=== PATIENT | female | born 1980 | race Caucasian/White ===

== ENCOUNTER → 2018-05-09 | Outpatient (CLI) | payer OTHER ==
--- NOTE | 2018-05-09 12:12 | XR ---
Lumbar spine HISTORY: Back pain, pain in right hip 3 views of the lumbar spine No comparisons There is loss of disc height greatest at L4-5 with associated vacuum phenomenon, spondylosis. Lumbar vertebral bodies show preserved height and alignment, bone mineralization. IMPRESSION: Degenerative disc disease, lumbar MRI may be of benefit.
--- NOTE | 2018-05-09 12:24 | XR ---
Right hip HISTORY: Right hip pain, lifting injury 2 views of the right hip Bone mineralization, joint spaces and alignment are maintained IMPRESSION: No fracture or dislocation.
== END | disposition home or self-care (01) ==
LOC: RADXRMAIN 10:40
PROVIDERS: ATTEND Physician Assistant
DX: M51.36 Other intervertebral disc degeneration, lumbar region (principal); M25.551 Pain in right hip
CPT/HCPCS: 72100; 73502

== ENCOUNTER → 2018-05-24 | Outpatient (CLI) | payer OTHER ==
--- NOTE | 2018-05-24 22:40 | MR ---
EXAMINATION TYPE: MR lumbar spine wo con DATE OF EXAM: 05/24/2018 COMPARISON: Lumbar spine x-ray May 09, 2018. HISTORY: Lumbar disc degeneration per order. Chronic low back pain going into bilateral buttocks and right thigh and calf for 5 years per patient. TECHNIQUE: Multiplanar, multisequence imaging of the lumbar spine is performed without IV contrast. FINDINGS: Sagittal images of the lumbar spine show vertebral body heights and alignment to appear sat isfactory. There is disc desiccation with mild disc space narrowing and posterior disc herniation L4- L5 level seen on sagittal images otherwise the intervertebral discs demonstrate normal heights and hy dration. The conus medullaris is normal in position and signal ending at T12-L1 disc space level. Sm all hemangiomas noted at T12 vertebra on sagittal image 6. No significant spurring is seen. Axial images show T12-L1, L1-L2, L2-L3, and L3-L4 levels all to appear within normal limits. Axial images at the L4-L5 level show mild broad disc bulge mildly effacing the anterior thecal sac an d causing mild bilateral inferior neural foraminal narrowing. Axial images at the L5-S1 level shows tiny central disc protrusion. Spinal canal is preserved the krys ateral neural foramina are patent. There is a round 1.0 cm low T1 and T2 hyperintense lesion right kidney could reflect simple cyst axia l image 25. IMPRESSION: Degenerative change L4-L5 level as detailed above. No significant herniation is seen to a ccount for radiculopathy type symptoms however.
== END | disposition home or self-care (01) ==
LOC: RADMRIMAIN 18:36
PROVIDERS: ATTEND Physician Assistant
DX: M47.816 Spondylosis without myelopathy or radiculopathy, lumbar region (principal)
CPT/HCPCS: 72148

== ENCOUNTER 2020-06-02 10:13 | Inpatient (IN) | payer OTHER ==
[2020-06-02] MEDS ORDERED: HYDROmorphone 0.5 MG/0.5 ML SYRINGE IVP STA (10:26)
[2020-06-02] MEDS ORDERED: SODIUM CHLORIDE 0.9% 1,000 ML IV ONE (10:26)
[2020-06-02] MEDS ORDERED: SODIUM CHLORIDE 0.9% 500 ML 500 ML IV ONE (10:26)
[2020-06-02] MEDS: SODIUM CHLORIDE 0.9% 1,000 ML IV SCH ×2 (10:30→18:46)
--- NOTE | 2020-06-02 10:33 | ED ---
Abdominal Pain HPI - General Source: patient Mode of arrival: EMS Limitations: no limitations <Allie Mead - Last Filed: 06/02/20 13:16> <Rafa Ford - Last Filed: 06/02/20 13:27> - General Chief Complaint: Abdominal Pain Stated Complaint: Abd Pain Time Seen by Provider: 06/02/20 10:17 - History of Present Illness Initial Comments: 39-year-old female presenting today for chief complaint diffuse abdominal pain. Patient states she has mostly upper however today more diffuse abdominal pain for the past 24 hours. Patient states that increases morning she endorses nausea denies vomiting states she has on-and-off loose stools denies constipation. Patient states she started her period this morning. Denies any lower pelvic pain. Patient denies she states she had a tubal ligation. Denies fevers. Patient states she has had an episode like this in the past but no in quite some time. Patient states she could no tolerate the pain thus calling EMS to transport her into the ER. Upon arrival patient did appear uncomfortable. (Allie Mead) - Related Data Home Medications Medication Instructions Recorded Confirmed Dextroamphetamine/Amphetamine 30 mg PO QAM 09/03/16 09/03/16 [Adderall] Ibuprofen [Motrin] 200 - 400 mg PO Q4-6H PRN 09/03/16 09/03/16 Omeprazole 40 mg PO QAM 09/03/16 09/03/16 traMADol HCL [Ultram] 50 mg PO TID PRN 09/03/16 09/03/16 Allergies Allergy/AdvReac Type Severity Reaction Status Date / Time No Known Allergies Allergy Verified 06/02/20 10:17 Review of Systems ROS Other: All systems not noted in ROS Statement are negative. <Allie Mead - Last Filed: 06/02/20 13:16> ROS Other: All systems not noted in ROS Statement are negative. <Rafa Ford - Last Filed: 06/02/20 13:27> ROS Statement: Those systems with pertinent positive or pertinent negative responses have been documented in the HPI. Past Medical History Past Medical History: GERD/Reflux Additional Past Medical History / Comment(s): CURRENT: PAIN IN LEFT UPPER QUANDRANT. KIDNEY STONES. CARPAL. hiatal hernia History of Any Multi-Drug Resistant Organisms: None Reported Past Surgical History: Tubal Ligation Past Anesthesia/Blood Transfusion Reactions: No Reported Reaction Past Psychological History: ADD/ADHD, Bipolar Smoking Status: Current every day smoker Past Alcohol Use History: Occasional Past Drug Use History: Marijuana <AlyceAllie - Last Filed: 06/02/20 13:16> General Exam Limitations: no limitations <Maira Meadnoemi Cotton - Last Filed: 06/02/20 13:16> - General Exam Comments Initial Comments: General: The patient is awake and alert, appear uncomfortable. Eye: +3 mm pupils are equal, round and reactive to light, extra-ocular movements are intact. No nystagmus. There is normal conjunctiva bilaterally. No signs of icterus. Ears, nose, mouth and throat: There are moist mucous membranes and no oral lesions. Neck: The neck is supple, there is no tenderness or JVD. Cardiovascular: There is a regular rate and rhythm. No murmur, rub or gallop is appreciated. Respiratory: Lungs are clear to auscultation, respirations are non-labored, breath sounds are equal. No wheezes, stridor, rales, or rhonchi. Gastrointestinal: Soft, non-distended, diffuse poorly localized abdominal pain to palpation on physical examination appears more severe in the upper quadrants more minimal in the lower quadrants does not appear to be in the lower pelvic region or suprapubic region of the abdomen, abdomen without masses or organomeg marla noted. There is no rebound or guarding present. No CVA tenderness. Musculoskeletal: Normal ROM, no tenderness. Strength 5/5. Sensation intact. Pulses equal bilaterally 2+. Neurological: A&O x 3. CN II-XII intact rgossly, There are no obvious motor or sensory deficits. Coordination appears grossly intact. Speech is normal. Skin: Skin is warm and dry and no rashes or lesions are noted. Psychiatric: Cooperative, appropriate mood & affect, normal judgment. (Allie Mead) Course <Rafa Ford - Last Filed: 06/02/20 13:27> Vital Signs 06/02/20 06/02/20 06/02/20 10:14 12:03 13:22 Temperature 98.4 F 97.9 F 98.2 F Pulse Rate 89 101 H 102 H Respiratory 16 16 17 Rate Blood Pressure 113/85 106/65 109/67 O2 Sat by Pulse 99 99 98 Oximetry - Reevaluation(s) Reevaluation #1: 06/02/20 13:26 PA supervision: I personally evaluate this case patient does have abdominal pain and evidence of possible Crohn's disease and CAT scan. Patient will be admitted case was discussed with Dr. Null who did come to see the patient in the emergency department (Rafa Ford) Medical Decision Making - Lab Data Result diagrams: 06/02/20 10:22 06/02/20 10:22 <Allie Mead - Last Filed: 06/02/20 13:16> - Lab Data Result diagrams: 06/02/20 10:22 06/02/20 10:22 <Rafa Ford - Last Filed: 06/02/20 13:27> - Medical Decision Making Leukocytosis on labs. Patient pain improved on reevaluation after dilaudid IVP> Patient CT revealed ileitis, some free fluid in pelvis no pelvic pain no adnexal changes. Menstruation started today. Pt lips very dry on arrival. Urine specific gravity high. Patient hydrated. Patient pain persists she will be admitted for GI consult on IV steroids with concern for possible crohns disease. Patient prefers and is agreeable to admission (Allie Mead) - Lab Data Lab Results 06/02/20 06/02/20 06/02/20 Range/Units 10:22 10:22 12:00 WBC 18.3 H (3.8-10.6) k/uL RBC 4.77 (3.80-5.40) m/uL Hgb 15.9 (11.4-16.0) gm/dL Hct 47.1 H (34.0-46.0) % MCV 98.7 (80.0-100.0) fL MCH 33.3 (25.0-35.0) pg MCHC 33.7 (31.0-37.0) g/dL RDW 12.8 (11.5-15.5) % Plt Count 263 (150-450) k/uL Neutrophils % 90 % Lymphocytes % 6 % Monocytes % 2 % Eosinophils % 1 % Basophils % 0 % Neutrophils # 16.6 H (1.3-7.7) k/uL Lymphocytes # 1.1 (1.0-4.8) k/uL Monocytes # 0.4 (0-1.0) k/uL Eosinophils # 0.2 (0-0.7) k/uL Basophils # 0.0 (0-0.2) k/uL Sodium 131 L (137-145) mmol/L Potassium 4.3 (3.5-5.1) mmol/L Chloride 97 L (98-107) mmol/L Carbon Dioxide 23 (22-30) mmol/L Anion Gap 11 mmol/L BUN 16 (7-17) mg/dL Creatinine 0.68 (0.52-1.04) mg/dL Est GFR (CKD-EPI)AfAm >90 (>60 ml/min/1.73 sqM) Est GFR (CKD-EPI)NonAf >90 (>60 ml/min/1.73 sqM) Glucose 128 H (74-99) mg/dL Calcium 9.3 (8.4-10.2) mg/dL Total Bilirubin 1.6 H (0.2-1.3) mg/dL AST 18 (14-36) U/L ALT 12 (4-34) U/L Alkaline Phosphatase 75 (38-126) U/L Total Protein 6.7 (6.3-8.2) g/dL Albumin 3.9 (3.5-5.0) g/dL Amylase <30 L (30-110) U/L Lipase 23 (23-300) U/L Urine Color Yellow Urine Appearance Clear (Clear) Urine pH 6.0 (5.0-8.0) Ur Specific [place] >1.050 H (1.001-1.035) Urine Protein 1+ H (Negative) Urine Glucose (UA) Negative (Negative) Urine Ketones 1+ H (Negative) Urine Blood Large H (Negative) Urine Nitrite Negative (Negative) Urine Bilirubin Negative (Negative) Urine Urobilinogen <2.0 (<2.0) mg/dL Ur Leukocyte Esterase Negative (Negative) Urine RBC 12 H (0-5) /hpf Urine WBC 2 (0-5) /hpf Ur Squamous Epith Cells 6 H (0-4) /hpf Urine Bacteria Rare H (None) /hpf Urine Mucus Rare H (None) /hpf Urine HCG, Qual (Not Detectd) 06/02/20 Range/Units 12:00 WBC (3.8-10.6) k/uL RBC (3.80-5.40) m/uL Hgb (11.4-16.0) gm/dL Hct (34.0-46.0) % MCV (80.0-100.0) fL MCH (25.0-35.0) pg MCHC (31.0-37.0) g/dL RDW (11.5-15.5) % Plt Count (150-450) k/uL Neutrophils % % Lymphocytes % % Monocytes % % Eosinophils % % Basophils % % Neutrophils # (1.3-7.7) k/uL Lymphocytes # (1.0-4.8) k/uL Monocytes # (0-1.0) k/uL Eosinophils # (0-0.7) k/uL Basophils # (0-0.2) k/uL Sodium (137-145) mmol/L Potassium (3.5-5.1) mmol/L Chloride (98-107) mmol/L Carbon Dioxide (22-30) mmol/L Anion Gap mmol/L BUN (7-17) mg/dL Creatinine (0.52-1.04) mg/dL Est GFR (CKD-EPI)AfAm (>60 ml/min/1.73 sqM) Est GFR (CKD-EPI)NonAf (>60 ml/min/1.73 sqM) Glucose (74-99) mg/dL Calcium (8.4-10.2) mg/dL Total Bilirubin (0.2-1.3) mg/dL AST (14-36) U/L ALT (4-34) U/L Alkaline Phosphatase (38-126) U/L Total Protein (6.3-8.2) g/dL Albumin (3.5-5.0) g/dL Amylase (30-110) U/L Lipase (23-300) U/L Urine Color Urine Appearance (Clear) Urine pH (5.0-8.0) Ur Specific [place]aban (1.001-1.035) Urine Protein (Negative) Urine Glucose (UA) (Negative) Urine Ketones (Negative) Urine Blood (Negative) Urine Nitrite (Negative) Urine Bilirubin (Negative) Urine Urobilinogen (<2.0) mg/dL Ur Leukocyte Esterase (Negative) Urine RBC (0-5) /hpf Urine WBC (0-5) /hpf Ur Squamous Epith Cells (0-4) /hpf Urine Bacteria (None) /hpf Urine Mucus (None) /hpf Urine HCG, Qual Not Detected (Not Detectd) Disposition Is patient prescribed a controlled substance at d/c from ED?: No Time of Disposition: 13:12 Decision to Admit Reason: Admit from EC Decision Date: 06/02/20 Decision Time: 13:12 <Allie Mead - Last Filed: 06/02/20 13:16> <Rafa Ford - Last Filed: 06/02/20 13:27> Clinical Impression: Ileitis, Abdominal pain, Dehydration Disposition: ADMITTED IP TO THIS HOSP Condition: Stable Referrals: Zeferino Coffey MD [Primary Care Provider] - 1-2 days
[2020-06-02 10:34] LABS: Basophils % (A) 0 %; Eosinophils # (A) 0.2 k/uL (0-0.7); Eosinophils % (A) 1 %; HCT 47.1 % (34.0-46.0); HGB 15.9 gm/dL (11.4-16.0); Lymphocytes # (A) 1.1 k/uL (1.0-4.8); Lymphocytes % (A) 6 %; MCH 33.3 pg (25.0-35.0); MCHC 33.7 g/dL (31.0-37.0); MCV 98.7 fL (80.0-100.0); Mean Platelet Volume 8.7; Monocytes # (A) 0.4 k/uL (0-1.0); Monocytes % (A) 2 %; Neutrophils # (A) 16.6 k/uL (1.3-7.7); Neutrophils % (A) 90 %; Platelet Count 263 k/uL (150-450); RBC 4.77 m/uL (3.80-5.40); RDW 12.8 % (11.5-15.5); WBC 18.3 k/uL (3.8-10.6)
[2020-06-02 10:42] LABS: ALT 12 U/L (4-34); AST 18 U/L (14-36); African American GFR (CKD) >90 (>60 ml/min/1.73 sqM); Albumin 3.9 g/dL (3.5-5.0); Alkaline Phosphatase 75 U/L (38-126); Amylase <30 U/L (30-110); Anion Gap 11 mmol/L; Blood Urea Nitrogen 16 mg/dL (7-17); Calcium 9.3 mg/dL (8.4-10.2); Carbon Dioxide 23 mmol/L (22-30); Chloride 97 mmol/L (98-107); Glucose 128 mg/dL (74-99); Non-African American GFR(CKD) >90 (>60 ml/min/1.73 sqM); Potassium 4.3 mmol/L (3.5-5.1); Sodium 131 mmol/L (137-145); Total Bilirubin 1.6 mg/dL (0.2-1.3); Total Protein 6.7 g/dL (6.3-8.2)
--- NOTE | 2020-06-02 11:31 | CT ---
EXAMINATION TYPE: CT abdomen pelvis w con DATE OF EXAM: 06/02/2020 COMPARISON: 02/27/2009 INDICATION: Abdominal pain, acute, nonlocalized DLP: 476 mGycm, Automated exposure control for dose reduction was used. CONTRAST: 100 ml mL of Isovue 300. Study performed without Oral Contrast TECHNIQUE: Axial images were obtained from above the diaphragm to the pubic rami in the axial plane a t 5 mm thick sections. Reconstructed images are reviewed on the computer in the coronal plane. FINDINGS: Limited CT sections are obtained the lung bases. The lung bases are clear. CT ABDOMEN: Liver: Tiny hepatic cysts present Spleen: Normal Pancreas: Normal Adrenal glands: 1.2 cm hypodensity is within the superior left adrenal gland likely is an angiomyolip jonelle. Right adrenal gland is normal. Gallbladder: Normal Kidneys: No masses are evident. No hydronephrosis is present. Small cortical renal cysts within the right kidney. There may be a cortical renal cyst within the upper left kidney .Delayed images were o btained through the kidneys are demonstrating the right renal cortical cyst Aorta: Vascular calcification is within the aorta. Inferior vena cava: Normal. CT PELVIS: There are thickened loops of bowel within the lower pelvis. Correlate for ileitis. Crohn's disease co uld be considered. Studies without oral contrast limiting bowel evaluation. Appendix: Normal as visualized. Urinary bladder: Normal Genitourinary structures: Uterus is normal. Adnexal regions are clear. There is free fluid within the pelvis. Osseous structures: No suspicious lytic or sclerotic lesions. IMPRESSIONS: 1. Thickened ileal wall within the lower pelvis. Free fluid is within the pelvis. Correlate for ilei tis or Crohn's disease.
[2020-06-02] MEDS ORDERED: PIPERACILLIN-TAZOBACTAM 3.375 GM in SODIUM CHLORIDE 0.9% 100 ML IVPB STA (11:53)
[2020-06-02] MEDS ORDERED: methylPREDNISolone SOD SUCCI 125 MG/2 ML VIAL IV STA (11:54)
[2020-06-02 12:24] LABS: Appearance,Urine Clear (Clear); Bacteria,Urine Rare /hpf; Bilirubin,Urine Negative (Negative); Blood,Urine Large (Negative); Color,Urine Yellow; Glucose,Urine (UA) Negative (Negative); Ketones,Urine 1+ (Negative); Leukocyte Esterase,Urine Negative (Negative); Mucus,Urine Rare /hpf; Nitrite,Urine Negative (Negative); Protein,Urine 1+ (Negative); RBC,Urine 12 /hpf (0-5); Squamous Epithelial Cell,Urine 6 /hpf (0-4); Urobilinogen,Urine <2.0 mg/dL (<2.0); WBC,Urine 2 /hpf (0-5)
[2020-06-02 12:46] LABS: Specific Gravity,Urine >1.050 (1.001-1.035)
--- NOTE | 2020-06-02 13:01 | US ---
EXAMINATION TYPE: US abdomen limited DATE OF EXAM: 06/02/2020 COMPARISON: NONE CLINICAL HISTORY: RUQ. EXAM MEASUREMENTS: Liver Length: 18.1 cm Gallbladder Wall: 0.2 cm CBD: 0.2 cm Right Kidney: 11.2 x 4.2 x 6.1 cm Pancreas: partially obscured by bowel gas, portions visualized wnl Liver: Hepatomegaly. Hyperechoic oval structure anterior to portal vein measuring 0.8 x 0.9 x 0.7cm t his may be a small hemangioma. Gallbladder: wnl Evidence for sonographic Villalta's sign: no CBD: wnl Right Kidney: superior echogenic foci, probable stone measuring 0.6 x 0.3 x 0.5cm IMPRESSION: 1. Suspected small hemangioma within the liver. This could be evaluated with MRI or monitor for stabi lity with ultrasound. 2. Superior pole right renal stone without obstruction.
[2020-06-02] MEDS ORDERED: NALOXONE 0.4 MG/ML 1 ML VIAL IV PRN (13:12)
[2020-06-02] MEDS ORDERED: AZITHROMYCIN 500 MG TAB PO STA (13:13)
[2020-06-02] MEDS ORDERED: cefTRIAXone 250 MG VIAL IM STA (13:13)
[2020-06-02] MEDS ORDERED: MORPHINE SULFATE 2 MG/ML SYRINGE IVP STA (14:08)
[2020-06-02] MEDS ORDERED: ALPRAZolam 0.25 MG TAB PO PRN (14:13)
[2020-06-02] MEDS ORDERED: TEMAZEPAM 15 MG CAP PO PRN (14:13)
[2020-06-02] MEDS: HEPARIN SODIUM,PORCINE 5,000 UNIT/ML 1 ML VIAL SQ SCH ×2 (15:11→21:09)
[2020-06-02] MEDS: PANTOPRAZOLE 40 MG/10 ML VIAL IVP SCH (15:11)
[2020-06-02] MEDS: HYDROmorphone 0.5 MG/0.5 ML SYRINGE IVP PRN (15:12)
[2020-06-02] MEDS: LEVOFLOXACIN 500MG-D5W PMX 500 MG in DEXTROSE/WATER 1 100ML.BAG IVPB SCH (15:18)
--- NOTE | 2020-06-02 15:25 | HP ---
HISTORY AND PHYSICAL DATE OF SERVICE: 06/02/2020 CHIEF COMPLAINT: Abdominal pain. HISTORY OF PRESENT ILLNESS: This 39-year-old woman with a past history of nephrolithiasis, history of carpal tunnel syndrome, hiatal hernia, history of ADD, ADHD, history of bipolar, history of nicotine dependence, being followed by Dr. Zeferino Coffey in the outpatient setting, was complaining of severe abdominal for the last several days. The pain was situated from the epigastrium to umbilicus. Patient also has nausea. There is no diarrhea. Currently, the patient does have on and off loose stools and because of multiple symptomatology, patient came to [facility] for evaluation and treatment. The patient's mother had history of lupus and collagen vascular disorder disorders also. The CT scan of the abdomen and pelvis was done in the ER which showed thickened ileal wall within the lower pelvis suggestive of ileitis or Crohn disease. There is no history of fever, rigors. No headache, loss of consciousness, seizures. PAST MEDICAL HISTORY: History of GERD, history of ADD, ADHD, bipolar. MEDICATIONS: 1. Ultram 50 mg t.i.d. p.r.n. 2. Omeprazole 40 mg p.r.n. 3. Motrin q.6h p.r.n. 4. Adderall 30 mg q.a.m. ALLERGIES: None. FAMILY HISTORY: No history of heart disease or strokes in the family. SOCIAL HISTORY: Occasional alcohol intake, smoking. The patient took up smoking again for the last few weeks according to her. History of THC. REVIEW OF SYSTEMS: ENT: No diminished vision. No diminished hearing. CARDIOVASCULAR: No angina or palpitations. RESPIRATORY: No cough. No hemoptysis. GI: As mentioned earlier. no dysuria. NERVOUS SYSTEM: No numbness or weakness. ALLERGY/IMMUNOLOGY: No asthma or hayfever. MUSCULOSKELETAL as mentioned earlier. HEMATOLOGY/ONCOLOGY: No history of anemia. MUSCULOSKELETAL: As mentioned earlier. ENDOCRINE: No history of diabetes or hypothyroidism. CONSTITUTIONAL: As mentioned earlier. DERMATOLOGY Negative. RHEUMATOLOGY: Negative. PSYCHIATRIC: As mentioned earlier. PHYSICAL EXAMINATION: Alert and oriented times three. Pulse 102. Blood pressure 109/69, respirations 17, temperature 98.2, pulse ox 98% on room air. HEENT: Conjunctivae normal. Oral mucosa moist. NECK is no jugular venous distention. No carotid bruit. No lymph node enlargement. CARDIOVASCULAR: S1, S2 muffled. RESPIRATION: Breath sounds diminished in the bases. No rhonchi. No crackles. ABDOMEN: Soft. Mild diffuse tenderness present. No guarding. No rigidity. No mass palpable. LEGS no edema. No swelling. NERVOUS SYSTEM: Higher functions as mentioned earlier. Moves all four extremities. No focal motor or sensory deficits. LYMPHATICS: No lymph nodes palpable in the neck, axillae or groin. SKIN: No ulcer, rash, bleeding. JOINTS: No active deforming arthropathy. LABS: WBC 10.3, sodium 131, glucose 128, bilirubin is 1.6. UA shows 1+ ketones and mostly RBCs. ASSESSMENT: 1. Abdominal pain with possible terminal ileitis, rule out Crohn's disease or enteritis. 2. Hyponatremia. 3. Increased WBC. 4. Increased random blood sugar. 5. History of attention-deficit disorder/attention-deficit/hyperactivity disorder/bipolar. 6. History of nicotine dependence. 7. History of THC. 8. History of gastroesophageal reflux disease. RECOMMENDATIONS AND DISCUSSION: This 39-year-old woman who presented with multiple complex medical issues, we will monitor the patient closely. Continue the current medications, management and symptomatic treatment. Otherwise, at this time, I recommend empiric antibiotics and Gastroenterology consultation for possible endoscopies and biopsies. Covid-19 has been requested. Prognosis guarded because of multiple complex medical issues. Home medications were will be restarted once they are confirmed. Otherwise, we will follow the patient closely. A copy of this dictation being forwarded to Dr. Zeferino Coffey who is the primary care physician. MMODL / IJN: [id number] /
[2020-06-02] MEDS: metroNIDAZOLE-NS PMX 500 MG in SALINE 1 100ML.BAG IVPB SCH ×2 (17:15→23:04)
[2020-06-02] MEDS: ACETAMINOPHEN TAB 325 MG TAB PO PRN (21:09)
[2020-06-02] MEDS: HYDROcodone/APAP 5-325MG 1 EACH TAB PO PRN (21:42)
[2020-06-03] MEDS: SODIUM CHLORIDE 0.9% 1,000 ML IV SCH ×3 (01:50→14:16)
[2020-06-03] MEDS: HYDROmorphone 0.5 MG/0.5 ML SYRINGE IVP PRN ×3 (03:54→16:30)
[2020-06-03 06:43] LABS: Basophils % (A) 0 %; Eosinophils % (A) 0 %; HCT 37.5 % (34.0-46.0); Lymphocytes # (A) 0.4 k/uL (1.0-4.8); Lymphocytes % (A) 3 %; MCH 33.1 pg (25.0-35.0); MCHC 32.7 g/dL (31.0-37.0); MCV 101.3 fL (80.0-100.0); Mean Platelet Volume 8.9; Monocytes # (A) 0.3 k/uL (0-1.0); Monocytes % (A) 3 %; Neutrophils # (A) 10.2 k/uL (1.3-7.7); Neutrophils % (A) 93 %; Platelet Count 202 k/uL (150-450); RBC 3.71 m/uL (3.80-5.40)
[2020-06-03 06:52] LABS: African American GFR (CKD) >90 (>60 ml/min/1.73 sqM); Anion Gap 7 mmol/L; Blood Urea Nitrogen 12 mg/dL (7-17); Carbon Dioxide 22 mmol/L (22-30); Chloride 103 mmol/L (98-107); Glucose 144 mg/dL (74-99); Non-African American GFR(CKD) >90 (>60 ml/min/1.73 sqM); Potassium 3.8 mmol/L (3.5-5.1); Sodium 132 mmol/L (137-145)
[2020-06-03 06:55] LABS: HGB 12.3 gm/dL (11.4-16.0)
[2020-06-03] MEDS: PANTOPRAZOLE 40 MG/10 ML VIAL IVP SCH (07:43)
[2020-06-03] MEDS: HEPARIN SODIUM,PORCINE 5,000 UNIT/ML 1 ML VIAL SQ SCH ×2 (07:43→19:49)
[2020-06-03] MEDS: NICOTINE 14MG/24HR PATCH TRANSDERM SCH (07:44)
[2020-06-03] MEDS: metroNIDAZOLE-NS PMX 500 MG in SALINE 1 100ML.BAG IVPB SCH ×2 (07:44→15:23)
[2020-06-03] MEDS: HYDROcodone/APAP 5-325MG 1 EACH TAB PO PRN ×2 (07:46→19:47)
[2020-06-03 09:08] LABS: Erythrocyte Sedimentation Rate 25 mm/hr (0-20)
[2020-06-03] MEDS: LEVOFLOXACIN 500MG-D5W PMX 500 MG in DEXTROSE/WATER 1 100ML.BAG IVPB SCH (14:16)
--- NOTE | 2020-06-03 15:32 | PN ---
PROGRESS NOTE DATE OF SERVICE: 06/03/2020 This is a 39-year-old woman who was admitted with abdominal pain had possibly terminal ileitis and Crohn disease, GI evaluation and progress. No chest pain. No palpitations. Empiric antibiotics. The patient is still complaining of abdominal pain and distention. No fever no cough. PHYSICAL EXAMINATION: Alert and oriented x3. Pulse 76, blood pressure 96/60, respiration 14, temperature 98 degrees, pulse ox 100% on room. HEENT: Conjunctivae normal. NECK: No jugular venous distension. CARDIOVASCULAR SYSTEM: S1, S2, muffled. RESPIRATORY: Breath sounds diminished at the bases, no rhonchi, no crackles. ABDOMEN: Soft, mild diffuse distention. Mild diffuse tenderness present. No guarding. No rigidity. No mass palpable. EXTREMITIES: Legs are no edema. No swelling. LABS: WBC 11, hemoglobin 12.3, MCV 101. His sodium is 132. UA noted. ASSESSMENT: 1. Abdominal pain with possible terminal ileitis, rule out Crohn's disease, enteritis. 2. Hyponatremia. 3. Increased WBC. 4. Increased random blood sugar. 5. History of ADD, ADHD. 6. History of nicotine dependence. 7. History of THC. 8. History of gastroesophageal reflux disease. RECOMMENDATION: Recommend to continue current medications, current management and treatment. Otherwise, at this time, I would recommend empiric antibiotics. Closely follow with Gastroenterology, possible endoscopies and biopsies. Guarded prognosis. Further recommendation to follow. MMODL / IJN: [id number] /
[2020-06-03] MEDS: ACETAMINOPHEN TAB 325 MG TAB PO PRN (19:48)
--- NOTE | 2020-06-03 23:28 | CONS ---
CONSULTATION DATE OF DICTATION: June 03, 2020 REASON FOR CONSULTATION: Severe abdominal pain, nausea, vomiting. HISTORY OF PRESENT ILLNESS: The patient is a 39-year-old pleasant white female who came to the emergency room complaining of severe abdominal pain that started about 5 days ago. The pain is mostly in the epigastric area radiating to the lower abdominal area associated with several episodes of nausea and vomiting. She denies any diarrhea. In fact, she felt somewhat constipated. She came to the emergency room. Subsequently had a CT of the abdomen and pelvis done in the ER that showed thickening of the small bowel, especially in the ileum suggestive of ileitis. Patient presently started on broad-spectrum antibiotics for infectious etiology. She feels 50% better today. Abdominal pain is persistent. Nausea, vomiting has resolved. On a clear liquid diet, tolerating well. Had one soft bowel movement this morning. No rectal bleeding. She also states that she had low- grade fever at the time of admission to the hospital. She never had these symptoms in the past. No family history of inflammatory bowel disease. PAST MEDICAL HISTORY: Gastroesophageal reflux disease, attention deficit disorder, history of bipolar disorder, anxiety. MEDICATIONS: Medications at home include Adderall, Motrin, omeprazole, Ultram. SOCIAL HISTORY: Occasionally drinks alcohol. Smoking on and off. FAMILY HISTORY: Unremarkable. ALLERGIES: None. REVIEW OF SYSTEMS: CARDIOPULMONARY: She denies any chest pain. No shortness of breath. GENITOURINARY: No dysuria or hematuria. MUSCULOSKELETAL: Unremarkable. SKIN: Unremarkable. ENDOCRINE: Unremarkable. PSYCHIATRIC: Unremarkable except for severe anxiety as she is going through a divorce. NEUROLOGY: Unremarkable. ENT/VISION: Unremarkable. CONSTITUTIONAL: Weight loss of 12 pounds. No fever, chills, night sweats. PHYSICAL EXAMINATION: She appears comfortable. No apparent distress. VITAL SIGNS: Stable. Blood pressure is 93/54, pulse rate 79, temperature 98.6. HEENT EXAMINATION: Unremarkable. Conjunctivae pink. Sclerae anicteric. Oral cavity, no lesions. NECK: No JVD or lymph node enlargement. CHEST: Clear to auscultation. HEART: Regular rate and rhythm. ABDOMEN: Soft. It was nondistended, but there was diffuse tenderness throughout the abdomen, more in the epigastric and right upper quadrant area. Rest of the abdomen was also tender. No rebound or rigidity. Bowel sounds are positive. EXTREMITIES: No pedal edema. NEURO: She is alert and oriented x3. No focal deficits. LABS: WBC 18.3, hemoglobin 15, platelets normal. Basic metabolic panel showed a BUN and creatinine that are within normal limits. AST and ALT are normal. T-bilirubin 1.6. Alkaline phosphatase is normal. CRP is 299. Amylase and lipase are normal. Urinalysis showed large amount of blood. CT of the abdomen showed thickening of small bowel loops in the ileum suggestive of acute ileitis versus Crohn's disease. IMPRESSION: 1. This is a patient who presented to the hospital with acute onset of diffuse abdominal pain mostly in the epigastric area radiating to the lower abdominal area associated with nausea, vomiting and some altered bowel movements, mostly constipation for the last 5 days. CAT scan of the abdomen showed thickening of the distal ileal loops suspicious for ileitis. No family history of inflammatory bowel disease. The patient never had these symptoms in the past, likely dealing with infectious etiology at the present time, patient already started on broad-spectrum antibiotics and she is feeling 50% better. Cannot rule out inflammatory bowel disease. 2. Leukocytosis, resolving. 3. Elevated CRP. 4. History of anxiety and depression. RECOMMENDATION: 1. Continue with broad-spectrum antibiotics. 2. Start her on clear liquid diet and advance as tolerated. 3. If her symptoms continue to improve, we will continue with conservative approach. However, if she has persistent symptoms, will consider EGD and colonoscopy. The plan was discussed with the patient. She is agreeable to it. Thank you for this consultation. LIEN / EDENILSONN: [id number] /
[2020-06-04] MEDS: metroNIDAZOLE-NS PMX 500 MG in SALINE 1 100ML.BAG IVPB SCH ×3 (00:12→15:32)
[2020-06-04] MEDS: SODIUM CHLORIDE 0.9% 1,000 ML IV SCH ×3 (00:13→15:32)
[2020-06-04] MEDS: HYDROmorphone 0.5 MG/0.5 ML SYRINGE IVP PRN ×6 (00:28→23:59)
[2020-06-04 06:02] LABS: Basophils % (A) 0 %; Eosinophils % (A) 0 %; HCT 36.1 % (34.0-46.0); HGB 11.9 gm/dL (11.4-16.0); Lymphocytes # (A) 0.4 k/uL (1.0-4.8); Lymphocytes % (A) 4 %; MCH 33.4 pg (25.0-35.0); MCHC 33.1 g/dL (31.0-37.0); MCV 100.9 fL (80.0-100.0); Monocytes # (A) 0.3 k/uL (0-1.0); Monocytes % (A) 3 %; Neutrophils # (A) 10.6 k/uL (1.3-7.7); Neutrophils % (A) 92 %; Platelet Count 211 k/uL (150-450); RBC 3.58 m/uL (3.80-5.40); RDW 13.1 % (11.5-15.5); WBC 11.5 k/uL (3.8-10.6)
[2020-06-04 06:10] LABS: African American GFR (CKD) >90 (>60 ml/min/1.73 sqM); Anion Gap 4 mmol/L; Blood Urea Nitrogen 11 mg/dL (7-17); Calcium 7.5 mg/dL (8.4-10.2); Carbon Dioxide 26 mmol/L (22-30); Chloride 103 mmol/L (98-107); Glucose 98 mg/dL (74-99); Non-African American GFR(CKD) >90 (>60 ml/min/1.73 sqM); Potassium 3.9 mmol/L (3.5-5.1); Sodium 133 mmol/L (137-145)
[2020-06-04] MEDS: NICOTINE 14MG/24HR PATCH TRANSDERM SCH (07:32)
[2020-06-04] MEDS: HYDROcodone/APAP 5-325MG 1 EACH TAB PO PRN ×3 (07:36→19:53)
[2020-06-04] MEDS: HEPARIN SODIUM,PORCINE 5,000 UNIT/ML 1 ML VIAL SQ SCH ×2 (07:36→23:57)
[2020-06-04] MEDS: PANTOPRAZOLE 40 MG/10 ML VIAL IVP SCH (07:36)
--- NOTE | 2020-06-04 14:14 | PN ---
PROGRESS NOTE DATE OF SERVICE: 06/04/2020 This is a 39-year-old woman who was admitted with abdominal pain, had features of terminal ileum. Patient still has abdominal pain and distention. Gastroenterology has seen the patient, planning the scopes, endoscopy, EGD, colonoscopy and possibly a biopsy also. No chest pain. No palpitations. No fever. PHYSICAL EXAMINATION: Alert and oriented x3. Pulse 84, blood pressure 92/60, respiration 18, temperature 98.2, pulse ox 99% on room air. HEENT: Conjunctivae normal. NECK: No jugular venous distension. CARDIOVASCULAR SYSTEM: S1, S2, muffled. RESPIRATORY: Breath sounds diminished at the bases, no rhonchi. ABDOMEN: Soft. Mild diffuse distention. No mass palpable. LEGS: No edema. No swelling. NERVOUS SYSTEM: No focal deficits. LABS: WBC is 7.2, hemoglobin 10.9, sodium 133 and C-reactive protein is 245. ASSESSMENT: 1. Abdominal pain with possible terminal ileitis, rule out Crohn's disease, enteritis. 2. Hyponatremia. 3. Increased WBC. 4. Increased random blood sugar. 5. History of attention deficit disorder, attention deficit hyperactivity disorder. 6. History of nicotine dependence. 7. History of THC. 8. History of GERD. RECOMMENDATION: Recommend to continue current medications, continue management and symptomatic treatment. Otherwise, at this time I recommend endoscopes. Empiric antibiotics. Closely follow with Gastroenterology. Guarded prognosis. Further recommendations to follow. MMODL / IJN: [id number] /
[2020-06-04] MEDS: LEVOFLOXACIN 500MG-D5W PMX 500 MG in DEXTROSE/WATER 1 100ML.BAG IVPB SCH (14:17)
[2020-06-04] MEDS ORDERED: PEG 3350-NA SULF,BICARB,CL/KCL 4,000 ML BOTTLE PO ONE (17:00)
[2020-06-04] MEDS: ONDANSETRON 4 MG/2 ML VIAL IVP PRN (19:52)
[2020-06-05] MEDS: metroNIDAZOLE-NS PMX 500 MG in SALINE 1 100ML.BAG IVPB SCH ×3 (00:20→14:10)
[2020-06-05] MEDS: SODIUM CHLORIDE 0.9% 1,000 ML IV SCH ×3 (02:59→14:14)
[2020-06-05] MEDS: HYDROmorphone 0.5 MG/0.5 ML SYRINGE IVP PRN ×2 (05:41→09:35)
[2020-06-05 06:10] LABS: Basophils % (A) 0 %; Eosinophils # (A) 0.1 k/uL (0-0.7); Eosinophils % (A) 1 %; HCT 38.3 % (34.0-46.0); HGB 12.5 gm/dL (11.4-16.0); Lymphocytes # (A) 0.6 k/uL (1.0-4.8); Lymphocytes % (A) 4 %; MCH 32.8 pg (25.0-35.0); MCHC 32.6 g/dL (31.0-37.0); MCV 100.5 fL (80.0-100.0); Monocytes # (A) 0.7 k/uL (0-1.0); Monocytes % (A) 4 %; Neutrophils # (A) 14.4 k/uL (1.3-7.7); Neutrophils % (A) 91 %; Platelet Count 276 k/uL (150-450); RBC 3.81 m/uL (3.80-5.40); RDW 13.1 % (11.5-15.5); WBC 15.9 k/uL (3.8-10.6)
[2020-06-05 06:20] LABS: African American GFR (CKD) >90 (>60 ml/min/1.73 sqM); Anion Gap 4 mmol/L; Blood Urea Nitrogen 7 mg/dL (7-17); Calcium 7.6 mg/dL (8.4-10.2); Carbon Dioxide 26 mmol/L (22-30); Chloride 101 mmol/L (98-107); Glucose 86 mg/dL (74-99); Non-African American GFR(CKD) >90 (>60 ml/min/1.73 sqM); Potassium 3.3 mmol/L (3.5-5.1); Sodium 131 mmol/L (137-145)
[2020-06-05 06:32] LABS: C Reactive Protein 269.5 mg/L (<10.0)
[2020-06-05] MEDS: NICOTINE 14MG/24HR PATCH TRANSDERM SCH (07:07)
[2020-06-05] MEDS: HEPARIN SODIUM,PORCINE 5,000 UNIT/ML 1 ML VIAL SQ SCH ×2 (07:07→21:56)
[2020-06-05] MEDS: PANTOPRAZOLE 40 MG/10 ML VIAL IVP SCH (07:17)
[2020-06-05 09:19] LABS: Erythrocyte Sedimentation Rate 48 mm/hr (0-20)
--- NOTE | 2020-06-05 10:26 | P.CONS ---
History of Present Illness - Reason for Consult Consult date: 06/04/20 Ileitis Requesting physician: Deandra Null - Chief Complaint vomiting x few days - History of Present Illness Patient is a 39-year-old female presented to [facility] on 06/02/2020 for evaluation of diffuse abdominal pain and vomiting patient says has been vomiting multiple times and able to keep anything down the patient denied any significant abdominal pain to me though she did complain it to the ER physician on arrival and denies any diarrhea the patient said he did not have any bowel movement since she has been admitted to hospital on arrival to the hospital patient was afebrile, the patient did have white count of 18.3 there is down to 11.5 as of this morning, patient did not have any cultures done patient did have a CT of abdominal pelvis which did shows thickened ileal wall within the lower pelvis free fluid is within the pelvis correlate for ileitis or Crohn's disease patient has been treated with Levaquin and Flagyl infectious was consulted for further management of antibiotic therapy patient has been evaluated by GI services and they are planning for possible colonoscopy tomorrow. Review of Systems Positive point has been mentioned HPI rest of the systems negative Past Medical History Past Medical History: GERD/Reflux Additional Past Medical History / Comment(s): CURRENT: PAIN IN LEFT UPPER QUANDRANT. KIDNEY STONES. CARPAL. hiatal hernia History of Any Multi-Drug Resistant Organisms: None Reported Past Surgical History: Tubal Ligation Past Anesthesia/Blood Transfusion Reactions: No Reported Reaction Past Psychological History: ADD/ADHD, Bipolar Smoking Status: Current every day smoker Past Alcohol Use History: Occasional Past Drug Use History: Marijuana - Past Family History Mother Family Medical History: Renal Disease Additional Family Medical History / Comment(s): lupas ra Father Family Medical History: No Reported History Medications and Allergies Home Medications Medication Instructions Recorded Confirmed Type Bismuth Subsalicylate 524 mg PO Q3H PRN 06/02/20 06/02/20 History [Pepto-Bismol] Calcium Carbonate [Tums] 500 mg PO TID PRN 06/02/20 06/02/20 History Ibuprofen [Motrin Ib] 200 mg PO Q8H PRN 06/02/20 06/02/20 History Simethicone [Gas-X] 62.5 mg PO QID PRN 06/02/20 06/02/20 History Allergies Allergy/AdvReac Type Severity Reaction Status Date / Time No Known Allergies Allergy Verified 06/02/20 14:28 Physical Exam Vitals: Vital Signs Temp Pulse Resp BP Pulse Ox 06/04/20 14:20 98.6 F 93 16 101/67 100 06/04/20 07:40 99 F 86 14 98/63 98 06/04/20 03:00 98.9 F 84 18 92/65 99 06/03/20 21:00 99.4 F 91 16 105/67 94 L Intake and Output 06/03/20 06/04/20 06/04/20 22:59 06:59 14:59 Intake Total 1360 1290 Balance 1360 1290 Intake: Intake, IV Titration 1040 1040 Amount Sodium Chloride 0.9% 1, 1040 1040 000 ml @ 130 mls/hr IV . Q7H42M [facility] Rx#:[id number] Oral 320 250 Other: Voiding Method Toilet Toilet Toilet # Voids 2 1 1 GENERAL DESCRIPTION: Middle-aged female lying in bed, no distress. No tachypnea or accessory muscle of respiration use. HEENT: Shows Pallor , no scleral icterus. Oral mucous membrane is dry. No pharyngeal erythema or thrush NECK: Trachea central, no thyromegaly. LUNGS: Unlabored breathing. Clear to auscultation anteriorly. No wheeze or crackle. HEART: S1, S2, regular rate and rhythm. No loud murmur ABDOMEN: Soft, tenderness , patient refused abdominal exam eXTREMITIES: No edema of feet. SKIN: No rash, no masses palpable. NEUROLOGICAL: The patient is awake, alert, oriented x3, mood and affect normal Results CBC & Chem 7: 06/05/20 05:37 06/05/20 05:37 Labs: Abnormal Lab Results - Last 24 Hours (Table) 06/04/20 06/04/20 06/04/20 Range/Units 05:42 05:42 05:42 WBC 11.5 H (3.8-10.6) k/uL RBC 3.58 L (3.80-5.40) m/uL MCV 100.9 H (80.0-100.0) fL Neutrophils # 10.6 H (1.3-7.7) k/uL Lymphocytes # 0.4 L (1.0-4.8) k/uL Sodium 133 L (137-145) mmol/L Calcium 7.5 L (8.4-10.2) mg/dL C-Reactive Protein 245.4 H (<10.0) mg/L Assessment and Plan Assessment: patient presented to hospital with intractable vomiting and abdominal pain in this patient who did have abnormal CT abdominal pelvis with evidence of ileitis with a question of infectious versus noninfectious etiology in view of the acute onset and no family history of inflammatory bowel disease could be dealing with enteric gram-negative pathogen however inflammatory bowel disease not entirely excluded (1) Ileitis Current Visit: Yes Status: Acute Code(s): K52.9 - NONINFECTIVE GASTRO ENTERITIS AND COLITIS, UNSPECIFIED SNOMED Code(s): 05434918 Plan: 1-we will obtain stool cultures 2-await colonoscopy and biopsies 3-patient to continue with Levaquin and Flagyl 4-IV fluids We will follow on clinical condition and cultures to further adjust medication if needed Thank you for this consultation will follow this patient along with you Time with Patient: Greater than 30
[2020-06-05] MEDS ORDERED: Potassium Replacement Protocol 1 EACH MISC MISCELLANE PRN (11:52)
--- NOTE | 2020-06-05 12:38 | PN ---
PROGRESS NOTE DATE OF SERVICE: 06/05/2020 REASON FOR FOLLOWUP: Ileitis. INTERVAL HISTORY: The patient is currently afebrile. She is complaining of feeling nauseated, but not throwing up though, did have some abdominal pain, more on the right side. No chest pain, shortness of breath or cough and did not have any bowel movement. PHYSICAL EXAMINATION: Blood pressure 101/63 with a pulse of 81, temperature 98.5, she is 98% on room air. General description is a middle-aged female, lying in bed in no distress. RESPIRATORY SYSTEM: Unlabored breathing, clear to auscultation anteriorly, heart S1, S2. Regular rate and rhythm. ABDOMEN: Soft, mildly distended. No guarding. No rigidity. LABS: Hemoglobin is 12.5, white count 15.9. Stool culture not obtained. DIAGNOSTIC IMPRESSION AND PLAN: Patient admitted to the hospital with abdominal pain, vomiting; however, no diarrhea with abnormality seen on the ileum with concern for ileitis, possible infectious with noninfectious etiology. The patient is covered with Levaquin and Flagyl to continue. Waiting for the colonoscopy. Continue supportive care. MMODL / IJN: [id number] /
[2020-06-05] MEDS: HYDROcodone/APAP 5-325MG 1 EACH TAB PO PRN ×2 (14:13→21:54)
[2020-06-05] MEDS: LEVOFLOXACIN 500MG-D5W PMX 500 MG in DEXTROSE/WATER 1 100ML.BAG IVPB SCH (15:13)
--- NOTE | 2020-06-05 15:13 | P.PN ---
Subjective Progress Note Date: 06/04/20 Principal diagnosis: Abdominal pain, nausea, vomiting The patient was seen came back from the shower room. When she was in bed and examined the patient had complaints of severe abdominal pain, which she states worsened through the night. She reports the pain radiates from the epigastric region down to the lower abdomen, and now radiating to the right upper quadrant and around her back. She states she still has nausea, however no vomiting. She reports passing flatus, however no bowel movement. She had had a CT of the abdomen and pelvis done which showed thickening of the small bowel, especially in the ileum suggestive of ileitis. She remains on broad-spectrum antibiotics per infectious etiology. Objective - Vital Signs Vital signs: Vital Signs Temp 99 F 06/04/20 07:40 Pulse 86 06/04/20 07:40 Resp 14 06/04/20 07:40 BP 98/63 06/04/20 07:40 Pulse Ox 98 06/04/20 07:40 Intake & Output 06/03/20 06/04/20 06/04/20 18:59 06:59 18:59 Intake Total 2650 Balance 2650 Intake: Intake, IV Titration 2080 Amount Sodium Chloride 0.9% 1, 2080 000 ml @ 130 mls/hr IV . Q7H42M [facility] Rx#:[id number] Oral 570 Other: Voiding Method Toilet Toilet Toilet # Voids 2 1 1 - Exam General appearance: The patient is alert, oriented, in no acute distress. She appears uncomfortable. HET: Head is normocephalic and atraumatic. Conjunctiva pink. Sclera anicteric. Neck: Supple without lymphadenopathy. Trachea midline. Heart: S1 S2. Regular rate and rhythm. Lungs: No crackles or wheezes are heard. Abdomen: Soft, is tenderness throughout the abdomen with very mild palpation, greater in the epigastric and right upper quadrant region, nondistended with bowel sounds. NO rigidity, however did have guarding. Extremities: Normal skin color and turgor. No edema bilaterally Neurological: Is alert and oriented 3. No focal deficits. - Labs CBC & Chem 7: 06/04/20 05:42 06/04/20 05:42 Labs: Abnormal Lab Results - Last 24 Hours (Table) 09/01/20 09/01/20 09/01/20 Range/Units 05:42 05:42 05:42 WBC 11.5 H (3.8-10.6) k/uL RBC 3.58 L (3.80-5.40) m/uL MCV 100.9 H (80.0-100.0) fL Neutrophils # 10.6 H (1.3-7.7) k/uL Lymphocytes # 0.4 L (1.0-4.8) k/uL Sodium 133 L (137-145) mmol/L Calcium 7.5 L (8.4-10.2) mg/dL C-Reactive Protein 245.4 H (<10.0) mg/L Assessment and Plan Assessment: 1. This patient presented to the hospital with acute onset of diffuse abdominal pain mostly in the epigastric area radiating to the lower abdominal area associated with nausea, vomiting, and some altered bowel movements, mostly constipation for the past 5 days CAT scan of the abdomen showed thickening of the distal ileal loops suspicious for ileitis . There is no family history of inflammatory bowel disease. The patient never had these symptoms in the past, likely dealing with infectious etiology at the present time, patient already started on broad-spectrum antibiotics. He was initially feeling better, however through the night symptoms have worsened. Cannot Rule out inflammatory bowel disease. 2. Leukocytosis, resolving 3. Elevated CRP 4. History of anxiety and depression Plan: 1. Continue with broad-spectrum antibiotics 2. Continue with her liquid diet 3. With persistent and worsening symptoms would recommend EGD and colonoscopy. The plan has been discussed with the patient she is agreeable to it. 4. Bowel prep this evening, NPO after midnight. The impression and plan of care has been dictated as directed. Dr. Anny Cano I performed a history and examination of this patient, discussed the same with the dictator. I agree with the dictator's note ,documented as a scribe. Any additional findings or plans will be noted.
--- NOTE | 2020-06-05 15:21 | P.PN ---
Subjective Progress Note Date: 06/05/20 Principal diagnosis: Abdominal pain, nausea, vomiting Patient was seen and examined lying in bed sleeping. Patient was scheduled for an EGD and colonoscopy today, however reports that she had severe abdominal pain and was medicated which made her sleepy and unable to finish her prep. The patient states her pain has continuous, sharp, diffuse, however worse in the right upper quadrant radiating to her back. She denies any fever or chills. She denies any vomiting, states she does have some mild nausea. Denies any diarrhea, states her last bowel movement was the day of admission. Today's labs include WBC of 15.9, hemoglobin 12.5, hematocrit 38.5, sed rate 48, C-reactive protein to 269.5. Objective - Vital Signs Vital signs: Vital Signs Temp 98.7 F 06/05/20 14:16 Pulse 77 06/05/20 14:16 Resp 14 06/05/20 14:16 BP 111/72 06/05/20 14:16 Pulse Ox 97 06/05/20 14:16 Intake & Output 06/04/20 06/05/20 06/05/20 18:59 06:59 18:59 Intake Total 240 Balance 240 Intake: Oral 240 Other: Voiding Method Toilet Toilet Toilet # Voids 1 1 1 - Exam General appearance: The patient is alert, oriented, in no acute distress. She appears uncomfortable. HET: Head is normocephalic and atraumatic. Conjunctiva pink. Sclera anicteric. Neck: Supple without lymphadenopathy. Trachea midline. Heart: S1 S2. Regular rate and rhythm. Lungs: No crackles or wheezes are heard. Abdomen: Soft, is tenderness throughout the abdomen with very mild palpation, greater in the epigastric and right upper quadrant region, nondistended with bowel sounds. NO rigidity, however did have guarding. Extremities: Normal skin color and turgor. No edema bilaterally Neurological: Is alert and oriented 3. No focal deficits. - Labs CBC & Chem 7: 06/05/20 05:37 06/05/20 05:37 Labs: Abnormal Lab Results - Last 24 Hours (Table) 06/05/20 06/05/20 Range/Units 05:37 05:37 WBC 15.9 H (3.8-10.6) k/uL MCV 100.5 H (80.0-100.0) fL Neutrophils # 14.4 H (1.3-7.7) k/uL Lymphocytes # 0.6 L (1.0-4.8) k/uL ESR 48 H (0-20) mm/hr Sodium 131 L (137-145) mmol/L Potassium 3.3 L (3.5-5.1) mmol/L Creatinine 0.46 L (0.52-1.04) mg/dL Calcium 7.6 L (8.4-10.2) mg/dL C-Reactive Protein 269.5 H (<10.0) mg/L Assessment and Plan Assessment: 1. This patient presented to the hospital with acute onset of diffuse abdominal pain mostly in the epigastric area radiating to the lower abdominal area associated with nausea, vomiting, and some altered bowel movements, mostly c onstipation for the past 5 days CAT scan of the abdomen showed thickening of the distal ileal loops suspicious for ileitis . There is no family history of inflammatory bowel disease. The patient never had these symptoms in the past, likely dealing with infectious etiology at the present time, patient already started on broad-spectrum antibiotics. He was initially feeling better, however through the night symptoms have worsened. Cannot Rule out inflammatory bowel disease. 2. Leukocytosis, resolving 3. Elevated CRP 4. History of anxiety and depression Plan: 1. Continue with broad-spectrum antibiotics 2. Continue with her liquid diet 3. With persistent and worsening symptoms would recommend EGD and colonoscopy, however the patient was unable to complete her bowel prep. The patient is agreeable to do her bowel prepped breath today and is scheduled for an EGD and colonoscopy tomorrow. The plan has been discussed with the patient she is agreeable to it. 4. Bowel prep this evening, NPO after midnight. The impression and plan of care has been dictated as directed. Dr. Anny Cano I performed a history and examination of this patient, discussed the same with the dictator. I agree with the dictator's note ,documented as a scribe. Any additional findings or plans will be noted.
[2020-06-05] MEDS: ONDANSETRON 4 MG/2 ML VIAL IVP PRN (23:01)
[2020-06-06] MEDS: metroNIDAZOLE-NS PMX 500 MG in SALINE 1 100ML.BAG IVPB SCH ×3 (00:42→16:11)
[2020-06-06] MEDS: SODIUM CHLORIDE 0.9% 1,000 ML IV SCH ×5 (00:44→21:28)
[2020-06-06 08:00] LABS: African American GFR (CKD) >90 (>60 ml/min/1.73 sqM); Anion Gap 5 mmol/L; Blood Urea Nitrogen 4 mg/dL (7-17); Calcium 7.5 mg/dL (8.4-10.2); Carbon Dioxide 26 mmol/L (22-30); Chloride 103 mmol/L (98-107); Glucose 91 mg/dL (74-99); Non-African American GFR(CKD) >90 (>60 ml/min/1.73 sqM); Potassium 3.2 mmol/L (3.5-5.1); Sodium 134 mmol/L (137-145)
[2020-06-06] MEDS: HEPARIN SODIUM,PORCINE 5,000 UNIT/ML 1 ML VIAL SQ SCH ×2 (08:16→21:26)
[2020-06-06] MEDS: HYDROmorphone 0.5 MG/0.5 ML SYRINGE IVP PRN (08:16)
[2020-06-06] MEDS: PANTOPRAZOLE 40 MG/10 ML VIAL IVP SCH (08:17)
[2020-06-06] MEDS: NICOTINE 14MG/24HR PATCH TRANSDERM SCH ×2 (08:19→09:43)
[2020-06-06] MEDS ORDERED: PROPOFOL 10 MG/ML 20 ML VIAL IV ONE (10:13)
[2020-06-06] MEDS ORDERED: LIDOCAINE 1% INJ 10MG/ML (20 ML MDV) ONE (10:13)
[2020-06-06] MEDS ORDERED: IV FLUID CONTINUATION 1,000 ML IV ONE (10:18)
--- NOTE | 2020-06-06 10:35 | P.PCN ---
Date of Procedure: 06/06/20 Procedure(s) Performed: Brief history: Patient is a pleasant 39-year-old white female admitted hospital with acute abdominal pain associated with nausea vomiting and altered bowel movements for the last few days duration. CT of abdomen and pelvis showed thickening of the distal ileum. She was treated with antibiotics empirically with no help. Because of clinical suspicion for inflammatory bowel disease she is scheduled for a upper endoscopy as well as colonoscopy.f Procedure performed: Esophagogastroduodenoscopy with biopsy Attempted Colonoscopy Preoperative diagnosis: Abdominal pain/nausea vomiting Abnormal CAT scan showing thickening of bowel loops. Anesthesia: MAC Procedure: After informed consent was obtained from the patient was brought into the endoscopy unit and IV sedation was administered by anesthesia under continuous monitoring. Initially upper endoscopy was done. The Olympus GF 160 video endoscope was inserted inserted into the mouth and esophagus intubated without any difficulty and was gradually advanced into the stomach and duodenum and carefully examined. The bulb and second part of the duodenum appeared normal. The scope was then withdrawn into the stomach adequately insufflated with air and upon careful examination the antrum and body, cardia and fundus appeared normal. The scope was then withdrawn into the esophagus. The GE junction was located at 40 cm to the incisors. It appeared regular with no erythema erosions or ulcerations. Rest of the esophagus appeared normal. Patient tolerated the procedure well. At this time the patient continued to remain sedation. Initial digital rectal examination was normal. Olympus CF 160 video colonoscope was then inserted into the rectum and gradually advanced to the sigmoid colon there was solid stool noted throughout, hence procedure had to be terminated. Patient tolerated the procedure well. Impression: 1. Upper endoscopy revealed mild antral gastritis and small hiatal hernia 2. Colonoscopy aborted secondary to poor prep Recommendations: Findings of this examination were discussed with the patient. We'll start her on a regular diet. Continue antibiotics. Recommended an outpatient colonoscopy as she is unable to tolerate the prep this time.
[2020-06-06] MEDS ORDERED: POTASSIUM CHLORIDE 20 MEQ in WATER FOR INJECTION 1 100ML.BAG IVPB STA (10:36)
--- NOTE | 2020-06-06 10:39 | P.PN ---
Subjective Progress Note Date: 06/05/20 Principal diagnosis: ileitis Patient is a 39-year-old female was admitted to the hospital with abdominal pain and had features of retinal ileitis. 06/05/2020 Patient is still having abdominal pain and distention. Gastroenterology is planning for colonoscopy. Patient is being prepped for now with GoLYTELY. Extend no complaints of chest pain or shortness of breath. Patient has been afebrile. No fever no chills. No headache or dizziness or lightheadedness. Patient is able to pass flatness. Current medications reviewed. Objective - Vital Signs Vital signs: Vital Signs Temp 98.7 F 06/05/20 14:16 Pulse 77 06/05/20 14:16 Resp 14 06/05/20 14:16 BP 111/72 06/05/20 14:16 Pulse Ox 97 06/05/20 14:16 Intake & Output 06/05/20 06/05/20 06/06/20 06:59 18:59 06:59 Intake Total 240 Balance 240 Intake: Oral 240 Other: Voiding Method Toilet Toilet # Voids 1 1 - Exam PHYSICAL EXAMINATION: Patient is lying in the bed comfortably, no acute distress, awake alert and oriented.. HEENT: Normocephalic. Neck is supple. Pupils reactive. Nostrils clear. Oral cavity is moist. Ears reveal no drainage. Neck reveals no JVD, carotid bruits, or thyromegaly. CHEST EXAMINATION: Trachea is central. Symmetrical expansion. Lung singer clear to auscultation and percussion. CARDIAC: Normal S1, S2 with no gallops. No murmurs ABDOMEN: Soft. Distended and bowel movements are sluggish.. No organomegaly. No abdominal bruits. Extremities: reveal no edema. No clubbing or cyanosis Neurologically awake, alert, oriented x3 with well-coordinated movements. No focal deficits noted Skin: No rash or skin lesions. Psychiatric: Coperative. Nonsuicidal. Anxious. Musculoskeletal: No joint swelling or deformity. Normal range of motion. - Labs CBC & Chem 7: 06/05/20 05:37 06/06/20 07:26 Labs: Abnormal Lab Results - Last 24 Hours (Table) 06/05/20 06/05/20 Range/Units 05:37 05:37 WBC 15.9 H (3.8-10.6) k/uL MCV 100.5 H (80.0-100.0) fL Neutrophils # 14.4 H (1.3-7.7) k/uL Lymphocytes # 0.6 L (1.0-4.8) k/uL ESR 48 H (0-20) mm/hr Sodium 131 L (137-145) mmol/L Potassium 3.3 L (3.5-5.1) mmol/L Creatinine 0.46 L (0.52-1.04) mg/dL Calcium 7.6 L (8.4-10.2) mg/dL C-Reactive Protein 269.5 H (<10.0) mg/L Assessment and Plan Assessment: Abdominal pain with possible terminal ileitis rule out Crohn's disease Hyponatremia. Likely hypovolemic Hypokalemia Leukocytosis ADD/ADHD Ongoing nicotine addiction History of THC GERD DVT prophylaxis with heparin subcu Plan: patient be continued on IV hydration and nothing by mouth. Continue with antib iotics in the form ofLevaquin and Flagyl. Gastroenterology is planning for colonoscopy. Continue with GoLYTELY. Follow-up platelets and further recommendations based on clinical course. Continue the pain management. Time with Patient: Greater than 30
[2020-06-06] MEDS: HYDROcodone/APAP 5-325MG 1 EACH TAB PO PRN ×2 (12:49→21:26)
[2020-06-06] MEDS ORDERED: bisacodyL 10 MG SUPP RECTAL ONE (15:48)
[2020-06-06] MEDS: LACTATED RINGERS 1,000 ML IV SCH (15:59)
[2020-06-06] MEDS: LEVOFLOXACIN 500MG-D5W PMX 500 MG in DEXTROSE/WATER 1 100ML.BAG IVPB SCH (17:22)
--- NOTE | 2020-06-06 18:25 | PN ---
PROGRESS NOTE DATE OF SERVICE: 06/06/2020 REASON FOR FOLLOWUP: Ileitis. INTERVAL HISTORY: The patient is currently afebrile. The patient is status post endoscopy; however, colonoscopy had to be aborted because of poor prep. The patient denies having any chest pain or shortness of breath or cough. No further vomiting. Did not have any bowel movement. PHYSICAL EXAMINATION: Blood pressure 98/70 with a pulse of 85, temperature 97.7. She is 99% on room air. General description is a middle-aged female lying in bed in no distress. RESPIRATORY SYSTEM: Unlabored breathing. Clear to auscultation anteriorly. HEART: S1, S2. Regular rate and rhythm. ABDOMEN: Soft. Mildly tender. No guarding or rigidity. LABS: BUN of 4, creatinine 0.45. DIAGNOSTIC IMPRESSION AND PLAN: Patient presented to hospital with abdominal pain and vomiting with evidence of ileitis on the CT. Unfortunately, colonoscopy could not be completed because of poor prep. The patient is covered with Levaquin and Flagyl; to continue. Will monitor clinical course closely. MMODL / IJN: [id number] /
--- NOTE | 2020-06-06 23:44 | P.PN ---
Subjective Progress Note Date: 06/06/20 Principal diagnosis: ileitis Patient is a 39-year-old female was admitted to the hospital with abdominal pain and had features of retinal ileitis. 06/05/2020 Patient is still having abdominal pain and distention. Gastroenterology is planning for colonoscopy. Patient is being prepped for now with GoLYTELY. Extend no complaints of chest pain or shortness of breath. Patient has been afebrile. No fever no chills. No headache or dizziness or lightheadedness. Patient is able to pass flatness. 06/06/2020 Patient is still complaining of abdominal pain today. Improved compared to yesterday. Underwent EGD showed mild antral gastritis and small hiatal hernia. Colonoscopy was aborted due to poor prep. Outpatient colonoscopy was recommended by GI. Patient did not have any involvement last several days.. Dulcolax suppository was ordered. Potassium 3.2 and sodium 134 today. No complaints of chest pain or shortness of breath. No fever no chills. No cough or sputum production. Anticipate discharge in next 24 hours with more symptomatic improvement. Current medications reviewed. Current medications reviewed. Objective - Vital Signs Vital signs: Vital Signs Temp 97.7 F 06/06/20 15:00 Pulse 85 06/06/20 15:00 Resp 18 06/06/20 15:00 BP 98/70 06/06/20 15:00 Pulse Ox 99 06/06/20 15:00 Intake & Output 06/06/20 06/06/20 06/07/20 06:59 18:59 06:59 Intake Total 240 340 Balance 240 340 Intake: IV 100 Oral 240 240 Other: Voiding Method Toilet # Voids 1 - Exam PHYSICAL EXAMINATION: Patient is lying in the bed comfortably, no acute distress, awake alert and oriented.. HEENT: Normocephalic. Neck is supple. Pupils reactive. Nostrils clear. Oral cavity is moist. Ears reveal no drainage. Neck reveals no JVD, carotid bruits, or thyromegaly. CHEST EXAMINATION: Trachea is central. Symmetrical expansion. Lung singer clear to auscultation and percussion. CARDIAC: Normal S1, S2 with no gallops. No murmurs ABDOMEN: Soft. Mildly distressed with tenderness mainly left lower quadrant. Bowel sounds present. No guarding no rigidity. . No organomegaly. No abdominal bruits. Extremities: reveal no edema. No clubbing or cyanosis Neurologically awake, alert, oriented x3 with well-coordinated movements. No focal deficits noted Skin: No rash or skin lesions. Psychiatric: Coperative. Nonsuicidal. Anxious. Musculoskeletal: No joint swelling or deformity. Normal range of motion. - Labs CBC & Chem 7: 06/05/20 05:37 06/06/20 07:26 Labs: Abnormal Lab Results - Last 24 Hours (Table) 06/06/20 Range/Units 07:26 Sodium 134 L (137-145) mmol/L Potassium 3.2 L (3.5-5.1) mmol/L BUN 4 L (7-17) mg/dL Creatinine 0.45 L (0.52-1.04) mg/dL Calcium 7.5 L (8.4-10.2) mg/dL Assessment and Plan Assessment: Abdominal pain with possible terminal ileitis rule out Crohn's disease.Status post EGD showed mild gastritis. Colonoscopy could not be done due to poor preparation. Hyponatremia. Likely hypovolemic Hypokalemia Leukocytosis ADD/ADHD Ongoing nicotine addiction History of THC GERD DVT prophylaxis with heparin subcu Plan: patient be continued on IV hydration and nothing by mouth. Continue with antibiotics in the form ofLevaquin and Flagyl. Gastroenterology is Following. Follow-up platelets and further recommendations based on clinical course. Continue the pain management. Time with Patient: Greater than 30
[2020-06-07] MEDS: metroNIDAZOLE-NS PMX 500 MG in SALINE 1 100ML.BAG IVPB SCH ×3 (00:31→18:06)
[2020-06-07] MEDS: HYDROmorphone 0.5 MG/0.5 ML SYRINGE IVP PRN ×4 (03:19→18:02)
[2020-06-07] MEDS: SODIUM CHLORIDE 0.9% 1,000 ML IV SCH ×2 (06:13→23:32)
[2020-06-07 06:20] LABS: Basophils # (A) 0.1 k/uL (0-0.2); Basophils % (A) 0 %; Eosinophils # (A) 0.1 k/uL (0-0.7); Eosinophils % (A) 1 %; HCT 38.9 % (34.0-46.0); HGB 12.8 gm/dL (11.4-16.0); Lymphocytes # (A) 0.7 k/uL (1.0-4.8); Lymphocytes % (A) 7 %; MCH 32.8 pg (25.0-35.0); MCV 99.3 fL (80.0-100.0); Mean Platelet Volume 7.9; Monocytes # (A) 0.5 k/uL (0-1.0); Monocytes % (A) 5 %; Neutrophils # (A) 9.2 k/uL (1.3-7.7); Neutrophils % (A) 85 %; Platelet Count 313 k/uL (150-450); RBC 3.92 m/uL (3.80-5.40); RDW 13.2 % (11.5-15.5); WBC 10.8 k/uL (3.8-10.6)
[2020-06-07] MEDS: ONDANSETRON 4 MG/2 ML VIAL IVP PRN ×2 (06:20→13:34)
[2020-06-07 06:49] LABS: African American GFR (CKD) >90 (>60 ml/min/1.73 sqM); Anion Gap 6 mmol/L; Blood Urea Nitrogen 5 mg/dL (7-17); Calcium 7.6 mg/dL (8.4-10.2); Carbon Dioxide 25 mmol/L (22-30); Chloride 102 mmol/L (98-107); Glucose 106 mg/dL (74-99); Non-African American GFR(CKD) >90 (>60 ml/min/1.73 sqM); Potassium 3.2 mmol/L (3.5-5.1); Sodium 133 mmol/L (137-145)
[2020-06-07] MEDS: PANTOPRAZOLE 40 MG/10 ML VIAL IVP SCH (08:37)
[2020-06-07] MEDS: NICOTINE 14MG/24HR PATCH TRANSDERM SCH (08:37)
[2020-06-07] MEDS: HEPARIN SODIUM,PORCINE 5,000 UNIT/ML 1 ML VIAL SQ SCH ×2 (08:37→20:04)
[2020-06-07] MEDS: HYDROcodone/APAP 5-325MG 1 EACH TAB PO PRN ×2 (13:01→20:03)
[2020-06-07] MEDS: LACTATED RINGERS 1,000 ML IV SCH (15:16)
--- NOTE | 2020-06-07 15:31 | PN ---
PROGRESS NOTE DATE OF DICTATION: 06/07/2020 Patient is a 39-year-old white female admitted to the hospital with severe abdominal pain, nausea, vomiting and altered bowel movements. She had an upper endoscopy yesterday that showed some gastritis. However, colonoscopy could not be completed because of extremely poor prep. In the meantime she continues to remain on empiric antibiotics. She is quite sleepy. She denies any complaints. She continues to have abdominal pain. PHYSICAL EXAMINATION: Vital signs are stable. Blood pressure 99/68, pulse rate 74, temperature 98. HEENT examination unremarkable. Conjunctivae pink. Sclerae anicteric. Oral cavity no lesions. NECK: No JVD or lymph node enlargement. CHEST: Clear to auscultation. HEART: Regular rate and rhythm. ABDOMEN: Mild diffuse tenderness. No rebound or rigidity. EXTREMITIES: No pedal edema. SKIN: No rashes. NEUROLOGIC: Alert and oriented x3. No focal deficits. LABS: WBC 10.8, hemoglobin 12.8, platelets normal. Basic metabolic panel is within normal limits. IMPRESSION: Diffuse abdominal pain associated with nausea, vomiting and altered bowel movements. CT of the abdomen showed evidence of ileitis. She did have an upper endoscopy yesterday that showed mild gastritis, but a colonoscopy could not be completed because of extremely poor prep in the rectum and sigmoid colon. She is on empiric antibiotics. Her leukocytosis is gradually improving. Overall she looks better. She still continues to have abdominal pain. RECOMMENDATIONS: 1. Continue empiric antibiotics. 2. Advance diet as tolerated. 3. Pain medications as needed. 4. No plans for any repeat endoscopic intervention at the present time. 5. She was advised to follow up in the office following discharge from the hospital and will consider an outpatient colonoscopy. Thank you for this consultation. MMODL / IJN: [id number] /
[2020-06-07] MEDS: LEVOFLOXACIN 500MG-D5W PMX 500 MG in DEXTROSE/WATER 1 100ML.BAG IVPB SCH (17:00)
--- NOTE | 2020-06-07 17:13 | PN ---
PROGRESS NOTE DATE OF SERVICE: 06/07/2020 REASON FOR FOLLOWUP: Ileitis and a question of infectious etiology. INTERVAL HISTORY: The patient is currently afebrile, patient is breathing comfortably. He did have 3 loose stools yesterday and today, no stool studies have been collected. Abdominal pain is currently controlled. No further nausea, no vomiting, has been tolerating clear liquid diet. PHYSICAL EXAMINATION: Blood pressure 105/68 with a pulse of 78, temperature 98.4, she is 99% on room air. General description is a middle-aged female, lying in bed in no distress. RESPIRATORY SYSTEM: Unlabored breathing, clear to auscultation anteriorly. HEART: S1, S2. Regular rate and rhythm. ABDOMEN: Soft, mildly tender, no guarding, no rigidity. LABS: Hemoglobin is 12.8, white count 10.8, BUN of 5, creatinine 0.40. DIAGNOSTIC IMPRESSION AND PLAN: Patient with ileitis with concern for possible infectious versus inflammatory bowel disease. Unfortunately, colonoscopy could not be done because of poor prep. The patient is currently on Levaquin and Flagyl to continue liquid stool studies once again. Continue supportive care. MMODL / IJN: [id number] /
[2020-06-08] MEDS: metroNIDAZOLE-NS PMX 500 MG in SALINE 1 100ML.BAG IVPB SCH ×3 (00:02→15:45)
[2020-06-08] MEDS: ONDANSETRON 4 MG/2 ML VIAL IVP PRN (06:18)
[2020-06-08] MEDS: NICOTINE 14MG/24HR PATCH TRANSDERM SCH (08:11)
[2020-06-08] MEDS: PANTOPRAZOLE 40 MG/10 ML VIAL IVP SCH (08:11)
[2020-06-08] MEDS: HEPARIN SODIUM,PORCINE 5,000 UNIT/ML 1 ML VIAL SQ SCH (08:12)
[2020-06-08] MEDS: HYDROmorphone 0.5 MG/0.5 ML SYRINGE IVP PRN ×4 (08:20→16:08)
[2020-06-08 08:23] VITALS: RESP 16; TEMP 98.1
--- NOTE | 2020-06-08 09:33 | P.PN ---
Subjective Progress Note Date: 06/07/20 Principal diagnosis: Ileitis; possibly infectious versus inflammatory bowel disease 39-year-old female patient admitted with abdominal pain and diagnosed with ileitis with concern for possible infectious versus inflammatory bowel disease; patient remains on IV antibiotics in form of Levaquin and Flagyl; patient had EGD done which revealed mild gastritis and hiatal hernia; colonoscopy could not be done because of poor prep; GI is on board and recommending colonoscopy as an outpatient 06/07/2020 Patient is seen and evaluated in room at bedside; reports persistent abdominal pain and liquid stools Vital signs remained stable with a temperature of 98.4, pulse 78 and blood pressure of 105/68; lab review shows a white blood count of 10.8 which has daija nded down from 15.9 yesterday; potassium of 3.2; B UN/creatinine remains stable Patient will be supplemented for low potassium per electrolyte replacement protocol; IDs following patient and recommending to continue with Levaquin and Flagyl with liquid stool studies; GI is recommending to advance diet advanced tolerated along with pain control; no plans for repeat endoscopic intervention as inpatient; patient will require colonoscopy as an outpatient Objective - Vital Signs Vital signs: Vital Signs Temp 98.1 F 06/07/20 03:00 Pulse 81 06/07/20 03:00 Resp 18 06/07/20 03:00 BP 105/70 06/07/20 03:00 Pulse Ox 99 06/07/20 03:00 Intake & Output 06/06/20 06/07/20 06/07/20 18:59 06:59 18:59 Intake Total 340 1600 Balance 340 1600 Intake: IV 100 Intake, IV Titration 600 Amount Potassium Chloride 20 meq 600 In Water For Injection 1 100ml.bag @ 50 mls/hr IVPB ONCE STA Rx#: [id number] Oral 240 1000 Other: Voiding Method Toilet # Voids 1 - Exam Patient is lying in the bed comfortably, no acute distress, awake alert and oriented.. HEENT: Normocephalic. Neck is supple. Pupils reactive. Nostrils clear. Oral cavity is moist. Ears reveal no drainage. Neck reveals no JVD, carotid bruits, or thyromegaly. CHEST EXAMINATION: Trachea is central. Symmetrical expansion. Lung singer clear to auscultation and percussion. CARDIAC: Normal S1, S2 with no gallops. No murmurs ABDOMEN: Soft. Mildly distressed with tenderness mainly left lower quadrant. Bowel sounds present. No guarding no rigidity. . No organomegaly. No abdominal bruits. Extremities: reveal no edema. No clubbing or cyanosis Neurologically awake, alert, oriented x3 with well-coordinated movements. No focal deficits noted Skin: No rash or skin lesions. Psychiatric: Coperative. Nonsuicidal. Anxious. Musculoskeletal: No joint swelling or deformity. Normal range of motion. - Labs CBC & Chem 7: 06/07/20 05:55 06/07/20 05:55 Labs: Abnormal Lab Results - Last 24 Hours (Table) 06/07/20 06/07/20 Range/Units 05:55 05:55 WBC 10.8 H (3.8-10.6) k/uL Neutrophils # 9.2 H (1.3-7.7) k/uL Lymphocytes # 0.7 L (1.0-4.8) k/uL Sodium 133 L (137-145) mmol/L Potassium 3.2 L (3.5-5.1) mmol/L BUN 5 L (7-17) mg/dL Creatinine 0.40 L (0.52-1.04) mg/dL Glucose 106 H (74-99) mg/dL Calcium 7.6 L (8.4-10.2) mg/dL Assessment and Plan Assessment: Abdominal pain with possible terminal ileitis rule out Crohn's disease.Status post EGD showed mild gastritis. Colonoscopy could not be done due to poor preparation. Hyponatremia. Likely hypovolemic Hypokalemia Leukocytosis ADD/ADHD Ongoing nicotine addiction History of THC GERD DVT prophylaxis with heparin subcu Plan: Patient will remain on IV antibiotics in form of Flagyl and Levaquin; stool s tudies to be repeated per ID recommendations; GI recommending to advance diet as tolerated and pain control; plan for repeat attempt at colonoscopy as an outpatient.
[2020-06-08] MEDS: SODIUM CHLORIDE 0.9% 1,000 ML IV SCH (10:04)
[2020-06-08 10:19] LABS: Basophils % (A) 0 %; Eosinophils # (A) 0.1 k/uL (0-0.7); Eosinophils % (A) 1 %; HCT 42.2 % (34.0-46.0); HGB 13.5 gm/dL (11.4-16.0); Lymphocytes # (A) 0.9 k/uL (1.0-4.8); Lymphocytes % (A) 8 %; MCH 32.2 pg (25.0-35.0); MCV 100.5 fL (80.0-100.0); Mean Platelet Volume 7.5; Monocytes # (A) 0.6 k/uL (0-1.0); Monocytes % (A) 5 %; Neutrophils # (A) 9.5 k/uL (1.3-7.7); Neutrophils % (A) 84 %; Platelet Count 376 k/uL (150-450); RDW 13.2 % (11.5-15.5); WBC 11.3 k/uL (3.8-10.6)
[2020-06-08] MEDS ORDERED: NA PHOS,M-B/NA PHOS,DI-BA 133 ML ENEMA RECTAL ONE (10:26)
[2020-06-08 10:31] LABS: African American GFR (CKD) >90 (>60 ml/min/1.73 sqM); Anion Gap 7 mmol/L; Blood Urea Nitrogen 5 mg/dL (7-17); Calcium 7.8 mg/dL (8.4-10.2); Carbon Dioxide 27 mmol/L (22-30); Chloride 99 mmol/L (98-107); Glucose 96 mg/dL (74-99); Non-African American GFR(CKD) >90 (>60 ml/min/1.73 sqM); Potassium 4.2 mmol/L (3.5-5.1); Sodium 133 mmol/L (137-145)
[2020-06-08] MEDS ORDERED: polyethylene glycoL 3350 17 GM POWD.PACK PO SCH (11:00)
--- NOTE | 2020-06-08 11:52 | PN ---
PROGRESS NOTE Patient is a 39-year-old white female admitted to THE hospital with abdominal pain and presently on antibiotics for possible infectious enteritis. She continues to complain of some abdominal pain but overall she is feeling better. She has no bowel movements for the last 3 days. Complains of abdominal bloating and distention. No nausea, no vomiting. Feeling better. PHYSICAL EXAMINATION: Appears comfortable. VITAL SIGNS: Stable. Blood pressure is 112/62, pulse 75, temperature 98.1. HEENT: Examination unremarkable. Conjunctivae are pink. Sclerae anicteric. Oral cavity no lesions. NECK: No JVD or lymph node enlargement. CHEST: Clear to auscultation. HEART: Regular rate and rhythm. ABDOMEN: Slightly distended. There was mild tenderness in the left lower quadrant area. Rest of the abdomen was benign. Bowel sounds are positive. No organomegaly. EXTREMITIES: No pedal edema. NEURO: She is alert and oriented x3. No focal deficits. LABS: WBC 11.3, hemoglobin 13.5, platelets normal. Basic metabolic panel is within normal limits. IMPRESSION: Diffuse abdominal pain with nausea, vomiting, diarrhea, probably related to infectious enteritis, on empiric antibiotics and her symptoms are gradually improving. EGD showed gastritis. Colonoscopy could not be completed because of extremely poor prep. In the meantime the patient is complaining of severe constipation. RECOMMENDATIONS: 1. Continue with antibiotics. 2. Advance diet as tolerated. 3. We will give her Fleet enema x1 and MiraLAX 1 scoop or 17 g daily. 4. Since her overall condition is improving, she can be discharged home today or tomorrow with outpatient followup. Based on her symptoms, if she continues to have persistent abdominal pain, we will consider an outpatient colonoscopy to evaluate further. Thank you for this consultation. MMODL / IJN: [id number] /
[2020-06-08] MEDS: LACTATED RINGERS 1,000 ML IV SCH (12:44)
[2020-06-08 14:45] VITALS: BP 108/74; PULSE 71
--- NOTE | 2020-06-08 15:40 | PN ---
PROGRESS NOTE DATE OF SERVICE: 06/08/2020 REASON FOR FOLLOW UP: Ileitis. INTERVAL HISTORY: Patient is currently afebrile. The patient is breathing comfortably. No further nausea. No vomiting. The patient's abdominal pain has decreased in intensity. Did have a bowel movement and is slowly forming up. No chest pain, no shortness of breath or cough. PHYSICAL EXAMINATION: Blood pressure 134/65 with a pulse of 75, temperature 98.1, she is 100% room air. General description is a middle-aged female lying in bed in no distress. Respiratory system: Unlabored breathing, clear to auscultation anteriorly. Heart S1, S2. Regular rate and rhythm. Abdomen is soft, no guarding no rigidity. LABS: Hemoglobin is 13.5, white count 11.2, BUN of 5 creatinine 0.51. DIAGNOSTIC IMPRESSION AND PLAN: Patient was admitted to the hospital with acute nausea, vomiting, abdominal pain with evidence of ileitis on the CT with a question of infectious or noninfectious etiology. Patient clinically responded to the Levaquin. Plan is to continue and transition to oral on discharge for about a week and an outpatient colonoscopy. MMODL / IJN: [id number] /
[2020-06-08] MEDS: LEVOFLOXACIN 500MG-D5W PMX 500 MG in DEXTROSE/WATER 1 100ML.BAG IVPB SCH (15:44)
--- NOTE | 2020-06-11 16:45 | CDI ---
Documentation Clarification Form Date: 06/11/20 From: Bettina Londono CCS Phone: If you have a question about this query, please contact Mariann Nowak, Customer Experience Leader at [phone] between 8am and 5pm. Admit Date: 06/04/20 Discharge Date:06/08/20 Patient Name: Norma Haskins Visit Number: [id number] ATTENTION: The Clinical Documentation Specialists (CDI) and [facility] Coding Staff appreciate your assistance in clarifying documentation. Please respond to the clarification below the line at the bottom and electronically sign. The CDI & [facility] Coding staff will review the response and follow-up if needed. Please note: Queries are made part of the Legal Health Record. If you have any questions, please contact the author of this message via ITS. Dear Dr. Manzano, Abdominal pain due to ileitis is documented in the ED, H&P, PNs, Consult. PNs document: Patient was admitted to the hospital with acute nausea, vomiting, abdominal pain with evidence of ileitis on the CT with a question of infectious or noninfectious etiology. PNB 06/08 documents: Diffuse abdominal pain with nausea, vomiting, diarrhea, probably related to infectious enteritis, on empiric antibiotics and her symptoms are gradually improving. Patient history/risk factors: GERD, Gastritis, Ileitis, Hiatal hernia Clinical Indicators: Leukocytosis, Abdominal pain CT: There are thickened loops of bowel within the lower pelvis.Correlate for ileitis.Crohn's disease could be considered.Studies without oral contrast limiting bowel evaluation EGD: .Upper endoscopy revealed mild antral gastritis and small hiatal hernia Labs: WBC 18.3, 11.0, 15.9 Treatment: Protonix 40 mg IV, Zosyn 3.375 gm IVPB, Flagyl 500 mg IVPB, Levaquin 500 mg IVPB In your professional opinion, can you please further clarify the cause of the ileitis, if known? Infectious Non-infectious Other, please specify Unable to determine Infectious MTDD
== END 2020-06-08 16:23 | disposition home or self-care (01) | DRG 392 ==
LOC: EC 10:13 → 1SOBS 13:22 → OBSVTOIN 06-04 08:30 → 1SOBS 06-05 22:23
PROVIDERS: ADMIT Internal Medicine; ATTEND Internal Medicine
PROC: 0DB58ZX Excision of Esophagus, Via Natural or Artificial Opening Endoscopic, Diagnostic (ICD-10-PCS; 2020-06-06)
PROC: 0DJD8ZZ Inspection of Lower Intestinal Tract, Via Natural or Artificial Opening Endoscopic (ICD-10-PCS; 2020-06-06)
PROC: 0DB98ZX Excision of Duodenum, Via Natural or Artificial Opening Endoscopic, Diagnostic (ICD-10-PCS; principal; 2020-06-06 11:20)
PROC: 0DB78ZX Excision of Stomach, Pylorus, Via Natural or Artificial Opening Endoscopic, Diagnostic (ICD-10-PCS; 2020-06-06 11:20)
DX: A09 Infectious gastroenteritis and colitis, unspecified (principal); E87.1 Hypo-osmolality and hyponatremia; Z20.828 Contact with and (suspected) exposure to other viral communicable diseases; F31.9 Bipolar disorder, unspecified; K21.9 Gastro-esophageal reflux disease without esophagitis; K44.9 Diaphragmatic hernia without obstruction or gangrene; G56.00 Carpal tunnel syndrome, unspecified upper limb; F90.9 Attention-deficit hyperactivity disorder, unspecified type; F17.210 Nicotine dependence, cigarettes, uncomplicated; E86.0 Dehydration; K59.00 Constipation, unspecified; R79.82 Elevated C-reactive protein (CRP); K29.70 Gastritis, unspecified, without bleeding; E87.6 Hypokalemia; E86.1 Hypovolemia; F41.9 Anxiety disorder, unspecified; Z87.442 Personal history of urinary calculi
CPT/HCPCS: 36415; 43239; 45378; 74177; 76705; 80048; 80053; 81001; 81025; 82150; 83690; 85025; 85652; 86140; 88305; 96361; 96365; 96375; 99285

== ENCOUNTER 2020-06-12 08:42 | Inpatient (IN) | payer OTHER ==
[2020-06-12] MEDS ORDERED: KETOROLAC 15 MG/ML 1 ML VIAL IVP STA (08:59)
[2020-06-12] MEDS ORDERED: SODIUM CHLORIDE 0.9% 2,000 ML IV STA (08:59)
[2020-06-12] MEDS ORDERED: diphenhydrAMINE 50 MG/ML 1 ML VIAL IVP STA (08:59)
[2020-06-12] MEDS ORDERED: METOCLOPRAMIDE 5 MG/ML 2 ML VIAL IVP STA (08:59)
--- NOTE | 2020-06-12 09:41 | ED ---
Abdominal Pain HPI - General Chief Complaint: Abdominal Pain Stated Complaint: abdominal mass/revisit Time Seen by Provider: 06/12/20 08:51 Source: patient, RN notes reviewed Mode of arrival: ambulatory Limitations: no limitations - History of Present Illness Initial Comments: This a 39-year-old female presents emergency Department chief complaint severe right lower quadrant abdominal pain. Patient had recent hospitalization for concerns of Crohn's, ileitis. Patient was admitted on IV antibiotics with improvement. Patient had an EGD without showing significant abnormality. Patient was unable to complete colostomy secondary to unable to evacuate. Patient continues to have constipation she has tried enemas, suppositories, oral laxatives with no relief. Patient states that pain is increasing she states that she also has lost about 8 pounds of weight. Patient was supposed to follow-up outpatient with Dr. Mitzy GOOD for colonoscopy. Patient did not follow- up. - Related Data Home Medications Medication Instructions Recorded Confirmed Bismuth Subsalicylate 524 mg PO Q3H PRN 06/02/20 06/02/20 [Pepto-Bismol] Calcium Carbonate [Tums] 500 mg PO TID PRN 06/02/20 06/02/20 Ibuprofen [Motrin Ib] 200 mg PO Q8H PRN 06/02/20 06/02/20 Simethicone [Gas-X] 62.5 mg PO QID PRN 06/02/20 06/02/20 Previous Rx's Medication Instructions Recorded Levofloxacin [Levaquin] 500 mg PO DAILY 7 Days #3 tab 06/08/20 metroNIDAZOLE [Flagyl] 500 mg PO TID #21 tab 06/08/20 Allergies Allergy/AdvReac Type Severity Reaction Status Date / Time No Known Allergies Allergy Verified 06/02/20 14:28 Review of Systems ROS Statement: Those systems with pertinent positive or pertinent negative responses have been documented in the HPI. ROS Other: All systems not noted in ROS Statement are negative. Past Medical History Past Medical History: GERD/Reflux Additional Past Medical History / Comment(s): CURRENT: PAIN IN LEFT UPPER QUANDRANT. KIDNEY STONES. CARPAL. hiatal hernia History of Any Multi-Drug Resistant Organisms: None Reported Past Surgical History: Tubal Ligation Past Anesthesia/Blood Transfusion Reactions: No Reported Reaction Past Psychological History: ADD/ADHD, Bipolar Smoking Status: Former smoker Past Alcohol Use History: None Reported Past Drug Use History: Marijuana - Past Family History Mother Family Medical History: Renal Disease Additional Family Medical History / Comment(s): lupas ra Father Family Medical History: No Reported History General Exam Limitations: no limitations General appearance: alert, in no apparent distress Head exam: Present: atraumatic, normocephalic, normal inspection Neck exam: Present: normal inspection. Absent: tenderness, meningismus, lymphadenopathy Respiratory exam: Present: normal lung sounds bilaterally. Absent: respiratory distress, wheezes, rales, rhonchi, stridor Cardiovascular Exam: Present: regular rate, normal rhythm, normal heart sounds. Absent: systolic murmur, diastolic murmur, rubs, gallop, clicks GI/Abdominal exam: Present: soft, tenderness (Moderate right lower quadrant), normal bowel sounds. Absent: distended, guarding, rebound, rigid Back exam: Absent: CVA tenderness (R), CVA tenderness (L) Neurological exam: Present: alert, oriented X3 Skin exam: Present: warm, dry, intact, normal color. Absent: rash Course Vital Signs 06/12/20 06/12/20 06/12/20 08:46 08:49 09:49 Temperature 98.3 F Pulse Rate 100 88 Respiratory 18 20 20 Rate Blood Pressure 96/63 98/64 O2 Sat by Pulse 100 99 Oximetry 06/12/20 06/12/20 10:00 11:10 Temperature Pulse Rate 88 99 Respiratory 20 16 Rate Blood Pressure 98/64 110/68 O2 Sat by Pulse 99 99 Oximetry Medical Decision Making - Medical Decision Making CT shows evidence of possible intra-abdominal abscesses, partial bowel obstruction, inflammatory changes noted. Patient was started on antibiotics, blood culture. Patient does have leukocytosis no LAD acidosis. Patient will be admitted for IV hydration, nothing by mouth, surgery and GI evaluation - Lab Data Result diagrams: 06/12/20 09:12 06/12/20 09:12 Lab Results 06/12/20 06/12/20 06/12/20 Range/Units 09:12 09:12 09:12 WBC 18.4 H (3.8-10.6) k/uL RBC 4.73 (3.80-5.40) m/uL Hgb 15.1 (11.4-16.0) gm/dL Hct 46.7 H (34.0-46.0) % MCV 98.8 (80.0-100.0) fL MCH 32.0 (25.0-35.0) pg MCHC 32.4 (31.0-37.0) g/dL RDW 13.3 (11.5-15.5) % Plt Count 697 H (150-450) k/uL Neutrophils % 90 % Lymphocytes % 5 % Monocytes % 4 % Eosinophils % 0 % Basophils % 0 % Neutrophils # 16.5 H (1.3-7.7) k/uL Lymphocytes # 0.9 L (1.0-4.8) k/uL Monocytes # 0.8 (0-1.0) k/uL Eosinophils # 0.0 (0-0.7) k/uL Basophils # 0.0 (0-0.2) k/uL Sodium 134 L (137-145) mmol/L Potassium 5.0 (3.5-5.1) mmol/L Chloride 92 L (98-107) mmol/L Carbon Dioxide 28 (22-30) mmol/L Anion Gap 14 mmol/L BUN 16 (7-17) mg/dL Creatinine 0.58 (0.52-1.04) mg/dL Est GFR (CKD-EPI)AfAm >90 (>60 ml/min/1.73 sqM) Est GFR (CKD-EPI)NonAf >90 (>60 ml/min/1.73 sqM) Glucose 113 H (74-99) mg/dL Plasma Lactic Acid Bradley (0.7-2.0) mmol/L Calcium 9.8 (8.4-10.2) mg/dL Total Bilirubin 1.4 H (0.2-1.3) mg/dL AST 37 H (14-36) U/L ALT 13 (4-34) U/L Alkaline Phosphatase 81 (38-126) U/L C-Reactive Protein (<10.0) mg/L Total Protein 7.7 (6.3-8.2) g/dL Albumin 4.1 (3.5-5.0) g/dL Amylase 70 (30-110) U/L Lipase 231 (23-300) U/L Urine Color Yellow Urine Appearance Cloudy H (Clear) Urine pH 7.0 (5.0-8.0) Ur Specific [place] 1.024 (1.001-1.035) Urine Protein 1+ H (Negative) Urine Glucose (UA) Negative (Negative) Urine Ketones Negative (Negative) Urine Blood Moderate H (Negative) Urine Nitrite Negative (Negative) Urine Bilirubin Negative (Negative) Urine Urobilinogen <2.0 (<2.0) mg/dL Ur Leukocyte Esterase Trace H (Negative) Urine RBC 14 H (0-5) /hpf Urine WBC 10 H (0-5) /hpf Ur Squamous Epith Cells 6 H (0-4) /hpf Urine Bacteria Rare H (None) /hpf Urine Mucus Moderate H (None) /hpf Urine HCG, Qual (Not Detectd) 06/12/20 06/12/20 06/12/20 Range/Units 09:12 09:12 10:07 WBC (3.8-10.6) k/uL RBC (3.80-5.40) m/uL Hgb (11.4-16.0) gm/dL Hct (34.0-46.0) % MCV (80.0-100.0) fL MCH (25.0-35.0) pg MCHC (31.0-37.0) g/dL RDW (11.5-15.5) % Plt Count (150-450) k/uL Neutrophils % % Lymphocytes % % Monocytes % % Eosinophils % % Basophils % % Neutrophils # (1.3-7.7) k/uL Lymphocytes # (1.0-4.8) k/uL Monocytes # (0-1.0) k/uL Eosinophils # (0-0.7) k/uL Basophils # (0-0.2) k/uL Sodium (137-145) mmol/L Potassium (3.5-5.1) mmol/L Chloride (98-107) mmol/L Carbon Dioxide (22-30) mmol/L Anion Gap mmol/L BUN (7-17) mg/dL Creatinine (0.52-1.04) mg/dL Est GFR (CKD-EPI)AfAm (>60 ml/min/1.73 sqM) Est GFR (CKD-EPI)NonAf (>60 ml/min/1.73 sqM) Glucose (74-99) mg/dL Plasma Lactic Acid Bradley 1.9 (0.7-2.0) mmol/L Calcium (8.4-10.2) mg/dL Total Bilirubin (0.2-1.3) mg/dL AST (14-36) U/L ALT (4-34) U/L Alkaline Phosphatase (38-126) U/L C-Reactive Protein 51.0 H (<10.0) mg/L Total Protein (6.3-8.2) g/dL Albumin (3.5-5.0) g/dL Amylase (30-110) U/L Lipase (23-300) U/L Urine Color Urine Appearance (Clear) Urine pH (5.0-8.0) Ur Specific [place] (1.001-1.035) Urine Protein (Negative) Urine Glucose (UA) (Negative) Urine Ketones (Negative) Urine Blood (Negative) Urine Nitrite (Negative) Urine Bilirubin (Negative) Urine Urobilinogen (<2.0) mg/dL Ur Leukocyte Esterase (Negative) Urine RBC (0-5) /hpf Urine WBC (0-5) /hpf Ur Squamous Epith Cells (0-4) /hpf Urine Bacteria (None) /hpf Urine Mucus (None) /hpf Urine HCG, Qual Not Detected (Not Detectd) Disposition Clinical Impression: Abdominal pain, Intra-abdominal abscess, Partial bowel obstruction Disposition: ADMITTED IP TO THIS [facility] Condition: Serious Referrals: Zeferino Coffey MD [Primary Care Provider] - 1-2 days
[2020-06-12 09:51] LABS: Basophils % (A) 0 %; Eosinophils % (A) 0 %; HCT 46.7 % (34.0-46.0); HGB 15.1 gm/dL (11.4-16.0); Lymphocytes # (A) 0.9 k/uL (1.0-4.8); Lymphocytes % (A) 5 %; MCHC 32.4 g/dL (31.0-37.0); MCV 98.8 fL (80.0-100.0); Mean Platelet Volume 7.3; Monocytes # (A) 0.8 k/uL (0-1.0); Monocytes % (A) 4 %; Neutrophils # (A) 16.5 k/uL (1.3-7.7); Neutrophils % (A) 90 %; Platelet Count 697 k/uL (150-450); RBC 4.73 m/uL (3.80-5.40); RDW 13.3 % (11.5-15.5); WBC 18.4 k/uL (3.8-10.6)
[2020-06-12 09:53] LABS: ALT 13 U/L (4-34); African American GFR (CKD) >90 (>60 ml/min/1.73 sqM); Albumin 4.1 g/dL (3.5-5.0); Amylase 70 U/L (30-110); Anion Gap 14 mmol/L; Blood Urea Nitrogen 16 mg/dL (7-17); Calcium 9.8 mg/dL (8.4-10.2); Carbon Dioxide 28 mmol/L (22-30); Chloride 92 mmol/L (98-107); Glucose 113 mg/dL (74-99); Non-African American GFR(CKD) >90 (>60 ml/min/1.73 sqM); Sodium 134 mmol/L (137-145); Total Bilirubin 1.4 mg/dL (0.2-1.3); Total Protein 7.7 g/dL (6.3-8.2)
[2020-06-12 09:56] LABS: AST 37 U/L (14-36); Alkaline Phosphatase 81 U/L (38-126)
[2020-06-12 10:01] LABS: Appearance,Urine Cloudy (Clear); Bacteria,Urine Rare /hpf; Bilirubin,Urine Negative (Negative); Blood,Urine Moderate (Negative); Color,Urine Yellow; Glucose,Urine (UA) Negative (Negative); Ketones,Urine Negative (Negative); Leukocyte Esterase,Urine Trace (Negative); Mucus,Urine Moderate /hpf; Nitrite,Urine Negative (Negative); Protein,Urine 1+ (Negative); RBC,Urine 14 /hpf (0-5); Specific Gravity,Urine 1.024 (1.001-1.035); Squamous Epithelial Cell,Urine 6 /hpf (0-4); Urobilinogen,Urine <2.0 mg/dL (<2.0); WBC,Urine 10 /hpf (0-5)
--- NOTE | 2020-06-12 10:22 | XR ---
EXAMINATION TYPE: XR KUB DATE OF EXAM: 06/12/2020 COMPARISON: NONE HISTORY: Pain TECHNIQUE: One view abdominal series FINDINGS: The osseous structures are intact. The bowel gas pattern is nonspecific. A prominent small bowel loo ps are seen with air-fluid levels. Hypertrophic and degenerative change of the lower lumbar spine. IMPRESSION: 1. Nonspecific abdomen. Correlate for ileus or enteritis partial obstruction not excluded.
--- NOTE | 2020-06-12 10:59 | CT ---
EXAMINATION TYPE: CT abdomen pelvis w con DATE OF EXAM: 06/12/2020 COMPARISON: 06/02/2020 HISTORY: increasing RLQ pain since prior exam CT DLP: 541.6 mGycm Automated exposure control for dose reduction was used. CONTRAST: CT scan of the abdomen pelvis is performed with IV Contrast, patient injected with 100 mL of Isovue 3 00. FINDINGS- LUNG BASES- No significant abnormality is appreciated. LIVER/GB-correlate for hepatomegaly. Liver measures 21 cm. No gallstones.. PANCREAS- No gross abnormality is seen. SPLEEN-spleen measures 13 cm at the upper limits of normal. ADRENALS-probable 1.2 cm left adrenal adenoma is stable. KIDNEYS/BLADDER-hypodensities within the kidneys are too small to characterize but likely related to cyst. No hydronephrosis. BOWEL-there is marked dilation of the small bowel with air-fluid levels and a fluid-filled bowel loop s. There is bowel wall thickening.. Appendix is not seen with certainty on today's exam and the exam is nondiagnostic for appendicitis. LYMPH NODES- No greater than 1cm abdominal or pelvic lymph nodes areappreciated. OSSEOUS STRUCTURES-degenerative disc disease L4-L5. OTHER- uterus appears be enlarged and heterogeneous. Findings are suspicious for an endometrial poly p and probable additional uterine fibroid. There is a 6.7 cm fluid-filled structure in the upper pelv is. Difficult to determine if this is a localized dilated bowel loop although an abscess is not exclu ded. Along the inferior margin of the liver there is a small fluid collection which could represent a small abscess measuring 1.2 x 1 cm. There also is a small low attenuation fluid collection anterior to the kidney measuring 1.2 cm on axial image 14 which could related be related to the adrenal gland and adrenal adenoma and is stable. IMPRESSION- 1. Thickened small bowel wall loops with marked distention. There is a caliber change within the lowe r pelvis. This could be in the basis of the ileus or enteritis including inflammatory bowel disease. A partial obstruction is in the differential diagnosis. Large 6.7 cm fluid collection within the ante rior pelvis. Abscesses in the differential diagnosis. 2. Additional subhepatic fluid collection is retrospectively stable from the prior exam measuring 1.2 x 1 cm could represent an additional small abscess cavity. 3. Heterogeneous uterus with distended endometrium suspected uterine fibroid measuring 1 cm. However, there is suspicion for an endometrial polyp or polypoid mass and pelvic ultrasound is recommended. 4. Nonvisualization of the appendix. Exam none diagnostic for appendicitis.
[2020-06-12] MEDS ORDERED: HYDROmorphone 0.5 MG/0.5 ML SYRINGE IVP STA (11:06)
[2020-06-12] MEDS ORDERED: PIPERACILLIN-TAZOBACTAM 3.375 GM in SODIUM CHLORIDE 0.9% 100 ML IVPB STA (11:06)
[2020-06-12] MEDS ORDERED: NALOXONE 0.4 MG/ML 1 ML VIAL IV PRN (11:27)
[2020-06-12] MEDS: ONDANSETRON 4 MG/2 ML VIAL IVP PRN ×2 (11:36→19:51)
--- NOTE | 2020-06-12 13:46 | P.GSCN ---
History of Present Illness Consult date: 06/12/20 History of present illness: CHIEF COMPLAINT: Right lower quadrant abdominal pain HISTORY OF PRESENT ILLNESS: This is a 39-year-old female with a known history of hiatal hernia, GERD, kidney stones, ADHD and bipolar. She presents to the emergency room with complaint of severe right lower quadrant abdominal pain. The pain was very sharp. She had some vomiting. She has not been having bowel movements. Her last colonoscopy was last week but was not completed fully due to poor prep. She is being evaluated for possible Crohn's. Patient had recent hospitalization of Crohn's and ileitis. Patient had EGD on 06/06/2020 which showed mild antral gastritis and small hiatal hernia with Dr. Cano. She's been doing with constipation with no improvement after enemas, suppositories or oral laxatives. Patient denies any fever, chills or sweats. We have been placed on consult for intra-abdominal abscess that was noted on CAT scan. PAST MEDICAL HISTORY: See list. PAST SURGICAL HISTORY: See list. MEDICATIONS: See list. ALLERGIES: See list. SOCIAL HISTORY: No illicit drug use. REVIEW OF SYSTEMS: CONSTITUTIONAL: Denies fever or chills. HEENT: Denies blurred vision, vision changes, or eye pain. Denies hemoptysis CARDIOVASCULAR: Denies chest pain or pressure. RESPIRATORY: No shortness of breath. GASTROINTESTINAL: See HPI for pertinent findings HEMATOLOGIC: Denies bleeding disorders. GENITOURINARY: Denies any blood in urine or increased urinary frequency. SKIN: Denies pruitis. Denies rash. PHYSICAL EXAM: VITAL SIGNS: Reviewed GENERAL: Well-developed in no acute distress. HEENT: No sclera icterus. Extraocular movements grossly intact. Moist buccal mucosa. Head is atraumatic, normocephalic. No nasal drainage. ABDOMEN: Soft. Nondistended tender with palpation NEUROLOGIC: Alert and oriented. Cranial nerves II through XII grossly intact. LABORATORY DATA: WBC 18.4 hemoglobin 15.1 platelets 697 sodium 134 total bili 1.4 AST 37 CRP 51 lipase 231 IMAGING: Computed tomography scan abdomen and pelvis shows thickened small bowel wall loops with marked distention. There is caliber change within the lower pelvis. This could be on the basis of ileus or enteritis including inflammatory bowel disease. It partial obstruction is in the differential diagnosis. Large 6.7 cm fluid collection within the anterior pelvis. Abscesses in the differential. Additional subhepatic fluid collection is retrospect was stable from prior exam measuring 1.2 x 1 cm could represent additional small abscess cavity. Heterogenous uterus with distended endometrium suspected uterine fibroid measuring 1 cm ASSESSMENT: 1. Intra-abdominal abscess 2. Ileus versus small bowel obstruction 3. Possible enteritis 4. Possible Crohn's history patient had unable to complete colonoscopy last week due to poor bowel prep PLAN: -Consult interventional radiology for possible drainage of abscess. We will send fluid for culture -Continue IV Zosyn -Continue IV fluids -Keep patient nothing by mouth -Okay for ice chips Thank you for this consultation. Physician Self Pay Collector note has been reviewed by physician. Signing provider agrees with the documented findings, assessment, and plan of care. Past Medical History Past Medical History: GERD/Reflux Additional Past Medical History / Comment(s): CURRENT: PAIN IN LEFT UPPER QUANDRANT. KIDNEY STONES. CARPAL. hiatal hernia History of Any Multi-Drug Resistant Organisms: None Reported Past Surgical History: Tubal Ligation Past Anesthesia/Blood Transfusion Reactions: No Reported Reaction Past Psychological History: ADD/ADHD, Bipolar Smoking Status: Former smoker Past Alcohol Use History: None Reported Additional Past Alcohol Use History / Comment(s): SMOKED FOR 20YRS, LESS THAN HALF PPD. Past Drug Use History: Marijuana - Past Family History Mother Family Medical History: Renal Disease Additional Family Medical History / Comment(s): kolbyas ra Father Family Medical History: No Reported History Medications and Allergies Home Medications Medication Instructions Recorded Confirmed Type Bismuth Subsalicylate 524 mg PO Q3H PRN 06/02/20 06/12/20 History [Pepto-Bismol] Calcium Carbonate [Tums] 500 mg PO TID PRN 06/02/20 06/12/20 History Ibuprofen [Motrin Ib] 200 mg PO Q8H PRN 06/02/20 06/12/20 History metroNIDAZOLE [Flagyl] 500 mg PO TID #21 tab 06/08/20 06/12/20 Rx Allergies Allergy/AdvReac Type Severity Reaction Status Date / Time No Known Allergies Allergy Verified 06/12/20 11:56 Surgical - Exam Vital Signs Temp Pulse Resp BP Pulse Ox 98.3 F 100 18 96/63 100 06/12/20 08:46 06/12/20 08:46 06/12/20 08:46 06/12/20 08:46 06/12/20 08:46 Results - Labs 06/12/20 09:12 06/12/20 09:12 Abnormal Lab Results - Last 24 Hours (Table) 06/12/20 06/12/20 06/12/20 Range/Units 09:12 09:12 09:12 WBC 18.4 H (3.8-10.6) k/uL Hct 46.7 H (34.0-46.0) % Plt Count 697 H (150-450) k/uL Neutrophils # 16.5 H (1.3-7.7) k/uL Lymphocytes # 0.9 L (1.0-4.8) k/uL Sodium 134 L (137-145) mmol/L Chloride 92 L (98-107) mmol/L Glucose 113 H (74-99) mg/dL Total Bilirubin 1.4 H (0.2-1.3) mg/dL AST 37 H (14-36) U/L C-Reactive Protein (<10.0) mg/L Urine Appearance Cloudy H (Clear) Urine Protein 1+ H (Negative) Urine Blood Moderate H (Negative) Ur Leukocyte Esterase Trace H (Negative) Urine RBC 14 H (0-5) /hpf Urine WBC 10 H (0-5) /hpf Ur Squamous Epith Cells 6 H (0-4) /hpf Urine Bacteria Rare H (None) /hpf Urine Mucus Moderate H (None) /hpf 06/12/20 Range/Units 10:07 WBC (3.8-10.6) k/uL Hct (34.0-46.0) % Plt Count (150-450) k/uL Neutrophils # (1.3-7.7) k/uL Lymphocytes # (1.0-4.8) k/uL Sodium (137-145) mmol/L Chloride (98-107) mmol/L Glucose (74-99) mg/dL Total Bilirubin (0.2-1.3) mg/dL AST (14-36) U/L C-Reactive Protein 51.0 H (<10.0) mg/L Urine Appearance (Clear) Urine Protein (Negative) Urine Blood (Negative) Ur Leukocyte Esterase (Negative) Urine RBC (0-5) /hpf Urine WBC (0-5) /hpf Ur Squamous Epith Cells (0-4) /hpf Urine Bacteria (None) /hpf Urine Mucus (None) /hpf Diabetes panel 06/12/20 Range/Units 09:12 Sodium 134 L (137-145) mmol/L Potassium 5.0 (3.5-5.1) mmol/L Chloride 92 L (98-107) mmol/L Carbon Dioxide 28 (22-30) mmol/L BUN 16 (7-17) mg/dL Creatinine 0.58 (0.52-1.04) mg/dL Glucose 113 H (74-99) mg/dL Calcium 9.8 (8.4-10.2) mg/dL AST 37 H (14-36) U/L ALT 13 (4-34) U/L Alkaline Phosphatase 81 (38-126) U/L Total Protein 7.7 (6.3-8.2) g/dL Albumin 4.1 (3.5-5.0) g/dL Calcium panel 06/12/20 Range/Units 09:12 Calcium 9.8 (8.4-10.2) mg/dL Albumin 4.1 (3.5-5.0) g/dL Pituitary panel 06/12/20 Range/Units 09:12 Sodium 134 L (137-145) mmol/L Potassium 5.0 (3.5-5.1) mmol/L Chloride 92 L (98-107) mmol/L Carbon Dioxide 28 (22-30) mmol/L BUN 16 (7-17) mg/dL Creatinine 0.58 (0.52-1.04) mg/dL Glucose 113 H (74-99) mg/dL Calcium 9.8 (8.4-10.2) mg/dL Adrenal panel 06/12/20 Range/Units 09:12 Sodium 134 L (137-145) mmol/L Potassium 5.0 (3.5-5.1) mmol/L Chloride 92 L (98-107) mmol/L Carbon Dioxide 28 (22-30) mmol/L BUN 16 (7-17) mg/dL Creatinine 0.58 (0.52-1.04) mg/dL Glucose 113 H (74-99) mg/dL Calcium 9.8 (8.4-10.2) mg/dL Total Bilirubin 1.4 H (0.2-1.3) mg/dL AST 37 H (14-36) U/L ALT 13 (4-34) U/L Alkaline Phosphatase 81 (38-126) U/L Total Protein 7.7 (6.3-8.2) g/dL Albumin 4.1 (3.5-5.0) g/dL
[2020-06-12 14:33] VITALS: BMI 18.7
[2020-06-12] MEDS: HYDROmorphone 0.5 MG/0.5 ML SYRINGE IVP PRN ×4 (15:06→22:07)
--- NOTE | 2020-06-12 15:33 | P.PN ---
Progress Note - Text Progress Note Date: 06/12/20 Patient's CAT scan was reviewed with the radiologist. The patient appears to have multiple loops of interloop fistula's creating abscess. There is also evidence of a small bowel obstruction. Patient will have a repeat CAT scan with oral contrast performed today.
[2020-06-12] MEDS: IOPAMIDOL CONTRAST (ORAL USE) VIAL PO PRN ×2 (15:59→17:30)
--- NOTE | 2020-06-12 16:56 | P.HPIM ---
History of Present Illness Patient is a 39-year-old female came in is as severe 10/stents sharp right lower quadrant abdominal pain. Patient had a computed tomography scan of the abdomen which do show a large abscess in that area along with possible fistulous interloop fistulous. General surgery was consulted Gen. surgery evaluated the patient they reviewed the computed tomography scan with radiology. Patient was recently hospitalized and at that time patient was believed to have Crohn's disease and was treated for Crohn's and had a colonoscopy with because of the poor prep biopsies were not obtained. Patient denied any fever chills does have low-grade fever here. Patient was started on Zosyn and interventional radiology was consulted by general surgery for drainage of the abscess. Patient will also undergo fistulogram. Gastric probably was consulted as well. Review of Systems REVIEW OF SYSTEMS: CONSTITUTIONAL: No fever, no malaise, no fatigue. HEENT: No recent visual problems or hearing problems. Denied any sore throat. CARDIOVASCULAR: No chest pain, orthopnea, PND, no palpitations, no syncope. PULMONARY: No shortness of breath, no cough, no hemoptysis. GASTROINTESTINAL: No diarrhea, no nausea, no vomiting, NEUROLOGICAL: No headaches, no weakness, no numbness. HEMATOLOGICAL: Denies any bleeding or petechiae. GENITOURINARY: Denies any burning micturition, frequency, or urgency. MUSCULOSKELETAL/RHEUMATOLOGICAL: Denies any joint pain, swelling, or any muscle pain. ENDOCRINE: Denies any polyuria or polydipsia. The rest of the 14-point review of systems is negative. Past Medical History Past Medical History: GERD/Reflux Additional Past Medical History / Comment(s): CURRENT: PAIN IN LEFT UPPER QUANDRANT. KIDNEY STONES. CARPAL. hiatal hernia History of Any Multi-Drug Resistant Organisms: None Reported Past Surgical History: Tubal Ligation Past Anesthesia/Blood Transfusion Reactions: No Reported Reaction Past Psychological History: ADD/ADHD, Bipolar Smoking Status: Former smoker Past Alcohol Use History: None Reported Additional Past Alcohol Use History / Comment(s): SMOKED FOR 20YRS, LESS THAN HALF PPD. Past Drug Use History: Marijuana - Past Family History Mother Family Medical History: Renal Disease Additional Family Medical History / Comment(s): lupas ra Father Family Medical History: No Reported History Medications and Allergies Home Medications Medication Instructions Recorded Confirmed Type Bismuth Subsalicylate 524 mg PO Q3H PRN 06/02/20 06/12/20 History [Pepto-Bismol] Calcium Carbonate [Tums] 500 mg PO TID PRN 06/02/20 06/12/20 History Ibuprofen [Motrin Ib] 200 mg PO Q8H PRN 06/02/20 06/12/20 History metroNIDAZOLE [Flagyl] 500 mg PO TID #21 tab 06/08/20 06/12/20 Rx Allergies Allergy/AdvReac Type Severity Reaction Status Date / Time No Known Allergies Allergy Verified 06/12/20 11:56 Physical Exam Vitals: Vital Signs Temp Pulse Pulse Resp BP BP Pulse Ox 06/12/20 13:32 99.2 F 81 17 101/66 99 06/12/20 11:10 99 16 110/68 99 06/12/20 10:00 88 20 98/64 99 06/12/20 09:49 88 20 98/64 99 06/12/20 08:49 20 06/12/20 08:46 98.3 F 100 18 96/63 100 Intake and Output 06/12/20 06/12/20 06/12/20 06:59 14:59 22:59 Intake Total 650 Balance 650 Intake: Intake, IV Titration 650 Amount Sodium Chloride 0.9% 1, 650 000 ml @ 130 mls/hr IV . Q7H42M [facility] Rx#:[id number] Other: # Voids 2 Weight 46.402 kg PHYSICAL EXAMINATION: GENERAL: The patient is alert and oriented x3, not in any acute distress. Well developed, well nourished. HEENT: Pupils are round and equally reacting to light. EOMI. No scleral icterus. No conjunctival pallor. Normocephalic, atraumatic. No pharyngeal erythema. No thyromegaly. CARDIOVASCULAR: S1 and S2 present. No murmurs, rubs, or gallops. PULMONARY: Chest is clear to auscultation, no wheezing or crackles. ABDOMEN: Soft, tender in the right lower quadrant severe tenderness no rebound or rigidity MUSCULOSKELETAL: No joint swelling or deformity. EXTREMITIES: No cyanosis, clubbing, or pedal edema. NEUROLOGICAL: Gross neurological examination did not reveal any focal deficits. SKIN: No rashes. Results CBC & Chem 7: 06/12/20 09:12 06/12/20 09:12 Labs: Abnormal Lab Results - Last 24 Hours (Table) 06/12/20 06/12/20 06/12/20 Range/Units 09:12 09:12 09:12 WBC 18.4 H (3.8-10.6) k/uL Hct 46.7 H (34.0-46.0) % Plt Count 697 H (150-450) k/uL Neutrophils # 16.5 H (1.3-7.7) k/uL Lymphocytes # 0.9 L (1.0-4.8) k/uL Sodium 134 L (137-145) mmol/L Chloride 92 L (98-107) mmol/L Glucose 113 H (74-99) mg/dL Total Bilirubin 1.4 H (0.2-1.3) mg/dL AST 37 H (14-36) U/L C-Reactive Protein (<10.0) mg/L Urine Appearance Cloudy H (Clear) Urine Protein 1+ H (Negative) Urine Blood Moderate H (Negative) Ur Leukocyte Esterase Trace H (Negative) Urine RBC 14 H (0-5) /hpf Urine WBC 10 H (0-5) /hpf Ur Squamous Epith Cells 6 H (0-4) /hpf Urine Bacteria Rare H (None) /hpf Urine Mucus Moderate H (None) /hpf 06/12/20 Range/Units 10:07 WBC (3.8-10.6) k/uL Hct (34.0-46.0) % Plt Count (150-450) k/uL Neutrophils # (1.3-7.7) k/uL Lymphocytes # (1.0-4.8) k/uL Sodium (137-145) mmol/L Chloride (98-107) mmol/L Glucose (74-99) mg/dL Total Bilirubin (0.2-1.3) mg/dL AST (14-36) U/L C-Reactive Protein 51.0 H (<10.0) mg/L Urine Appearance (Clear) Urine Protein (Negative) Urine Blood (Negative) Ur Leukocyte Esterase (Negative) Urine RBC (0-5) /hpf Urine WBC (0-5) /hpf Ur Squamous Epith Cells (0-4) /hpf Urine Bacteria (None) /hpf Urine Mucus (None) /hpf Thrombosis Risk Factor Assmnt - Choose All That Apply Any of the Below Risk Factors Present?: No Assessment and Plan Plan: -Intra-abdominal abscess in the right lower quadrant with possible fistulous from Crohn's disease: Patient will continued on Zosyn and await radiology was consulted for percutaneous drainage of abscess and dosages following the patient as well -Possible Crohn's enteritis: Gastroneurology was consulted. Patient was not diagnosed with biopsy because of her poor prep in the past -Sepsis secondary to excess for #1 -Gases visual reflux disease -Bipolar disorder
[2020-06-12] MEDS: SODIUM CHLORIDE 0.9% 1,000 ML IV SCH ×2 (20:01→23:56)
[2020-06-12] MEDS: PIPERACILLIN-TAZOBACTAM 3.375 GM in SODIUM CHLORIDE 0.9% 100 ML IVPB SCH (21:12)
--- NOTE | 2020-06-12 22:13 | CT ---
EXAMINATION TYPE: CT abdomen pelvis wo con DATE OF EXAM: 06/12/2020 COMPARISON: Today HISTORY: SBO CT DLP: 378.4 mGycm Automated exposure control for dose reduction was used. Images were obtained from the diaphragm to the floor the pelvis without IV contrast. There is oral co ntrast. Lung bases are clear. There is no pleural effusion. Heart size is normal. There is no pericardial eff usion. There is distended contrast filled stomach. There is multiple dilated small bowel loops in the mid abdomen. Small bowel measures up to 5.7 cm in diameter. Transition point is not identified. Oral contrast does not reach the proximal ileum. There is contrast in the urinary bladder from previous C T scan. There is no inguinal hernia. Uterus is anteverted. There is no free fluid in the pelvis. Ther e is small amount of fluid around the inferior right lobe of the liver and also probably in the left paracolic gutter. There is no sign of free air. I see no intramural air. There is a complex fluid col lection in the anterior upper pelvis with irregular thick wall that measures 6 x 4 cm. This could be an abscess and not changed compared to exam this morning. Lumbar vertebra have normal alignment. There is some narrowing of L4-5 disc space. There is no compre ssion fracture. Bony pelvis is intact. Hip joints are normal. There is some contrast in both kidneys from previous exam. There is no hydronephrosis. Ureters are not dilated. There is no retroperitoneal adenopathy. IMPRESSION: Markedly dilated mid and proximal small bowel consistent with high-grade mechanical small bowel obstr uction. Transition point not identified. Distal small bowel is not significantly dilated. Dilated sma ll bowel unchanged compared to exam this morning. Poorly marginated thick walled cystic fluid collect ion in the anterior upper pelvis could be abscess or markedly dilated loop of small bowel probably no t changed compared to exam this morning.
[2020-06-12] MEDS: FAMOTIDINE 20 MG TAB PO SCH (22:54)
[2020-06-13] MEDS: HYDROmorphone 0.5 MG/0.5 ML SYRINGE IVP PRN ×2 (00:27→10:21)
[2020-06-13] MEDS ORDERED: HYDROmorphone 0.5 MG/0.5 ML SYRINGE ONE (03:30)
[2020-06-13] MEDS: PIPERACILLIN-TAZOBACTAM 3.375 GM in SODIUM CHLORIDE 0.9% 100 ML IVPB SCH ×3 (05:51→20:15)
[2020-06-13] MEDS: FAMOTIDINE 20 MG TAB PO SCH ×2 (07:20→20:47)
[2020-06-13] MEDS: ENOXAPARIN 40 MG/0.4 ML SYRINGE SQ SCH (09:06)
[2020-06-13 09:38] LABS: African American GFR (CKD) >90 (>60 ml/min/1.73 sqM); Anion Gap 8 mmol/L; Blood Urea Nitrogen 13 mg/dL (7-17); Calcium 8.4 mg/dL (8.4-10.2); Carbon Dioxide 27 mmol/L (22-30); Chloride 100 mmol/L (98-107); Glucose 79 mg/dL (74-99); Non-African American GFR(CKD) >90 (>60 ml/min/1.73 sqM); Potassium 4.8 mmol/L (3.5-5.1); Sodium 135 mmol/L (137-145)
[2020-06-13 09:53] LABS: HCT 37.4 % (34.0-46.0); MCH 32.2 pg (25.0-35.0); MCHC 31.9 g/dL (31.0-37.0); MCV 100.8 fL (80.0-100.0); Mean Platelet Volume 7.5; Platelet Count 672 k/uL (150-450); RBC 3.71 m/uL (3.80-5.40); WBC 11.6 k/uL (3.8-10.6)
[2020-06-13] MEDS: ONDANSETRON 4 MG/2 ML VIAL IVP PRN (10:21)
[2020-06-13] MEDS ORDERED: SODIUM CHLORIDE 0.9% 1,000 ML IV ONE ×2 (12:19→12:20)
[2020-06-13] MEDS ORDERED: HEPARIN SODIUM,PORCINE 5,000 UNIT/ML 1 ML VIAL ONE (12:21)
[2020-06-13] MEDS ORDERED: HEPARIN SODIUM,PORCINE 5,000 UNIT/ML 1 ML VIAL SQ ONE (12:21)
--- NOTE | 2020-06-13 12:24 | P.PN ---
Progress Note - Text Progress Note Date: 06/13/20 Patient's CAT scan shows evidence of a small bowel obstruction due to complex small bowel abscess/fistula. Patient will undergo exploratory laparotomy with drainage of abscess and possible small bowel resection today
[2020-06-13] MEDS ORDERED: GLYCOPYRROLATE 0.2 MG/ML 2 ML VIAL ONE (13:05)
[2020-06-13] MEDS ORDERED: fentaNYL (PF) 50 MCG/ML 2 ML AMP ONE (13:05)
[2020-06-13] MEDS ORDERED: PROPOFOL 10 MG/ML 20 ML VIAL IV ONE (13:05)
[2020-06-13] MEDS ORDERED: ROCURONIUM BROMIDE 10 MG/ML 5 ML VIAL IV ONE (13:05)
[2020-06-13] MEDS ORDERED: LIDOCAINE 1% INJ 10MG/ML (20 ML MDV) ONE (13:05)
[2020-06-13] MEDS ORDERED: SUCCINYLCHOLINE CHLORIDE 100 MG/5 ML SYR IV ONE (13:05)
[2020-06-13] MEDS ORDERED: NEOSTIGMINE 1 MG/ML 10 ML VIAL ONE (13:05)
[2020-06-13] MEDS ORDERED: MIDAZOLAM 2 MG/2 ML VIAL ONE (13:05)
[2020-06-13] MEDS ORDERED: HYDROmorphone (PF) 1 MG/ML ONE (13:05)
[2020-06-13] MEDS ORDERED: LACTATED RINGERS 1,000 ML IV ONE (14:11)
[2020-06-13] MEDS ORDERED: HYDROmorphone 1 MG/ML 1 ML SYRINGE IVP ONE ×5 (15:09→15:37)
[2020-06-13] MEDS ORDERED: diphenhydrAMINE 50 MG/ML 1 ML VIAL IVP ONE (15:10)
--- NOTE | 2020-06-13 15:45 | P.PN ---
Subjective Progress Note Date: 06/13/20 Principal diagnosis: Patient is a 39-year-old female came in is as severe 10/10 sharp right lower quadrant abdominal pain. Patient had a computed tomography scan of the abdomen which do show a large abscess in that area along with possible fistulous interloop fistulous. General surgery was consulted Gen. surgery evaluated the patient they reviewed the computed tomography scan with radiology. Patient was recently hospitalized and at that time patient was believed to have Crohn's disease and was treated for Crohn's and had a colonoscopy with because of the poor prep biopsies were not obtained. Patient denied any fever chills does have low-grade fever here. Patient was started on Zosyn and interventional radiology was consulted by general surgery for drainage of the abscess. Patient will also undergo fistulogram. Gastric probably was consulted as well. 06/13/2020 Patient is seen and evaluated and follow-up and continues to have abdominal discomfort. Surgery is following and planning for exploratory laparotomy this afternoon as CT of the abdomen shows markedly dilated mid and proximal small bowel consistent with high-grade mechanical small bowel obstruction and a thick walled cystic fluid collection in the anterior upper pelvis but could be an abscess and given the extent patient may also undergo abscess drainage during exploratory laparotomy. Patient is maintained on IV antibiotics in the form of Zosyn and will continue at this time. Infectious disease is consulted. GI also following. White blood cell count trending down and is currently 11.6, hemoglobin is stable at 12.0 with no active bleeding noted. Sodium is 135 with a potassium of 4.8. Review of systems: Constitutional: No reports of fatigue, fever, or chills Cardiovascular: No reports of chest pain or palpitations Respiratory: No reports of shortness of breath or cough GI: Reports intermittent nausea, with no reports of vomiting, or diarrhea, reports abdominal discomfort generalized : No reports of dysuria or retention Neurovascular: No reports of weakness or numbness All medications have been reviewed Objective - Vital Signs Vital signs: Vital Signs Temp 98 F 06/13/20 12:10 Pulse 79 06/13/20 12:10 Resp 16 06/13/20 12:10 BP 115/63 06/13/20 12:10 Pulse Ox 99 06/13/20 12:10 Intake & Output 06/12/20 06/13/20 06/13/20 18:59 06:59 18:59 Intake Total 650 1100 Output Total 702 Balance 650 398 Weight 46.402 kg 46.4 kg Intake: Intake, IV Titration 650 1100 Amount Piperacillin-Tazobactam 3 100 .375 gm In Sodium Chloride 0.9% 100 ml @ 25 mls/hr IVPB Q8H [facility] Rx#: [id number] Sodium Chloride 0.9% 1, 650 1000 000 ml @ 130 mls/hr IV . Q7H42M [facility] Rx#:[id number] Output: Urine 2 Emesis 700 Other: Voiding Method Toilet Toilet Toilet # Voids 2 1 - Exam GENERAL: The patient is alert and oriented x3, not in any acute distress. Well developed, well nourished. HEENT: Pupils are round and equally reacting to light. EOMI. No scleral icterus. No conjunctival pallor. Normocephalic, atraumatic. No pharyngeal erythema. No thyromegaly. CARDIOVASCULAR: S1 and S2 present. No murmurs, rubs, or gallops. PULMONARY: Chest is clear to auscultation, no wheezing or crackles. ABDOMEN: Soft, tender in the right lower quadrant severe tenderness no rebound or rigidity MUSCULOSKELETAL: No joint swelling or deformity. EXTREMITIES: No cyanosis, clubbing, or pedal edema. NEUROLOGICAL: Gross neurological examination did not reveal any focal deficits. SKIN: No rashes. - Labs CBC & Chem 7: 06/13/20 08:32 06/13/20 08:32 Labs: Abnormal Lab Results - Last 24 Hours (Table) 06/13/20 06/13/20 Range/Units 08:32 08:32 WBC 11.6 H (3.8-10.6) k/uL RBC 3.71 L (3.80-5.40) m/uL MCV 100.8 H (80.0-100.0) fL Plt Count 672 H (150-450) k/uL Sodium 135 L (137-145) mmol/L Assessment and Plan Assessment: -Intra-abdominal abscess in the right lower quadrant with possible fistulous from Crohn's disease: Patient will continued on Zosyn and infectious disease is following. Patient will undergo exploratory laparotomy with possibility of abscess drainage with Dr. Liriaon this afternoon. -Possible Crohn's enteritis: GI consulted and pending. Patient was not diagnosed with biopsy because of her poor prep in the past -Sepsis secondary assessment #1 -Gastroesophageal reflux disease -Bipolar disorder -GI prophylaxis: Pepcid -DVT prophylaxis: Lovenox -Full code Plan: Continue current medications, management, and symptomatic treatment. Surgery following closely and planning for exploratory laparotomy with possible drainage of abscess of the abdomen today. Will await report. Will maintain on IV antibiotics and continue to monitor vital signs and labs closely. Further recommendations to follow.
[2020-06-13] MEDS: HYDROmorphone 1 MG/ML 1 ML SYRINGE IVP PRN ×2 (20:15→22:15)
[2020-06-13] MEDS: SODIUM CHLORIDE 0.9% 1,000 ML IV SCH ×2 (20:16→21:03)
--- NOTE | 2020-06-13 20:21 | P.PN ---
Subjective Progress Note Date: 06/13/20 Attempt to see the patient today, however she was undergoing exploratory laparotomy Will follow up tomorrow. Objective - Vital Signs Vital signs: Vital Signs Temp 97.4 F L 06/13/20 15:59 Pulse 85 06/13/20 15:59 Resp 14 06/13/20 15:59 BP 123/79 06/13/20 15:59 Pulse Ox 95 06/13/20 15:59 Intake & Output 06/13/20 06/13/20 06/14/20 06:59 18:59 06:59 Intake Total 1100 1100 Output Total 702 180 Balance 398 920 Weight 46.4 kg Intake: IV 1100 Intake, IV Titration 1100 Amount Piperacillin-Tazobactam 3 100 .375 gm In Sodium Chloride 0.9% 100 ml @ 25 mls/hr IVPB Q8H [facility] Rx#: [id number] Sodium Chloride 0.9% 1, 1000 000 ml @ 130 mls/hr IV . Q7H42M [facility] Rx#:[id number] Output: Urine 2 80 Emesis 700 Estimated Blood Loss 100 Other: Voiding Method Toilet Indwelling Catheter # Voids 1 - Labs CBC & Chem 7: 06/13/20 08:32 06/13/20 08:32 Labs: Abnormal Lab Results - Last 24 Hours (Table) 06/13/20 06/13/20 Range/Units 08:32 08:32 WBC 11.6 H (3.8-10.6) k/uL RBC 3.71 L (3.80-5.40) m/uL MCV 100.8 H (80.0-100.0) fL Plt Count 672 H (150-450) k/uL Sodium 135 L (137-145) mmol/L Microbiology - Last 24 Hours (Table) 06/13/20 13:00 Anaerobic Culture - Preliminary Abdominal Fluid 06/13/20 13:00 Wound Culture - Preliminary Abdomen 06/12/20 11:25 Blood Culture - Preliminary Blood No Growth after 24 hours
--- NOTE | 2020-06-13 23:32 | P.CONS ---
History of Present Illness - Reason for Consult Consult date: 06/13/20 Abdominal abscess Requesting physician: Cristhian Liriano - Chief Complaint Abdominal pain and worsening x 1 day - History of Present Illness Patient is a 39-year-old female who was recently admitted at this facility with abdominal pain and did have constipation along with vomiting CT was suggestive ileitis patient had did have an upper GI that was unremarkable co lonoscopy could not be completed as the patient didn't have any significant bowel movement and poor prep she is supposed to undergo colonoscopy in outpatient setting patient was apparently treated with Levaquin and Flagyl with overall improvement has improvement subsequent discharged home on oral Levaquin and Flagyl for another week, patient now presented back to the [facility] ER yesterday with a chief complaints of worsening lower abdominal pain the patient has been getting worse for daily for visit Hospital patient. Has been in the lower abdominal area describing to be show almost 10 out of 10 in severity with associated nausea and vomiting no diarrhea patient on presentation hospital, did have low-grade fever of 99.9 he did have white count of 18,[address] of abdominal pelvis CT shows large abscess in the pelvis with concern for multiple fistulous communication, patient was seen by surgery yesterday CT of abdominal pelvis was repeated + her condition was markedly dilated mid and proximal small bowel consistent with high-grade mechanical small bowel obstruction transition point is not identified patient has been taken to the OR this afternoon is status post laparotomy for mother all the patient she has been told that she did have multiple ischemic small wound that has to be resected and drainage of the abscess official operative report is currently pen ding she has been empirically treated with Zosyn infection he was consulted for further management of antibiotic therapy Review of Systems Positive point has been mentioned in the HPI rest of the systems are negative Past Medical History Past Medical History: GERD/Reflux Additional Past Medical History / Comment(s): CURRENT: PAIN IN LEFT UPPER QUANDRANT. KIDNEY STONES. CARPAL. hiatal hernia History of Any Multi-Drug Resistant Organisms: None Reported Past Surgical History: Tubal Ligation Past Anesthesia/Blood Transfusion Reactions: No Reported Reaction Past Psychological History: ADD/ADHD, Bipolar Smoking Status: Former smoker Past Alcohol Use History: None Reported Additional Past Alcohol Use History / Comment(s): SMOKED FOR 20YRS, LESS THAN HALF PPD. Past Drug Use History: Marijuana - Past Family History Mother Family Medical History: Renal Disease Additional Family Medical History / Comment(s): scooter ra Father Family Medical History: No Reported History Medications and Allergies Home Medications Medication Instructions Recorded Confirmed Type Bismuth Subsalicylate 524 mg PO Q3H PRN 06/02/20 06/12/20 History [Pepto-Bismol] Calcium Carbonate [Tums] 500 mg PO TID PRN 06/02/20 06/12/20 History Ibuprofen [Motrin Ib] 200 mg PO Q8H PRN 06/02/20 06/12/20 History metroNIDAZOLE [Flagyl] 500 mg PO TID #21 tab 06/08/20 06/12/20 Rx Allergies Allergy/AdvReac Type Severity Reaction Status Date / Time No Known Allergies Allergy Verified 06/12/20 11:56 Physical Exam Vitals: Vital Signs Temp Pulse Resp BP Pulse Ox 06/13/20 15:25 16 125/72 98 06/13/20 15:15 80 16 131/78 99 06/13/20 15:00 78 14 131/78 100 06/13/20 14:50 97.1 F L 81 16 110/68 100 06/13/20 12:10 98 F 79 16 115/63 99 06/13/20 07:33 16 06/13/20 07:05 97.8 F 78 16 89/55 97 06/13/20 01:02 98.5 F 77 16 108/65 96 06/13/20 00:00 17 06/12/20 19:14 17 06/12/20 19:02 99.9 F H 91 16 95/56 98 Intake and Output 06/13/20 06/13/20 06/13/20 06:59 14:59 22:59 Intake Total 1100 1100 Output Total 702 180 Balance 398 920 Intake: IV 1100 Intake, IV Titration 1100 Amount Piperacillin-Tazobactam 3 100 .375 gm In Sodium Chloride 0.9% 100 ml @ 25 mls/hr IVPB Q8H [facility] Rx#: [id number] Sodium Chloride 0.9% 1, 1000 000 ml @ 130 mls/hr IV . Q7H42M [facility] Rx#:[id number] Output: Urine 2 80 Emesis 700 Estimated Blood Loss 100 Other: Voiding Method Toilet Toilet # Voids 1 Weight 46.4 kg GENERAL DESCRIPTION: Middle-aged female lying in bed, no distress. No tachypnea or accessory muscle of respiration use. HEENT: Shows Pallor , no scleral icterus. Oral mucous membrane is dry. No pharyngeal erythema or thrush NECK: Trachea central, no thyromegaly. LUNGS: Unlabored breathing. Clear to auscultation anteriorly. No wheeze or crac kle. HEART: S1, S2, regular rate and rhythm. No loud murmur ABDOMEN: Soft, mild distention and tenderness along with guarding EXTREMITIES: No edema of feet. SKIN: No rash, no masses palpable. NEUROLOGICAL: The patient is awake, alert, oriented x3, mood and affect normal. Results CBC & Chem 7: 06/13/20 08:32 06/13/20 08:32 Labs: Abnormal Lab Results - Last 24 Hours (Table) 06/13/20 06/13/20 Range/Units 08:32 08:32 WBC 11.6 H (3.8-10.6) k/uL RBC 3.71 L (3.80-5.40) m/uL MCV 100.8 H (80.0-100.0) fL Plt Count 672 H (150-450) k/uL Sodium 135 L (137-145) mmol/L Microbiology - Last 24 Hours (Table) 06/12/20 11:25 Blood Culture - Preliminary Blood No Growth after 24 hours Assessment and Plan Assessment: 1- patient presented to hospital with sepsis in this patient did have a fever and elevated white count with significant abdominal pain and abnormal CT with concern for possible abdominal abscess and ischemic small bowel secondary to mechanical small bowel obstruction status post laparotomy, will need to cover for the enteric gram-negative pathogen to be the likely pathogen associated with her infection (1) Intra-abdominal abscess Current Visit: Yes Status: Acute Code(s): K65.1 - PERITONEAL ABSCESS SNOMED Code(s): 16539181 Plan: 1- Zosyn 3.375 g every 8 hours 2-IV fluids We will follow on clinical condition and cultures to further adjust medication if needed Thank you for this consultation will follow this patient with you Time with Patient: Greater than 30
[2020-06-14] MEDS: HYDROmorphone 1 MG/ML 1 ML SYRINGE IVP PRN ×8 (00:25→20:36)
[2020-06-14] MEDS: ONDANSETRON 4 MG/2 ML VIAL IVP PRN ×3 (00:28→17:11)
[2020-06-14] MEDS: PIPERACILLIN-TAZOBACTAM 3.375 GM in SODIUM CHLORIDE 0.9% 100 ML IVPB SCH ×3 (04:46→20:26)
[2020-06-14] MEDS: SODIUM CHLORIDE 0.9% 1,000 ML IV SCH ×4 (05:50→23:39)
[2020-06-14] MEDS: FAMOTIDINE 20 MG TAB PO SCH ×2 (07:29→23:41)
[2020-06-14] MEDS: ENOXAPARIN 40 MG/0.4 ML SYRINGE SQ SCH (07:29)
--- NOTE | 2020-06-14 09:35 | P.OP ---
Date of Procedure: 06/13/20 Preoperative Diagnosis: Intra-abdominal abscess with small bowel fistula and bowel obstruction Postoperative Diagnosis: Small obstruction Injured L abscess related to small bowel fistula tocolon Procedure(s) Performed: Exploratory laparotomy and small bowel resection Right colectomy Transverse colectomy Sigmoid colectomy Ileostomy Mucous fistula Anesthesia: CEE Surgeon: Cristhian Liriano Estimated Blood Loss (ml): 25 Pathology: other (Small bowel, right colon, transverse colon, sigmoid colon) Condition: stable Disposition: PACU Description of Procedure: The patient's placed on the operative table in the supine position. She received general anesthesia. Her abdomen was prepped and draped usual fashion. The abdomen was entered through a midline incision. The Bookwalter tract visualized. The patient obvious small bowel obstruction. The proximal bowel was quite dilated. In the mid lower abdomen appeared to be evidence of inflammatory mass which contained small bowel. Small bowel had penetrated the area of the cecum transverse colon and sigmoid colon the omentum was dissected off the area and then the inflammatory mass was visualized. The small bowel was transected proximally distally. The inflammatory mass appeared to be penetrating the area of the cecum transverse colon and sigmoid colon the terminal ileum was then transected with a GI stapler. And then the right colon was transected with a GI stapler. And using Enseal device the mesentery the bowel was divided and specimens of pathology. The transverse colon was transected proximally distally with a GI stapler and then using Enseal device the mesentery the bowel was divided. The specimens of pathology. And then the sigmoid colon was transected proximally distally with a GI stapler and then using Enseal device the specimen sent to pathology after the mesentery was divided. . And then the mesentery the bowel was divided with the Enseal device. The small bowel anastomosis then created. A [id number] functional end-to-end staple anastomosis was then created using the DEBRA and TA stapler. 3-0 GI silk suture was used as a crotch stitch. It was decided to bring out an ileostomy. This was performed in the right lower quadrant. The transverse colectomy site was then brought up as a mucous fistula both limbs the proximal and distal and brought through the same mucous fistula opening. The ileostomy was created in the right lower quadrant and a mucous position screen in the left upper quadrant. The fascia is closed loop #1 PDS suture. Skin was closed cecilia. The ileostomy and excisional matured with 3-0 Vicryl. Patient tolerated the procedure well and sent to recovery room in stable condition.
--- NOTE | 2020-06-14 11:33 | P.PN ---
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 She is postoperative day #1 status post exploratory laparotomy and small bowel resection, right colectomy, transverse colectomy, sigmoid colectomy, ileostomy and mucous fistula. Patient is reporting abdominal pain. She denies any nausea or vomiting. She is afebrile. Nothing by mouth. WBC is down from 18.4 to11.6 hemoglobin 12 patient evaluated by infectious disease. PHYSICAL EXAM: VITAL SIGNS: Reviewed. GENERAL: Well-developed in no acute distress. HEENT: No sclera icterus. Extraocular movements grossly intact. Moist buccal mucosa. Head is atraumatic, normocephalic. ABDOMEN: Soft. Nondistended. Right-sided ileostomy site clean dry and intact. upper abdomen mucous fistula site clean dry and intact NEUROLOGIC: Alert and oriented. Cranial nerves II through XII grossly intact. ASSESSMENT: 1. 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 Postop day #1 status post exploratory laparotomy and small bowel resection, right colectomy transverse colectomy sigmoid colectomy and ileostomy with mucous fistula 2. Possible Crohn's history PLAN: -Keep patient nothing by mouth except for ice chips and popsicles -Continue IV Zosyn. Antibiotics per ID -Continue IV fluids -Continue IV Dilaudid as needed for pain control -Continue DVT prophylaxis Lovenox Physician [employer] Installer note has been reviewed by physician. Signing provider agrees with the documented findings, assessment, and plan of care. Objective - Vital Signs Vital signs: Vital Signs Temp 97.6 F 06/14/20 07:00 Pulse 92 06/14/20 07:00 Resp 18 06/14/20 07:00 BP 116/75 06/14/20 07:00 Pulse Ox 97 06/14/20 07:00 Intake & Output 06/13/20 06/14/20 06/14/20 18:59 06:59 18:59 Intake Total 1100 1140 40 Output Total 180 875 Balance 920 265 40 Weight 46.4 kg Intake: IV 1100 Intake, IV Titration 1140 Amount Piperacillin-Tazobactam 3 100 .375 gm In Sodium Chloride 0.9% 100 ml @ 25 mls/hr IVPB Q8H [facility] Rx#: [id number] Sodium Chloride 0.9% 1, 1040 000 ml @ 130 mls/hr IV . Q7H42M [facility] Rx#:[id number] Oral 40 Output: Urine 80 875 Estimated Blood Loss 100 Other: Voiding Method Indwelling Catheter Indwelling Catheter Indwelling Catheter - Labs CBC & Chem 7: 06/13/20 08:32 06/13/20 08:32 Labs: Microbiology - Last 24 Hours (Table) 06/13/20 13:00 Gram Stain - Preliminary Abdomen Wound Culture - Preliminary Gram Neg Bacilli 06/13/20 13:00 Anaerobic Culture - Preliminary Abdominal Fluid 06/12/20 11:25 Blood Culture - Preliminary Blood No Growth after 24 hours
[2020-06-14 13:01] LABS: Basophils # (A) 0.1 k/uL (0-0.2); Basophils % (A) 0 %; Eosinophils % (A) 0 %; HCT 34.3 % (34.0-46.0); HGB 11.1 gm/dL (11.4-16.0); Lymphocytes # (A) 0.8 k/uL (1.0-4.8); Lymphocytes % (A) 7 %; MCH 32.2 pg (25.0-35.0); MCHC 32.3 g/dL (31.0-37.0); MCV 99.7 fL (80.0-100.0); Monocytes # (A) 0.8 k/uL (0-1.0); Monocytes % (A) 7 %; Neutrophils # (A) 10.7 k/uL (1.3-7.7); Neutrophils % (A) 85 %; Platelet Count 812 k/uL (150-450); RBC 3.44 m/uL (3.80-5.40); RDW 13.4 % (11.5-15.5); WBC 12.5 k/uL (3.8-10.6)
[2020-06-14 13:38] LABS: ALT 10 U/L (4-34); AST 33 U/L (14-36); African American GFR (CKD) >90 (>60 ml/min/1.73 sqM); Albumin 2.4 g/dL (3.5-5.0); Alkaline Phosphatase 45 U/L (38-126); Anion Gap 6 mmol/L; Blood Urea Nitrogen 9 mg/dL (7-17); Calcium 7.9 mg/dL (8.4-10.2); Carbon Dioxide 24 mmol/L (22-30); Chloride 101 mmol/L (98-107); Glucose 102 mg/dL (74-99); Non-African American GFR(CKD) >90 (>60 ml/min/1.73 sqM); Potassium 4.9 mmol/L (3.5-5.1); Sodium 131 mmol/L (137-145); Total Bilirubin 0.6 mg/dL (0.2-1.3)
[2020-06-14 13:58] LABS: C Reactive Protein 229.3 mg/L (<10.0)
[2020-06-14 15:58] LABS: Erythrocyte Sedimentation Rate 28 mm/hr (0-20)
[2020-06-14] MEDS: KETOROLAC 15 MG/ML 1 ML VIAL IVP PRN (16:00)
[2020-06-14] MEDS: SIMETHICONE 40 MG/0.6 ML DROPS 2,000 MG/30 ML BOTTLE PO SCH ×2 (16:00→20:34)
--- NOTE | 2020-06-14 16:21 | P.PN ---
Subjective Progress Note Date: 06/14/20 Principal diagnosis: Patient is a 39-year-old female came in is as severe 10/10 sharp right lower quadrant abdominal pain. Patient had a computed tomography scan of the abdomen which do show a large abscess in that area along with possible fistulous interloop fistulous. General surgery was consulted Gen. surgery evaluated the patient they reviewed the computed tomography scan with radiology. Patient was recently hospitalized and at that time patient was believed to have Crohn's disease and was treated for Crohn's and had a colonoscopy with because of the poor prep biopsies were not obtained. Patient denied any fever chills does have low-grade fever here. Patient was started on Zosyn and interventional radiology was consulted by general surgery for drainage of the abscess. Patient will also undergo fistulogram. Gastric probably was consulted as well. 06/13/2020 Patient is seen and evaluated and follow-up and continues to have abdominal discomfort. Surgery is following and planning for exploratory laparotomy this afternoon as CT of the abdomen shows markedly dilated mid and proximal small bowel consistent with high-grade mechanical small bowel obstruction and a thick walled cystic fluid collection in the anterior upper pelvis but could be an abscess and given the extent patient may also undergo abscess drainage during exploratory laparotomy. Patient is maintained on IV antibiotics in the form of Zosyn and will continue at this time. Infectious disease is consulted. GI also following. White blood cell count trending down and is currently 11.6, hemoglobin is stable at 12.0 with no active bleeding noted. Sodium is 135 with a potassium of 4.8. Review of systems: Constitutional: No reports of fatigue, fever, or chills Cardiovascular: No reports of chest pain or palpitations Respiratory: No reports of shortness of breath or cough GI: Reports intermittent nausea, with no reports of vomiting, or diarrhea, reports abdominal discomfort generalized : No reports of dysuria or retention Neurovascular: No reports of weakness or numbness All medications have been reviewed 06/14/2020 Patient is seen and evaluated and follow-up status post exploratory laparotomy and small bowel resection with a right colectomy of the transverse colectomy s igmoid colectomy and ileostomy with mucous fistula. Surgery following closely. Patient was started on clear liquids and tolerating thus far. Patient continues to request pain medication and has IV Dilaudid added and will add Toradol. Discussed with nursing staff about limiting IV narcotics. Patient instructed to increase activity as tolerated. Patient is maintained on IV antibiotics in the form of Zosyn and will continue at this time. Wound cultures preliminary showing gram-negative bacilli and will await finalization. Currently patient denies any chest pain, shortness of breath, or palpitations. Patient is afebrile. No reports of nausea or vomiting and patient tolerating ice chips and popsicles. White blood, is 12.5 with a hemoglobin of 11.1. Sodium is 131 with a potassium of 4.9 and current creatinine is 0.40. Objective - Vital Signs Vital signs: Vital Signs Temp 97.6 F 06/14/20 07:00 Pulse 92 06/14/20 07:00 Resp 18 06/14/20 07:00 BP 116/75 06/14/20 07:00 Pulse Ox 97 06/14/20 07:00 Intake & Output 06/13/20 06/14/20 06/14/20 18:59 06:59 18:59 Intake Total 1100 1140 40 Output Total 180 875 Balance 920 265 40 Weight 46.4 kg Intake: IV 1100 Intake, IV Titration 1140 Amount Piperacillin-Tazobactam 3 100 .375 gm In Sodium Chloride 0.9% 100 ml @ 25 mls/hr IVPB Q8H [facility] Rx#: [id number] Sodium Chloride 0.9% 1, 1040 000 ml @ 130 mls/hr IV . Q7H42M [facility] Rx#:[id number] Oral 40 Output: Urine 80 875 Estimated Blood Loss 100 Other: Voiding Method Indwelling Catheter Indwelling Catheter Indwelling Catheter - Exam GENERAL: The patient is alert and oriented x3, not in any acute distress. Well developed, well nourished. HEENT: Pupils are round and equally reacting to light. EOMI. No scleral icterus. No conjunctival pallor. Normocephalic, atraumatic. No pharyngeal erythema. No thyromegaly. CARDIOVASCULAR: S1 and S2 present. No murmurs, rubs, or gallops. PULMONARY: Chest is clear to auscultation, no wheezing or crackles. ABDOMEN: Soft, tenderness noted of the abdomen with surgical drain on the left and ileostomy noted on the right with no output noted at this time MUSCULOSKELETAL: No joint swelling or deformity. EXTREMITIES: No cyanosis, clubbing, or pedal edema. NEUROLOGICAL: Gross neurological examination did not reveal any focal deficits. SKIN: No rashes. - Labs CBC & Chem 7: 06/14/20 12:06 06/14/20 12:06 Labs: Abnormal Lab Results - Last 24 Hours (Table) 06/14/20 Range/Units 12:06 WBC 12.5 H (3.8-10.6) k/uL RBC 3.44 L (3.80-5.40) m/uL Hgb 11.1 L (11.4-16.0) gm/dL Plt Count 812 H (150-450) k/uL Neutrophils # 10.7 H (1.3-7.7) k/uL Lymphocytes # 0.8 L (1.0-4.8) k/uL Microbiology - Last 24 Hours (Table) 06/13/20 13:00 Gram Stain - Preliminary Abdomen Wound Culture - Preliminary Gram Neg Bacilli 06/13/20 13:00 Anaerobic Culture - Preliminary Abdominal Fluid 06/12/20 11:25 Blood Culture - Preliminary Blood No Growth after 24 hours Assessment and Plan Assessment: -Intra-abdominal abscess in the right lower quadrant with possible fistulous from Crohn's disease: Patient will continued on Zosyn and infectious disease is following. Patient underwent exploratory laparotomy with small bowel resection, right colectomy, transverse colectomy, sigmoid colectomy and ileostomy with Dr. Liriano yesterday. -Hyponatremia -Possible Crohn's enteritis: GI consulted and pending. Patient was not diagnosed with biopsy because of her poor prep in the past -Sepsis secondary assessment #1 -Gastroesophageal reflux disease -Bipolar disorder -GI prophylaxis: Pepcid -DVT prophylaxis: Lovenox -Full code Plan: Continue current medications, management, and symptomatic treatment. Surgery following closely postop day #1. Will maintain on IV antibiotics and continue to monitor vital signs and labs closely. Further recommendations to follow. Patient is maintained on ice chips and popsicles and tolerating well will advance diet slowly per surgical recommendations. Patient will need ostomy training and education. Instructed to increase activity as tolerated. Also discussed with nursing staff about limiting IV narcotic use and Toradol was added. Will repeat a.m. labs and monitor vital signs closely.
--- NOTE | 2020-06-14 19:32 | PN ---
PROGRESS NOTE DATE OF SERVICE: 06/14/2020 REASON FOR FOLLOWUP: Abdominal abscess. INTERVAL HISTORY: The patient is currently afebrile. The patient is breathing comfortably. The patient still complains of significant abdominal pain, some nausea but no vomiting. No chest pain, shortness of breath or cough. PHYSICAL EXAMINATION: Blood pressure 116/75 with a pulse of 92, temperature 97.6. She is 97% on room air. General description is a middle-aged female lying in bed in no distress. RESPIRATORY SYSTEM: Unlabored breathing. Clear to auscultation anteriorly. HEART: S1, S2. Regular rate and rhythm. ABDOMEN: Soft. Remains slightly tender to touch. LABS: Hemoglobin 11.1, white count 12.5, BUN of 9, creatinine 0.40. Abdominal culture with Gram-negative. Blood culture so far negative. DIAGNOSTIC IMPRESSION AND PLAN: Patient with abdominal abscess, status post extensive surgery and diverting colostomy. Abdominal culture with Gram-negative. Patient is covered with Zosyn; to continue while waiting for the culture to finalize. Continue with supportive care. MMODL / IJN: [id number] /
[2020-06-14] MEDS: FAMOTIDINE 20 MG/2 ML VIAL IV SCH (23:39)
[2020-06-15] MEDS: ONDANSETRON 4 MG/2 ML VIAL IVP PRN ×4 (00:46→22:58)
[2020-06-15] MEDS: HYDROmorphone 1 MG/ML 1 ML SYRINGE IVP PRN ×7 (00:46→20:52)
[2020-06-15] MEDS: PIPERACILLIN-TAZOBACTAM 3.375 GM in SODIUM CHLORIDE 0.9% 100 ML IVPB SCH ×3 (04:49→20:54)
[2020-06-15 07:25] LABS: Basophils % (A) 0 %; Eosinophils % (A) 0 %; HCT 31.5 % (34.0-46.0); Lymphocytes # (A) 0.9 k/uL (1.0-4.8); Lymphocytes % (A) 9 %; MCH 31.6 pg (25.0-35.0); MCHC 31.6 g/dL (31.0-37.0); MCV 100.1 fL (80.0-100.0); Mean Platelet Volume 7.4; Monocytes # (A) 0.7 k/uL (0-1.0); Monocytes % (A) 7 %; Neutrophils # (A) 8.4 k/uL (1.3-7.7); Neutrophils % (A) 82 %; Platelet Count 762 k/uL (150-450); RBC 3.15 m/uL (3.80-5.40); RDW 13.4 % (11.5-15.5); WBC 10.2 k/uL (3.8-10.6)
[2020-06-15 07:32] LABS: ALT 11 U/L (4-34); AST 28 U/L (14-36); African American GFR (CKD) >90 (>60 ml/min/1.73 sqM); Albumin 2.4 g/dL (3.5-5.0); Alkaline Phosphatase 51 U/L (38-126); Anion Gap 7 mmol/L; Blood Urea Nitrogen 12 mg/dL (7-17); Calcium 7.9 mg/dL (8.4-10.2); Carbon Dioxide 25 mmol/L (22-30); Chloride 102 mmol/L (98-107); Glucose 93 mg/dL (74-99); Non-African American GFR(CKD) >90 (>60 ml/min/1.73 sqM); Potassium 4.5 mmol/L (3.5-5.1); Sodium 134 mmol/L (137-145); Total Bilirubin 0.5 mg/dL (0.2-1.3)
[2020-06-15] MEDS: SIMETHICONE 40 MG/0.6 ML DROPS 2,000 MG/30 ML BOTTLE PO SCH ×3 (07:50→16:48)
[2020-06-15] MEDS: FAMOTIDINE 20 MG/2 ML VIAL IV SCH ×2 (07:50→20:54)
[2020-06-15] MEDS: FAMOTIDINE 20 MG TAB PO SCH (07:51)
[2020-06-15] MEDS: ENOXAPARIN 40 MG/0.4 ML SYRINGE SQ SCH (07:51)
--- NOTE | 2020-06-15 09:37 | P.CONS ---
History of Present Illness - Reason for Consult Consult date: 06/14/20 Abdominal pain Requesting physician: Deandra Null - Chief Complaint Abdominal pain - History of Present Illness 39-year-old female with a known history of nephrolithiasis, GERD, ADHD and bipolar disorder who was recently hospitalized for severe abdominal pain and presented back to the hospital for the same complaints. Pain described as both in the epigastric region and lower abdomen severe in nature with associated nausea and vomiting. Computed tomography scan performed on prior hospitalization has shown thickening of the small bowel consistent with ileitis. The patient was taken for endoscopic evaluation at that time with EGD that showed antral gastritis and a small hiatal hernia however the colonoscopy was unable to be performed secondary to poor prep as the patient reported she was unable to tolerate her bowel prep and the plan was for outpatient colonoscopy. The patient was discharged and came back to the hospital with severe abdominal pain which had been occurring for approximately 3 days. Computed tomography scan showed intra-abdominal abscess and the patient was taken for urgent surgical intervention. The patient underwent exploratory laparotomy with resection of the small bowel, right colon, transverse colon and sigmoid colon with end ileostomy formation. Currently the patient is seen lying in bed resting comfortably. Review of Systems REVIEW OF SYSTEMS: CONSTITUTIONAL: Denies any fevers, chills, weight change or fatigue. CARDIOVASCULAR: Denies any chest pain, palpitations high or low blood pressures RESPIRATORY: Denies any shortness of breath, hemoptysis or cough. GENITOURINARY: No dysuria or hematuria. MUSCULOSKELETAL: No weakness reported. SKIN: Denies any new rashes or lesions, jaundice or pallor. PSYCHIATRIC: Denies any depression or anxiety. NEUROLOGY: Denies headache, denies any new focal deficits. EARS/NOSE/THROAT: No recent hearing change, congestion, nasal discharge or sore throat. EYES: No pain in eyes, discharge or change in vision. GASTROINTESTINAL: As per HPI. Past Medical History Past Medical History: GERD/Reflux Additional Past Medical History / Comment(s): CURRENT: PAIN IN LEFT UPPER QUANDRANT. KIDNEY STONES. CARPAL. hiatal hernia History of Any Multi-Drug Resistant Organisms: None Reported Past Surgical History: Tubal Ligation Past Anesthesia/Blood Transfusion Reactions: No Reported Reaction Past Psychological History: ADD/ADHD, Bipolar Smoking Status: Former smoker Past Alcohol Use History: None Reported Additional Past Alcohol Use History / Comment(s): SMOKED FOR 20YRS, LESS THAN H JAIL PPD. Past Drug Use History: Marijuana - Past Family History Mother Family Medical History: Renal Disease Additional Family Medical History / Comment(s): lupas ra Father Family Medical History: No Reported History Medications and Allergies Home Medications Medication Instructions Recorded Confirmed Type Bismuth Subsalicylate 524 mg PO Q3H PRN 06/02/20 06/12/20 History [Pepto-Bismol] Calcium Carbonate [Tums] 500 mg PO TID PRN 06/02/20 06/12/20 History Ibuprofen [Motrin Ib] 200 mg PO Q8H PRN 06/02/20 06/12/20 History metroNIDAZOLE [Flagyl] 500 mg PO TID #21 tab 06/08/20 06/12/20 Rx Allergies Allergy/AdvReac Type Severity Reaction Status Date / Time No Known Allergies Allergy Verified 06/12/20 11:56 Physical Exam Vitals: Vital Signs Temp Pulse Resp BP Pulse Ox 06/14/20 15:00 98.7 F 91 18 117/71 98 06/14/20 07:00 97.6 F 92 18 116/75 97 06/14/20 00:05 99.3 F 104 H 16 110/71 98 06/14/20 00:00 16 Intake and Output 06/14/20 06/14/20 06/14/20 06:59 14:59 22:59 Intake Total 1140 40 Output Total 350 Balance 790 40 Intake: Intake, IV Titration 1140 Amount Piperacillin-Tazobactam 3 100 .375 gm In Sodium Chloride 0.9% 100 ml @ 25 mls/hr IVPB Q8H [facility] Rx#: [id number] Sodium Chloride 0.9% 1, 1040 000 ml @ 130 mls/hr IV . Q7H42M [facility] Rx#:[id number] Oral 40 Output: Urine 350 Other: Voiding Method Indwelling Catheter Indwelling Catheter Weight 46.4 kg On physical examination, patient appears comfortable in no apparent distress. HEAD: Normocephalic, atraumatic. EYES: No scleral icterus. No conjunctival injection. MOUTH: No lesions, tongue midline. NECK: Trachea midline, no gross abnormalities. CHEST: Clear to auscultation with no wheezing or rhonchi appreciated. HEART: Regular rate and rhythm. ABDOMEN: Soft, currently bandaged and appropriately tender status post surgery. Bowel sounds are positive. No organomegaly. No guarding or rigidity. EXTREMITIES: No pedal edema. SKIN: No rashes, no jaundice. NEUROLOGIC: Alert and oriented x3. No focal deficits. Results CBC & Chem 7: 06/15/20 07:01 06/15/20 07:01 Labs: Abnormal Lab Results - Last 24 Hours (Table) 06/14/20 06/14/20 Range/Units 12:06 12:06 WBC 12.5 H (3.8-10.6) k/uL RBC 3.44 L (3.80-5.40) m/uL Hgb 11.1 L (11.4-16.0) gm/dL Plt Count 812 H (150-450) k/uL Neutrophils # 10.7 H (1.3-7.7) k/uL Lymphocytes # 0.8 L (1.0-4.8) k/uL ESR 28 H (0-20) mm/hr Sodium 131 L (137-145) mmol/L Creatinine 0.40 L (0.52-1.04) mg/dL Glucose 102 H (74-99) mg/dL Calcium 7.9 L (8.4-10.2) mg/dL C-Reactive Protein 229.3 H (<10.0) mg/L Total Protein 5.0 L (6.3-8.2) g/dL Albumin 2.4 L (3.5-5.0) g/dL Microbiology - Last 24 Hours (Table) 06/12/20 11:25 Blood Culture - Preliminary Blood No Growth after 48 hours 06/13/20 13:00 Gram Stain - Preliminary Abdomen Wound Culture - Preliminary Gram Neg Bacilli 06/13/20 13:00 Anaerobic Culture - Preliminary Abdominal Fluid CT scan - abdomen: report reviewed Assessment and Plan (1) Intra-abdominal abscess Narrative/Plan: 3-year-old female who presented back to the hospital after recent admission with complaints of worsening abdominal pain. Found to have intra-abdominal abscess and taken for exploratory laparotomy with resection of the small bowel, right colon, transverse colon and sigmoid with end ileostomy formation. Suspicion is for Crohn's disease given findings of ileitis and fistula formation as well as presentation. Current Visit: Yes Status: Acute Code(s): K65.1 - PERITONEAL ABSCESS SNOMED Code(s): 08693496 (2) Abdominal pain Current Visit: Yes Status: Acute Code(s): R10.9 - UNSPECIFIED ABDOMINAL PAIN SNOMED Code(s): 21263611 (3) Partial bowel obstruction Current Visit: Yes Status: Acute Code(s): K56.600 - PARTIAL INTESTINAL OBSTRUCTION, UNSPECIFIED TO CAUSE SNOMED Code(s): 62404148784405154 (4) Ileitis Current Visit: No Status: Acute Code(s): K52.9 - NONINFECTIVE GASTROENTERITIS AND COLITIS, UNSPECIFIED SNOMED Code(s): 78406898 Plan: Supportive care Diaper surgical service Continue pain control Continue broad-spectrum antibiotic therapy Continue to monitor CBC, BMP, LFTs Patient will need close follow-up after discharge with GI service, given the complex nature of her disease she will likely need biologic therapy in the future Thank you for allowing us to participate in the care of the patient
--- NOTE | 2020-06-15 11:21 | P.PN ---
Progress Note - Text Progress Note Date: 06/15/20 The patient had some crampy pain. She also had some nausea this morning. And then the patient had output through her ileostomy appliance. And her pain and nausea resolved. On exam vital signs are stable. Abdomen soft. Incisions is clean dry tach. Status post excision of a small bowel fistula to cecum transverse colon and sigmoid colon with creation of ileostomy and mucous fistula. Patient will receive a ships sparingly. We will start her diet when she has significant bowel function returned.
--- NOTE | 2020-06-15 13:16 | P.PN ---
Subjective Patient is a 39-year-old female came in is as severe 10/10 sharp right lower quadrant abdominal pain. Patient had a computed tomography scan of the abdomen which do show a large abscess in that area along with possible fistulous interloop fistulous. General surgery was consulted Gen. surgery evaluated the patient they reviewed the computed tomography scan with radiology. Patient was recently hospitalized and at that time patient was believed to have Crohn's disease and was treated for Crohn's and had a colonoscopy with because of the poor prep biopsies were not obtained. Patient denied any fever chills does have low-grade fever here. Patient was started on Zosyn and interventional radiology was consulted by general surgery for drainage of the abscess. Patient will also undergo fistulogram. Gastric probably was consulted as well. 06/13/2020 Patient is seen and evaluated and follow-up and continues to have abdominal discomfort. Surgery is following and planning for exploratory laparotomy this afternoon as CT of the abdomen shows markedly dilated mid and proximal small bowel consistent with high-grade mechanical small bowel obstruction and a thick walled cystic fluid collection in the anterior upper pelvis but could be an abscess and given the extent patient may also undergo abscess drainage during exploratory laparotomy. Patient is maintained on IV antibiotics in the form of Zosyn and will continue at this time. Infectious disease is consulted. GI also following. White blood cell count trending down and is currently 11.6, hemoglobin is stable at 12.0 with no active bleeding noted. Sodium is 135 with a potassium of 4.8. 06/14/2020 Patient is seen and evaluated and follow-up status post exploratory laparotomy and small bowel resection with a right colectomy of the transverse colectomy sigmoid colectomy and ileostomy with mucous fistula. Surgery following closely. Patient was started on clear liquids and tolerating thus far. Patient continues to request pain medication and has IV Dilaudid added and will add Toradol. Discussed with nursing staff about limiting IV narcotics. Patient instructed to increase activity as tolerated. Patient is maintained on IV antibiotics in the form of Zosyn and will continue at this time. Wound cultures preliminary showing gram-negative bacilli and will await finalization. Currently patient denies any chest pain, shortness of breath, or palpitations. Patient is afebrile. No reports of nausea or vomiting and patient tolerating ice chips and popsicles. White blood, is 12.5 with a hemoglobin of 11.1. Sodium is 131 with a potassium of 4.9 and current creatinine is 0.40 06/15/2020 Patient pain is better patient did have a bowel movement into the colostomy bag. Patient also had nausea vomiting and epigastric burning sensation secondary to ketorolac patient is being switched from Pepcid to Protonix. Review of systems: Constitutional: No reports of fatigue, fever, or chills Cardiovascular: No reports of chest pain or palpitations Respiratory: No reports of shortness of breath or cough GI: Reports intermittent nausea, with no reports of vomiting, or diarrhea, reports abdominal discomfort generalized : No reports of dysuria or retention Neurovascular: No reports of weakness or numbness All medications have been reviewed Objective - Vital Signs Vital signs: Vital Signs Temp 98.1 F 06/15/20 07:00 Pulse 92 06/15/20 07:40 Resp 18 06/15/20 07:40 BP 103/69 06/15/20 07:00 Pulse Ox 98 06/15/20 07:00 Intake & Output 06/14/20 06/15/20 06/15/20 18:59 06:59 18:59 Intake Total 40 2040 Output Total 500 Balance 40 1540 Weight 46.4 kg Intake: Intake, IV Titration 2040 Amount Sodium Chloride 0.9% 1, 2040 000 ml @ 130 mls/hr IV . Q7H42M [facility] Rx#:[id number] Oral 40 0 Output: Urine 500 Other: Voiding Method Indwelling Catheter Indwelling Catheter Indwelling Catheter # Voids 1 - Exam GENERAL: The patient is alert and oriented x3, not in any acute distress. Well developed, well nourished. HEENT: Pupils are round and equally reacting to light. EOMI. No scleral icterus. No conjunctival pallor. Normocephalic, atraumatic. No pharyngeal erythema. No thyromegaly. CARDIOVASCULAR: S1 and S2 present. No murmurs, rubs, or gallops. PULMONARY: Chest is clear to auscultation, no wheezing or crackles. ABDOMEN: Soft, tenderness noted of the abdomen with surgical drain on the left and ileostomy noted on the right with no output noted at this time MUSCULOSKELETAL: No joint swelling or deformity. EXTREMITIES: No cyanosis, clubbing, or pedal edema. NEUROLOGICAL: Gross neurological examination did not reveal any focal deficits. SKIN: No rashes. - Labs CBC & Chem 7: 06/15/20 07:01 06/15/20 07:01 Labs: Abnormal Lab Results - Last 24 Hours (Table) 06/14/20 06/14/20 06/15/20 Range/Units 12:06 12:06 07:01 RBC 3.15 L (3.80-5.40) m/uL Hgb 10.0 L (11.4-16.0) gm/dL Hct 31.5 L (34.0-46.0) % MCV 100.1 H (80.0-100.0) fL Plt Count 762 H (150-450) k/uL Neutrophils # 8.4 H (1.3-7.7) k/uL Lymphocytes # 0.9 L (1.0-4.8) k/uL ESR 28 H (0-20) mm/hr Sodium 131 L (137-145) mmol/L Creatinine 0.40 L (0.52-1.04) mg/dL Glucose 102 H (74-99) mg/dL Calcium 7.9 L (8.4-10.2) mg/dL C-Reactive Protein 229.3 H (<10.0) mg/L Total Protein 5.0 L (6.3-8.2) g/dL Albumin 2.4 L (3.5-5.0) g/dL 06/15/20 Range/Units 07:01 RBC (3.80-5.40) m/uL Hgb (11.4-16.0) gm/dL Hct (34.0-46.0) % MCV (80.0-100.0) fL Plt Count (150-450) k/uL Neutrophils # (1.3-7.7) k/uL Lymphocytes # (1.0-4.8) k/uL ESR (0-20) mm/hr Sodium 134 L (137-145) mmol/L Creatinine 0.40 L (0.52-1.04) mg/dL Glucose (74-99) mg/dL Calcium 7.9 L (8.4-10.2) mg/dL C-Reactive Protein (<10.0) mg/L Total Protein 5.0 L (6.3-8.2) g/dL Albumin 2.4 L (3.5-5.0) g/dL Microbiology - Last 24 Hours (Table) 06/13/20 13:00 Gram Stain - Final Abdomen Wound Culture - Final Klebsiella pneumoniae 06/12/20 11:25 Blood Culture - Preliminary Blood No Growth after 48 hours Assessment and Plan Plan: -Intra-abdominal abscess in the right lower quadrant with possible fistulous from Crohn's disease: Patient will continued on Zosyn and infectious disease is following. Patient underwent exploratory laparotomy with small bowel resection, right colectomy, transverse colectomy, sigmoid colectomy and ileostomy with Dr. Liriano on 06/13/2020. Wound cultures are showing Klebsiella pneumonia -Hyponatremia: Hypervolemic continue with IV fluids -Possible Crohn's enteritis: GI consulted and pending. Patient was not diagnosed with biopsy because of her poor prep in the past -Sepsis secondary assessment #1 -Gastroesophageal reflux disease, active symptoms at this time changing to Protonix -Bipolar disorder -GI prophylaxis: Pepcid -DVT prophylaxis: Lovenox -Full code
[2020-06-15] MEDS: PANTOPRAZOLE 40 MG/10 ML VIAL IVP SCH (13:29)
[2020-06-15] MEDS: KETOROLAC 15 MG/ML 1 ML VIAL IVP PRN (15:33)
[2020-06-15] MEDS: SODIUM CHLORIDE 0.9% 1,000 ML IV SCH (20:52)
--- NOTE | 2020-06-15 21:04 | P.PN ---
Subjective Progress Note Date: 06/15/20 Principal diagnosis: intra-abdominal abscess, suspected Crohn's disease patient was seen in bed today reporting some reflux as well as some continued abdominal pain. No other acute complaints. Objective - Vital Signs Vital signs: Vital Signs Temp 98.1 F 06/15/20 07:00 Pulse 92 06/15/20 07:40 Resp 18 06/15/20 07:40 BP 103/69 06/15/20 07:00 Pulse Ox 98 06/15/20 07:00 Intake & Output 06/14/20 06/15/20 06/15/20 18:59 06:59 18:59 Intake Total 40 2040 Output Total 500 Balance 40 1540 Weight 46.4 kg Intake: Intake, IV Titration 2040 Amount Sodium Chloride 0.9% 1, 2040 000 ml @ 130 mls/hr IV . Q7H42M [facility] Rx#:[id number] Oral 40 0 Output: Urine 500 Other: Voiding Method Indwelling Catheter Indwelling Catheter Indwelling Catheter # Voids 1 - Exam On physical examination, patient appears comfortable in no apparent distress. HEAD: Normocephalic, atraumatic. EYES: No scleral icterus. No conjunctival injection. MOUTH: No lesions, tongue midline. NECK: Trachea midline, no gross abnormalities. ABDOMEN: Soft, appropriately tender to palpation after surgery with wounds currently dropped. Bowel sounds are positive. No organomegaly. No guarding or rigidity. EXTREMITIES: No pedal edema. SKIN: No rashes, no jaundice. NEUROLOGIC: Alert and oriented x3. No focal deficits. - Labs CBC & Chem 7: 06/15/20 07:01 06/15/20 07:01 Labs: Abnormal Lab Results - Last 24 Hours (Table) 06/14/20 06/14/20 06/15/20 Range/Units 12:06 12:06 07:01 WBC 12.5 H (3.8-10.6) k/uL RBC 3.44 L 3.15 L (3.80-5.40) m/uL Hgb 11.1 L 10.0 L (11.4-16.0) gm/dL Hct 31.5 L (34.0-46.0) % MCV 100.1 H (80.0-100.0) fL Plt Count 812 H 762 H (150-450) k/uL Neutrophils # 10.7 H 8.4 H (1.3-7.7) k/uL Lymphocytes # 0.8 L 0.9 L (1.0-4.8) k/uL ESR 28 H (0-20) mm/hr Sodium 131 L (137-145) mmol/L Creatinine 0.40 L (0.52-1.04) mg/dL Glucose 102 H (74-99) mg/dL Calcium 7.9 L (8.4-10.2) mg/dL C-Reactive Protein 229.3 H (<10.0) mg/L Total Protein 5.0 L (6.3-8.2) g/dL Albumin 2.4 L (3.5-5.0) g/dL 06/15/20 Range/Units 07:01 WBC (3.8-10.6) k/uL RBC (3.80-5.40) m/uL Hgb (11.4-16.0) gm/dL Hct (34.0-46.0) % MCV (80.0-100.0) fL Plt Count (150-450) k/uL Neutrophils # (1.3-7.7) k/uL Lymphocytes # (1.0-4.8) k/uL ESR (0-20) mm/hr Sodium 134 L (137-145) mmol/L Creatinine 0.40 L (0.52-1.04) mg/dL Glucose (74-99) mg/dL Calcium 7.9 L (8.4-10.2) mg/dL C-Reactive Protein (<10.0) mg/L Total Protein 5.0 L (6.3-8.2) g/dL Albumin 2.4 L (3.5-5.0) g/dL Microbiology - Last 24 Hours (Table) 06/12/20 11:25 Blood Culture - Preliminary Blood No Growth after 48 hours 06/13/20 13:00 Gram Stain - Preliminary Abdomen Wound Culture - Preliminary Gram Neg Bacilli Assessment and Plan (1) Intra-abdominal abscess Narrative/Plan: 39-year-old female who presented back to the hospital after recent admission with complaints of worsening abdominal pain. Found to have intra-abdominal abscess and taken for exploratory laparotomy with resection of the small bowel, right colon, transverse colon and sigmoid with end ileostomy formation. Suspicion is for Crohn's disease given findings of ileitis and fistula formation as well as presentation. Current Visit: Yes Status: Acute Code(s): K65.1 - PERITONEAL ABSCESS SNOMED Code(s): 85800419 (2) Abdominal pain Current Visit: Yes Status: Acute Code(s): R10.9 - UNSPECIFIED ABDOMINAL PAIN SNOMED Code(s): 83479032 (3) Partial bowel obstruction Current Visit: Yes Status: Acute Code(s): K56.600 - PARTIAL INTESTINAL OBSTRUCTION, UNSPECIFIED TO CAUSE SNOMED Code(s): 49207247453093502 (4) Ileitis Current Visit: No Status: Acute Code(s): K52.9 - NONINFECTIVE GASTROENTERITIS AND COLITIS, UNSPECIFIED SNOMED Code(s): 57333990 Plan: Supportive care appreciate recommendations from surgical service Continue pain control Continue broad-spectrum antibiotic therapy Continue to monitor CBC, BMP, LFTs Patient will need close follow-up after discharge with GI service, given the complex nature of her disease she will likely need biologic therapy in the future Thank you for allowing us to participate in the care of the patient
[2020-06-16] MEDS: HYDROmorphone 1 MG/ML 1 ML SYRINGE IVP PRN ×7 (01:22→20:21)
[2020-06-16] MEDS: SODIUM CHLORIDE 0.9% 1,000 ML IV SCH ×4 (01:27→23:19)
[2020-06-16] MEDS: PANTOPRAZOLE 40 MG/10 ML VIAL IVP SCH ×3 (01:28→23:11)
[2020-06-16] MEDS: SIMETHICONE 40 MG/0.6 ML DROPS 2,000 MG/30 ML BOTTLE PO SCH ×5 (03:32→20:49)
[2020-06-16] MEDS: PIPERACILLIN-TAZOBACTAM 3.375 GM in SODIUM CHLORIDE 0.9% 100 ML IVPB SCH ×3 (04:31→20:20)
[2020-06-16] MEDS: ONDANSETRON 4 MG/2 ML VIAL IVP PRN ×2 (07:17→17:02)
[2020-06-16] MEDS: FAMOTIDINE 20 MG/2 ML VIAL IV SCH (07:36)
[2020-06-16] MEDS: ENOXAPARIN 40 MG/0.4 ML SYRINGE SQ SCH (07:36)
--- NOTE | 2020-06-16 09:56 | P.PN ---
Progress Note - Text Progress Note Date: 06/16/20 The patient's postoperative day 3 from small bowel resection and partial colectomy for Crohn's fistula. Patient has significant output through her ileostomy. On exam vital signs are stable. Abdomen soft. Incision is clean and intact. Patient will have her nasogastric tube and Ruff catheter removed today. She'll remain on sips of clears.
--- NOTE | 2020-06-16 10:16 | P.PN ---
Subjective Patient is a 39-year-old female came in is as severe 10/10 sharp right lower quadrant abdominal pain. Patient had a computed tomography scan of the abdomen which do show a large abscess in that area along with possible fistulous interloop fistulous. General surgery was consulted Gen. surgery evaluated the patient they reviewed the computed tomography scan with radiology. Patient was recently hospitalized and at that time patient was believed to have Crohn's disease and was treated for Crohn's and had a colonoscopy with because of the poor prep biopsies were not obtained. Patient denied any fever chills does have low-grade fever here. Patient was started on Zosyn and interventional radiology was consulted by general surgery for drainage of the abscess. Patient will also undergo fistulogram. Gastric probably was consulted as well. 06/13/2020 Patient is seen and evaluated and follow-up and continues to have abdominal discomfort. Surgery is following and planning for exploratory laparotomy this afternoon as CT of the abdomen shows markedly dilated mid and proximal small bowel consistent with high-grade mechanical small bowel obstruction and a thick walled cystic fluid collection in the anterior upper pelvis but could be an abscess and given the extent patient may also undergo abscess drainage during exploratory laparotomy. Patient is maintained on IV antibiotics in the form of Zosyn and will continue at this time. Infectious disease is consulted. GI also following. White blood cell count trending down and is currently 11.6, hemoglobin is stable at 12.0 with no active bleeding noted. Sodium is 135 with a potassium of 4.8. 06/14/2020 Patient is seen and evaluated and follow-up status post exploratory laparotomy and small bowel resection with a right colectomy of the transverse colectomy sigmoid colectomy and ileostomy with mucous fistula. Surgery following closely. Patient was started on clear liquids and tolerating thus far. Patient continues to request pain medication and has IV Dilaudid added and will add Toradol. Discussed with nursing staff about limiting IV narcotics. Patient instructed to increase activity as tolerated. Patient is maintained on IV antibiotics in the form of Zosyn and will continue at this time. Wound cultures preliminary showing gram-negative bacilli and will await finalization. Currently patient denies any chest pain, shortness of breath, or palpitations. Patient is afebrile. No reports of nausea or vomiting and patient tolerating ice chips and popsicles. White blood, is 12.5 with a hemoglobin of 11.1. Sodium is 131 with a potassium of 4.9 and current creatinine is 0.40 06/15/2020 Patient pain is better patient did have a bowel movement into the colostomy bag. Patient also had nausea vomiting and epigastric burning sensation secondary to ketorolac patient is being switched from Pepcid to Protonix. 06/16/2020 Patient does have a output from the right lower quadrant colostomy bag and left and epigastric a colostomy bag doesn't have much of output patient although is feeling better patient's diet is being advanced patient can use to be on IV f luids serum sodium is improving Review of systems: Constitutional: No reports of fatigue, fever, or chills Cardiovascular: No reports of chest pain or palpitations Respiratory: No reports of shortness of breath or cough GI: Reports intermittent nausea, with no reports of vomiting, or diarrhea, rep orts abdominal discomfort generalized : No reports of dysuria or retention Neurovascular: No reports of weakness or numbness All medications have been reviewed Objective - Vital Signs Vital signs: Vital Signs Temp 97.6 F 06/16/20 07:00 Pulse 74 06/16/20 08:00 Resp 18 06/16/20 08:00 BP 110/76 06/16/20 07:00 Pulse Ox 100 06/16/20 07:00 Intake & Output 06/15/20 06/16/20 06/16/20 18:59 06:59 18:59 Intake Total 1130 500 Output Total 800 425 Balance 330 75 Intake: Intake, IV Titration 980 400 Amount Piperacillin-Tazobactam 3 100 .375 gm In Sodium Chloride 0.9% 100 ml @ 25 mls/hr IVPB Q8H [facility] Rx#: [id number] Sodium Chloride 0.9% 1, 880 400 000 ml @ 100 mls/hr IV . Q10H [facility] Rx#:[id number] Oral 150 100 Output: Urine 800 425 Other: Voiding Method Indwelling Catheter Indwelling Catheter # Voids 1 - Exam GENERAL: The patient is alert and oriented x3, not in any acute distress. Well developed, well nourished. HEENT: Pupils are round and equally reacting to light. EOMI. No scleral icterus. No conjunctival pallor. Normocephalic, atraumatic. No pharyngeal erythema. No thyromegaly. CARDIOVASCULAR: S1 and S2 present. No murmurs, rubs, or gallops. PULMONARY: Chest is clear to auscultation, no wheezing or crackles. ABDOMEN: Soft, tenderness noted of the abdomen with surgical drain on the left and ileostomy noted on the right with no output noted at this time MUSCULOSKELETAL: No joint swelling or deformity. EXTREMITIES: No cyanosis, clubbing, or pedal edema. NEUROLOGICAL: Gross neurological examination did not reveal any focal deficits. SKIN: No rashes. - Labs CBC & Chem 7: 06/15/20 07:01 06/15/20 07:01 Labs: Microbiology - Last 24 Hours (Table) 06/12/20 11:25 Blood Culture - Preliminary Blood No Growth after 72 hours 06/13/20 13:00 Anaerobic Culture - Preliminary Abdominal Fluid 06/13/20 13:00 Gram Stain - Final Abdomen Wound Culture - Final Klebsiella pneumoniae Assessment and Plan Plan: -Intra-abdominal abscess in the right lower quadrant with possible fistulous from Crohn's disease: Patient will continued on Zosyn and infectious disease is following. Patient underwent exploratory laparotomy with small bowel resection, right colectomy, transverse colectomy, sigmoid colectomy and ileostomy with Dr. Liriano on 06/13/2020. Wound cultures are showing Klebsiella pneumonia -Hyponatremia: Hypervolemic continue with IV fluids -Possible Crohn's enteritis: GI consulted and pending. Patient was not diagnosed with biopsy because of her poor prep in the past -Sepsis secondary assessment #1 -Gastroesophageal reflux disease, active symptoms at this time changing to Protonix -Bipolar disorder -GI prophylaxis: Pepcid -DVT prophylaxis: Lovenox -Full code
[2020-06-16] MEDS: KETOROLAC 15 MG/ML 1 ML VIAL IVP PRN (23:10)
[2020-06-17] MEDS: ONDANSETRON 4 MG/2 ML VIAL IVP PRN ×3 (01:32→19:48)
[2020-06-17] MEDS: HYDROmorphone 1 MG/ML 1 ML SYRINGE IVP PRN ×5 (01:33→20:33)
[2020-06-17] MEDS: PIPERACILLIN-TAZOBACTAM 3.375 GM in SODIUM CHLORIDE 0.9% 100 ML IVPB SCH ×3 (04:58→19:48)
[2020-06-17] MEDS: PANTOPRAZOLE 40 MG/10 ML VIAL IVP SCH (08:08)
[2020-06-17] MEDS: ENOXAPARIN 40 MG/0.4 ML SYRINGE SQ SCH (08:10)
[2020-06-17] MEDS: KETOROLAC 15 MG/ML 1 ML VIAL IVP PRN ×2 (08:10→14:50)
[2020-06-17] MEDS: SIMETHICONE 40 MG/0.6 ML DROPS 2,000 MG/30 ML BOTTLE PO SCH ×4 (08:10→21:44)
[2020-06-17] MEDS: SODIUM CHLORIDE 0.9% 1,000 ML IV SCH ×2 (08:11→19:48)
[2020-06-17 08:42] LABS: African American GFR (CKD) >90 (>60 ml/min/1.73 sqM); Anion Gap 9 mmol/L; Blood Urea Nitrogen 6 mg/dL (7-17); Calcium 8.3 mg/dL (8.4-10.2); Carbon Dioxide 23 mmol/L (22-30); Chloride 100 mmol/L (98-107); Glucose 75 mg/dL (74-99); Non-African American GFR(CKD) >90 (>60 ml/min/1.73 sqM); Potassium 4.3 mmol/L (3.5-5.1); Sodium 132 mmol/L (137-145)
[2020-06-17] MEDS: FAMOTIDINE 20 MG/2 ML VIAL IV SCH ×2 (10:32→21:44)
--- NOTE | 2020-06-17 11:56 | PN ---
PROGRESS NOTE DATE OF SERVICE: 06/16/2020 REASON FOR FOLLOWUP: Abdominal abscess. INTERVAL HISTORY: Patient is currently afebrile. Patient is feeling better. Breathing comfortably. The patient denies having any chest pain. No shortness of breath. Abdominal pain is currently covered. Has been started on clear liquids, has been tolerating. PHYSICAL EXAMINATION: Blood pressure 116/75 with a pulse of 84, temperature 98.7. She is 100% on room air. General description: The patient is a middle-aged female up in the bed in no distress. Respiratory system: Unlabored breathing, clear to auscultation anteriorly. Heart S1, S2. Regular rate and rhythm. ABDOMEN: Soft, no tenderness. LABS: Hemoglobin is 10.3, white count 10.2 with a BUN of 12, creatinine 0.40. Abdominal culture with Klebsiella. DIAGNOSTIC IMPRESSION AND PLAN: Patient with abdominal abscess in this patient who did have extensive surgery. The patient is currently covered with Zosyn. White count normalized. Continue to monitor clinical course closely. Continue supportive care. MMODL / IJN: [id number] /
--- NOTE | 2020-06-17 13:20 | P.PN ---
Subjective Patient is a 39-year-old female came in is as severe 10/10 sharp right lower quadrant abdominal pain. Patient had a computed tomography scan of the abdomen which do show a large abscess in that area along with possible fistulous interloop fistulous. General surgery was consulted Gen. surgery evaluated the patient they reviewed the computed tomography scan with radiology. Patient was recently hospitalized and at that time patient was believed to have Crohn's disease and was treated for Crohn's and had a colonoscopy with because of the poor prep biopsies were not obtained. Patient denied any fever chills does have low-grade fever here. Patient was started on Zosyn and interventional radiology was consulted by general surgery for drainage of the abscess. Patient will also undergo fistulogram. Gastric probably was consulted as well. 06/13/2020 Patient is seen and evaluated and follow-up and continues to have abdominal discomfort. Surgery is following and planning for exploratory laparotomy this afternoon as CT of the abdomen shows markedly dilated mid and proximal small bowel consistent with high-grade mechanical small bowel obstruction and a thick walled cystic fluid collection in the anterior upper pelvis but could be an abscess and given the extent patient may also undergo abscess drainage during exploratory laparotomy. Patient is maintained on IV antibiotics in the form of Zosyn and will continue at this time. Infectious disease is consulted. GI also following. White blood cell count trending down and is currently 11.6, hemoglobin is stable at 12.0 with no active bleeding noted. Sodium is 135 with a potassium of 4.8. 06/14/2020 Patient is seen and evaluated and follow-up status post exploratory laparotomy and small bowel resection with a right colectomy of the transverse colectomy sigmoid colectomy and ileostomy with mucous fistula. Surgery following closely. Patient was started on clear liquids and tolerating thus far. Patient continues to request pain medication and has IV Dilaudid added and will add Toradol. Discussed with nursing staff about limiting IV narcotics. Patient instructed to increase activity as tolerated. Patient is maintained on IV antibiotics in the form of Zosyn and will continue at this time. Wound cultures preliminary showing gram-negative bacilli and will await finalization. Currently patient denies any chest pain, shortness of breath, or palpitations. Patient is afebrile. No reports of nausea or vomiting and patient tolerating ice chips and popsicles. White blood, is 12.5 with a hemoglobin of 11.1. Sodium is 131 with a potassium of 4.9 and current creatinine is 0.40 06/15/2020 Patient pain is better patient did have a bowel movement into the colostomy bag. Patient also had nausea vomiting and epigastric burning sensation secondary to ketorolac patient is being switched from Pepcid to Protonix. 06/16/2020 Patient does have a output from the right lower quadrant colostomy bag and left and epigastric a colostomy bag doesn't have much of output patient although is feeling better patient's diet is being advanced patient can use to be on IV f luids serum sodium is improving 06/17/2020 Patient's serum sodium is still bit low but overall there is significant improvement possibly of discharge tomorrow patient has output from both colostomies. Review of systems: Constitutional: No reports of fatigue, fever, or chills Cardiovascular: No reports of chest pain or palpitations Respiratory: No reports of shortness of breath or cough GI: Reports intermittent nausea, with no reports of vomiting, or diarrhea, reports abdominal discomfort generalized : No reports of dysuria or retention Neurovascular: No reports of weakness or numbness All medications have been reviewed Objective - Vital Signs Vital signs: Vital Signs Temp 98.0 F 06/17/20 07:00 Pulse 83 06/17/20 07:00 Resp 17 06/17/20 07:00 BP 106/67 06/17/20 07:00 Pulse Ox 100 06/17/20 07:00 Intake & Output 06/16/20 06/17/20 06/17/20 18:59 06:59 18:59 Intake Total 1100 Output Total 1350 350 Balance -1350 750 Weight 46.4 kg Intake: Intake, IV Titration 800 Amount Sodium Chloride 0.9% 1, 800 000 ml @ 100 mls/hr IV . Q10H [facility] Rx#:[id number] Oral 300 Output: Urine 300 Stool 1050 350 Other: Voiding Method Indwelling Catheter # Voids 1 1 - Exam GENERAL: The patient is alert and oriented x3, not in any acute distress. Well developed, well nourished. HEENT: Pupils are round and equally reacting to light. EOMI. No scleral icterus. No conjunctival pallor. Normocephalic, atraumatic. No pharyngeal erythema. No thyromegaly. CARDIOVASCULAR: S1 and S2 present. No murmurs, rubs, or gallops. PULMONARY: Chest is clear to auscultation, no wheezing or crackles. ABDOMEN: Soft, tenderness noted of the abdomen with surgical drain on the left and ileostomy noted on the right with no output noted at this time MUSCULOSKELETAL: No joint swelling or deformity. EXTREMITIES: No cyanosis, clubbing, or pedal edema. NEUROLOGICAL: Gross neurological examination did not reveal any focal deficits. SKIN: No rashes. - Labs CBC & Chem 7: 06/15/20 07:01 06/17/20 07:44 Labs: Abnormal Lab Results - Last 24 Hours (Table) 06/17/20 Range/Units 07:44 Sodium 132 L (137-145) mmol/L BUN 6 L (7-17) mg/dL Creatinine 0.31 L (0.52-1.04) mg/dL Calcium 8.3 L (8.4-10.2) mg/dL Microbiology - Last 24 Hours (Table) 06/13/20 13:00 Anaerobic Culture - Final Abdominal Fluid 06/12/20 11:25 Blood Culture - Preliminary Blood No Growth after 96 hours Assessment and Plan Plan: -Intra-abdominal abscess in the right lower quadrant with possible fistulous from Crohn's disease: Patient will continued on Zosyn and infectious disease is following. Patient underwent exploratory laparotomy with small bowel resection, right colectomy, transverse colectomy, sigmoid colectomy and ileostomy with Dr. Liriano on 06/13/2020. Wound cultures are showing Klebsiella pneumonia. Patient probably will be discharged tomorrow -Hyponatremia: Hypervolemic continue with IV fluids -Possible Crohn's enteritis: GI consulted and pending. Patient was not diagnosed with biopsy because of her poor prep in the past -Sepsis secondary assessment #1 -Gastroesophageal reflux disease, active symptoms at this time changing to Protonix -Bipolar disorder -GI prophylaxis: Pepcid -DVT prophylaxis: Lovenox -Full code
--- NOTE | 2020-06-17 14:11 | P.PN ---
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 She is status post exploratory laparotomy and small bowel resection, right colectomy, transverse colectomy, sigmoid colectomy, ileostomy and mucous fistula. . But does report improvement in her pain since surgery. She denies any nausea or vomiting. She is on a clear liquid diet. She is having liquidy stool through her ileostomy. She is afebrile. PHYSICAL EXAM: VITAL SIGNS: Reviewed. GENERAL: Well-developed in no acute distress. HEENT: No sclera icterus. Extraocular movements grossly intact. Moist buccal mucosa. Head is atraumatic, normocephalic. ABDOMEN: Soft. Distended. Right-sided ileostomy site clean dry and intact. Liquidy brown stool present in ileostomy bag. upper abdomen mucous fistula site clean dry and intact NEUROLOGIC: Alert and oriented. Cranial nerves II through XII grossly intact. ASSESSMENT: 1. 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 Postop day #3 status post exploratory laparotomy and small bowel resection, right colectomy transverse colectomy sigmoid colectomy and ileostomy with mucous fistula 2. Possible Crohn's history PLAN: -Advance diet to full liquid -Follow up on path report -Continue IV Zosyn. Antibiotics per ID -Continue IV fluids -Continue IV Dilaudid as needed for pain control -Continue DVT prophylaxis Lovenox -Encourage patient to ambulate and use incentive spirometer Physician Zipper Setter note has been reviewed by physician. Signing provider agrees with the documented findings, assessment, and plan of care. Objective - Vital Signs Vital signs: Vital Signs Temp 98.0 F 06/17/20 07:00 Pulse 83 06/17/20 07:00 Resp 17 06/17/20 07:00 BP 106/67 06/17/20 07:00 Pulse Ox 100 06/17/20 07:00 Intake & Output 06/16/20 06/17/20 06/17/20 18:59 06:59 18:59 Intake Total 1100 Output Total 1350 350 Balance -1350 750 Weight 46.4 kg Intake: Intake, IV Titration 800 Amount Sodium Chloride 0.9% 1, 800 000 ml @ 100 mls/hr IV . Q10H [facility] Rx#:[id number] Oral 300 Output: Urine 300 Stool 1050 350 Other: Voiding Method Indwelling Catheter # Voids 1 1 - Labs CBC & Chem 7: 06/15/20 07:01 06/17/20 07:44 Labs: Abnormal Lab Results - Last 24 Hours (Table) 06/17/20 Range/Units 07:44 Sodium 132 L (137-145) mmol/L BUN 6 L (7-17) mg/dL Creatinine 0.31 L (0.52-1.04) mg/dL Calcium 8.3 L (8.4-10.2) mg/dL Microbiology - Last 24 Hours (Table) 06/13/20 13:00 Anaerobic Culture - Final Abdominal Fluid 06/12/20 11:25 Blood Culture - Preliminary Blood No Growth after 96 hours
--- NOTE | 2020-06-17 15:27 | P.PN ---
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 She is status post op day #3 for an exploratory laparotomy and small bowel resection, right colectomy, transverse colectomy, sigmoid colectomy, ileostomy and mucous fistula. She does report improvement in her pain since surgery. She denies any fever, chills, nausea or vomiting. She is on a clear liquid diet, which has been advanced to soft. She is having liquidy brown stool through her ileostomy. She is afebrile. Objective - Vital Signs Vital signs: Vital Signs Temp 98.2 F 06/17/20 14:36 Pulse 87 06/17/20 14:36 Resp 16 06/17/20 14:36 BP 103/67 06/17/20 14:36 Pulse Ox 100 06/17/20 14:36 Intake & Output 06/16/20 06/17/20 06/17/20 18:59 06:59 18:59 Intake Total 1100 Output Total 1350 350 150 Balance -1350 750 -150 Weight 46.4 kg Intake: Intake, IV Titration 800 Amount Sodium Chloride 0.9% 1, 800 000 ml @ 100 mls/hr IV . Q10H [facility] Rx#:[id number] Oral 300 Output: Urine 300 Stool 1050 350 150 Other: Voiding Method Indwelling Catheter # Voids 1 1 - Exam On physical examination, patient appears comfortable in no apparent distress. HEAD: Normocephalic, atraumatic. EYES: No scleral icterus. No conjunctival injection. MOUTH: No lesions, tongue midline. NECK: Trachea midline, no gross abnormalities. ABDOMEN: Soft, appropriately tender to palpation after surgery with wounds currently dropped. Bowel sounds are positive. No organomegaly. No guarding or rigidity. EXTREMITIES: No pedal edema. SKIN: No rashes, no jaundice. NEUROLOGIC: Alert and oriented x3. No focal deficits. - Labs CBC & Chem 7: 06/15/20 07:01 06/17/20 07:44 Labs: Abnormal Lab Results - Last 24 Hours (Table) 06/17/20 Range/Units 07:44 Sodium 132 L (137-145) mmol/L BUN 6 L (7-17) mg/dL Creatinine 0.31 L (0.52-1.04) mg/dL Calcium 8.3 L (8.4-10.2) mg/dL Microbiology - Last 24 Hours (Table) 06/12/20 11:25 Blood Culture - Preliminary Blood No Growth after 120 hours 06/13/20 13:00 Anaerobic Culture - Final Abdominal Fluid Assessment and Plan Assessment: (1) Intra-abdominal abscess Narrative/Plan: 39-year-old female who presented back to the hospital after recent admission with complaints of worsening abdominal pain. Found to have intra-abdominal a bscess and taken for exploratory laparotomy with resection of the small bowel, right colon, transverse colon and sigmoid with end ileostomy formation. Suspicion is for Crohn's disease given findings of ileitis and fistula formation as well as presentation. Current Visit: Yes Status: Acute Code(s): K65.1 - PERITONEAL ABSCESS SNOMED Code(s): 07895450 (2) Abdominal pain Current Visit: Yes Status: Acute Code(s): R10.9 - UNSPECIFIED ABDOMINAL PAIN SNOMED Code(s): 78383474 (3) Partial bowel obstruction Current Visit: Yes Status: Acute Code(s): K56.600 - PARTIAL INTESTINAL OBSTRUCTION, UNSPECIFIED TO CAUSE SNOMED Code(s): 26323345108528458 (4) Ileitis Current Visit: No Status: Acute Code(s): K52.9 - NONINFECTIVE GASTROENTERITIS AND COLITIS, UNSPECIFIED SNOMED Code(s): 32625310 Plan: Supportive care appreciate recommendations from surgical service Continue pain control Continue broad-spectrum antibiotic therapy Continue to monitor CBC, BMP, LFTs Patient will need close follow-up after discharge with GI service, given the complex nature of her disease she will likely need biologic therapy in the future Thank you for allowing us to participate in the care of the patient The impression and plan of care has been dictated as directed. I performed a history and examination of this patient, discussed the same with the dictator. I agree with the dictator's note ,documented as a scribe. Any additional findings or plans will be noted.
--- NOTE | 2020-06-17 18:14 | PN ---
PROGRESS NOTE DATE OF SERVICE: 06/17/2020 REASON FOR FOLLOWUP: Abdominal abscess. INTERVAL HISTORY: Patient is currently afebrile. The patient is breathing comfortably. The patient denies having any chest pain. No shortness of breath or cough. Abdominal pain is currently controlled. No nausea, no vomiting. PHYSICAL EXAMINATION: Blood pressure 103/67, pulse of 87, temperature 98.2. She is 100% on room air. General description is a middle-aged female lying in bed in no distress. Respiratory system: Unlabored breathing, clear to auscultation anteriorly. Heart S1, S2. Regular rate and rhythm. ABDOMEN: Soft. Mild tenderness. LABS: White count normal 10.2, creatinine 0.31. Culture positive for Klebsiella sensitive pathogen. DIAGNOSTIC IMPRESSION AND PLAN: Patient with abdominal abscess in this patient who did have extensive surgery and drainage of the abscess. Culture positive Klebsiella. Patient is covered with Zosyn that will continue. Hopefully to finish therapy with oral antibiotics once her oral intake has improved. Continue supportive care. MMODL / IJN: [id number] /
[2020-06-18] MEDS: HYDROmorphone 1 MG/ML 1 ML SYRINGE IVP PRN ×8 (00:56→23:20)
[2020-06-18] MEDS: SODIUM CHLORIDE 0.9% 1,000 ML IV SCH (03:36)
[2020-06-18] MEDS: PIPERACILLIN-TAZOBACTAM 3.375 GM in SODIUM CHLORIDE 0.9% 100 ML IVPB SCH ×3 (03:36→20:30)
[2020-06-18] MEDS: ONDANSETRON 4 MG/2 ML VIAL IVP PRN ×2 (03:36→11:59)
[2020-06-18] MEDS: ENOXAPARIN 40 MG/0.4 ML SYRINGE SQ SCH (07:14)
[2020-06-18] MEDS: SIMETHICONE 40 MG/0.6 ML DROPS 2,000 MG/30 ML BOTTLE PO SCH ×4 (07:15→21:09)
[2020-06-18] MEDS: FAMOTIDINE 20 MG/2 ML VIAL IV SCH ×2 (07:15→20:29)
[2020-06-18] MEDS: traMADol 50 MG TAB PO PRN ×2 (08:53→15:34)
--- NOTE | 2020-06-18 09:54 | P.PN ---
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 She is status post exploratory laparotomy and small bowel resection, right colectomy, transverse colectomy, sigmoid colectomy, ileostomy and mucous fistula. Patient denies any nausea or vomiting. She is tolerating full liquids. She is having stool through her ileostomy. Pathology report pending. She's asking for increase in her diet. She is afebrile. PHYSICAL EXAM: VITAL SIGNS: Reviewed. GENERAL: Well-developed in no acute distress. HEENT: No sclera icterus. Extraocular movements grossly intact. Moist buccal mucosa. Head is atraumatic, normocephalic. ABDOMEN: Soft. Distended. Right-sided ileostomy site clean dry and intact. Liquidy brown stool present in ileostomy bag. upper abdomen mucous fistula site clean dry and intact NEUROLOGIC: Alert and oriented. Cranial nerves II through XII grossly intact. ASSESSMENT: 1. 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 Postop day #4 status post exploratory laparotomy and small bowel resection, right colectomy transverse colectomy sigmoid colectomy and ileostomy with mucous fistula 2. Possible Crohn's history PLAN: -Continue full liquid diet -Follow up on path report -Continue IV Zosyn. Antibiotics per ID -Hep-Lock IV fluids -Add Ultram as needed for pain -Continue DVT prophylaxis Lovenox -Encourage patient to ambulate and use incentive spirometer -Possible discharge home tomorrow from surgical standpoint Physician Interface Engineer note has been reviewed by physician. Signing provider agrees with the documented findings, assessment, and plan of care. Objective - Vital Signs Vital signs: Vital Signs Temp 98.3 F 06/18/20 06:54 Pulse 69 06/18/20 08:00 Resp 16 06/18/20 08:00 BP 105/66 06/18/20 06:54 Pulse Ox 100 06/18/20 06:54 Intake & Output 06/17/20 06/18/20 06/18/20 18:59 06:59 18:59 Intake Total 300 Output Total 150 Balance -150 300 Intake: Intake, IV Titration 300 Amount Sodium Chloride 0.9% 1, 300 000 ml @ 100 mls/hr IV . Q10H [facility] Rx#:[id number] Output: Stool 150 Other: Voiding Method Toilet Toilet # Voids 1 # Bowel Movements 1 - Labs CBC & Chem 7: 06/15/20 07:01 06/17/20 07:44 Labs: Microbiology - Last 24 Hours (Table) 06/12/20 11:25 Blood Culture - Preliminary Blood No Growth after 120 hours 06/13/20 13:00 Anaerobic Culture - Final Abdominal Fluid
--- NOTE | 2020-06-18 13:23 | P.PN ---
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 She is status post op day #4 for an exploratory laparotomy and small bowel resection, right colectomy, transverse colectomy, sigmoid colectomy, ileostomy and mucous fistula. She does report improvement in her pain since surgery. She denies any fever, chills, nausea or vomiting. She is advanced to full liquid diet yesterday and states is tolerating well. She is having liquidy brown stool through her ileostomy. She is afebrile. He is up and ambulating without difficulty. Objective - Vital Signs Vital signs: Vital Signs Temp 98.3 F 06/18/20 06:54 Pulse 69 06/18/20 08:00 Resp 16 06/18/20 08:00 BP 105/66 06/18/20 06:54 Pulse Ox 100 06/18/20 06:54 Intake & Output 06/17/20 06/18/20 06/18/20 18:59 06:59 18:59 Intake Total 300 Output Total 150 Balance -150 300 Weight 46.4 kg Intake: Intake, IV Titration 300 Amount Sodium Chloride 0.9% 1, 300 000 ml @ 100 mls/hr IV . Q10H [facility] Rx#:[id number] Output: Stool 150 Other: Voiding Method Toilet Toilet # Voids 1 # Bowel Movements 1 - Exam On physical examination, patient appears comfortable in no apparent distress. HEAD: Normocephalic, atraumatic. EYES: No scleral icterus. No conjunctival injection. MOUTH: No lesions, tongue midline. NECK: Trachea midline, no gross abnormalities. ABDOMEN: Soft, appropriately tender to palpation after surgery with wounds currently dressed. Bowel sounds are positive. No organomegaly. No guarding or rigidity. EXTREMITIES: No pedal edema. SKIN: No rashes, no jaundice. NEUROLOGIC: Alert and oriented x3. No focal deficits. - Labs CBC & Chem 7: 06/15/20 07:01 06/17/20 07:44 Labs: Microbiology - Last 24 Hours (Table) 06/12/20 11:25 Blood Culture - Preliminary Blood No Growth after 120 hours 06/13/20 13:00 Anaerobic Culture - Final Abdominal Fluid Assessment and Plan Assessment: (1) Intra-abdominal abscess Narrative/Plan: 39-year-old female who presented back to the hospital after recent admission with complaints of worsening abdominal pain. Found to have intra-abdominal abscess and taken for exploratory laparotomy with resection of the small bowel, right colon, transverse colon and sigmoid with end ileostomy formation. Suspicion is for Crohn's disease given findings of ileitis and fistula formation as well as presentation. Current Visit: Yes Status: Acute Code(s): K65.1 - PERITONEAL ABSCESS SNOMED Code(s): 95534017 (2) Abdominal pain Current Visit: Yes Status: Acute Code(s): R10.9 - UNSPECIFIED ABDOMINAL PAIN SNOMED Code(s): 39839091 (3) Partial bowel obstruction Current Visit: Yes Status: Acute Code(s): K56.600 - PARTIAL INTESTINAL OBSTRUCTION, UNSPECIFIED TO CAUSE SNOMED Code(s): 67095752276765704 (4) Ileitis Current Visit: No Status: Acute Code(s): K52.9 - NONINFECTIVE GASTROENTERITIS AND COLITIS, UNSPECIFIED SNOMED Code(s): 32771978 Plan: Supportive care appreciate recommendations from surgical service Continue pain control Continue broad-spectrum antibiotic therapy Continue to monitor CBC, BMP, LFTs Patient will need close follow-up after discharge with GI service, given the complex nature of her disease she will likely need biologic therapy in the future Thank you for allowing us to participate in the care of the patient The impression and plan of care has been dictated as directed. Dr.K Cano I performed a history and examination of this patient, discussed the same with the dictator. I agree with the dictator's note ,documented as a scribe. Any additional findings or plans will be noted.
--- NOTE | 2020-06-18 14:14 | P.PN ---
Subjective Patient is a 39-year-old female came in is as severe 10/10 sharp right lower quadrant abdominal pain. Patient had a computed tomography scan of the abdomen which do show a large abscess in that area along with possible fistulous interloop fistulous. General surgery was consulted Gen. surgery evaluated the patient they reviewed the computed tomography scan with radiology. Patient was recently hospitalized and at that time patient was believed to have Crohn's disease and was treated for Crohn's and had a colonoscopy with because of the poor prep biopsies were not obtained. Patient denied any fever chills does have low-grade fever here. Patient was started on Zosyn and interventional radiology was consulted by general surgery for drainage of the abscess. Patient will also undergo fistulogram. Gastric probably was consulted as well. 06/13/2020 Patient is seen and evaluated and follow-up and continues to have abdominal discomfort. Surgery is following and planning for exploratory laparotomy this afternoon as CT of the abdomen shows markedly dilated mid and proximal small bowel consistent with high-grade mechanical small bowel obstruction and a thick walled cystic fluid collection in the anterior upper pelvis but could be an abscess and given the extent patient may also undergo abscess drainage during exploratory laparotomy. Patient is maintained on IV antibiotics in the form of Zosyn and will continue at this time. Infectious disease is consulted. GI also following. White blood cell count trending down and is currently 11.6, hemoglobin is stable at 12.0 with no active bleeding noted. Sodium is 135 with a potassium of 4.8. 06/14/2020 Patient is seen and evaluated and follow-up status post exploratory laparotomy and small bowel resection with a right colectomy of the transverse colectomy sigmoid colectomy and ileostomy with mucous fistula. Surgery following closely. Patient was started on clear liquids and tolerating thus far. Patient continues to request pain medication and has IV Dilaudid added and will add Toradol. Discussed with nursing staff about limiting IV narcotics. Patient instructed to increase activity as tolerated. Patient is maintained on IV antibiotics in the form of Zosyn and will continue at this time. Wound cultures preliminary showing gram-negative bacilli and will await finalization. Currently patient denies any chest pain, shortness of breath, or palpitations. Patient is afebrile. No reports of nausea or vomiting and patient tolerating ice chips and popsicles. White blood, is 12.5 with a hemoglobin of 11.1. Sodium is 131 with a potassium of 4.9 and current creatinine is 0.40 06/15/2020 Patient pain is better patient did have a bowel movement into the colostomy bag. Patient also had nausea vomiting and epigastric burning sensation secondary to ketorolac patient is being switched from Pepcid to Protonix. 06/16/2020 Patient does have a output from the right lower quadrant colostomy bag and left and epigastric a colostomy bag doesn't have much of output patient although is feeling better patient's diet is being advanced patient can use to be on IV f luids serum sodium is improving 06/17/2020 Patient's serum sodium is still bit low but overall there is significant improvement possibly of discharge tomorrow patient has output from both colostomies. 06/18/2020 There is some semisolid output from colostomy ileostomy has still liquid output. Patient is otherwise clinically doing well. Patient is on full liquid diet which will be advanced Review of systems: Constitutional: No reports of fatigue, fever, or chills Cardiovascular: No reports of chest pain or palpitations Respiratory: No reports of shortness of breath or cough GI: Reports intermittent nausea, with no reports of vomiting, or diarrhea, reports abdominal discomfort generalized : No reports of dysuria or retention Neurovascular: No reports of weakness or numbness All medications have been reviewed Objective - Vital Signs Vital signs: Vital Signs Temp 98.3 F 06/18/20 06:54 Pulse 69 06/18/20 08:00 Resp 16 06/18/20 08:00 BP 105/66 06/18/20 06:54 Pulse Ox 100 06/18/20 06:54 Intake & Output 06/17/20 06/18/20 06/18/20 18:59 06:59 18:59 Intake Total 300 Output Total 150 Balance -150 300 Weight 46.4 kg Intake: Intake, IV Titration 300 Amount Sodium Chloride 0.9% 1, 300 000 ml @ 100 mls/hr IV . Q10H [facility] Rx#:[id number] Output: Stool 150 Other: Voiding Method Toilet Toilet # Voids 1 # Bowel Movements 1 - Exam GENERAL: The patient is alert and oriented x3, not in any acute distress. Well developed, well nourished. HEENT: Pupils are round and equally reacting to light. EOMI. No scleral icterus. No conjunctival pallor. Normocephalic, atraumatic. No pharyngeal erythema. No thyromegaly. CARDIOVASCULAR: S1 and S2 present. No murmurs, rubs, or gallops. PULMONARY: Chest is clear to auscultation, no wheezing or crackles. ABDOMEN: Soft, tenderness noted of the abdomen with surgical drain on the left and ileostomy noted on the right with no output noted at this time MUSCULOSKELETAL: No joint swelling or deformity. EXTREMITIES: No cyanosis, clubbing, or pedal edema. NEUROLOGICAL: Gross neurological examination did not reveal any focal deficits. SKIN: No rashes. - Labs CBC & Chem 7: 06/15/20 07:01 06/17/20 07:44 Labs: Microbiology - Last 24 Hours (Table) 06/12/20 11:25 Blood Culture - Preliminary Blood No Growth after 120 hours Assessment and Plan Plan: -Intra-abdominal abscess in the right lower quadrant with possible fistulous from Crohn's disease: Patient will continued on Zosyn and infectious disease is following. Patient underwent exploratory laparotomy with small bowel resection, right colectomy, transverse colectomy, sigmoid colectomy and ileostomy with Dr. Liriano on 06/13/2020. Wound cultures are showing Klebsiella pneumonia. Patient probably will be discharged tomorrow -Hyponatremia: Hypovolemic hyponatremia continue with IV fluids -Possible Crohn's enteritis: GI consulted and pending. Patient was not diagnosed with biopsy because of her poor prep in the past -Sepsis secondary assessment #1, improved now -Gastroesophageal reflux disease, active symptoms at this time changing to Gomez nix -Bipolar disorder -GI prophylaxis: Pepcid -DVT prophylaxis: Lovenox -Full code
--- NOTE | 2020-06-18 15:14 | CDI ---
Documentation Clarification Form Date: 06/18/2020 CDS: Elvia Jarrett RN, CCDS Admit Date: 06/12/2020 Patient Name: Norma Haskins ATTENTION: The Clinical Documentation Specialists (CDI) and [facility] Coding Staff appreciate your assistance in clarifying documentation. Please respond to the clarification below the line at the bottom and electronically sign. The CDI & [facility] Coding staff will review the response and follow-up if needed. Please note: Queries are made part of the Legal Health Record. If you have any questions, please contact the author of this message via ITS. Dr. Abril Brunson MD The patient has a BMI of 18.7kg History/Risk Factors: 39-year-old female presents to the ED with sharp right lower quadrant abdominal pain. Medical History: Crohns disease, Admitted with Sepsis, Intra-abdominal abscess with fistulas. Clinical Indicators: Labs: Wbc 18.4; Na 134; Current BMI: 18.7kg The following is taken from the Nutritional Assessment from the Dietitian 06/12/2020 Patient reports weight loss over the last three months. Inadequate oral intake, [place] body weight 50kg. Estimated Nutritional Needs 25-30 Kcals/Kg Energy Needs 5720-1322 (kcal); Estimated protein Needs 50-60 grams/day. The patient is described as underweight. Treatment: Regular diet Dietary Consult: See above Supplements: Ensure TID with meals In your professional opinion, can you please clarify if these findings signify one of the following conditions? Mild Protein-Calorie Malnutrition Moderate Protein-Calorie Malnutrition Severe Protein-Calorie Malnutrition Other condition, please specify Unable to determine (Last Revision: April 2019) Not malnourished MTDD
--- NOTE | 2020-06-18 15:46 | PN ---
PROGRESS NOTE DATE OF SERVICE: 06/18/2020 REASON FOR FOLLOWUP: Abdominal abscess. INTERVAL HISTORY: The patient is currently afebrile. The patient is feeling better. Breathing comfortably. Abdominal pain is currently controlled. No nausea, no vomiting. She has been tolerating her diet and did have in her colostomy bag. PHYSICAL EXAMINATION: Blood pressure 135/66, pulse of 69, temperature 98.3, she is 100% on room air. General description is a middle-aged female lying in bed in no distress. RESPIRATORY SYSTEM: Unlabored breathing, clear to auscultation anteriorly. HEART: S1, S2. Regular rate and rhythm. ABDOMEN: Soft, nontender. LABS: BUN of 6, creatinine 0.7, white count 10.2. DIAGNOSTIC IMPRESSION AND PLAN: Patient with abdominal abscess, status post extensive surgery. Culture positive for Klebsiella pneumonia. Patient is covered with Zosyn. Finish therapy with oral Cipro and Flagyl on discharge. Continue supportive care. MMODL / IJN: [id number] /
[2020-06-19] MEDS: PIPERACILLIN-TAZOBACTAM 3.375 GM in SODIUM CHLORIDE 0.9% 100 ML IVPB SCH ×3 (03:30→20:02)
[2020-06-19] MEDS: HYDROmorphone 1 MG/ML 1 ML SYRINGE IVP PRN ×4 (03:31→20:02)
[2020-06-19] MEDS: ONDANSETRON 4 MG/2 ML VIAL IVP PRN (03:37)
[2020-06-19 05:53] LABS: Basophils # (A) 0.1 k/uL (0-0.2); Basophils % (A) 1 %; Eosinophils # (A) 0.2 k/uL (0-0.7); Eosinophils % (A) 2 %; HGB 10.8 gm/dL (11.4-16.0); Lymphocytes # (A) 1.3 k/uL (1.0-4.8); Lymphocytes % (A) 14 %; MCH 32.8 pg (25.0-35.0); MCHC 33.9 g/dL (31.0-37.0); MCV 96.7 fL (80.0-100.0); Mean Platelet Volume 6.8; Monocytes # (A) 0.5 k/uL (0-1.0); Monocytes % (A) 6 %; Neutrophils # (A) 7.1 k/uL (1.3-7.7); Neutrophils % (A) 76 %; Platelet Count 773 k/uL (150-450); RBC 3.31 m/uL (3.80-5.40); RDW 13.4 % (11.5-15.5); WBC 9.4 k/uL (3.8-10.6)
[2020-06-19] MEDS: traMADol 50 MG TAB PO PRN ×3 (07:16→18:17)
[2020-06-19] MEDS: ENOXAPARIN 40 MG/0.4 ML SYRINGE SQ SCH (08:40)
[2020-06-19] MEDS: FAMOTIDINE 20 MG/2 ML VIAL IV SCH ×2 (08:40→20:02)
[2020-06-19] MEDS: SIMETHICONE 40 MG/0.6 ML DROPS 2,000 MG/30 ML BOTTLE PO SCH ×4 (08:40→21:41)
--- NOTE | 2020-06-19 10:03 | P.PN ---
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 She is status post exploratory laparotomy and small bowel resection, right colectomy, transverse colectomy, sigmoid colectomy, ileostomy and mucous fistula. Patient has increase in her abdominal pain today. She feels that she may have overdone it yesterday. She did a lot of walking in the halls. Patient denies any nausea or vomiting. She is having stool through her ileostomy. Path report reviewed. No evidence of Crohn's. She is afebrile. WBC 9.4. Patient did report some minimal bleeding at incision site PHYSICAL EXAM: VITAL SIGNS: Reviewed. GENERAL: Well-developed in no acute distress. HEENT: No sclera icterus. Extraocular movements grossly intact. Moist buccal mucosa. Head is atraumatic, normocephalic. ABDOMEN: Soft. Distended. Right-sided ileostomy site clean dry and intact. Liquidy brown stool present in ileostomy bag. upper abdomen mucous fistula site clean dry and intact. Incision site clean dry and intact. NEUROLOGIC: Alert and oriented. Cranial nerves II through XII grossly intact. ASSESSMENT: 1. 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 Postop day #5 status post exploratory laparotomy and small bowel resection, right colectomy transverse colectomy sigmoid colectomy and ileostomy with mucous fistula PLAN: -Advance diet to soft -Continue IV Zosyn. Antibiotics per ID -Continue Ultram as needed for pain -Continue DVT prophylaxis Lovenox -Encourage patient to ambulate and use incentive spirometer -Patient not ready for discharge today. Physician [employer] note has been reviewed by physician. Signing provider agrees with the documented findings, assessment, and plan of care. Objective - Vital Signs Vital signs: Vital Signs Temp 98.1 F 06/19/20 07:00 Pulse 77 06/19/20 07:00 Resp 06/19/20 07:00 BP 128/84 06/19/20 07:00 Pulse Ox 100 06/19/20 07:00 Intake & Output 06/18/20 06/19/20 06/19/20 18:59 06:59 18:59 Intake Total 480 1100 Output Total 300 Balance 480 1100 -300 Weight 46.4 kg Intake: Intake, IV Titration 1100 Amount Sodium Chloride 0.9% 1, 1100 000 ml @ 100 mls/hr IV . Q10H [facility] Rx#:[id number] Oral 480 Output: Stool 300 Other: Voiding Method Toilet Toilet # Voids 2 - Labs CBC & Chem 7: 06/19/20 05:28 06/17/20 07:44 Labs: Abnormal Lab Results - Last 24 Hours (Table) 06/19/20 Range/Units 05:28 RBC 3.31 L (3.80-5.40) m/uL Hgb 10.8 L (11.4-16.0) gm/dL Hct 32.0 L (34.0-46.0) % Plt Count 773 H (150-450) k/uL Microbiology - Last 24 Hours (Table) 06/12/20 11:25 Blood Culture - Final Blood No Growth after 144 hours
[2020-06-19 10:13] LABS: Blood Urea Nitrogen <5.0 mg/dL (9.0-27.0); C Reactive Protein 6.7 mg/dL (0.0-0.8); Calcium 8.6 mg/dL (8.7-10.3); Carbon Dioxide 33.3 mmol/L (21.6-31.8); Chloride 99 mmol/L (96-109); Glucose 99 mg/dL (70-110); Non-African American GFR(CKD) 130.3 (60.0-200.0); Potassium 3.5 mmol/L (3.5-5.5); Sodium 137 mmol/L (135-145)
--- NOTE | 2020-06-19 11:51 | P.PN ---
Subjective Patient is a 39-year-old female came in is as severe 10/10 sharp right lower quadrant abdominal pain. Patient had a computed tomography scan of the abdomen which do show a large abscess in that area along with possible fistulous interloop fistulous. General surgery was consulted Gen. surgery evaluated the patient they reviewed the computed tomography scan with radiology. Patient was recently hospitalized and at that time patient was believed to have Crohn's disease and was treated for Crohn's and had a colonoscopy with because of the poor prep biopsies were not obtained. Patient denied any fever chills does have low-grade fever here. Patient was started on Zosyn and interventional radiology was consulted by general surgery for drainage of the abscess. Patient will also undergo fistulogram. Gastric probably was consulted as well. 06/13/2020 Patient is seen and evaluated and follow-up and continues to have abdominal discomfort. Surgery is following and planning for exploratory laparotomy this afternoon as CT of the abdomen shows markedly dilated mid and proximal small bowel consistent with high-grade mechanical small bowel obstruction and a thick walled cystic fluid collection in the anterior upper pelvis but could be an abscess and given the extent patient may also undergo abscess drainage during exploratory laparotomy. Patient is maintained on IV antibiotics in the form of Zosyn and will continue at this time. Infectious disease is consulted. GI also following. White blood cell count trending down and is currently 11.6, hemoglobin is stable at 12.0 with no active bleeding noted. Sodium is 135 with a potassium of 4.8. 06/14/2020 Patient is seen and evaluated and follow-up status post exploratory laparotomy and small bowel resection with a right colectomy of the transverse colectomy sigmoid colectomy and ileostomy with mucous fistula. Surgery following closely. Patient was started on clear liquids and tolerating thus far. Patient continues to request pain medication and has IV Dilaudid added and will add Toradol. Discussed with nursing staff about limiting IV narcotics. Patient instructed to increase activity as tolerated. Patient is maintained on IV antibiotics in the form of Zosyn and will continue at this time. Wound cultures preliminary showing gram-negative bacilli and will await finalization. Currently patient denies any chest pain, shortness of breath, or palpitations. Patient is afebrile. No reports of nausea or vomiting and patient tolerating ice chips and popsicles. White blood, is 12.5 with a hemoglobin of 11.1. Sodium is 131 with a potassium of 4.9 and current creatinine is 0.40 06/15/2020 Patient pain is better patient did have a bowel movement into the colostomy bag. Patient also had nausea vomiting and epigastric burning sensation secondary to ketorolac patient is being switched from Pepcid to Protonix. 06/16/2020 Patient does have a output from the right lower quadrant colostomy bag and left and epigastric a colostomy bag doesn't have much of output patient although is feeling better patient's diet is being advanced patient can use to be on IV f luids serum sodium is improving 06/17/2020 Patient's serum sodium is still bit low but overall there is significant improvement possibly of discharge tomorrow patient has output from both colostomies. 06/18/2020 There is some semisolid output from colostomy ileostomy has still liquid output. Patient is otherwise clinically doing well. Patient is on full liquid diet which will be advanced 06/19/2020 Patient is still complaining of her significant abdominal pain because of which the general surgery did not clear the patient to be discharged patient will be continued on present medications will evaluate for discharge tomorrow Review of systems: Constitutional: No reports of fatigue, fever, or chills Cardiovascular: No reports of chest pain or palpitations Respiratory: No reports of shortness of breath or cough GI: Reports intermittent nausea, with no reports of vomiting, or diarrhea, reports abdominal discomfort generalized : No reports of dysuria or retention Neurovascular: No reports of weakness or numbness All medications have been reviewed Objective - Vital Signs Vital signs: Vital Signs Temp 98.1 F 06/19/20 07:00 Pulse 77 06/19/20 07:00 Resp 16 06/19/20 07:00 BP 128/84 06/19/20 07:00 Pulse Ox 100 06/19/20 07:00 Intake & Output 06/18/20 06/19/20 06/19/20 18:59 06:59 18:59 Intake Total 480 1100 Output Total 300 Balance 480 1100 -300 Weight 46.4 kg Intake: Intake, IV Titration 1100 Amount Sodium Chloride 0.9% 1, 1100 000 ml @ 100 mls/hr IV . Q10H [facility] Rx#:[id number] Oral 480 Output: Stool 300 Other: Voiding Method Toilet Toilet # Voids 2 - Exam GENERAL: The patient is alert and oriented x3, not in any acute distress. Well developed, well nourished. HEENT: Pupils are round and equally reacting to light. EOMI. No scleral icterus. No conjunctival pallor. Normocephalic, atraumatic. No pharyngeal erythema. No thyromegaly. CARDIOVASCULAR: S1 and S2 present. No murmurs, rubs, or gallops. PULMONARY: Chest is clear to auscultation, no wheezing or crackles. ABDOMEN: Soft, tenderness noted of the abdomen with surgical drain on the left and ileostomy noted on the right with no output noted at this time MUSCULOSKELETAL: No joint swelling or deformity. EXTREMITIES: No cyanosis, clubbing, or pedal edema. NEUROLOGICAL: Gross neurological examination did not reveal any focal deficits. SKIN: No rashes. - Labs CBC & Chem 7: 06/19/20 05:28 06/19/20 05:28 Labs: Abnormal Lab Results - Last 24 Hours (Table) 06/19/20 06/19/20 Range/Units 05:28 05:28 RBC 3.31 L (3.80-5.40) m/uL Hgb 10.8 L (11.4-16.0) gm/dL Hct 32.0 L (34.0-46.0) % Plt Count 773 H (150-450) k/uL Carbon Dioxide 33.3 H (21.6-31.8) mmol/L BUN <5.0 L (9.0-27.0) mg/dL Creatinine 0.4 L (0.6-1.5) mg/dL Calcium 8.6 L (8.7-10.3) mg/dL C-Reactive Protein 6.7 H (0.0-0.8) mg/dL Microbiology - Last 24 Hours (Table) 06/12/20 11:25 Blood Culture - Final Blood No Growth after 144 hours Assessment and Plan Plan: -Intra-abdominal abscess in the right lower quadrant with possible fistulous from Crohn's disease: Patient will continued on Zosyn and infectious disease is following. Patient underwent exploratory laparotomy with small bowel resection, right colectomy, transverse colectomy, sigmoid colectomy and ileostomy with Dr. Liriano on 06/13/2020. Wound cultures are showing Klebsiella pneumonia. Patient probably will be discharged tomorrow -Hyponatremia: Hypovolemic hyponatremia continue with IV fluids -Possible Crohn's enteritis: GI consulted and pending. Patient was not diagnosed with biopsy because of her poor prep in the past -Sepsis secondary assessment #1, improved now -Gastroesophageal reflux disease, active symptoms at this time changing to Protonix -Bipolar disorder -GI prophylaxis: Pepcid -DVT prophylaxis: Lovenox -Full code
[2020-06-19] MEDS: ACETAMINOPHEN TAB 325 MG TAB PO PRN (12:23)
--- NOTE | 2020-06-19 13:11 | P.PN ---
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 She is status post op day #5 for an exploratory laparotomy and small bowel resection, right colectomy, transverse colectomy, sigmoid colectomy, ileostomy and mucous fistula. She states today she is doing more pain and feels like she overdid it yesterday. She denies any fever, chills, nausea or vomiting. She is advanced to full liquid diet yesterday and states is tolerating well. She is having liquidy brown stool through her ileostomy. She is afebrile. She is up and ambulating without difficulty. Objective - Vital Signs Vital signs: Vital Signs Temp 98.1 F 06/19/20 07:00 Pulse 77 06/19/20 07:00 Resp 16 06/19/20 07:00 BP 128/84 06/19/20 07:00 Pulse Ox 100 06/19/20 07:00 Intake & Output 06/18/20 06/19/20 06/19/20 18:59 06:59 18:59 Intake Total 480 1100 Output Total 300 Balance 480 1100 -300 Weight 46.4 kg Intake: Intake, IV Titration 1100 Amount Sodium Chloride 0.9% 1, 1100 000 ml @ 100 mls/hr IV . Q10H [facility] Rx#:[id number] Oral 480 Output: Stool 300 Other: Voiding Method Toilet Toilet # Voids 2 - Exam On physical examination, patient appears comfortable in no apparent distress. HEAD: Normocephalic, atraumatic. EYES: No scleral icterus. No conjunctival injection. MOUTH: No lesions, tongue midline. NECK: Trachea midline, no gross abnormalities. ABDOMEN: Soft, appropriately tender to palpation after surgery with wounds currently dressed. Bowel sounds are positive. No organomegaly. No guarding or rigidity. EXTREMITIES: No pedal edema. SKIN: No rashes, no jaundice. NEUROLOGIC: Alert and oriented x3. No focal deficits. - Labs CBC & Chem 7: 06/19/20 05:28 06/19/20 05:28 Labs: Abnormal Lab Results - Last 24 Hours (Table) 06/19/20 06/19/20 Range/Units 05:28 05:28 RBC 3.31 L (3.80-5.40) m/uL Hgb 10.8 L (11.4-16.0) gm/dL Hct 32.0 L (34.0-46.0) % Plt Count 773 H (150-450) k/uL Carbon Dioxide 33.3 H (21.6-31.8) mmol/L BUN <5.0 L (9.0-27.0) mg/dL Creatinine 0.4 L (0.6-1.5) mg/dL Calcium 8.6 L (8.7-10.3) mg/dL C-Reactive Protein 6.7 H (0.0-0.8) mg/dL Microbiology - Last 24 Hours (Table) 06/12/20 11:25 Blood Culture - Final Blood No Growth after 144 hours Assessment and Plan Assessment: (1) Intra-abdominal abscess Narrative/Plan: 39-year-old female who presented back to the hospital after recent admission with complaints of worsening abdominal pain. Found to have intra-abdominal abscess and taken for exploratory laparotomy with resection of the small bowel, right colon, transverse colon and sigmoid with end ileostomy formation. Suspicion is for Crohn's disease given findings of ileitis and fistula formation as well as presentation. Current Visit: Yes Status: Acute Code(s): K65.1 - PERITONEAL ABSCESS SNOMED Code(s): 81326915 (2) Abdominal pain Current Visit: Yes Status: Acute Code(s): R10.9 - UNSPECIFIED ABDOMINAL PAIN SNOMED Code(s): 92204737 (3) Partial bowel obstruction Current Visit: Yes Status: Acute Code(s): K56.600 - PARTIAL INTESTINAL OBSTRUCTION, UNSPECIFIED TO CAUSE SNOMED Code(s): 04159385772718783 (4) Ileitis Current Visit: No Status: Acute Code(s): K52.9 - NONINFECTIVE GASTROENTERITIS AND COLITIS, UNSPECIFIED SNOMED Code(s): 00299112 Plan: Supportive care appreciate recommendations from surgical service Continue pain control Diet per surgical services recommendations Continue broad-spectrum antibiotic therapy Continue to monitor CBC, BMP, LFTs Patient will need close follow-up after discharge with GI service, given the complex nature of her disease she will likely need biologic therapy in the future Outpatient colonoscopy will be recommended in 2 months for further evaluation. Thank you for allowing us to participate in the care of the patient The impression and plan of care has been dictated as directed. Dr.K Cano I performed a history and examination of this patient, discussed the same with the dictator. I agree with the dictator's note ,documented as a scribe. Any additional findings or plans will be noted.
[2020-06-19 14:01] LABS: Erythrocyte Sedimentation Rate 32 mm/Hr (0-20)
--- NOTE | 2020-06-19 17:47 | PN ---
PROGRESS NOTE DATE OF SERVICE: 06/19/2020 REASON FOR FOLLOWUP: Abdominal abscess. INTERVAL HISTORY: The patient is currently afebrile. She did have increasing abdominal pain today. The patient denies having any nausea. No vomiting. Did have some loose stool in the ostomy. Did mention she did have removal of some of the stitches and some drainage of the fluid. PHYSICAL EXAMINATION: Her blood pressure is 123/84 with a pulse of 77, temperature 98.1. She is 100% on room air. General description is a middle-aged female up in the bed in no distress. RESPIRATORY SYSTEM: Unlabored breathing with decreased breath sounds at the base. No wheeze. HEART: S1, S2. Regular rate and rhythm. ABDOMEN: Soft. No tenderness. LABS: Hemoglobin 10.3, white count 9.4, BUN of 5, creatinine 0.40. DIAGNOSTIC IMPRESSION AND PLAN: Patient with abdominal abscess, status post extensive surgery, ileostomy. Cultures with Klebsiella. Patient is covered with Zosyn; to continue while waiting for her condition to stabilize before transitioning to oral antibiotics. Continue with supportive care. MMODL / IJN: [id number] /
[2020-06-20] MEDS: ACETAMINOPHEN TAB 325 MG TAB PO PRN (00:01)
[2020-06-20] MEDS: traMADol 50 MG TAB PO PRN ×2 (03:16→16:59)
[2020-06-20] MEDS: ONDANSETRON 4 MG/2 ML VIAL IVP PRN ×2 (06:27→21:58)
[2020-06-20] MEDS: HYDROmorphone 1 MG/ML 1 ML SYRINGE IVP PRN ×5 (06:32→21:36)
[2020-06-20] MEDS: ENOXAPARIN 40 MG/0.4 ML SYRINGE SQ SCH (08:14)
[2020-06-20] MEDS: FAMOTIDINE 20 MG/2 ML VIAL IV SCH ×2 (08:14→21:36)
[2020-06-20] MEDS: SIMETHICONE 40 MG/0.6 ML DROPS 2,000 MG/30 ML BOTTLE PO SCH ×4 (08:15→21:37)
--- NOTE | 2020-06-20 11:15 | P.PN ---
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 She is status post exploratory laparotomy and small bowel resection, right colectomy, transverse colectomy, sigmoid colectomy, ileostomy and mucous fistula. Patient reporting some drainage at the bottom of her incision. Patient did have some nausea this morning. Patient denies any vomiting. She is having stool through her ileostomy. Path report reviewed. No evidence of Crohn's. She is afebrile. WBC 9.4. Tolerating soft chopped diet. PHYSICAL EXAM: VITAL SIGNS: Reviewed. GENERAL: Well-developed in no acute distress. HEENT: No sclera icterus. Extraocular movements grossly intact. Moist buccal mucosa. Head is atraumatic, normocephalic. ABDOMEN: Soft. Mildly Distended. Right-sided ileostomy site clean dry and i ntact. brown stool present in ileostomy bag. upper abdomen mucous fistula site clean dry and intact. Yellowish drainage at distal aspect of incision site with mild erythema around the second to last stable NEUROLOGIC: Alert and oriented. Cranial nerves II through XII grossly intact. ASSESSMENT: 1. 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 Postop day #6 status post exploratory laparotomy and small bowel resection, right colectomy transverse colectomy sigmoid colectomy and ileostomy with mucous fistula 2. Drainage at distal aspect of incision site. Removed one staple at incision site and cultured drainage PLAN: -Continue soft diet -Continue IV Zosyn. Antibiotics per ID -Continue Ultram and Tylenol as needed for pain -Continue DVT prophylaxis Lovenox -Encourage patient to ambulate and use incentive spirometer -Patient not ready for discharge today. Physician Layout Inspector note has been reviewed by physician. Signing provider agrees with the documented findings, assessment, and plan of care. Objective - Vital Signs Vital signs: Vital Signs Temp 97.0 F L 06/20/20 07:00 Pulse 76 06/20/20 08:00 Resp 18 06/20/20 08:00 BP 98/62 06/20/20 07:00 Pulse Ox 98 06/20/20 07:00 Intake & Output 06/19/20 06/20/20 06/20/20 18:59 06:59 18:59 Intake Total 100 Output Total 300 Balance -300 100 Intake: Intake, IV Titration 100 Amount Piperacillin-Tazobactam 3 100 .375 gm In Sodium Chloride 0.9% 100 ml @ 25 mls/hr IVPB Q8H [facility] Rx#: [id number] Output: Stool 300 Other: Voiding Method Toilet Toilet # Voids 2 1 - Labs CBC & Chem 7: 06/19/20 05:28 06/19/20 05:28 Labs: Abnormal Lab Results - Last 24 Hours (Table) 06/19/20 Range/Units 05:28 ESR 32 H (0-20) mm/Hr
--- NOTE | 2020-06-20 13:28 | P.PN ---
Subjective Patient is a 39-year-old female came in is as severe 10/10 sharp right lower quadrant abdominal pain. Patient had a computed tomography scan of the abdomen which do show a large abscess in that area along with possible fistulous interloop fistulous. General surgery was consulted Gen. surgery evaluated the patient they reviewed the computed tomography scan with radiology. Patient was recently hospitalized and at that time patient was believed to have Crohn's disease and was treated for Crohn's and had a colonoscopy with because of the poor prep biopsies were not obtained. Patient denied any fever chills does have low-grade fever here. Patient was started on Zosyn and interventional radiology was consulted by general surgery for drainage of the abscess. Patient will also undergo fistulogram. Gastric probably was consulted as well. 06/13/2020 Patient is seen and evaluated and follow-up and continues to have abdominal discomfort. Surgery is following and planning for exploratory laparotomy this afternoon as CT of the abdomen shows markedly dilated mid and proximal small bowel consistent with high-grade mechanical small bowel obstruction and a thick walled cystic fluid collection in the anterior upper pelvis but could be an abscess and given the extent patient may also undergo abscess drainage during exploratory laparotomy. Patient is maintained on IV antibiotics in the form of Zosyn and will continue at this time. Infectious disease is consulted. GI also following. White blood cell count trending down and is currently 11.6, hemoglobin is stable at 12.0 with no active bleeding noted. Sodium is 135 with a potassium of 4.8. 06/14/2020 Patient is seen and evaluated and follow-up status post exploratory laparotomy and small bowel resection with a right colectomy of the transverse colectomy sigmoid colectomy and ileostomy with mucous fistula. Surgery following closely. Patient was started on clear liquids and tolerating thus far. Patient continues to request pain medication and has IV Dilaudid added and will add Toradol. Discussed with nursing staff about limiting IV narcotics. Patient instructed to increase activity as tolerated. Patient is maintained on IV antibiotics in the form of Zosyn and will continue at this time. Wound cultures preliminary showing gram-negative bacilli and will await finalization. Currently patient denies any chest pain, shortness of breath, or palpitations. Patient is afebrile. No reports of nausea or vomiting and patient tolerating ice chips and popsicles. White blood, is 12.5 with a hemoglobin of 11.1. Sodium is 131 with a potassium of 4.9 and current creatinine is 0.40 06/15/2020 Patient pain is better patient did have a bowel movement into the colostomy bag. Patient also had nausea vomiting and epigastric burning sensation secondary to ketorolac patient is being switched from Pepcid to Protonix. 06/16/2020 Patient does have a output from the right lower quadrant colostomy bag and left and epigastric a colostomy bag doesn't have much of output patient although is feeling better patient's diet is being advanced patient can use to be on IV f luids serum sodium is improving 06/17/2020 Patient's serum sodium is still bit low but overall there is significant improvement possibly of discharge tomorrow patient has output from both colostomies. 06/18/2020 There is some semisolid output from colostomy ileostomy has still liquid output. Patient is otherwise clinically doing well. Patient is on full liquid diet which will be advanced 06/19/2020 Patient is still complaining of her significant abdominal pain because of which the general surgery did not clear the patient to be discharged patient will be continued on present medications will evaluate for discharge tomorrow 06/20/2020 1 of the cecilia in the surgical site area was removed because of concern for infection and that area was cultured by general surgery. As per neurosurgery patient is not yet ready be discharged Review of systems: Constitutional: No reports of fatigue, fever, or chills Cardiovascular: No reports of chest pain or palpitations Respiratory: No reports of shortness of breath or cough GI: Reports intermittent nausea, with no reports of vomiting, or diarrhea, reports abdominal discomfort generalized : No reports of dysuria or retention Neurovascular: No reports of weakness or numbness All medications have been reviewed Objective - Vital Signs Vital signs: Vital Signs Temp 97.0 F L 06/20/20 07:00 Pulse 76 06/20/20 08:00 Resp 18 06/20/20 08:00 BP 98/62 06/20/20 07:00 Pulse Ox 98 06/20/20 07:00 Intake & Output 06/19/20 06/20/20 06/20/20 18:59 06:59 18:59 Intake Total 100 Output Total 300 Balance -300 100 Intake: Intake, IV Titration 100 Amount Piperacillin-Tazobactam 3 100 .375 gm In Sodium Chloride 0.9% 100 ml @ 25 mls/hr IVPB Q8H [facility] Rx#: [id number] Output: Stool 300 Other: Voiding Method Toilet Toilet # Voids 2 1 - Exam GENERAL: The patient is alert and oriented x3, not in any acute distress. Well developed, well nourished. HEENT: Pupils are round and equally reacting to light. EOMI. No scleral icterus. No conjunctival pallor. Normocephalic, atraumatic. No pharyngeal erythema. No thyromegaly. CARDIOVASCULAR: S1 and S2 present. No murmurs, rubs, or gallops. PULMONARY: Chest is clear to auscultation, no wheezing or crackles. ABDOMEN: Soft, tenderness noted of the abdomen with surgical drain on the left and ileostomy noted on the right surgical site areas examined as well a small area of redness. It can be postoperative change MUSCULOSKELETAL: No joint swelling or deformity. EXTREMITIES: No cyanosis, clubbing, or pedal edema. NEUROLOGICAL: Gross neurological examination did not reveal any focal deficits. SKIN: No rashes. - Labs CBC & Chem 7: 06/19/20 05:28 06/19/20 05:28 Labs: Abnormal Lab Results - Last 24 Hours (Table) 06/19/20 Range/Units 05:28 ESR 32 H (0-20) mm/Hr Assessment and Plan Plan: -Intra-abdominal abscess in the right lower quadrant with possible fistulous from Crohn's disease: Patient will continued on Zosyn and infectious disease is following. Patient underwent exploratory laparotomy with small bowel resection, right colectomy, transverse colectomy, sigmoid colectomy and ileostomy with Dr. Liriano on 06/13/2020. Wound cultures are showing Klebsiella pneumonia. Patient is presently on Zosyn -Hyponatremia: Hypovolemic hyponatremia improved with IV fluids -Possible Crohn's enteritis: GI consulted and pending. Patient was not diagnosed with biopsy because of her poor prep in the past -Sepsis secondary assessment #1, improved now -Gastroesophageal reflux disease. -Bipolar disorder -GI prophylaxis: Pepcid -DVT prophylaxis: Lovenox -Full code
--- NOTE | 2020-06-20 15:19 | P.PN ---
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 She is status post op day #6 for an exploratory laparotomy and small bowel resection, right colectomy, transverse colectomy, sigmoid colectomy, ileostomy and mucous fistula. She states today she is doing better, and her pain is better controlled. She denies any fever, chills, nausea or vomiting. She is advanced to full liquid diet yesterday and states is tolerating well. She is having liquidy brown stool through her ileostomy. She is afebrile. She is up and ambulating without difficulty. Objective - Vital Signs Vital signs: Vital Signs Temp 97.0 F L 06/20/20 07:00 Pulse 76 06/20/20 08:00 Resp 18 06/20/20 08:00 BP 98/62 06/20/20 07:00 Pulse Ox 98 06/20/20 07:00 Intake & Output 06/19/20 06/20/20 06/20/20 18:59 06:59 18:59 Intake Total 100 Output Total 300 Balance -300 100 Intake: Intake, IV Titration 100 Amount Piperacillin-Tazobactam 3 100 .375 gm In Sodium Chloride 0.9% 100 ml @ 25 mls/hr IVPB Q8H [facility] Rx#: [id number] Output: Stool 300 Other: Voiding Method Toilet Toilet # Voids 2 1 - Exam On physical examination, patient appears comfortable in no apparent distress. HEAD: Normocephalic, atraumatic. EYES: No scleral icterus. No conjunctival injection. MOUTH: No lesions, tongue midline. NECK: Trachea midline, no gross abnormalities. ABDOMEN: Soft, appropriately tender to palpation after surgery with wounds currently dressed. Bowel sounds are positive. No organomegaly. No guarding or rigidity. EXTREMITIES: No pedal edema. SKIN: No rashes, no jaundice. NEUROLOGIC: Alert and oriented x3. No focal deficits. - Labs CBC & Chem 7: 06/19/20 05:28 06/19/20 05:28 Assessment and Plan Assessment: (1) Intra-abdominal abscess Narrative/Plan: 39-year-old female who presented back to the hospital after recent admission with complaints of worsening abdominal pain. Found to have intra-abdominal abscess and taken for exploratory laparotomy with resection of the small bowel, right colon, transverse colon and sigmoid with end ileostomy formation. Suspicion is for Crohn's disease given findings of ileitis and fistula formation as well as presentation. Current Visit: Yes Status: Acute Code(s): K65.1 - PERITONEAL ABSCESS SNOMED Code(s): 00610125 (2) Abdominal pain Current Visit: Yes Status: Acute Code(s): R10.9 - UNSPECIFIED ABDOMINAL PAIN SNOMED Code(s): 55152831 (3) Partial bowel obstruction Current Visit: Yes Status: Acute Code(s): K56.600 - PARTIAL INTESTINAL OBSTRUCTION, UNSPECIFIED TO CAUSE SNOMED Code(s): 03668816890974626 (4) Ileitis Current Visit: No Status: Acute Code(s): K52.9 - NONINFECTIVE GASTROENTERITIS AND COLITIS, UNSPECIFIED SNOMED Code(s): 42829793 Plan: Supportive care appreciate recommendations from surgical service Continue pain control Diet per surgical services recommendations Continue broad-spectrum antibiotic therapy Continue to monitor CBC, BMP, LFTs Patient will need close follow-up after discharge with GI service, given the complex nature of her disease she will likely need biologic therapy in the future Outpatient colonoscopy will be recommended in 2 months for further evaluation. Thank you for allowing us to participate in the care of the patient The impression and plan of care has been dictated as directed. Dr.K Cano I performed a history and examination of this patient, discussed the same with the dictator. I agree with the dictator's note ,documented as a scribe. Any additional findings or plans will be noted.
[2020-06-20] MEDS: PIPERACILLIN-TAZOBACTAM 3.375 GM in SODIUM CHLORIDE 0.9% 100 ML IVPB SCH (16:56)
--- NOTE | 2020-06-20 23:24 | PN ---
PROGRESS NOTE DATE OF SERVICE: 06/20/2020 REASON FOR FOLLOWUP: Abdominal abscess. INTERVAL HISTORY: The patient is currently afebrile. She is breathing comfortably. The patient denies having any chest pain or shortness of breath or cough. Still some abdominal discomfort and mild drainage from the lower part of the incision. Some was removed. PHYSICAL EXAMINATION: Blood pressure 97/61 with pulse of 77, temperature 98. She is 99% on room air. General description is a middle-aged female lying in bed in no distress. RESPIRATORY SYSTEM: Unlabored breathing. Clear to auscultation anteriorly. HEART: S1, S2. Regular rate and rhythm. ABDOMEN: Soft. Mildly distended. No guarding or rigidity. LABS: White count normal. Abdominal wound cultures currently pending. DIAGNOSTIC IMPRESSION AND PLAN: Patient with abdominal abscess in this patient who did have extensive abdominal surgery. Initial culture positive for Klebsiella and has been covered with Zosyn. Subsequently did have some drainage from the lower end of the incision; this has been cultured. Those cultures are currently pending. We will keep the patient on Zosyn while waiting for the recent culture to finalize and continue with supportive care. MMODL / IJN: [id number] /
[2020-06-21] MEDS: traMADol 50 MG TAB PO PRN ×2 (01:44→11:49)
[2020-06-21] MEDS: HYDROmorphone 1 MG/ML 1 ML SYRINGE IVP PRN ×5 (03:12→21:44)
[2020-06-21 07:05] LABS: Basophils # (A) 0.1 k/uL (0-0.2); Basophils % (A) 1 %; Eosinophils # (A) 0.3 k/uL (0-0.7); Eosinophils % (A) 3 %; HGB 11.9 gm/dL (11.4-16.0); Lymphocytes # (A) 1.6 k/uL (1.0-4.8); Lymphocytes % (A) 13 %; MCH 31.1 pg (25.0-35.0); MCHC 31.3 g/dL (31.0-37.0); MCV 99.2 fL (80.0-100.0); Mean Platelet Volume 6.9; Monocytes # (A) 0.6 k/uL (0-1.0); Monocytes % (A) 5 %; Neutrophils # (A) 9.3 k/uL (1.3-7.7); Neutrophils % (A) 78 %; Platelet Count 701 k/uL (150-450); RBC 3.83 m/uL (3.80-5.40); RDW 13.7 % (11.5-15.5); WBC 11.9 k/uL (3.8-10.6)
[2020-06-21] MEDS: FAMOTIDINE 20 MG/2 ML VIAL IV SCH ×3 (08:02→21:45)
[2020-06-21] MEDS: SIMETHICONE 40 MG/0.6 ML DROPS 2,000 MG/30 ML BOTTLE PO SCH ×4 (08:03→21:43)
[2020-06-21] MEDS: PIPERACILLIN-TAZOBACTAM 3.375 GM in SODIUM CHLORIDE 0.9% 100 ML IVPB SCH ×4 (08:03→16:38)
[2020-06-21] MEDS: ENOXAPARIN 40 MG/0.4 ML SYRINGE SQ SCH (08:03)
[2020-06-21 10:40] LABS: African American GFR (CKD) 140.3 (60.0-200.0); Blood Urea Nitrogen <5.0 mg/dL (9.0-27.0); C Reactive Protein 4.5 mg/dL (0.0-0.8); Calcium 8.8 mg/dL (8.7-10.3); Carbon Dioxide 33.2 mmol/L (21.6-31.8); Chloride 100 mmol/L (96-109); Glucose 85 mg/dL (70-110); Non-African American GFR(CKD) 121.1 (60.0-200.0); Potassium 4.1 mmol/L (3.5-5.5); Sodium 140 mmol/L (135-145)
--- NOTE | 2020-06-21 13:00 | P.PN ---
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 She is status post exploratory laparotomy and small bowel resection, right colectomy, transverse colectomy, sigmoid colectomy, ileostomy and mucous fistula. Patient reporting new drainage at the incision site just below the umbilicus. Patient denies any nausea or vomiting. She is having stool through her ileostomy. Path report reviewed. No evidence of Crohn's. She is afebrile. WBC is up to 11.9. Incision drainage culture growing gram-negative bacilli. Tolerating soft chopped diet. PHYSICAL EXAM: VITAL SIGNS: Reviewed. GENERAL: Well-developed in no acute distress. HEENT: No sclera icterus. Extraocular movements grossly intact. Moist buccal mucosa. Head is atraumatic, normocephalic. ABDOMEN: Soft. Mildly Distended. Right-sided ileostomy site clean dry and intact. brown stool present in ileostomy bag. upper abdomen mucous fistula site clean dry and intact. Yellowish drainage at distal aspect of incision site with mild erythema around the second to last staple. Now new drainage at incision site below the umbilicus. Drainage is serosanguineous with pus present. Tenderness with palpation along the incision NEUROLOGIC: Alert and oriented. Cranial nerves II through XII grossly intact. ASSESSMENT: 1. 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 Postop day #6 status post exploratory laparotomy and small bowel resection, right colectomy transverse colectomy sigmoid colectomy and ileostomy with mucous fistula 2. Drainage at incision site. Removed staple. Culture growing gram-negative bacilli PLAN: -Continue soft diet -Continue IV Zosyn. Antibiotics per ID -Continue Ultram,Tylenol and Dilaudid as needed for pain -Continue DVT prophylaxis Lovenox -Encourage patient to ambulate and use incentive spirometer -Patient not ready for discharge today. Physician Load Blocker note has been reviewed by physician. Signing provider agrees with the documented findings, assessment, and plan of care. Objective - Vital Signs Vital signs: Vital Signs Temp 98.1 F 06/21/20 07:00 Pulse 70 06/21/20 08:00 Resp 16 06/21/20 08:00 BP 105/70 06/21/20 07:00 Pulse Ox 97 06/21/20 07:00 Intake & Output 06/20/20 06/21/20 06/21/20 18:59 06:59 18:59 Intake Total 200 Balance 200 Intake: Intake, IV Titration 200 Amount Piperacillin-Tazobactam 3 200 .375 gm In Sodium Chloride 0.9% 100 ml @ 25 mls/hr IVPB Q8HR [facility] Rx# :[id number] Other: Voiding Method Toilet Toilet Toilet # Voids 2 2 - Labs CBC & Chem 7: 06/21/20 06:53 06/21/20 06:49 Labs: Abnormal Lab Results - Last 24 Hours (Table) 06/21/20 06/21/20 Range/Units 06:49 06:53 WBC 11.9 H (3.8-10.6) k/uL Plt Count 701 H (150-450) k/uL Neutrophils # 9.3 H (1.3-7.7) k/uL Carbon Dioxide 33.2 H (21.6-31.8) mmol/L BUN <5.0 L (9.0-27.0) mg/dL Creatinine 0.5 L (0.6-1.5) mg/dL C-Reactive Protein 4.5 H (0.0-0.8) mg/dL Microbiology - Last 24 Hours (Table) 06/20/20 09:39 Gram Stain - Preliminary Abdomen Wound Culture - Preliminary Gram Neg Bacilli 06/20/20 09:39 Anaerobic Culture - Preliminary Abdomen
[2020-06-21 13:05] LABS: Erythrocyte Sedimentation Rate 40 mm/Hr (0-20)
--- NOTE | 2020-06-21 14:23 | P.PN ---
Subjective Patient is a 39-year-old female came in is as severe 10/10 sharp right lower quadrant abdominal pain. Patient had a computed tomography scan of the abdomen which do show a large abscess in that area along with possible fistulous interloop fistulous. General surgery was consulted Gen. surgery evaluated the patient they reviewed the computed tomography scan with radiology. Patient was recently hospitalized and at that time patient was believed to have Crohn's disease and was treated for Crohn's and had a colonoscopy with because of the poor prep biopsies were not obtained. Patient denied any fever chills does have low-grade fever here. Patient was started on Zosyn and interventional radiology was consulted by general surgery for drainage of the abscess. Patient will also undergo fistulogram. Gastric probably was consulted as well. 06/13/2020 Patient is seen and evaluated and follow-up and continues to have abdominal discomfort. Surgery is following and planning for exploratory laparotomy this afternoon as CT of the abdomen shows markedly dilated mid and proximal small bowel consistent with high-grade mechanical small bowel obstruction and a thick walled cystic fluid collection in the anterior upper pelvis but could be an abscess and given the extent patient may also undergo abscess drainage during exploratory laparotomy. Patient is maintained on IV antibiotics in the form of Zosyn and will continue at this time. Infectious disease is consulted. GI also following. White blood cell count trending down and is currently 11.6, hemoglobin is stable at 12.0 with no active bleeding noted. Sodium is 135 with a potassium of 4.8. 06/14/2020 Patient is seen and evaluated and follow-up status post exploratory laparotomy and small bowel resection with a right colectomy of the transverse colectomy sigmoid colectomy and ileostomy with mucous fistula. Surgery following closely. Patient was started on clear liquids and tolerating thus far. Patient continues to request pain medication and has IV Dilaudid added and will add Toradol. Discussed with nursing staff about limiting IV narcotics. Patient instructed to increase activity as tolerated. Patient is maintained on IV antibiotics in the form of Zosyn and will continue at this time. Wound cultures preliminary showing gram-negative bacilli and will await finalization. Currently patient denies any chest pain, shortness of breath, or palpitations. Patient is afebrile. No reports of nausea or vomiting and patient tolerating ice chips and popsicles. White blood, is 12.5 with a hemoglobin of 11.1. Sodium is 131 with a potassium of 4.9 and current creatinine is 0.40 06/15/2020 Patient pain is better patient did have a bowel movement into the colostomy bag. Patient also had nausea vomiting and epigastric burning sensation secondary to ketorolac patient is being switched from Pepcid to Protonix. 06/16/2020 Patient does have a output from the right lower quadrant colostomy bag and left and epigastric a colostomy bag doesn't have much of output patient although is feeling better patient's diet is being advanced patient can use to be on IV f luids serum sodium is improving 06/17/2020 Patient's serum sodium is still bit low but overall there is significant improvement possibly of discharge tomorrow patient has output from both colostomies. 06/18/2020 There is some semisolid output from colostomy ileostomy has still liquid output. Patient is otherwise clinically doing well. Patient is on full liquid diet which will be advanced 06/19/2020 Patient is still complaining of her significant abdominal pain because of which the general surgery did not clear the patient to be discharged patient will be continued on present medications will evaluate for discharge tomorrow 06/20/2020 1 of the cecilia in the surgical site area was removed because of concern for infection and that area was cultured by general surgery. As per neurosurgery patient is not yet ready be discharged 06/21/2020 Patient the wound cultures from yesterday surgical site is positive for gram- negative bacilli patient is already on Zosyn which will be continued Review of systems: Constitutional: No reports of fatigue, fever, or chills Cardiovascular: No reports of chest pain or palpitations Respiratory: No reports of shortness of breath or cough GI: Reports intermittent nausea, with no reports of vomiting, or diarrhea, reports abdominal discomfort generalized : No reports of dysuria or retention Neurovascular: No reports of weakness or numbness All medications have been reviewed Objective - Vital Signs Vital signs: Vital Signs Temp 98.1 F 06/21/20 07:00 Pulse 70 06/21/20 08:00 Resp 16 06/21/20 08:00 BP 105/70 06/21/20 07:00 Pulse Ox 97 06/21/20 07:00 Intake & Output 06/20/20 06/21/20 06/21/20 18:59 06:59 18:59 Intake Total 200 Balance 200 Weight 46.4 kg Intake: Intake, IV Titration 200 Amount Piperacillin-Tazobactam 3 200 .375 gm In Sodium Chloride 0.9% 100 ml @ 25 mls/hr IVPB Q8HR [facility] Rx# :[id number] Other: Voiding Method Toilet Toilet Toilet # Voids 2 2 - Exam GENERAL: The patient is alert and oriented x3, not in any acute distress. Well developed, well nourished. HEENT: Pupils are round and equally reacting to light. EOMI. No scleral icterus. No conjunctival pallor. Normocephalic, atraumatic. No pharyngeal erythema. No thyromegaly. CARDIOVASCULAR: S1 and S2 present. No murmurs, rubs, or gallops. PULMONARY: Chest is clear to auscultation, no wheezing or crackles. ABDOMEN: Soft, tenderness noted of the abdomen with surgical drain on the left and ileostomy noted on the right surgical site areas examined as well a small area of redness. It can be postoperative change MUSCULOSKELETAL: No joint swelling or deformity. EXTREMITIES: No cyanosis, clubbing, or pedal edema. NEUROLOGICAL: Gross neurological examination did not reveal any focal deficits. SKIN: No rashes. - Labs CBC & Chem 7: 06/21/20 06:53 06/21/20 06:49 Labs: Abnormal Lab Results - Last 24 Hours (Table) 06/21/20 06/21/20 Range/Units 06:49 06:53 WBC 11.9 H (3.8-10.6) k/uL Plt Count 701 H (150-450) k/uL Neutrophils # 9.3 H (1.3-7.7) k/uL ESR 40 H (0-20) mm/Hr Carbon Dioxide 33.2 H (21.6-31.8) mmol/L BUN <5.0 L (9.0-27.0) mg/dL Creatinine 0.5 L (0.6-1.5) mg/dL C-Reactive Protein 4.5 H (0.0-0.8) mg/dL Microbiology - Last 24 Hours (Table) 06/20/20 09:39 Gram Stain - Preliminary Abdomen Wound Culture - Preliminary Gram Neg Bacilli 06/20/20 09:39 Anaerobic Culture - Preliminary Abdomen Assessment and Plan Plan: -Intra-abdominal abscess in the right lower quadrant with possible fistulous from Crohn's disease: Patient will continued on Zosyn and infectious disease is following. Patient underwent exploratory laparotomy with small bowel resection, right colectomy, transverse colectomy, sigmoid colectomy and ileostomy with Dr. Liriano on 06/13/2020. Wound cultures are showing Klebsiella pneumonia my repeat wound cultures from the surgical site area is also showing gram-negative bacilli. Patient is presently on Zosyn -Hyponatremia: Hypovolemic hyponatremia improved with IV fluids -Possible Crohn's enteritis: GI consulted and pending. Patient was not diagnosed with biopsy because of her poor prep in the past -Sepsis secondary assessment #1, improved now -Gastroesophageal reflux disease. -Bipolar disorder -GI prophylaxis: Pepcid -DVT prophylaxis: Lovenox -Full code
--- NOTE | 2020-06-21 15:50 | P.PN ---
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 She is status post op day #6 for an exploratory laparotomy and small bowel resection, right colectomy, transverse colectomy, sigmoid colectomy, ileostomy and mucous fistula. She states today she is doing better, and her pain is better controlled. She does state though that she is having some serosanguineous drainage from her incision site. She denies any fever, chills, nausea or vomiting. She is advanced to soft diet. She is having liquidy brown stool through her ileostomy. She is afebrile. She is up and ambulating without difficulty. Objective - Vital Signs Vital signs: Vital Signs Temp 97.8 F 06/21/20 15:00 Pulse 74 06/21/20 15:00 Resp 20 06/21/20 15:00 BP 100/65 06/21/20 15:00 Pulse Ox 98 06/21/20 15:00 Intake & Output 06/20/20 06/21/20 06/21/20 18:59 06:59 18:59 Intake Total 200 100 Balance 200 100 Weight 46.4 kg Intake: Intake, IV Titration 200 100 Amount Piperacillin-Tazobactam 3 200 100 .375 gm In Sodium Chloride 0.9% 100 ml @ 25 mls/hr IVPB Q8HR [facility] Rx# :[id number] Other: Voiding Method Toilet Toilet Toilet # Voids 2 2 - Exam On physical examination, patient appears comfortable in no apparent distress. HEAD: Normocephalic, atraumatic. EYES: No scleral icterus. No conjunctival injection. MOUTH: No lesions, tongue midline. NECK: Trachea midline, no gross abnormalities. ABDOMEN: Soft, appropriately tender to palpation after surgery with wounds currently dressed. Bowel sounds are positive. No organomegaly. No guarding or rigidity. EXTREMITIES: No pedal edema. SKIN: No rashes, no jaundice. NEUROLOGIC: Alert and oriented x3. No focal deficits. - Labs CBC & Chem 7: 06/21/20 06:53 06/21/20 06:49 Labs: Abnormal Lab Results - Last 24 Hours (Table) 06/21/20 06/21/20 Range/Units 06:49 06:53 WBC 11.9 H (3.8-10.6) k/uL Plt Count 701 H (150-450) k/uL Neutrophils # 9.3 H (1.3-7.7) k/uL ESR 40 H (0-20) mm/Hr Carbon Dioxide 33.2 H (21.6-31.8) mmol/L BUN <5.0 L (9.0-27.0) mg/dL Creatinine 0.5 L (0.6-1.5) mg/dL C-Reactive Protein 4.5 H (0.0-0.8) mg/dL Microbiology - Last 24 Hours (Table) 06/20/20 09:39 Gram Stain - Preliminary Abdomen Wound Culture - Preliminary Gram Neg Bacilli 06/20/20 09:39 Anaerobic Culture - Preliminary Abdomen Assessment and Plan Assessment: (1) Intra-abdominal abscess Narrative/Plan: 39-year-old female who presented back to the hospital after recent admission with complaints of worsening abdominal pain. Found to have intra-abdominal abscess and taken for exploratory laparotomy with resection of the small bowel, right colon, transverse colon and sigmoid with end ileostomy formation. Suspicion is for Crohn's disease given findings of ileitis and fistula formation as well as presentation. Current Visit: Yes Status: Acute Code(s): K65.1 - PERITONEAL ABSCESS SNOMED Code(s): 42257742 (2) Abdominal pain Current Visit: Yes Status: Acute Code(s): R10.9 - UNSPECIFIED ABDOMINAL PAIN SNOMED Code(s): 69731994 (3) Partial bowel obstruction Current Visit: Yes Status: Acute Code(s): K56.600 - PARTIAL INTESTINAL OBSTRUCTION, UNSPECIFIED TO CAUSE SNOMED Code(s): 03256921859674829 (4) Ileitis Current Visit: No Status: Acute Code(s): K52.9 - NONINFECTIVE GASTROENTERITIS AND COLITIS, UNSPECIFIED SNOMED Code(s): 41856862 Plan: Supportive care appreciate recommendations from surgical service Continue pain control Diet per surgical services recommendations Continue broad-spectrum antibiotic therapy Continue to monitor CBC, BMP, LFTs Patient will need close follow-up after discharge with GI service, given the complex nature of her disease she will likely need biologic therapy in the future Outpatient colonoscopy will be recommended in 2 months for further evaluation. Thank you for allowing us to participate in the care of the patient The impression and plan of care has been dictated as directed. Dr.K Cano I performed a history and examination of this patient, discussed the same with the dictator. I agree with the dictator's note ,documented as a scribe. Any additional findings or plans will be noted.
--- NOTE | 2020-06-21 16:36 | PN ---
PROGRESS NOTE DATE OF SERVICE: 06/21/2020 REASON FOR FOLLOWUP: Abdominal abscess. INTERVAL HISTORY: The patient is currently afebrile. The patient is complaining of abdominal pain, slightly more drainage from her incision area. The patient denies having any chest pain or shortness of breath or cough. Did have output in her ileostomy bag. PHYSICAL EXAMINATION: Blood pressure 105/70 with a pulse of 70, temperature 98.1. She is 97% on room air. General description is a middle-aged female lying in bed in no distress. RESPIRATORY SYSTEM: Unlabored breathing. Clear to auscultation anteriorly. HEART: S1, S2. Regular rate and rhythm. ABDOMEN: Soft. Mildly distended. Wound incision with minimal drainage. No tenderness or redness. LABS: Hemoglobin 11.9, white count 11.9, creatinine 0.5. Abdominal wall culture with Gram- negative bacilli. DIAGNOSTIC IMPRESSION AND PLAN: Patient with abdominal abscess in this patient who did have extensive surgery, including drainage of the abscess, small-bowel resection, right colectomy, transverse colectomy and sigmoid colectomy with ileostomy and mucous fistula. Did have slight drainage from the abdominal incision, which has been cultured and now showing Gram- negative bacilli. Previous culture was Klebsiella. Patient is covered with Zosyn; to continue, adjusting it further based on the culture report. Continue with supportive care. MMODL / IJN: [id number] /
[2020-06-22] MEDS: ONDANSETRON 4 MG/2 ML VIAL IVP PRN (00:43)
[2020-06-22] MEDS: HYDROmorphone 1 MG/ML 1 ML SYRINGE IVP PRN ×2 (00:43→03:59)
[2020-06-22] MEDS: PIPERACILLIN-TAZOBACTAM 3.375 GM in SODIUM CHLORIDE 0.9% 100 ML IVPB SCH ×3 (00:45→16:38)
[2020-06-22 06:23] LABS: Basophils # (A) 0.1 k/uL (0-0.2); Basophils % (A) 1 %; Eosinophils # (A) 0.5 k/uL (0-0.7); Eosinophils % (A) 4 %; HCT 35.6 % (34.0-46.0); HGB 11.4 gm/dL (11.4-16.0); Lymphocytes # (A) 1.8 k/uL (1.0-4.8); Lymphocytes % (A) 14 %; MCH 31.7 pg (25.0-35.0); MCV 99.2 fL (80.0-100.0); Mean Platelet Volume 6.8; Monocytes # (A) 0.6 k/uL (0-1.0); Monocytes % (A) 5 %; Neutrophils # (A) 9.3 k/uL (1.3-7.7); Neutrophils % (A) 75 %; Platelet Count 598 k/uL (150-450); RBC 3.59 m/uL (3.80-5.40); RDW 14.1 % (11.5-15.5); WBC 12.4 k/uL (3.8-10.6)
[2020-06-22] MEDS: traMADol 50 MG TAB PO PRN ×2 (08:51→17:05)
[2020-06-22] MEDS: ENOXAPARIN 40 MG/0.4 ML SYRINGE SQ SCH (08:51)
[2020-06-22] MEDS: SIMETHICONE 40 MG/0.6 ML DROPS 2,000 MG/30 ML BOTTLE PO SCH ×4 (08:51→20:42)
--- NOTE | 2020-06-22 10:30 | PN ---
PROGRESS NOTE DATE OF DICTATION: June 22, 2020 Patient is a 39-year-old pleasant white female, status post exploratory laparotomy for fissure and an intraabdominal abscess about a week ago. The patient is gradually recovering. She is complaining of severe abdominal pain. She had some serosanguineous drainage from the incision site. She is on broad-spectrum antibiotics currently. On a regular diet, tolerating well. Does have a colostomy and mucous fistula. Ileostomy bag has good ileostomy output. PHYSICAL EXAMINATION: She appears comfortable. VITAL SIGNS: Stable. Blood pressure is 130/86, pulse 82 per minute and afebrile. HEENT examination unremarkable. Conjunctivae pink. Sclerae anicteric. Oral cavity no lesions. NECK: No JVD or lymph node enlargement. CHEST was clear to auscultation. HEART: Regular rate and rhythm. ABDOMEN is distended. Midline incision with cecilia. Serosanguineous discharge noted. The ileostomy on the right side looks good. Mucous fistula on the left upper quadrant looks normal. EXTREMITIES: No pedal edema. NEURO: She is alert and oriented x3. No focal deficits. LABS: From today WBC is 12.4, hemoglobin 11.4, platelets of 595. IMPRESSION: 1. Intraabdominal abscess with multiple fistulas, status post exploratory laparotomy with drainage of the abscess followed by right colectomy, sigmoid colectomy and transverse colectomy with mucous fistula and ileostomy in place, on broad-spectrum antibiotics. 2. Serosanguineous drainage from the incision site. 3. Leukocytosis, on broad-spectrum antibiotics. RECOMMENDATIONS: 1. Continue with broad-spectrum antibiotics. 2. Management as per surgical and ID team. 3. Discussed with the patient the pathology results and at this time there is no evidence of Crohn's disease on the pathology specimen. However, at this time, I recommended to her that she follow up with us in the office in 1-3 weeks following discharge from the hospital and prior to reversal of the surgery, in the future, we will consider a colonoscopy to evaluate for inflammatory bowel disease. At this time, we will sign off. Please call us if needed. Thank you for this consultation. MMODL / IJN: [id number] /
[2020-06-22] MEDS: ACETAMINOPHEN TAB 325 MG TAB PO PRN (11:30)
[2020-06-22] MEDS: HYDROcodone/APAP 7.5-325MG 1 EACH TAB PO PRN ×2 (14:39→20:41)
--- NOTE | 2020-06-22 15:21 | P.PN ---
Subjective Progress Note Date: 06/22/20 She reports no new abdominal pain. She is pending management for home antibiotics. She is s/p ileostomy and mucus fistula for crohns disease. ABDOMEN: Ostomy bag with stool and mucus. Dressing with minimal seropurulent drainage inferiorly. PLAN: 1. Continue antiobiotics 2. Diet as tolerated Objective - Vital Signs Vital signs: Vital Signs Temp 98.6 F 06/22/20 14:35 Pulse 67 06/22/20 14:35 Resp 16 06/22/20 14:35 BP 98/66 06/22/20 14:35 Pulse Ox 100 06/22/20 14:35 Intake & Output 06/21/20 06/22/20 06/22/20 18:59 06:59 18:59 Intake Total 100 Output Total 100 Balance 100 -100 Weight 46.4 kg Intake: Intake, IV Titration 100 Amount Piperacillin-Tazobactam 3 100 .375 gm In Sodium Chloride 0.9% 100 ml @ 25 mls/hr IVPB Q8HR [facility] Rx# :[id number] Output: Stool 100 Other: Voiding Method Toilet # Voids 1 2 - Labs CBC & Chem 7: 06/22/20 05:39 06/21/20 06:49 Labs: Abnormal Lab Results - Last 24 Hours (Table) 06/22/20 Range/Units 05:39 WBC 12.4 H (3.8-10.6) k/uL RBC 3.59 L (3.80-5.40) m/uL Plt Count 598 H (150-450) k/uL Neutrophils # 9.3 H (1.3-7.7) k/uL Microbiology - Last 24 Hours (Table) 06/20/20 09:39 Gram Stain - Final Abdomen Wound Culture - Final Escherichia coli Klebsiella pneumoniae
--- NOTE | 2020-06-22 15:56 | P.PN ---
Subjective Patient is a 39-year-old female came in is as severe 10/10 sharp right lower quadrant abdominal pain. Patient had a computed tomography scan of the abdomen which do show a large abscess in that area along with possible fistulous interloop fistulous. General surgery was consulted Gen. surgery evaluated the patient they reviewed the computed tomography scan with radiology. Patient was recently hospitalized and at that time patient was believed to have Crohn's disease and was treated for Crohn's and had a colonoscopy with because of the poor prep biopsies were not obtained. Patient denied any fever chills does have low-grade fever here. Patient was started on Zosyn and interventional radiology was consulted by general surgery for drainage of the abscess. Patient will also undergo fistulogram. Gastric probably was consulted as well. 06/13/2020 Patient is seen and evaluated and follow-up and continues to have abdominal discomfort. Surgery is following and planning for exploratory laparotomy this afternoon as CT of the abdomen shows markedly dilated mid and proximal small bowel consistent with high-grade mechanical small bowel obstruction and a thick walled cystic fluid collection in the anterior upper pelvis but could be an abscess and given the extent patient may also undergo abscess drainage during exploratory laparotomy. Patient is maintained on IV antibiotics in the form of Zosyn and will continue at this time. Infectious disease is consulted. GI also following. White blood cell count trending down and is currently 11.6, hemoglobin is stable at 12.0 with no active bleeding noted. Sodium is 135 with a potassium of 4.8. 06/14/2020 Patient is seen and evaluated and follow-up status post exploratory laparotomy and small bowel resection with a right colectomy of the transverse colectomy sigmoid colectomy and ileostomy with mucous fistula. Surgery following closely. Patient was started on clear liquids and tolerating thus far. Patient continues to request pain medication and has IV Dilaudid added and will add Toradol. Discussed with nursing staff about limiting IV narcotics. Patient instructed to increase activity as tolerated. Patient is maintained on IV antibiotics in the form of Zosyn and will continue at this time. Wound cultures preliminary showing gram-negative bacilli and will await finalization. Currently patient denies any chest pain, shortness of breath, or palpitations. Patient is afebrile. No reports of nausea or vomiting and patient tolerating ice chips and popsicles. White blood, is 12.5 with a hemoglobin of 11.1. Sodium is 131 with a potassium of 4.9 and current creatinine is 0.40 06/15/2020 Patient pain is better patient did have a bowel movement into the colostomy bag. Patient also had nausea vomiting and epigastric burning sensation secondary to ketorolac patient is being switched from Pepcid to Protonix. 06/16/2020 Patient does have a output from the right lower quadrant colostomy bag and left and epigastric a colostomy bag doesn't have much of output patient although is feeling better patient's diet is being advanced patient can use to be on IV f luids serum sodium is improving 06/17/2020 Patient's serum sodium is still bit low but overall there is significant improvement possibly of discharge tomorrow patient has output from both colostomies. 06/18/2020 There is some semisolid output from colostomy ileostomy has still liquid output. Patient is otherwise clinically doing well. Patient is on full liquid diet which will be advanced 06/19/2020 Patient is still complaining of her significant abdominal pain because of which the general surgery did not clear the patient to be discharged patient will be continued on present medications will evaluate for discharge tomorrow 06/20/2020 1 of the cecilia in the surgical site area was removed because of concern for infection and that area was cultured by general surgery. As per neurosurgery patient is not yet ready be discharged 06/21/2020 Patient the wound cultures from yesterday surgical site is positive for gram- negative bacilli patient is already on Zosyn which will be continued 06/22/2020 Patient's repeat wound cultures are showing E. coli and Klebsiella both of which are sensitive to Zosyn and patient is being continued on the same antibiotic patient may require IV antibiotics upon discharge. Patient was started on [place]. Review of systems: Constitutional: No reports of fatigue, fever, or chills Cardiovascular: No reports of chest pain or palpitations Respiratory: No reports of shortness of breath or cough GI: Reports intermittent nausea, with no reports of vomiting, or diarrhea, reports abdominal discomfort generalized : No reports of dysuria or retention Neurovascular: No reports of weakness or numbness All medications have been reviewed Objective - Vital Signs Vital signs: Vital Signs Temp 98.6 F 06/22/20 14:35 Pulse 67 06/22/20 14:35 Resp 16 06/22/20 14:35 BP 98/66 06/22/20 14:35 Pulse Ox 100 06/22/20 14:35 Intake & Output 06/21/20 06/22/20 06/22/20 18:59 06:59 18:59 Intake Total 100 Output Total 100 Balance 100 -100 Weight 46.4 kg Intake: Intake, IV Titration 100 Amount Piperacillin-Tazobactam 3 100 .375 gm In Sodium Chloride 0.9% 100 ml @ 25 mls/hr IVPB Q8HR [facility] Rx# :[id number] Output: Stool 100 Other: Voiding Method Toilet # Voids 1 2 - Exam GENERAL: The patient is alert and oriented x3, not in any acute distress. Well developed, well nourished. HEENT: Pupils are round and equally reacting to light. EOMI. No scleral icterus. No conjunctival pallor. Normocephalic, atraumatic. No pharyngeal erythema. No t hyromegaly. CARDIOVASCULAR: S1 and S2 present. No murmurs, rubs, or gallops. PULMONARY: Chest is clear to auscultation, no wheezing or crackles. ABDOMEN: Soft, tenderness noted of the abdomen with surgical drain on the left and ileostomy noted on the right surgical site areas examined as well a small area of redness. It can be postoperative change MUSCULOSKELETAL: No joint swelling or deformity. EXTREMITIES: No cyanosis, clubbing, or pedal edema. NEUROLOGICAL: Gross neurological examination did not reveal any focal deficits. SKIN: No rashes. - Labs CBC & Chem 7: 06/22/20 05:39 06/21/20 06:49 Labs: Abnormal Lab Results - Last 24 Hours (Table) 06/22/20 Range/Units 05:39 WBC 12.4 H (3.8-10.6) k/uL RBC 3.59 L (3.80-5.40) m/uL Plt Count 598 H (150-450) k/uL Neutrophils # 9.3 H (1.3-7.7) k/uL Microbiology - Last 24 Hours (Table) 06/20/20 09:39 Anaerobic Culture - Preliminary Abdomen 06/20/20 09:39 Gram Stain - Final Abdomen Wound Culture - Final Escherichia coli Klebsiella pneumoniae Assessment and Plan Plan: -Intra-abdominal abscess in the right lower quadrant with possible fistulous fro m Crohn's disease: Patient will continued on Zosyn and infectious disease is following. Patient underwent exploratory laparotomy with small bowel resection, right colectomy, transverse colectomy, sigmoid colectomy and ileostomy with Dr. Liriano on 06/13/2020. Wound cultures are showing Klebsiella pneumonia my repeat wound cultures from the surgical site area is also showing E. coli and Klebsiella. Patient is presently on Zosyn -Hyponatremia: Hypovolemic hyponatremia improved with IV fluids -Possible Crohn's enteritis: GI consulted and pending. Patient was not diagnosed with biopsy because of her poor prep in the past -Sepsis secondary assessment #1, improved now -Gastroesophageal reflux disease. -Bipolar disorder -GI prophylaxis: Pepcid -DVT prophylaxis: Lovenox -Full code
--- NOTE | 2020-06-22 17:34 | PN ---
PROGRESS NOTE DATE OF SERVICE: 06/22/2020 REASON FOR FOLLOWUP: Abdominal abscess. INTERVAL HISTORY: Patient is currently afebrile. The patient is breathing comfortably. She is complaining of more abdominal pain today. Some nausea, no vomiting. No chest pain, shortness of breath or cough. Did have output in her ileostomy bag. PHYSICAL EXAMINATION: Blood pressure is 98/66, pulse of 67, temperature 98.6. He is 100% on room air. General description: The patient is a middle-aged female lying in bed in no distress. Respiratory system: Unlabored breathing, clear to auscultation anteriorly. Heart S1, S2. Regular rate and rhythm. ABDOMEN: Soft, mildly tender. No guarding. No rigidity. LABS: Hemoglobin 11.4, white count 12.4. Abdominal wound culture with E coli and Klebsiella, both sensitive to Zosyn. DIAGNOSTIC IMPRESSION AND PLAN: Patient with abdominal abscess in this patient who did have , status post extensive surgery, ileostomy and mucous fistula with slight drainage from her abdominal incision which has been cultured showing a gram-negative sensitive to Zosyn that will be continued. White count slightly elevated. We will monitor. Continue supportive care. MMODL / IJN: [id number] /
[2020-06-22] MEDS: FAMOTIDINE 20 MG/2 ML VIAL IV SCH (20:41)
[2020-06-23] MEDS: PIPERACILLIN-TAZOBACTAM 3.375 GM in SODIUM CHLORIDE 0.9% 100 ML IVPB SCH ×4 (00:35→23:46)
[2020-06-23] MEDS: ONDANSETRON 4 MG/2 ML VIAL IVP PRN (00:38)
[2020-06-23] MEDS: traMADol 50 MG TAB PO PRN ×4 (00:51→23:46)
[2020-06-23] MEDS: HYDROcodone/APAP 7.5-325MG 1 EACH TAB PO PRN ×3 (06:08→21:23)
[2020-06-23 06:20] LABS: Basophils # (A) 0.1 k/uL (0-0.2); Basophils % (A) 1 %; Eosinophils # (A) 0.5 k/uL (0-0.7); Eosinophils % (A) 5 %; HCT 39.2 % (34.0-46.0); HGB 12.2 gm/dL (11.4-16.0); Lymphocytes # (A) 1.5 k/uL (1.0-4.8); Lymphocytes % (A) 13 %; MCHC 31.3 g/dL (31.0-37.0); MCV 99.1 fL (80.0-100.0); Mean Platelet Volume 6.8; Monocytes # (A) 0.6 k/uL (0-1.0); Monocytes % (A) 5 %; Neutrophils # (A) 8.6 k/uL (1.3-7.7); Neutrophils % (A) 76 %; Platelet Count 535 k/uL (150-450); RBC 3.95 m/uL (3.80-5.40); RDW 13.8 % (11.5-15.5); WBC 11.4 k/uL (3.8-10.6)
[2020-06-23] MEDS: FAMOTIDINE 20 MG/2 ML VIAL IV SCH ×2 (08:40→21:23)
[2020-06-23] MEDS: ENOXAPARIN 40 MG/0.4 ML SYRINGE SQ SCH (08:40)
[2020-06-23] MEDS: SIMETHICONE 40 MG/0.6 ML DROPS 2,000 MG/30 ML BOTTLE PO SCH ×4 (08:41→21:23)
--- NOTE | 2020-06-23 11:50 | P.PN ---
Subjective Patient is a 39-year-old female came in is as severe 10/10 sharp right lower quadrant abdominal pain. Patient had a computed tomography scan of the abdomen which do show a large abscess in that area along with possible fistulous interloop fistulous. General surgery was consulted Gen. surgery evaluated the patient they reviewed the computed tomography scan with radiology. Patient was recently hospitalized and at that time patient was believed to have Crohn's disease and was treated for Crohn's and had a colonoscopy with because of the poor prep biopsies were not obtained. Patient denied any fever chills does have low-grade fever here. Patient was started on Zosyn and interventional radiology was consulted by general surgery for drainage of the abscess. Patient will also undergo fistulogram. Gastric probably was consulted as well. 06/13/2020 Patient is seen and evaluated and follow-up and continues to have abdominal discomfort. Surgery is following and planning for exploratory laparotomy this afternoon as CT of the abdomen shows markedly dilated mid and proximal small bowel consistent with high-grade mechanical small bowel obstruction and a thick walled cystic fluid collection in the anterior upper pelvis but could be an abscess and given the extent patient may also undergo abscess drainage during exploratory laparotomy. Patient is maintained on IV antibiotics in the form of Zosyn and will continue at this time. Infectious disease is consulted. GI also following. White blood cell count trending down and is currently 11.6, hemoglobin is stable at 12.0 with no active bleeding noted. Sodium is 135 with a potassium of 4.8. 06/14/2020 Patient is seen and evaluated and follow-up status post exploratory laparotomy and small bowel resection with a right colectomy of the transverse colectomy sigmoid colectomy and ileostomy with mucous fistula. Surgery following closely. Patient was started on clear liquids and tolerating thus far. Patient continues to request pain medication and has IV Dilaudid added and will add Toradol. Discussed with nursing staff about limiting IV narcotics. Patient instructed to increase activity as tolerated. Patient is maintained on IV antibiotics in the form of Zosyn and will continue at this time. Wound cultures preliminary showing gram-negative bacilli and will await finalization. Currently patient denies any chest pain, shortness of breath, or palpitations. Patient is afebrile. No reports of nausea or vomiting and patient tolerating ice chips and popsicles. White blood, is 12.5 with a hemoglobin of 11.1. Sodium is 131 with a potassium of 4.9 and current creatinine is 0.40 06/15/2020 Patient pain is better patient did have a bowel movement into the colostomy bag. Patient also had nausea vomiting and epigastric burning sensation secondary to ketorolac patient is being switched from Pepcid to Protonix. 06/16/2020 Patient does have a output from the right lower quadrant colostomy bag and left and epigastric a colostomy bag doesn't have much of output patient although is feeling better patient's diet is being advanced patient can use to be on IV f luids serum sodium is improving 06/17/2020 Patient's serum sodium is still bit low but overall there is significant improvement possibly of discharge tomorrow patient has output from both colostomies. 06/18/2020 There is some semisolid output from colostomy ileostomy has still liquid output. Patient is otherwise clinically doing well. Patient is on full liquid diet which will be advanced 06/19/2020 Patient is still complaining of her significant abdominal pain because of which the general surgery did not clear the patient to be discharged patient will be continued on present medications will evaluate for discharge tomorrow 06/20/2020 1 of the cecilia in the surgical site area was removed because of concern for infection and that area was cultured by general surgery. As per neurosurgery patient is not yet ready be discharged 06/21/2020 Patient the wound cultures from yesterday surgical site is positive for gram- negative bacilli patient is already on Zosyn which will be continued 06/22/2020 Patient's repeat wound cultures are showing E. coli and Klebsiella both of which are sensitive to Zosyn and patient is being continued on the same antibiotic patient may require IV antibiotics upon discharge. Patient was started on [place]. 06/23/2020 Patient is feeling much better today and the patient pain is very well controlled on [place] possibly of discharge tomorrow on either oral or IV antibiotics. Review of systems: Constitutional: No reports of fatigue, fever, or chills Cardiovascular: No reports of chest pain or palpitations Respiratory: No reports of shortness of breath or cough GI: Reports intermittent nausea, with no reports of vomiting, or diarrhea, reports abdominal discomfort generalized : No reports of dysuria or retention Neurovascular: No reports of weakness or numbness All medications have been reviewed Objective - Vital Signs Vital signs: Vital Signs Temp 97.9 F 06/23/20 07:06 Pulse 55 L 06/23/20 07:06 Resp 16 06/23/20 07:06 BP 91/62 06/23/20 07:06 Pulse Ox 90 L 06/23/20 07:06 Intake & Output 06/22/20 06/23/20 06/23/20 18:59 06:59 18:59 Intake Total 200 Balance 200 Intake: Oral 200 Other: # Voids 2 - Exam GENERAL: The patient is alert and oriented x3, not in any acute distress. Well developed, well nourished. HEENT: Pupils are round and equally reacting to light. EOMI. No scleral icterus. No conjunctival pallor. Normocephalic, atraumatic. No pharyngeal erythema. No thyromegaly. CARDIOVASCULAR: S1 and S2 present. No murmurs, rubs, or gallops. PULMONARY: Chest is clear to auscultation, no wheezing or crackles. ABDOMEN: Soft, tenderness noted of the abdomen with surgical drain on the left and ileostomy noted on the right surgical site areas examined as well a small area of redness. It can be postoperative change MUSCULOSKELETAL: No joint swelling or deformity. EXTREMITIES: No cyanosis, clubbing, or pedal edema. NEUROLOGICAL: Gross neurological examination did not reveal any focal deficits. SKIN: No rashes. - Labs CBC & Chem 7: 06/23/20 05:27 06/21/20 06:49 Labs: Abnormal Lab Results - Last 24 Hours (Table) 06/23/20 Range/Units 05:27 WBC 11.4 H (3.8-10.6) k/uL Plt Count 535 H (150-450) k/uL Neutrophils # 8.6 H (1.3-7.7) k/uL Microbiology - Last 24 Hours (Table) 06/20/20 09:39 Anaerobic Culture - Preliminary Abdomen 06/20/20 09:39 Gram Stain - Final Abdomen Wound Culture - Final Escherichia coli Klebsiella pneumoniae Assessment and Plan Plan: -Intra-abdominal abscess in the right lower quadrant with possible fistulous from Crohn's disease: Patient will continued on Zosyn and infectious disease is following. Patient underwent exploratory laparotomy with small bowel resection, right colectomy, transverse colectomy, sigmoid colectomy and ileostomy with Dr. Liriano on 06/13/2020. Wound cultures are showing Klebsiella pneumonia my repeat wound cultures from the surgical site area is also showing E. coli and Klebsiella. Patient is presently on Zosyn -Hyponatremia: Hypovolemic hyponatremia improved with IV fluids -Possible Crohn's enteritis: GI consulted and pending. Patient was not diagnosed with biopsy because of her poor prep in the past -Sepsis secondary assessment #1, improved now -Gastroesophageal reflux disease. -Bipolar disorder -GI prophylaxis: Pepcid -DVT prophylaxis: Lovenox -Full code
--- NOTE | 2020-06-23 12:33 | P.PN ---
Subjective Progress Note Date: 06/23/20 No new abdominal pain. WBC is elevated. No fevers or chills. She is tolerating diet. ABDOMEN: Dressing is intact. Ostomy patient and functioning LABS: WBC elevated over 11.0 PLAN: 1. Continue IV antibiotics 2. Await home transfusion Objective - Vital Signs Vital signs: Vital Signs Temp 97.9 F 06/23/20 07:06 Pulse 55 L 06/23/20 07:06 Resp 16 06/23/20 07:06 BP 91/62 06/23/20 07:06 Pulse Ox 90 L 06/23/20 07:06 Intake & Output 06/22/20 06/23/20 06/23/20 18:59 06:59 18:59 Intake Total 200 Balance 200 Intake: Oral 200 Other: # Voids 2 - Labs CBC & Chem 7: 06/23/20 05:27 06/21/20 06:49 Labs: Abnormal Lab Results - Last 24 Hours (Table) 06/23/20 Range/Units 05:27 WBC 11.4 H (3.8-10.6) k/uL Plt Count 535 H (150-450) k/uL Neutrophils # 8.6 H (1.3-7.7) k/uL Microbiology - Last 24 Hours (Table) 06/20/20 09:39 Anaerobic Culture - Preliminary Abdomen 06/20/20 09:39 Gram Stain - Final Abdomen Wound Culture - Final Escherichia coli Klebsiella pneumoniae
--- NOTE | 2020-06-23 16:34 | PN ---
PROGRESS NOTE DATE OF SERVICE: 06/23/2020 REASON FOR FOLLOWUP: Abdominal abscess, abdominal wound dehiscence. INTERVAL HISTORY: The patient is currently afebrile. The patient is breathing comfortably. The patient is feeling better. The patient's abdominal pain has improved. No chest pain. No shortness of breath or cough. No nausea, no vomiting. PHYSICAL EXAMINATION: Blood pressure is 97/61 with a pulse of 60. Temperature is 97.9. She is 100% on room air. General description is a middle-aged female lying in bed in no distress. Respiratory system: Unlabored breathing. Clear to auscultation anteriorly. Heart S1, S2. Regular rate and rhythm. ABDOMEN: Soft, no guarding or rigidity. LABS: Hemoglobin is 12.8, white count 11.4. DIAGNOSTIC IMPRESSION AND PLAN: Patient with abdominal abscess in this patient who did have extensive abdominal surgery. Initial culture positive for Klebsiella pneumoniae, subsequently did have a slight dehiscence of abdominal wound. Culture has been E coli and Klebsiella. Patient is covered with Zosyn. White count showing a downward trend. Plan to finish therapy with oral Ceftin and Flagyl and close outpatient followup. MMODL / IJN: [id number] /
[2020-06-24] MEDS: HYDROcodone/APAP 7.5-325MG 1 EACH TAB PO PRN ×2 (03:54→10:15)
[2020-06-24 06:07] LABS: Basophils # (A) 0.1 k/uL (0-0.2); Basophils % (A) 1 %; Eosinophils # (A) 0.7 k/uL (0-0.7); Eosinophils % (A) 6 %; HCT 39.5 % (34.0-46.0); HGB 12.7 gm/dL (11.4-16.0); Lymphocytes # (A) 1.7 k/uL (1.0-4.8); Lymphocytes % (A) 15 %; MCH 31.5 pg (25.0-35.0); MCHC 32.3 g/dL (31.0-37.0); MCV 97.5 fL (80.0-100.0); Monocytes # (A) 0.7 k/uL (0-1.0); Monocytes % (A) 7 %; Neutrophils # (A) 7.7 k/uL (1.3-7.7); Neutrophils % (A) 70 %; Platelet Count 484 k/uL (150-450); RBC 4.05 m/uL (3.80-5.40)
[2020-06-24 07:18] VITALS: BP 113/75; PULSE 72; RESP 18; TEMP 98
[2020-06-24] MEDS: PIPERACILLIN-TAZOBACTAM 3.375 GM in SODIUM CHLORIDE 0.9% 100 ML IVPB SCH (08:43)
[2020-06-24] MEDS: SIMETHICONE 40 MG/0.6 ML DROPS 2,000 MG/30 ML BOTTLE PO SCH ×2 (08:44→13:25)
[2020-06-24] MEDS: FAMOTIDINE 20 MG/2 ML VIAL IV SCH (08:44)
[2020-06-24] MEDS: ENOXAPARIN 40 MG/0.4 ML SYRINGE SQ SCH (08:44)
[2020-06-24] MEDS: traMADol 50 MG TAB PO PRN (08:55)
--- NOTE | 2020-06-24 14:29 | P.PN ---
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 She is status post exploratory laparotomy and small bowel resection, right colectomy, transverse colectomy, sigmoid colectomy, ileostomy and mucous fistula. Patient is eager to be discharged home today. She still having some drainage from her incision site. Cultures had finalized E. coli and Klebsiella pneumoniae infection is recommending Ceftin and Flagyl for 10 more days. White count 11. Patient afebrile. Pain is controlled. She's having stool through her ileostomy. She is tolerating diet. PHYSICAL EXAM: VITAL SIGNS: Reviewed. GENERAL: Well-developed in no acute distress. HEENT: No sclera icterus. Extraocular movements grossly intact. Moist buccal mucosa. Head is atraumatic, normocephalic. ABDOMEN: Soft. Mildly Distended. Right-sided ileostomy site clean dry and intact. brown stool present in ileostomy bag. upper abdomen mucous fistula site clean dry and intact. Patient having pus drainage from her incision site NEUROLOGIC: Alert and oriented. Cranial nerves II through XII grossly intact. ASSESSMENT: 1. 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 Postop day #6 status post exploratory laparotomy and small bowel resection, right colectomy transverse colectomy sigmoid colectomy and ileostomy with mucous fistula 2. Drainage at incision site culture growing Klebsiella pneumoniae and E. coli PLAN: -Patient is surgically stable for discharge -Patient will follow-up with Dr. Liriano in 1 week -Discharge antibiotics per ID Physician Worker'S Compensation Claims Examiner note has been reviewed by physician. Signing provider agrees with the documented findings, assessment, and plan of care. Objective - Vital Signs Vital signs: Vital Signs Temp 98.0 F 06/24/20 07:00 Pulse 72 06/24/20 08:00 Resp 18 06/24/20 08:00 BP 113/75 06/24/20 07:00 Pulse Ox 100 06/24/20 07:00 Intake & Output 06/23/20 06/24/20 06/24/20 18:59 06:59 18:59 Intake Total 100 480 480 Output Total 100 Balance 100 480 380 Weight 44.9 kg Intake: Intake, IV Titration 100 Amount Piperacillin-Tazobactam 3 100 .375 gm In Sodium Chloride 0.9% 100 ml @ 25 mls/hr IVPB Q8HR [facility] Rx# :[id number] Oral 480 480 Output: Stool 100 Other: Voiding Method Toilet # Voids 1 1 - Labs CBC & Chem 7: 06/24/20 05:28 06/21/20 06:49 Labs: Abnormal Lab Results - Last 24 Hours (Table) 06/24/20 Range/Units 05:28 WBC 11.0 H (3.8-10.6) k/uL Plt Count 484 H (150-450) k/uL Microbiology - Last 24 Hours (Table) 06/20/20 09:39 Anaerobic Culture - Final Abdomen
--- NOTE | 2020-06-24 14:33 | P.DS ---
Providers Date of admission: 06/12/20 11:39 Attending physician: Deandra Null Consults: 06/12/20 11:27 Consult Physician Stat Consulting Provider: Cristhian Liriano Consult Reason/Comments: Intra-abdominal abscess, possible bowel obstruction Do you want consulting provider notified?: Yes 06/12/20 11:28 Consult Physician Urgent Consulting Provider: Cristina Cano Consult Reason/Comments: IBD vs abdominal abscess, possible obstruction Do you want consulting provider notified?: Yes 06/13/20 14:44 Consult Physician Routine Consulting Provider: Lisa Morelos Consult Reason/Comments: intra-abdominal abscess Do you want consulting provider notified?: Yes Primary care physician: Zeferino Coffey Hospital Course: 39-year-old female came in is as severe 10/10 sharp right lower quadrant abdominal pain. Patient had a computed tomography scan of the abdomen which do show a large abscess in that area along with possible fistulous interloop fistulous. General surgery was consulted Gen. surgery evaluated the patient they reviewed the computed tomography scan with radiology. Patient was recently hospitalized and at that time patient was believed to have Crohn's disease and was treated for Crohn's and had a colonoscopy with because of the poor prep biopsies were not obtained. Patient denied any fever chills does have low-grade fever here. Patient was started on Zosyn and interventional radiology was consulted by general surgery for drainage of the abscess. Patient will also undergo fistulogram. Gastric probably was consulted as well. 06/13/2020 Patient is seen and evaluated and follow-up and continues to have abdominal discomfort. Surgery is following and planning for exploratory laparotomy this afternoon as CT of the abdomen shows markedly dilated mid and proximal small bowel consistent with high-grade mechanical small bowel obstruction and a thick walled cystic fluid collection in the anterior upper pelvis but could be an abscess and given the extent patient may also undergo abscess drainage during exploratory laparotomy. Patient is maintained on IV antibiotics in the form of Zosyn and will continue at this time. Infectious disease is consulted. GI also following. White blood cell count trending down and is currently 11.6, hemoglobin is stable at 12.0 with no active bleeding noted. Sodium is 135 with a potassium of 4.8. 06/14/2020 Patient is seen and evaluated and follow-up status post exploratory laparotomy and small bowel resection with a right colectomy of the transverse colectomy sigmoid colectomy and ileostomy with mucous fistula. Surgery following closely. Patient was started on clear liquids and tolerating thus far. Patient continues to request pain medication and has IV Dilaudid added and will add Toradol. Discussed with nursing staff about limiting IV narcotics. Patient instructed to increase activity as tolerated. Patient is maintained on IV antibiotics in the form of Zosyn and will continue at this time. Wound cultures preliminary showing gram-negative bacilli and will await finalization. Currently patient denies any chest pain, shortness of breath, or palpitations. Patient is afebrile. No reports of nausea or vomiting and patient tolerating ice chips and popsicles. White blood, is 12.5 with a hemoglobin of 11.1. Sodium is 131 with a potassium of 4.9 and current creatinine is 0.40 06/15/2020 Patient pain is better patient did have a bowel movement into the colostomy bag. Patient also had nausea vomiting and epigastric burning sensation secondary to ketorolac patient is being switched from Pepcid to Protonix. 06/16/2020 Patient does have a output from the right lower quadrant colostomy bag and left and epigastric a colostomy bag doesn't have much of output patient although is feeling better patient's diet is being advanced patient can use to be on IV fluids serum sodium is improving 06/17/2020 Patient's serum sodium is still bit low but overall there is significant improvement possibly of discharge tomorrow patient has output from both colostomies. 06/18/2020 There is some semisolid output from colostomy ileostomy has still liquid output. Patient is otherwise clinically doing well. Patient is on full liquid diet which will be advanced 06/19/2020 Patient is still complaining of her significant abdominal pain because of which the general surgery did not clear the patient to be discharged patient will be continued on present medications will evaluate for discharge tomorrow 06/20/2020 1 of the cecilia in the surgical site area was removed because of concern for infection and that area was cultured by general surgery. As per neurosurgery patient is not yet ready be discharged 06/21/2020 Patient the wound cultures from yesterday surgical site is positive for gram- negative bacilli patient is already on Zosyn which will be continued 06/22/2020 Patient's repeat wound cultures are showing E. coli and Klebsiella both of which are sensitive to Zosyn and patient is being continued on the same antibiotic patient may require IV antibiotics upon discharge. Patient was started on Edna. 06/23/2020 Patient is feeling much better today and the patient pain is very well controlled on Edna possibly of discharge tomorrow on either oral or IV antibiotics. 06/24/2020 Patient is feeling much better today and wanted to be discharged and the patient's disease is recommending 10 days of Ceftin and metronidazole and they will follow up with the patient is an outpatient. - Exam GENERAL: The patient is alert and oriented x3, not in any acute distress. Well developed, well nourished. HEENT: Pupils are round and equally reacting to light. EOMI. No scleral icterus. No conjunctival pallor. Normocephalic, atraumatic. No pharyngeal erythema. No thyromegaly. CARDIOVASCULAR: S1 and S2 present. No murmurs, rubs, or gallops. PULMONARY: Chest is clear to auscultation, no wheezing or crackles. ABDOMEN: Soft, tenderness noted of the abdomen with surgical drain on the left and ileostomy noted on the right surgical site areas examined , there is some serous discharge from the site. MUSCULOSKELETAL: No joint swelling or deformity. EXTREMITIES: No cyanosis, clubbing, or pedal edema. NEUROLOGICAL: Gross neurological examination did not reveal any focal deficits. SKIN: No rashes. Assessment and Plan Plan: -Intra-abdominal abscess in the right lower quadrant with possible fistulous from Crohn's disease: Patient underwent exploratory laparotomy with small bowel resection, right colectomy, transverse colectomy, sigmoid colectomy and ileostomy with Dr. Liriano on 06/13/2020. Wound cultures are showing Klebsiella pneumonia my repeat wound cultures from the surgical site area is also showing E. coli and Klebsiella. patient will be discharged on Ceftin and the metronidazole for 10 days. operative biopsies showingabscess -Hyponatremia: Hypovolemic hyponatremia improved with IV fluids -Possible Crohn's enteritis: GI consulted and pending. Patient was not diagnosed with biopsy because of her poor prep in the past -Sepsis secondary assessment #1, improved now -Gastroesophageal reflux disease. -Bipolar disorder -GI prophylaxis: Pepcid -DVT prophylaxis: Lovenox Health Concerns: Ileostomy Care Instructions for Home Last pouching system change: 06.19.2020 Mrs Haskins going home with the following supplies for ileosotmy & Fistual care: [employer] flanges #[id number] (three) for home Convatec pouching system with filter #[id number] (three ) for home No sting prep pads (12) for home Osotmy powder (1) for home Ileosotmy pouch is to be emptied when the pouch is 1'2 to 1/3 full in the bathroom Change the entire pouching system every 3-5 days unless otherwise directed Fitual care to Left Upper abdomen LAst pouching system changed: 06.17.2020 Jason with supplies for care as follows: [employer] #[id number] (cut to fit) (3 for home) No sting prep pads (10_) for home Change every 3-5 days unless otherwise directed Mrs Dao will be receiving samples for ileosotmy care from [facility] - after discharge to home Home Health please assist Mrs Dao with Durable Medical Equipment for her ostomy products after 2-4 weeks home Patient Condition at Discharge: Serious Plan - Discharge Summary Discharge Rx Participant: No New Discharge Prescriptions: New Cefuroxime Axetil [Ceftin] 500 mg PO BID 10 Days #20 tab HYDROcodone/APAP 7.5-325MG [Edna 7.5-325] 1 each PO Q6H PRN #30 tab PRN Reason: MODERATE Pain traMADol HCl [Ultram] 50 mg PO QID PRN #30 tab PRN Reason: Pain Ibuprofen [Motrin] 600 mg PO Q8HR PRN #30 tab PRN Reason: Pain Continue Calcium Carbonate [Tums] 500 mg PO TID PRN PRN Reason: Indigestion Bismuth Subsalicylate [Pepto-Bismol] 524 mg PO Q3H PRN PRN Reason: Gi Upset metroNIDAZOLE [Flagyl] 500 mg PO TID #30 tab Discontinued Ibuprofen [Motrin Ib] 200 mg PO Q8H PRN PRN Reason: Pain Discharge Medication List Bismuth Subsalicylate [Pepto-Bismol] 524 mg PO Q3H PRN 06/02/20 [History] Calcium Carbonate [Tums] 500 mg PO TID PRN 06/02/20 [History] Cefuroxime Axetil [Ceftin] 500 mg PO BID 10 Days #20 tab 06/24/20 [Rx] HYDROcodone/APAP 7.5-325MG [Edna 7.5-325] 1 each PO Q6H PRN #30 tab 06/24/20 [Rx] Ibuprofen [Motrin] 600 mg PO Q8HR PRN #30 tab 06/24/20 [Rx] metroNIDAZOLE [Flagyl] 500 mg PO TID #30 tab 06/24/20 [Rx] traMADol HCl [Ultram] 50 mg PO QID PRN #30 tab 06/24/20 [Rx] Follow up Appointment(s)/Referral(s): Ron Moore MD [STAFF PHYSICIAN] - 06/27/20 9:40 am (Establishing with Dr Moore) [facility], [NON-STAFF] - As Needed Lisa Morelos MD [STAFF PHYSICIAN] - 1 Week (Will call with appointment) Peewee Jennings MD [STAFF PHYSICIAN] - 1 Week (Please call and make appointment; office closed when attempting to reach) Cristhian Liriano MD [STAFF PHYSICIAN] - 07/02/20 2:20 pm Patient Instructions/Handouts: How to Stop Smoking (GEN), Ileostomy Care (GEN), Crohn Disease (GEN) Activity/Diet/Wound Care/Special Instructions: Diet: Regular No driving while taking Edna No lifting over 10 pounds You may shower. No soaking or tub baths for 2 weeks Very light activity until you are reevaluated at your follow up appointment with your surgeon Discharge Disposition: HOME WITH HOME HEALTH SERVICES
--- NOTE | 2020-06-24 14:46 | PN ---
PROGRESS NOTE DATE OF SERVICE: 06/24/2020 REASON FOR FOLLOWUP: Abdominal abscess. INTERVAL HISTORY: Patient is currently afebrile. The patient is feeling better. Breathing comfortably. The patient denies having any chest pain. No shortness of breath, no cough. No nausea, no vomiting. Abdominal pain has improved and did have output in her ileostomy bag. PHYSICAL EXAMINATION: Blood pressure 113/75 with a pulse of 72, temperature 98, she is 100% on room air. General description is a middle-aged female, up in the bed in no distress. RESPIRATORY SYSTEM: Unlabored breathing, clear to auscultation anteriorly. HEART: S1, S2. Regular rate and rhythm. ABDOMEN: Soft, no tenderness. LABS: Hemoglobin is 12.7, white count of 11, abdominal culture with Klebsiella, repeat culture with E coli and Klebsiella. DIAGNOSTIC IMPRESSION AND PLAN: Patient with abdominal abscess, status post extensive surgery with abdominal culture positive for Klebsiella. Repeat culture showing E coli and Klebsiella. Clinically improved on Zosyn. Finish therapy with oral Ceftin and Flagyl for 10 days and discussed with the admitting physician as well as LP for the surgery. MMODL / IJN: [id number] /
[2020-06-24] MEDS ORDERED: FAMOTIDINE 20 MG TAB PO SCH (21:00)
--- NOTE | 2020-06-25 12:25 | CDI ---
Documentation Clarification Form Date: 06/25/20 From: Bettina Londono CCS Phone: If you have a question about this query, please contact Mariann Nowak, Road Consultant at [phone] between 8am and 5pm. Admit Date: 06/12/20 Discharge Date: 06/24/20 Patient Name: Norma Haskins Visit Number: [id number] ATTENTION: The Clinical Documentation Specialists (CDI) and [facility] Coding Staff appreciate your assistance in clarifying documentation. Please respond to the clarification below the line at the bottom and electronically sign. The CDI & [facility] Coding staff will review the response and follow-up if needed. Please note: Queries are made part of the Legal Health Record. If you have any questions, please contact the author of this message via ITS. Dear Dr. Burnson, Wound dehiscence of abdominal wound is documented in the 06/23 PN. Patient with abdominal abscess in this patient who did have extensive abdominal surgery.Initial culture positive for Klebsiella pneumoniae, subsequently did have a slight dehiscence of abdominal wound Patients Admitting Diagnosis: SBO with abdominal abscess Post-Operative Diagnosis: SBO with abdominal abscess Procedure performed: Small bowel resection, Right colectomy, Sigmoid colectomy History/Risk Factors: Crohn's, GERD, Hyponatremia, Abdominal abscess, Small bowel obstr., Sepsis Clinical Indicators: Wound dehiscence Treatment: Antibiotics, Outpatient follow up, Monitor Consults: Jethro In order to accurately reflect this patients severity of illness, please clarify if wound dehiscence is a complication of the surgical procedure? Yes No Other, please specify Unable to determine Unable to determine MTDD
== END 2020-06-24 14:20 | disposition home health service (06) | DRG 853 ==
LOC: EC 08:42 → 4SSUR 11:39
PROVIDERS: ADMIT Hospitalist; ATTEND Hospitalist
PROC: 05HC33Z Insertion of Infusion Device into Left Basilic Vein, Percutaneous Approach (ICD-10-PCS; 2020-06-17 10:50)
PROC: 0DTF0ZZ Resection of Right Large Intestine, Open Approach (ICD-10-PCS; principal; 2020-06-20)
PROC: 0DBN0ZZ Excision of Sigmoid Colon, Open Approach (ICD-10-PCS; principal; 2020-06-20)
PROC: 0D1B0Z4 Bypass Ileum to Cutaneous, Open Approach (ICD-10-PCS; principal; 2020-06-20)
PROC: 0DB80ZZ Excision of Small Intestine, Open Approach (ICD-10-PCS; principal; 2020-06-20)
DX: A41.9 Sepsis, unspecified organism (principal); K65.1 Peritoneal abscess; K55.8 Other vascular disorders of intestine; K50.014 Crohn's disease of small intestine with abscess; K50.013 Crohn's disease of small intestine with fistula; K50.012 Crohn's disease of small intestine with intestinal obstruction; E87.1 Hypo-osmolality and hyponatremia; F31.9 Bipolar disorder, unspecified; K21.9 Gastro-esophageal reflux disease without esophagitis; K44.9 Diaphragmatic hernia without obstruction or gangrene; G56.00 Carpal tunnel syndrome, unspecified upper limb; F90.9 Attention-deficit hyperactivity disorder, unspecified type; K29.70 Gastritis, unspecified, without bleeding; B96.1 Klebsiella pneumoniae [K. pneumoniae] as the cause of diseases classified elsewhere; E86.1 Hypovolemia; Z71.3 Dietary counseling and surveillance; Z87.442 Personal history of urinary calculi; Z98.51 Tubal ligation status; Z87.891 Personal history of nicotine dependence; Z83.2 Family history of diseases of the blood and blood-forming organs and certain disorders involving the immune mechanism; Z84.1 Family history of disorders of kidney and ureter
CPT/HCPCS: 36410; 36415; 74018; 74176; 74177; 76937; 80048; 80053; 81001; 81025; 82150; 83605; 83690; 85025; 85027; 85652; 86140; 87040; 87070; 87075; 87077; 87186; 87205; 88307; 96361; 96365; 96375; 99285

== ENCOUNTER 2020-09-13 10:41 | Day surgery (SDC) | payer OTHER ==
[2020-09-12 11:26] VITALS: BMI 21.9
[~2020-09-13 10:41] MED LIST: LACTATED RINGERS 1,000 ML IV SCH
[2020-09-13] MEDS ORDERED: LIDOCAINE 1% (10MG/ML) FOR IV START INTRADERMA ONE (11:23)
[2020-09-13] MEDS ORDERED: LACTATED RINGERS 1,000 ML IV ONE (11:23)
[2020-09-13 11:33] VITALS: TEMP 97.8
[2020-09-13] MEDS ORDERED: LIDOCAINE 1% INJ 10MG/ML (20 ML MDV) ONE (12:27)
[2020-09-13] MEDS ORDERED: PROPOFOL 10 MG/ML 20 ML VIAL IV ONE (12:27)
--- NOTE | 2020-09-13 12:59 | P.PCN ---
Date of Procedure: 09/13/20 Procedure(s) Performed: BRIEF HISTORY: Patient is a 40-year-old pleasant white female s admitted to hospital in May 2020 with severe abdominal pain. She was treated with antibiotics and sent home. 3 days later she was readmitted to the hospital and a CAT scan revealed a large pelvic abscess. She underwent extensive laparotomy by Dr. Liriano She was noted to have fistula between the transverse colon and the sigmoid colon and hence underwent right colectomy with ileostomy. She also underwent resection of the sigmoid colon with mucous fistula. Pathology revealed chronic inflammation but no evidence of Crohn's disease. Because of the clinical suspicion for inflammatory bowel disease the patient is scheduled for an elective sigmoidoscopy and ileoscopy prior to ileostomy reversal. PROCEDURE PERFORMED: Flexible sigmoidoscopy Ileoscopy with biopsy PREOPERATIVE DIAGNOSIS: Abdominal pain, status post exploratory laparotomy for pelvic abscess in June 2020 with resection of the transverse and has right colon with ileostomy and mucous fistula. IV sedation per Anesthesia. PROCEDURE: After informed consent was obtained, the patient, was brought into the endoscopy unit. IV sedation was administered by Anesthesia under continuous monitoring. Digital rectal examination was normal. Initially the Olympus CF-160 flexible video colonoscope was then inserted in the rectum, gradually advanced into the sigmoid colon where there was large amount of retained fecal material noted. The visualized portions of the rectum and sigmoid colon appeared normal. At this time I passed the pediatric colonoscopy as a mucous fistula that was located in the left upper quadrant and gradually advanced about 20 cm into the descending colon also appeared normal. Once again there was some fecal material noted and I could not visualize the entire mucosa in this area. At this time ileoscopy was performed. The ileostomy bag was removed. The ostomy site appeared normal. The pediatric colonoscope was introduced into the ostomy and advanced at least 60 cm into the distal ileum which appeared entirely normal. There was mild erythema noted at the ostomy site itself which was biopsied. The patient tolerated the procedure well. IMPRESSION: 1.Flexible sigmoidoscope h revealed normal-appearing mucosa of the sigmoid colon and the descending colon could not be adequately visualized because of large amount of retained fecal material. The scope was advanced from the mucous fistula to about 20 cm and the descending colon was visualized visualized appeared normal. No evidence of Crohn's disease 2. Ileoscopy up to 60 cm from the ileostomy revealed normal mucosa with no evidence of Crohn's disease. Mild erythema noted at the ileostomy this was biopsied. RECOMMENDATIONS: Findings of this examination were discussed with the patient as well as a family. She was advised to follow with the biopsy results. She will follow with Dr Orantes for reversal of the ileostomy.
[2020-09-13 13:02] VITALS: RESP 16
[2020-09-13 13:14] VITALS: BP 106/70; PULSE 80
== END 2020-09-13 14:10 | disposition home or self-care (01) ==
LOC: ORWHC2ENDO 10:41
PROVIDERS: ATTEND Internal Medicine Gastroenterology
DX: Z48.815 Encounter for surgical aftercare following surgery on the digestive system (principal); K63.2 Fistula of intestine; L53.9 Erythematous condition, unspecified; F17.210 Nicotine dependence, cigarettes, uncomplicated; F32.9 Major depressive disorder, single episode, unspecified; Z93.2 Ileostomy status; Z98.890 Other specified postprocedural states; Z90.49 Acquired absence of other specified parts of digestive tract; Z79.891 Long term (current) use of opiate analgesic; Z79.899 Other long term (current) drug therapy; Z88.8 Allergy status to other drugs, medicaments and biological substances
CPT/HCPCS: 81025; 88305; 45330; 44380; J2001; J2704; 45382

== ENCOUNTER → 2020-10-08 | Outpatient (CLI) | payer OTHER ==
[2020-10-08 11:57] LABS: HCT 44.1 % (34.0-46.0); HGB 15.3 gm/dL (11.4-16.0); MCH 33.4 pg (25.0-35.0); MCHC 34.6 g/dL (31.0-37.0); MCV 96.4 fL (80.0-100.0); Mean Platelet Volume 7.4; Platelet Count 329 k/uL (150-450); RBC 4.57 m/uL (3.80-5.40); RDW 12.5 % (11.5-15.5); WBC 8.5 k/uL (3.8-10.6)
[2020-10-08 17:11] LABS: Anion Gap 11.6 mmol/L (4.00-12.00); Carbon Dioxide 26.4 mmol/L (21.6-31.8); Potassium 4.4 mmol/L (3.5-5.5)
== END | disposition home or self-care (01) ==
LOC: LABWHC1 10:19
PROVIDERS: ATTEND Surgery
DX: Z01.818 Encounter for other preprocedural examination (principal); K57.32 Diverticulitis of large intestine without perforation or abscess without bleeding
CPT/HCPCS: 36415; 80051; 85027

== ENCOUNTER 2020-10-09 08:24 | Inpatient (IN) | payer OTHER ==
[~2020-10-09 08:24] MED LIST changes: +ACETAMINOPHEN TAB 500 MG TAB PO PRN; +DEXAMETHASONE SOD PHOSPHATE 4 MG/ML 1 ML VIAL IV ONE; +HEPARIN SODIUM,PORCINE 5,000 UNIT/ML 1 ML VIAL SQ PRN; +HYDROmorphone 0.5 MG/0.5 ML SYRINGE IVP PRN; -LACTATED RINGERS 1,000 ML IV SCH; +LIDOCAINE 1% (10MG/ML) FOR IV START INTRADERMA PRN; +MIDAZOLAM 2 MG/2 ML VIAL IV PRN; +ONDANSETRON 4 MG/2 ML VIAL IVP ONE; +metroNIDAZOLE-NS PMX 500 MG in SALINE 1 100ML.BAG IVPB PRN
[2020-10-09] MEDS: LACTATED RINGERS 1,000 ML IV SCH (09:00)
[2020-10-09] MEDS ORDERED: MIDAZOLAM 2 MG/2 ML VIAL IV ONE (09:11)
[2020-10-09] MEDS ORDERED: fentaNYL (PF) 50 MCG/ML 2 ML AMP IV ONE (09:11)
[2020-10-09] MEDS ORDERED: ALVIMOPAN 12 MG CAPSULE PO ONE (10:13)
--- NOTE | 2020-10-09 10:39 | P.GSHP ---
History of Present Illness H&P Date: 10/09/20 Chief Complaint: History of perforated diverticulitis This 40-year-old female with previous history of perforated diverticulitis. Patient notes today for closure of enterostomy. Patient aware the risks of surgery including adhesions bleeding scarring and possible creation of colostomy. Past Medical History Past Medical History: GERD/Reflux, Osteoarthritis (OA) Additional Past Medical History / Comment(s): KIDNEY STONES. hiatal hernia , MIGRAINE HEADACHE , BOWEL OBSTRUCTION ,. HAS SKIN TEAR BY COLOSTOMY History of Any Multi-Drug Resistant Organisms: None Reported Past Surgical History: Bowel Resection, Tubal Ligation Additional Past Surgical History / Comment(s): COLOSTOMY , ILLEOSTOMY -06/13/20. sigmoidoscopy-09/13/20 Past Anesthesia/Blood Transfusion Reactions: No Reported Reaction Past Psychological History: ADD/ADHD, Bipolar, Depression Smoking Status: Former smoker Past Alcohol Use History: None Reported Additional Past Alcohol Use History / Comment(s): STARTED SMOKING AT AGE 12 QUIT 2015 SMOKED 3/4PPD Past Drug Use History: Marijuana Additional Drug Use History / Comment(s): DAILY -INSTRUCTED TO REFRAIN FROM USE FOR AT LEAST 24 HOURS PRIOR TO PROCEDURE - Past Family History Mother Family Medical History: Renal Disease, Rheumatoid Arthritis (RA) Additional Family Medical History / Comment(s): LUPUS , Father Family Medical History: Cancer Additional Family Medical History / Comment(s): COLON CANCER Medications and Allergies Home Medications Medication Instructions Recorded Confirmed Type Bismuth Subsalicylate 524 mg PO Q3H PRN 06/02/20 10/08/20 History [Pepto-Bismol] Calcium Carbonate [Tums] 500 mg PO TID PRN 06/02/20 10/08/20 History HYDROcodone/APAP 7.5-325MG [Vance 1 each PO Q6H PRN #30 tab 06/24/20 10/08/20 Rx 7.5-325] Sertraline [Zoloft] 62.5 mg PO DAILY 09/12/20 10/09/20 History Erythromycin [Enoch-Tab] PO DIRECTED 10/09/20 History Neomycin 1 tab PO DIRECTED 10/09/20 10/09/20 History Allergies Allergy/AdvReac Type Severity Reaction Status Date / Time pantoprazole [From Protonix] AdvReac Abdominal Verified 10/08/20 09:16 Pain, BLOATING Surgical - Exam Vital Signs Temp Pulse Resp BP Pulse Ox 97.7 F 100 20 131/67 100 10/09/20 08:40 10/09/20 08:40 10/09/20 08:40 10/09/20 08:40 10/09/20 08:40 - General well developed, well nourished, no distress - Eyes PERRL - ENT normal pinna - Neck no masses - Respiratory normal expansion - Cardiovascular Rhythm: regular - Abdomen Abdomen: soft, non tender Assessment and Plan Assessment: History of perforated diverticula is. We'll perform closure of enterostomy.
[2020-10-09] MEDS ORDERED: NALOXONE 0.4 MG/ML 1 ML VIAL IV PRN (10:40)
[2020-10-09] MEDS ORDERED: LACTATED RINGERS 1,000 ML IV ONE (11:51)
[2020-10-09] MEDS: ROPIVACAINE 250 MG, HYDROMORPHONE (PF) 5 MG in SODIUM CHLORIDE 0.9% 200 ML EPIDURAL PRN ×3 (13:35→14:25)
[2020-10-09] MEDS: MIDAZOLAM 2 MG/2 ML VIAL IVP ONE ×2 (13:45→13:50)
[2020-10-09] MEDS: SODIUM CHLORIDE 0.9% 1,000 ML IV SCH (15:30)
[2020-10-09] MEDS: LORazepam 2 MG/ML INJ IV PRN (15:49)
[2020-10-09] MEDS: HYDROmorphone 0.5 MG/0.5 ML SYRINGE IVP PRN (19:47)
[2020-10-09] MEDS: HEPARIN SODIUM,PORCINE 5,000 UNIT/ML 1 ML VIAL SQ SCH (19:49)
[2020-10-10] MEDS: SODIUM CHLORIDE 0.9% 1,000 ML IV SCH ×4 (00:39→22:12)
[2020-10-10] MEDS: HYDROmorphone 0.5 MG/0.5 ML SYRINGE IVP PRN ×3 (05:18→15:40)
[2020-10-10] MEDS: LACTATED RINGERS 1,000 ML IV SCH (08:05)
[2020-10-10 08:21] LABS: Basophils # (A) 0.1 k/uL (0-0.2); Basophils % (A) 1 %; Eosinophils # (A) 0.3 k/uL (0-0.7); Eosinophils % (A) 2 %; HCT 41.3 % (34.0-46.0); HGB 14.2 gm/dL (11.4-16.0); Lymphocytes # (A) 1.6 k/uL (1.0-4.8); Lymphocytes % (A) 9 %; MCHC 34.3 g/dL (31.0-37.0); MCV 96.1 fL (80.0-100.0); Mean Platelet Volume 7.3; Monocytes # (A) 0.9 k/uL (0-1.0); Monocytes % (A) 5 %; Neutrophils % (A) 83 %; Platelet Count 361 k/uL (150-450); RDW 12.5 % (11.5-15.5); WBC 18.1 k/uL (3.8-10.6)
--- NOTE | 2020-10-10 08:36 | P.PN ---
Progress Note - Text Progress Note Date: 10/10/20 This is a 40-year-old lady postop day #1 status post enterostomy closure with thoracic epidural for postoperative analgesia. The patient had quite night with no pain however this morning her pain started on the right side of her midline incision. The patient denies any pain around her vertical midline incision and only pain around the horizontal incision on the right side of her abdomen. She denies any paresthesia in the lower extremities or any back pain. The patient will be given 0.5 mg of IV Dilaudid and we will give her a bolus for the epidural infusion of 5 MLS and we will increase her hourly rate of the epidural infusion to 10 mL an hour.
[2020-10-10] MEDS: ROPIVACAINE 250 MG, HYDROMORPHONE (PF) 5 MG in SODIUM CHLORIDE 0.9% 200 ML EPIDURAL PRN ×2 (08:38→15:42)
[2020-10-10 08:41] LABS: African American GFR (CKD) >90 (>60 ml/min/1.73 sqM); Anion Gap 4 mmol/L; Blood Urea Nitrogen 6 mg/dL (7-17); Calcium 8.7 mg/dL (8.4-10.2); Carbon Dioxide 26 mmol/L (22-30); Chloride 106 mmol/L (98-107); Glucose 114 mg/dL (74-99); Non-African American GFR(CKD) >90 (>60 ml/min/1.73 sqM); Potassium 4.9 mmol/L (3.5-5.1); Sodium 136 mmol/L (137-145)
--- NOTE | 2020-10-10 09:34 | P.ANPRN ---
Procedure Note - Anesthesia - Epidural/Spinal Epidural Continuous Time Out Performed: Yes Date of Procedure: 10/09/20 Procedure Start Time: 09:10 Procedure Stop Time: 09:17 Location of Patient: PreOp Indication: Acute Post-Operative Pain, Requested by Surgeon Sedation Type: Sedate with meaningful contact maintained Preparation: Sterile Dressing Position: Sitting Catheter: Indwelling Needle Guage: 18 Injectate: Test Dose Lidocaine1.5% w/1:200,000 epi Blood Aspirated: No Pain Paresthesia on Injection Noted: No Events: Uneventful and Well Tolerated (xylo 1.5% plus epi 3cc given)
[2020-10-10] MEDS: HEPARIN SODIUM,PORCINE 5,000 UNIT/ML 1 ML VIAL SQ SCH ×2 (10:08→20:44)
--- NOTE | 2020-10-10 11:45 | P.PN ---
Subjective Progress Note Date: 10/10/20 CHIEF COMPLAINT: History of perforated diverticulitis HISTORY OF PRESENT ILLNESS: Patient is status post closure of enterostomy. Postoperative day #1. She has epidural for pain control. Anesthesiology has increased epidural to 10 and added IV Dilaudid for breakthrough pain. Patient denies any nausea vomiting. Denies passing gas or having bowel movements. She does report that she is still having abdominal pain anesthesiology is going to reevaluate her again this morning. Afebrile. WBC 18.1 PHYSICAL EXAM: VITAL SIGNS: Reviewed. GENERAL: Well-developed in no acute distress. HEENT: No sclera icterus. Extraocular movements grossly intact. Moist buccal mucosa. Head is atraumatic, normocephalic. ABDOMEN: Mildly distended. Dressings clean dry and intact. NEUROLOGIC: Alert and oriented. Cranial nerves II through XII grossly intact. ASSESSMENT: 1. History of perforated diverticulitis status post closure of enterostomy PLAN: -Continue epidural for pain control and IV Dilaudid for breakthrough pain -Keep patient nothing by mouth except for ice chips and popsicles -Continue IV fluids -Medicine consulted for medical management -Ordered incentive spirometer -DVT prophylaxis subcu heparin Physician Deputy Director Of Public Works note has been reviewed by physician. Signing provider agrees with the documented findings, assessment, and plan of care. Objective - Vital Signs Vital signs: Vital Signs Temp 98.1 F 10/10/20 08:00 Pulse 66 10/10/20 08:11 Resp 18 10/10/20 08:00 BP 115/77 10/10/20 08:11 Pulse Ox 100 10/10/20 08:00 Intake & Output 10/09/20 10/10/20 10/10/20 18:59 06:59 18:59 Intake Total 2915 Output Total 350 1800 Balance 2565 -1800 Weight 54.4 kg Intake: IV 2915 Output: Urine 300 1800 Estimated Blood Loss 50 Other: Voiding Method Indwelling Catheter Indwelling Catheter - Labs CBC & Chem 7: 10/10/20 07:53 10/10/20 07:53 Labs: Abnormal Lab Results - Last 24 Hours (Table) 10/10/20 10/10/20 Range/Units 07:53 07:53 WBC 18.1 H (3.8-10.6) k/uL Neutrophils # 15.0 H (1.3-7.7) k/uL Sodium 136 L (137-145) mmol/L BUN 6 L (7-17) mg/dL Creatinine 0.51 L (0.52-1.04) mg/dL Glucose 114 H (74-99) mg/dL
[2020-10-10] MEDS: SERTRALINE 25 MG TAB PO SCH (14:10)
--- NOTE | 2020-10-10 17:49 | P.CONS ---
History of Present Illness - Reason for Consult Consult date: 10/10/20 Medical management Requesting physician: Cristhian Liriano - Chief Complaint Abdominal surgery - History of Present Illness Consultation: This is a pleasant 40-year-old patient of . Chronic stable medical conditions include GERD, kidney stones, hiatal hernia, bipolar disorder. Marijuana use. Patient has a prior history of perforated colitis. And resultant enterostomy. Patient underwent closure of the same yesterday. Having significant pain. No nausea vomiting. Without ice chips. No fever no chills. Some some flatus. Laying in bed. Review of systems: GEN.: Tired EYES: None HEENT: None NECK: None RESPIRATORY: None CARDIOVASCULAR: None GASTROINTESTINAL: As above GENITOURINARY: None MUSCULOSKELETAL: None LYMPHATICS: None HEMATOLOGICAL: None PSYCHIATRY: None NEUROLOGICAL: None Past medical history to include: GERD, kidney stones, hiatal hernia, migraines, perforated diverticulitis with a resultant colostomy ileostomy. Bipolar disorder. 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 Patient started smoking age of 12 and stopped in 2016 about 3 quart a pack a day. Does recreational marijuana. Currently on probation Physical examination: VITAL SIGNS: 98.1, 74, 18, 105/70, 100% room air GENERAL: BMI 21.9, laying in bed, comfortable. EYES: Pupils equal. Conjunctiva normal. HEENT: External appearance of nose and ears normal, oral cavity grossly normal. NECK: JVD not raised; masses not palpable. HEART: First and second heart sounds are normal; no edema. LUNGS: Respiratory rate normal; clear to auscultation. ABDOMEN: Soft, some tenderness, no guarding rigidity, dressing over incision site, liver spleen not palpable, no masses palpable. PSYCH: Alert and oriented x3; mood and affect slightly anxiousl. NEUROLOGICAL: Cranial nerves grossly intact; no facial asymmetry, power and sensation grossly intact. LYMPHATICS: No lymph nodes palpable in the axilla and neck INVESTIGATIONS, reviewed in the clinical context: White count 18.1 hemoglobin 14.2 platelets 361 potassium 4.9 creatinine 0.51 Assessment: -Surgical procedure for reversal of enterostomy. This was created for a prior bowel resection for a perforated diverticulitis -GERD -Kidney stone -Hiatal hernia -Bipolar disorder Plan: Patient is getting IV fluids. Subcu heparin for DVT prophylaxis. Epidural for pain control. Encouraged to be out of bed. Zoloft will be resumed. Diet to be advanced as per surgery. Care was discussed with the patient. Questions answered. Thank you Dr. Liriano Past Medical History Past Medical History: GERD/Reflux, Osteoarthritis (OA) Additional Past Medical History / Comment(s): KIDNEY STONES. hiatal hernia , MIGRAINE HEADACHE , BOWEL OBSTRUCTION ,. HAS SKIN TEAR BY COLOSTOMY History of Any Multi-Drug Resistant Organisms: None Reported Past Surgical History: Bowel Resection, Tubal Ligation Additional Past Surgical History / Comment(s): COLOSTOMY , ILLEOSTOMY -06/13/20. sigmoidoscopy-09/13/20. ostomy reversal 10/09/20 Past Anesthesia/Blood Transfusion Reactions: No Reported Reaction Past Psychological History: ADD/ADHD, Bipolar, Depression Smoking Status: Current every day smoker Past Alcohol Use History: None Reported Additional Past Alcohol Use History / Comment(s): STARTED SMOKING AT AGE 12 QUIT 2015 SMOKED 3/4PPD Past Drug Use History: Marijuana Additional Drug Use History / Comment(s): DAILY -INSTRUCTED TO REFRAIN FROM USE FOR AT LEAST 24 HOURS PRIOR TO PROCEDURE - Past Family History Mother Family Medical History: Renal Disease, Rheumatoid Arthritis (RA) Additional Family Medical History / Comment(s): LUPUS , Father Family Medical History: Cancer Additional Family Medical History / Comment(s): COLON CANCER Medications and Allergies Home Medications Medication Instructions Recorded Confirmed Type Bismuth Subsalicylate 524 mg PO Q3H PRN 06/02/20 10/08/20 History [Pepto-Bismol] Calcium Carbonate [Tums] 500 mg PO TID PRN 06/02/20 10/08/20 History HYDROcodone/APAP 7.5-325MG [[place] 1 each PO Q6H PRN #30 tab 06/24/20 10/08/20 Rx 7.5-325] Sertraline [Zoloft] 62.5 mg PO DAILY 09/12/20 10/09/20 History Erythromycin [Enoch-Tab] PO DIRECTED 10/09/20 History Neomycin 1 tab PO DIRECTED 10/09/20 10/09/20 History Allergies Allergy/AdvReac Type Severity Reaction Status Date / Time pantoprazole [From Protonix] AdvReac Abdominal Verified 10/08/20 09:16 Pain, BLOATING Physical Exam Vitals: Vital Signs Temp Pulse Pulse Resp BP Pulse Ox 10/10/20 08:11 66 115/77 10/10/20 08:00 98.1 F 74 18 105/70 100 10/10/20 02:34 98.1 F 92 17 100/57 99 10/09/20 19:43 98 F 88 18 119/79 100 10/09/20 19:40 18 10/09/20 17:15 93 107/73 10/09/20 17:00 99 123/84 10/09/20 16:45 93 124/83 10/09/20 16:30 93 126/83 10/09/20 16:15 86 127/83 10/09/20 16:00 89 129/88 100 10/09/20 15:45 81 125/87 100 10/09/20 15:30 85 131/85 100 10/09/20 15:15 67 125/82 100 10/09/20 14:35 90 16 125/86 100 10/09/20 14:20 78 16 117/55 100 10/09/20 14:05 71 16 127/79 100 10/09/20 13:50 72 16 127/79 100 10/09/20 13:35 98.2 F 80 18 135/75 100 Intake and Output 10/09/20 10/10/20 10/10/20 22:59 06:59 14:59 Output Total 1800 Balance -1800 Output: Urine 1800 Other: Voiding Method Indwelling Catheter Indwelling Catheter Weight 54.4 kg Results CBC & Chem 7: 10/10/20 07:53 10/10/20 07:53 Labs: Abnormal Lab Results - Last 24 Hours (Table) 10/10/20 10/10/20 Range/Units 07:53 07:53 WBC 18.1 H (3.8-10.6) k/uL Neutrophils # 15.0 H (1.3-7.7) k/uL Sodium 136 L (137-145) mmol/L BUN 6 L (7-17) mg/dL Creatinine 0.51 L (0.52-1.04) mg/dL Glucose 114 H (74-99) mg/dL
[2020-10-10] MEDS: HYDROmorphone 1 MG/ML 1 ML SYRINGE IVP PRN (20:43)
[2020-10-10] MEDS: CALCIUM CARBONATE LIQUID 500 MG/5 ML CUP PO PRN (20:49)
[2020-10-11] MEDS: HYDROmorphone 1 MG/ML 1 ML SYRINGE IVP PRN (01:34)
[2020-10-11] MEDS: ONDANSETRON 4 MG/2 ML VIAL IVP PRN ×3 (01:38→14:48)
[2020-10-11] MEDS: HYDROmorphone 0.5 MG/0.5 ML SYRINGE IVP PRN ×3 (05:55→18:04)
[2020-10-11] MEDS: SODIUM CHLORIDE 0.9% 1,000 ML IV SCH ×3 (05:56→22:10)
[2020-10-11] MEDS: CALCIUM CARBONATE LIQUID 500 MG/5 ML CUP PO PRN (06:00)
[2020-10-11 07:20] LABS: Basophils % (A) 0 %; Eosinophils # (A) 0.8 k/uL (0-0.7); Eosinophils % (A) 7 %; HCT 39.2 % (34.0-46.0); HGB 12.8 gm/dL (11.4-16.0); Lymphocytes # (A) 1.4 k/uL (1.0-4.8); Lymphocytes % (A) 12 %; MCH 31.6 pg (25.0-35.0); MCHC 32.7 g/dL (31.0-37.0); MCV 96.6 fL (80.0-100.0); Mean Platelet Volume 7.2; Monocytes # (A) 0.7 k/uL (0-1.0); Monocytes % (A) 6 %; Neutrophils # (A) 8.5 k/uL (1.3-7.7); Neutrophils % (A) 74 %; Platelet Count 319 k/uL (150-450); RBC 4.06 m/uL (3.80-5.40); WBC 11.4 k/uL (3.8-10.6)
--- NOTE | 2020-10-11 07:35 | P.PN ---
Progress Note - Text 10/11/20 640am 40-year-old female status post colostomy reversal by Dr. Liriano. Patient seen and evaluated this morning for postop pain control with the solution running at 10 mL an hour. Patient has a VAS of 6 even though she looks very comfortable, no motor orsensory deficit noted. Plan to continue epidural infusion and DC the epidural in a.m. tomorrow
[2020-10-11] MEDS: HEPARIN SODIUM,PORCINE 5,000 UNIT/ML 1 ML VIAL SQ SCH ×2 (07:47→22:10)
[2020-10-11] MEDS: SERTRALINE 25 MG TAB PO SCH (07:47)
--- NOTE | 2020-10-11 10:31 | P.PN ---
Subjective Progress Note Date: 10/11/20 CHIEF COMPLAINT: History of perforated diverticulitis HISTORY OF PRESENT ILLNESS: Patient is status post closure of enterostomy. Postoperative day #2. She has epidural for pain control. Her pain is cont rolled with epidural. The plan is to discontinue epidural tomorrow. Patient did have some nausea this morning. No vomiting. Denies passing gas or having bowel movements. She didn't get up to bedside chair yesterday. Afebrile. WBC 11.4 PHYSICAL EXAM: VITAL SIGNS: Reviewed. GENERAL: Well-developed in no acute distress. HEENT: No sclera icterus. Extraocular movements grossly intact. Moist buccal mucosa. Head is atraumatic, normocephalic. ABDOMEN: Mildly distended. Minimal areas of saturation of blood noted on bandage NEUROLOGIC: Alert and oriented. Cranial nerves II through XII grossly intact. ASSESSMENT: 1. History of perforated diverticulitis status post closure of enterostomy PLAN: -Continue epidural for pain control -Keep patient nothing by mouth except for ice chips and popsicles -Continue IV fluids -Encouraged patient to increase activity and use incentive spirometer -Add Pepcid for GI prophylaxis -DVT prophylaxis subcu heparin Physician Quality And Reliability Engineer note has been reviewed by physician. Signing provider agrees with the documented findings, assessment, and plan of care. Objective - Vital Signs Vital signs: Vital Signs Temp 98.5 F 10/11/20 07:45 Pulse 75 10/11/20 07:45 Resp 17 10/11/20 07:45 BP 112/74 10/11/20 07:45 Pulse Ox 98 10/11/20 07:45 Intake & Output 10/10/20 10/11/20 10/11/20 18:59 06:59 18:59 Intake Total 1070.667 Output Total 1750 Balance 1070.667 -1750 Intake: IV 1000 Sodium Chloride 0.9% 1, 1000 000 ml @ 125 mls/hr IV . Q8H [facility] Rx#:[id number] Intake, IV Titration 70.667 Amount Ropivacaine 250 mg 70.667 Hydromorphone (Pf) 5 mg In Sodium Chloride 0.9% 200 ml @ Per Protocol EPIDURAL .Q0M PRN Rx#: [id number] Output: Urine 1750 Other: Voiding Method Indwelling Catheter Indwelling Catheter Indwelling Catheter - Labs CBC & Chem 7: 10/11/20 06:50 10/11/20 06:50 Labs: Abnormal Lab Results - Last 24 Hours (Table) 10/11/20 Range/Units 06:50 WBC 11.4 H (3.8-10.6) k/uL Neutrophils # 8.5 H (1.3-7.7) k/uL Eosinophils # 0.8 H (0-0.7) k/uL
[2020-10-11 11:03] LABS: African American GFR (CKD) 139.3 (60.0-200.0); Anion Gap 7.1 mmol/L (4.00-12.00); Calcium 8.5 mg/dL (8.7-10.3); Carbon Dioxide 27.9 mmol/L (21.6-31.8); Non-African American GFR(CKD) 120.2 (60.0-200.0); Potassium 4.3 mmol/L (3.5-5.5)
[2020-10-11] MEDS: ROPIVACAINE 250 MG, HYDROMORPHONE (PF) 5 MG in SODIUM CHLORIDE 0.9% 200 ML EPIDURAL PRN (11:57)
[2020-10-11] MEDS: FAMOTIDINE 20 MG/2 ML VIAL IV SCH (12:31)
[2020-10-11] MEDS: SIMETHICONE 40 MG/0.6 ML DROPS 2,000 MG/30 ML BOTTLE PO PRN (22:10)
--- NOTE | 2020-10-11 22:55 | P.PN ---
Progress Note - Text Progress Note Date: 10/11/20 - Chief Complaint Abdominal surgery Consultation: This is a pleasant 40-year-old patient of . Chronic stable medical conditions include GERD, kidney stones, hiatal hernia, bipolar disorder. Marijuana use. Patient has a prior history of perforated colitis. And resultant enterostomy. Patient underwent closure of the same yesterday. Having significant pain. No nausea vomiting. Without ice chips. No fever no chills. Some some flatus. Laying in bed. Today-laying in bed. Abdominal pain present. On ice chips. Epidural. No flatus. Tired. Review of systems: Was done for constitutional, cardiovascular, GI, pulmonary. relevant finding as above Active Medications Calcium Carbonate/Glycine (Calcium Carbonate Liquid 500 Mg/5 Ml Cup) 500 mg PO Q8HR PRN PRN Reason: Heartburn Last Admin: 10/11/20 06:00 Dose: 500 mg Documented by: Famotidine (Famotidine 20 Mg/2 Ml Vial) 20 mg IV DAILY [facility] Last Admin: 10/11/20 12:31 Dose: 20 mg Documented by: Heparin Sodium (Porcine) (Heparin Sodium,Porcine 5,000 Unit/Ml 1 Ml Vial) 5,000 unit SQ Q12HR [facility] Last Admin: 10/11/20 22:10 Dose: 5,000 unit Documented by: Hydromorphone HCl (Hydromorphone 1 Mg/Ml 1 Ml Syringe) 1 mg IVP Q3HR PRN PRN Reason: Pain Last Admin: 10/11/20 01:34 Dose: 1 mg Documented by: Hydromorphone HCl (Hydromorphone 0.5 Mg/0.5 Ml Syringe) 0.5 mg IVP Q6HR PRN PRN Reason: Breakthrough Pain Last Admin: 10/11/20 18:04 Dose: 0.5 mg Documented by: Ropivacaine 250 mg/Hydromorphone HCl 5 mg/ Sodium Chloride 250 mls @ 0 mls/hr EPIDURAL .Q0M PRN; Protocol PRN Reason: Pain Control Last Admin: 10/11/20 11:57 Dose: 10 mls/hr Documented by: Sodium Chloride (Saline 0.9%) 1,000 mls @ 125 mls/hr IV .Q8H [facility] Last Admin: 10/11/20 22:10 Dose: 125 mls/hr Documented by: Lidocaine HCl (Lidocaine 1% (10mg/Ml) For Iv Start) 0.1 ml INTRADERMA PER PROTOCOL PRN PRN Reason: IV Start Last Admin: 10/09/20 08:50 Dose: 0.1 ml Documented by: Lorazepam (Lorazepam 2 Mg/Ml Inj) 1 mg IV Q4HR PRN PRN Reason: Anxiety Last Admin: 10/09/20 15:49 Dose: 1 mg Documented by: Naloxone HCl (Naloxone 0.4 Mg/Ml 1 Ml Vial) 0.2 mg IV Q2M PRN PRN Reason: Opioid Reversal Ondansetron HCl (Ondansetron 4 Mg/2 Ml Vial) 4 mg IVP Q6HR PRN PRN Reason: Nausea And Vomiting Last Admin: 10/11/20 14:48 Dose: 4 mg Documented by: Sertraline HCl (Sertraline 25 Mg Tab) 62.5 mg PO DAILY [facility] Last Admin: 10/11/20 07:47 Dose: 62.5 mg Documented by: Simethicone (Simethicone 40 Mg/0.6 Ml Drops 2,000 Mg/30 Ml Bottle) 40 mg PO QID PRN PRN Reason: Bloating Last Admin: 10/11/20 22:10 Dose: 40 mg Documented by: Past medical history to include: GERD, kidney stones, hiatal hernia, migraines, perforated diverticulitis with a resultant colostomy ileostomy. Bipolar disorder. 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 Patient started smoking age of 12 and stopped in 2016 about 3 quart a pack a day. Does recreational marijuana. Currently on probation Physical examination: VITAL SIGNS: 98.5, 75, 17, 112/74, 98% on room air GENERAL: BMI 21.9, laying in bed, tired EYES: Pupils equal. Conjunctiva normal. HEENT: External appearance of nose and ears normal, oral cavity grossly normal. NECK: JVD not raised; masses not palpable. HEART: First and second heart sounds are normal; no edema. LUNGS: Respiratory rate normal; clear to auscultation. ABDOMEN: Soft, some tenderness, bowel sounds present no guarding rigidity, dressing over incision site, liver spleen not palpable, no masses palpable. PSYCH: Alert and oriented x3; mood and affect slightly tired INVESTIGATIONS, reviewed in the clinical context: October 11: White count 9.4 hemoglobin 12.8 potassium 4.3 creatinine 0.5 White count 18.1 hemoglobin 14.2 platelets 361 potassium 4.9 creatinine 0.51 Assessment: -Surgical procedure for reversal of enterostomy. This was created for a prior bowel resection for a perforated diverticulitis -GERD -Kidney stone -Hiatal hernia -Bipolar disorder -Epidural for pain control Plan: IV fluids. Subcu heparin.. Epidural for pain control. Remains on ice chills. Encouraged to be up in a chair. Thank you Dr. Liriano
[2020-10-12] MEDS: HYDROmorphone 0.5 MG/0.5 ML SYRINGE IVP PRN (01:12)
[2020-10-12] MEDS: ONDANSETRON 4 MG/2 ML VIAL IVP PRN ×4 (01:12→18:29)
[2020-10-12] MEDS: HEPARIN SODIUM,PORCINE 5,000 UNIT/ML 1 ML VIAL SQ SCH ×2 (06:59→21:43)
[2020-10-12] MEDS: FAMOTIDINE 20 MG/2 ML VIAL IV SCH (07:53)
--- NOTE | 2020-10-12 08:29 | P.PN ---
Progress Note - Text Date: 10/12/2020 Time: 07:57 The patient is status post, colostomy reversal, postoperative day number 3 The patient has no complaints of nausea vomiting or headache. The patient does not complain of any lower extremity numbness or weakness. The epidural is running at 10 mL per hour. VAS 2-10 The epidural will be discontinued this a.m. Pain medicines will be provided to the patient by the service.
[2020-10-12] MEDS: SERTRALINE 25 MG TAB PO SCH (09:08)
[2020-10-12] MEDS: SODIUM CHLORIDE 0.9% 1,000 ML IV SCH ×2 (09:09→17:09)
[2020-10-12] MEDS: SIMETHICONE 40 MG/0.6 ML DROPS 2,000 MG/30 ML BOTTLE PO PRN ×2 (10:41→16:34)
[2020-10-12] MEDS: HYDROmorphone 1 MG/ML 1 ML SYRINGE IVP PRN ×3 (10:45→18:29)
--- NOTE | 2020-10-12 11:57 | P.PN ---
Progress Note - Text Progress Note Date: 10/12/20 Patient is resting comfortably. She has some complaints of incisional pain. On exam vital signs are stable. Abdomen soft. It Status post reversal colostomy and multiple bowel anastomoses. Patient will have her diet advanced once she has significant bowel function.
[2020-10-12] MEDS: LORazepam 2 MG/ML INJ IV PRN ×2 (16:36→22:07)
--- NOTE | 2020-10-12 23:15 | P.PN ---
Progress Note - Text Progress Note Date: 10/12/20 - Chief Complaint Abdominal surgery Consultation: This is a pleasant 40-year-old patient of . Chronic stable medical conditions include GERD, kidney stones, hiatal hernia, bipolar disorder. Marijuana use. Patient has a prior history of perforated colitis. And resultant enterostomy. Patient underwent closure of the same yesterday. Having significant pain. No nausea vomiting. Without ice chips. No fever no chills. Some some flatus. Laying in bed. Today-laying in bed. Remains on ice chip. No flatus. Review of systems: Was done for constitutional, cardiovascular, GI, pulmonary. relevant finding as above Active Medications Calcium Carbonate/Glycine (Calcium Carbonate Liquid 500 Mg/5 Ml Cup) 500 mg PO Q8HR PRN PRN Reason: Heartburn Last Admin: 10/11/20 06:00 Dose: 500 mg Documented by: Famotidine (Famotidine 20 Mg/2 Ml Vial) 20 mg IV DAILY [facility] Last Admin: 10/12/20 07:53 Dose: 20 mg Documented by: Heparin Sodium (Porcine) (Heparin Sodium,Porcine 5,000 Unit/Ml 1 Ml Vial) 5,000 unit SQ Q12HR [facility] Last Admin: 10/12/20 21:43 Dose: 5,000 unit Documented by: Hydromorphone HCl (Hydromorphone 1 Mg/Ml 1 Ml Syringe) 1 mg IVP Q3HR PRN PRN Reason: Pain Last Admin: 10/12/20 18:29 Dose: 1 mg Documented by: Hydromorphone HCl (Hydromorphone 0.5 Mg/0.5 Ml Syringe) 0.5 mg IVP Q6HR PRN PRN Reason: Breakthrough Pain Last Admin: 10/12/20 01:12 Dose: 0.5 mg Documented by: Ropivacaine 250 mg/Hydromorphone HCl 5 mg/ Sodium Chloride 250 mls @ 0 mls/hr EPIDURAL .Q0M PRN; Protocol PRN Reason: Pain Control Last Admin: 10/11/20 11:57 Dose: 10 mls/hr Documented by: Sodium Chloride (Saline 0.9%) 1,000 mls @ 125 mls/hr IV .Q8H [facility] Last Admin: 10/12/20 17:09 Dose: Not Given Documented by: Lidocaine HCl (Lidocaine 1% (10mg/Ml) For Iv Start) 0.1 ml INTRADERMA PER PROTOCOL PRN PRN Reason: IV Start Last Admin: 10/09/20 08:50 Dose: 0.1 ml Documented by: Lorazepam (Lorazepam 2 Mg/Ml Inj) 1 mg IV Q4HR PRN PRN Reason: Anxiety Last Admin: 10/12/20 22:07 Dose: 1 mg Documented by: Naloxone HCl (Naloxone 0.4 Mg/Ml 1 Ml Vial) 0.2 mg IV Q2M PRN PRN Reason: Opioid Reversal Ondansetron HCl (Ondansetron 4 Mg/2 Ml Vial) 4 mg IVP Q6HR PRN PRN Reason: Nausea And Vomiting Last Admin: 10/12/20 18:29 Dose: 4 mg Documented by: Sertraline HCl (Sertraline 25 Mg Tab) 62.5 mg PO DAILY [facility] Last Admin: 10/12/20 09:08 Dose: Not Given Documented by: Simethicone (Simethicone 40 Mg/0.6 Ml Drops 2,000 Mg/30 Ml Bottle) 40 mg PO QID PRN PRN Reason: Bloating Last Admin: 10/12/20 16:34 Dose: 40 mg Documented by: Past medical history to include: GERD, kidney stones, hiatal hernia, migraines, perforated diverticulitis with a resultant colostomy ileostomy. Bipolar disorder. 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 Patient started smoking age of 12 and stopped in 2016 about 3 quart a pack a day. Does recreational marijuana. Currently on probation Physical examination: VITAL SIGNS: 98, 87, 18, 116/72, 98% room air GENERAL: BMI 21.9, laying in bed, tired EYES: Pupils equal. Conjunctiva normal. HEENT: External appearance of nose and ears normal, oral cavity grossly normal. NECK: JVD not raised; masses not palpable. HEART: First and second heart sounds are normal; no edema. LUNGS: Respiratory rate normal; clear to auscultation. ABDOMEN: Soft, some tenderness, bowel sounds present no guarding rigidity, dressing over incision site, liver spleen not palpable, no masses palpable. PSYCH: Alert and oriented x3; mood and affect slightly tired INVESTIGATIONS, reviewed in the clinical context: October 11: White count 9.4 hemoglobin 12.8 potassium 4.3 creatinine 0.5 White count 18.1 hemoglobin 14.2 platelets 361 potassium 4.9 creatinine 0.51 Assessment: -Surgical procedure for reversal of enterostomy. This was created for a prior bowel resection for a perforated diverticulitis-on ice chips -GERD -Kidney stone -Hiatal hernia -Bipolar disorder -Epidural for pain control Plan: IV fluids. Subcu heparin.. Epidural for pain control. Remains on ice chills. Follow with surgery Thank you Dr. Liriano
[2020-10-13] MEDS: HYDROmorphone 1 MG/ML 1 ML SYRINGE IVP PRN ×7 (00:15→21:53)
[2020-10-13] MEDS: ONDANSETRON 4 MG/2 ML VIAL IVP PRN ×4 (00:16→18:04)
[2020-10-13] MEDS: SODIUM CHLORIDE 0.9% 1,000 ML IV SCH ×4 (00:23→21:53)
[2020-10-13] MEDS: SIMETHICONE 40 MG/0.6 ML DROPS 2,000 MG/30 ML BOTTLE PO PRN ×2 (05:54→19:01)
[2020-10-13] MEDS: LORazepam 2 MG/ML INJ IV PRN ×2 (07:27→20:51)
[2020-10-13] MEDS: SERTRALINE 25 MG TAB PO SCH (07:28)
[2020-10-13] MEDS: HEPARIN SODIUM,PORCINE 5,000 UNIT/ML 1 ML VIAL SQ SCH ×2 (07:28→20:50)
[2020-10-13] MEDS: FAMOTIDINE 20 MG/2 ML VIAL IV SCH (07:28)
--- NOTE | 2020-10-13 11:05 | P.PN ---
Progress Note - Text Progress Note Date: 10/13/20 The patient had a bowel movement yesterday. She has had some incisional pain. On exam vital signs are stable. Abdomen soft. Incisions clean and intact. Status post anastomosis of multiple bowel resections. Patient will start on full liquid diet.
--- NOTE | 2020-10-13 21:32 | P.PN ---
Progress Note - Text Progress Note Date: 10/13/20 - Chief Complaint Abdominal surgery Consultation: This is a pleasant 40-year-old patient of . Chronic stable medical conditions include GERD, kidney stones, hiatal hernia, bipolar disorder. Marijuana use. Patient has a prior history of perforated colitis. And resultant enterostomy. Patient underwent closure of the same yesterday. Having significant pain. No nausea vomiting. Without ice chips. No fever no chills. Some some flatus. Laying in bed. Today-Advanced to full liquid diet. Was feeling queasy. Often Dilaudid. Did pass some flatus. Had a bowel movement yesterday. Review of systems: Was done for constitutional, cardiovascular, GI, pulmonary. relevant finding as above Active Medications Calcium Carbonate/Glycine (Calcium Carbonate Liquid 500 Mg/5 Ml Cup) 500 mg PO Q8HR PRN PRN Reason: Heartburn Last Admin: 10/11/20 06:00 Dose: 500 mg Documented by: Famotidine (Famotidine 20 Mg/2 Ml Vial) 20 mg IV DAILY [facility] Last Admin: 10/13/20 07:28 Dose: 20 mg Documented by: Heparin Sodium (Porcine) (Heparin Sodium,Porcine 5,000 Unit/Ml 1 Ml Vial) 5,000 unit SQ Q12HR [facility] Last Admin: 10/13/20 20:50 Dose: 5,000 unit Documented by: Hydromorphone HCl (Hydromorphone 1 Mg/Ml 1 Ml Syringe) 1 mg IVP Q3HR PRN PRN Reason: Pain Last Admin: 10/13/20 18:37 Dose: 1 mg Documented by: Hydromorphone HCl (Hydromorphone 0.5 Mg/0.5 Ml Syringe) 0.5 mg IVP Q6HR PRN PRN Reason: Breakthrough Pain Last Admin: 10/12/20 01:12 Dose: 0.5 mg Documented by: Ropivacaine 250 mg/Hydromorphone HCl 5 mg/ Sodium Chloride 250 mls @ 0 mls/hr EPIDURAL .Q0M PRN; Protocol PRN Reason: Pain Control Last Admin: 10/11/20 11:57 Dose: 10 mls/hr Documented by: Sodium Chloride (Saline 0.9%) 1,000 mls @ 125 mls/hr IV .Q8H [facility] Last Admin: 10/13/20 15:06 Dose: Not Given Documented by: Lidocaine HCl (Lidocaine 1% (10mg/Ml) For Iv Start) 0.1 ml INTRADERMA PER PROTOCOL PRN PRN Reason: IV Start Last Admin: 10/09/20 08:50 Dose: 0.1 ml Documented by: Lorazepam (Lorazepam 2 Mg/Ml Inj) 1 mg IV Q4HR PRN PRN Reason: Anxiety Last Admin: 10/13/20 20:51 Dose: 1 mg Documented by: Naloxone HCl (Naloxone 0.4 Mg/Ml 1 Ml Vial) 0.2 mg IV Q2M PRN PRN Reason: Opioid Reversal Ondansetron HCl (Ondansetron 4 Mg/2 Ml Vial) 4 mg IVP Q6HR PRN PRN Reason: Nausea And Vomiting Last Admin: 10/13/20 18:04 Dose: 4 mg Documented by: Sertraline HCl (Sertraline 25 Mg Tab) 62.5 mg PO DAILY [facility] Last Admin: 10/13/20 07:28 Dose: 62.5 mg Documented by: Simethicone (Simethicone 40 Mg/0.6 Ml Drops 2,000 Mg/30 Ml Bottle) 40 mg PO QID PRN PRN Reason: Bloating Last Admin: 10/13/20 19:01 Dose: 40 mg Documented by: Past medical history to include: GERD, kidney stones, hiatal hernia, migraines, perforated diverticulitis with a resultant colostomy ileostomy. Bipolar disorder. 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 Patient started smoking age of 12 and stopped in 2016 about 3 quart a pack a day. Does recreational marijuana. Currently on probation Physical examination: VITAL SIGNS: 99, 75, 17, 122.77, 98% room air GENERAL: BMI 21.9, laying in bed, tired EYES: Pupils equal. Conjunctiva normal. HEENT: External appearance of nose and ears normal, oral cavity grossly normal. NECK: JVD not raised; masses not palpable. HEART: First and second heart sounds are normal; no edema. LUNGS: Respiratory rate normal; clear to auscultation. ABDOMEN: Soft, some tenderness, bowel sounds present no guarding rigidity, dressing over incision site, liver spleen not palpable, no masses palpable. PSYCH: Alert and oriented x3; mood and affect slightly tired INVESTIGATIONS, reviewed in the clinical context: October 11: White count 9.4 hemoglobin 12.8 potassium 4.3 creatinine 0.5 White count 18.1 hemoglobin 14.2 platelets 361 potassium 4.9 creatinine 0.51 Assessment: -Surgical procedure for reversal of enterostomy. This was created for a prior bowel resection for a perforated diverticulitis-on ice chips -GERD -Kidney stone -Hiatal hernia -Bipolar disorder -Epidural for pain control Plan: Diet advanced to full liquids. Patient advised to avoid Dilaudid. Because of side effects. She is clinically looking much better. Thank you Dr. Liriano
[2020-10-14] MEDS: ONDANSETRON 4 MG/2 ML VIAL IVP PRN ×3 (01:09→18:26)
[2020-10-14] MEDS: HYDROmorphone 1 MG/ML 1 ML SYRINGE IVP PRN ×5 (01:39→18:26)
[2020-10-14] MEDS: CALCIUM CARBONATE LIQUID 500 MG/5 ML CUP PO PRN (01:39)
[2020-10-14] MEDS: SODIUM CHLORIDE 0.9% 1,000 ML IV SCH ×3 (06:00→22:33)
[2020-10-14 09:18] LABS: Basophils % (A) 0 %; Eosinophils # (A) 0.7 k/uL (0-0.7); Eosinophils % (A) 7 %; HCT 37.1 % (34.0-46.0); HGB 12.6 gm/dL (11.4-16.0); Lymphocytes # (A) 1.2 k/uL (1.0-4.8); Lymphocytes % (A) 13 %; MCH 32.2 pg (25.0-35.0); MCHC 33.9 g/dL (31.0-37.0); MCV 95.2 fL (80.0-100.0); Mean Platelet Volume 7.5; Monocytes # (A) 0.5 k/uL (0-1.0); Monocytes % (A) 6 %; Neutrophils % (A) 73 %; Platelet Count 373 k/uL (150-450); RDW 12.5 % (11.5-15.5); WBC 9.6 k/uL (3.8-10.6)
[2020-10-14] MEDS: FAMOTIDINE 20 MG/2 ML VIAL IV SCH (09:26)
[2020-10-14] MEDS: HEPARIN SODIUM,PORCINE 5,000 UNIT/ML 1 ML VIAL SQ SCH ×2 (09:26→20:13)
[2020-10-14] MEDS: SERTRALINE 25 MG TAB PO SCH (09:33)
[2020-10-14] MEDS: LORazepam 2 MG/ML INJ IV PRN (12:31)
--- NOTE | 2020-10-14 14:06 | P.PN ---
Subjective Progress Note Date: 10/14/20 CHIEF COMPLAINT: History of perforated diverticulitis HISTORY OF PRESENT ILLNESS: Patient is status post closure of enterostomy. Her pain is controlled. She denies any nausea or vomiting. She reports having bowel movement. She has been up and ambulating. She has still been using the IV Dilaudid for pain management. Currently on a full liquid diet. Afebrile. WBC 9.6 PHYSICAL EXAM: VITAL SIGNS: Reviewed. GENERAL: Well-developed in no acute distress. HEENT: No sclera icterus. Extraocular movements grossly intact. Moist buccal mucosa. Head is atraumatic, normocephalic. ABDOMEN: Mildly distended. Minimal areas of saturation of blood noted on bandage NEUROLOGIC: Alert and oriented. Cranial nerves II through XII grossly intact. ASSESSMENT: 1. History of perforated diverticulitis status post closure of enterostomy PLAN: -Continue full liquid diet -And [place] for pain -Encouraged patient to increase activity and use incentive spirometer -Pepcid for GI prophylaxis -DVT prophylaxis subcu heparin Physician Beef Selector note has been reviewed by physician. Signing provider agrees with the documented findings, assessment, and plan of care. Objective - Vital Signs Vital signs: Vital Signs Temp 98.1 F 10/14/20 08:00 Pulse 65 10/14/20 08:00 Resp 18 10/14/20 08:00 BP 107/72 10/14/20 08:00 Pulse Ox 100 10/14/20 08:00 Intake & Output 10/13/20 10/14/20 10/14/20 18:59 06:59 18:59 Intake Total 1825 Balance 1825 Intake: Intake, IV Titration 1500 Amount Sodium Chloride 0.9% 1, 1500 000 ml @ 125 mls/hr IV . Q8H [facility] Rx#:[id number] Oral 325 Other: Voiding Method Toilet # Voids 2 - Labs CBC & Chem 7: 10/14/20 08:29 10/11/20 06:50
[2020-10-14] MEDS: SIMETHICONE 40 MG/0.6 ML DROPS 2,000 MG/30 ML BOTTLE PO PRN (14:55)
[2020-10-14] MEDS: HYDROcodone/APAP 5-325MG 1 EACH TAB PO PRN ×2 (16:32→22:15)
[2020-10-15] MEDS: HYDROmorphone 1 MG/ML 1 ML SYRINGE IVP PRN ×4 (01:14→21:02)
[2020-10-15] MEDS: ONDANSETRON 4 MG/2 ML VIAL IVP PRN ×2 (01:20→21:01)
[2020-10-15] MEDS: HYDROcodone/APAP 5-325MG 1 EACH TAB PO PRN (03:53)
[2020-10-15] MEDS: SIMETHICONE 40 MG/0.6 ML DROPS 2,000 MG/30 ML BOTTLE PO PRN ×2 (03:54→19:49)
[2020-10-15] MEDS: SERTRALINE 25 MG TAB PO SCH (07:48)
[2020-10-15] MEDS: HEPARIN SODIUM,PORCINE 5,000 UNIT/ML 1 ML VIAL SQ SCH ×2 (07:48→19:48)
[2020-10-15] MEDS: FAMOTIDINE 20 MG/2 ML VIAL IV SCH (07:48)
[2020-10-15] MEDS: SODIUM CHLORIDE 0.9% 1,000 ML IV SCH ×3 (07:49→23:52)
[2020-10-15] MEDS: HYDROcodone/APAP 7.5-325MG 1 EACH TAB PO PRN ×2 (11:37→17:45)
--- NOTE | 2020-10-15 13:54 | P.PN ---
Subjective Progress Note Date: 10/15/20 CHIEF COMPLAINT: History of perforated diverticulitis HISTORY OF PRESENT ILLNESS: Patient is status post closure of enterostomy. Her pain is controlled. She denies any nausea or vomiting. She reports having bowel movement. She has been up and ambulating. She is requesting an increase in her [place] for better pain control. Currently on a full liquid diet. Afebrile. PHYSICAL EXAM: VITAL SIGNS: Reviewed. GENERAL: Well-developed in no acute distress. HEENT: No sclera icterus. Extraocular movements grossly intact. Moist buccal mucosa. Head is atraumatic, normocephalic. ABDOMEN: Soft dressing clean dry and intact NEUROLOGIC: Alert and oriented. Cranial nerves II through XII grossly intact. ASSESSMENT: 1. History of perforated diverticulitis status post closure of enterostomy PLAN: -Continue full liquid diet -Increased [place] to 7.5 one every 6 hours as needed for pain -Encouraged patient to increase activity and use incentive spirometer -Pepcid for GI prophylaxis -DVT prophylaxis subcu heparin Physician Intervention Analyst note has been reviewed by physician. Signing provider agrees with the documented findings, assessment, and plan of care. Objective - Vital Signs Vital signs: Vital Signs Temp 98.4 F 10/15/20 07:19 Pulse 68 10/15/20 07:19 Resp 16 10/15/20 07:19 BP 106/64 10/15/20 07:19 Pulse Ox 98 10/15/20 07:19 Intake & Output 10/14/20 10/15/20 10/15/20 18:59 06:59 18:59 Intake Total 1250 325 Balance 1250 325 Intake: Intake, IV Titration 1250 Amount Sodium Chloride 0.9% 1, 1250 000 ml @ 125 mls/hr IV . Q8H [facility] Rx#:[id number] Oral 325 Other: Voiding Method Toilet Toilet # Voids 2 2 - Labs CBC & Chem 7: 10/14/20 08:29 10/11/20 06:50
--- NOTE | 2020-10-15 18:51 | P.PN ---
Progress Note - Text Progress Note Date: 10/14/20 - Chief Complaint Abdominal surgery Consultation: This is a pleasant 40-year-old patient of . Chronic stable medical conditions include GERD, kidney stones, hiatal hernia, bipolar disorder. Marijuana use. Patient has a prior history of perforated colitis. And resultant enterostomy. Patient underwent closure of the same yesterday. Having significant pain. No nausea vomiting. Without ice chips. No fever no chills. Some some flatus. Laying in bed. Today-had a bowel movement. Feeling better. Some abdominal pain. No nausea vomiting. Has been out of bed. Review of systems: Was done for constitutional, cardiovascular, GI, pulmonary. relevant finding as above current medications reviewed in today's electronic records Past medical history to include: GERD, kidney stones, hiatal hernia, migraines, perforated diverticulitis with a resultant colostomy ileostomy. Bipolar disorder. 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 Patient started smoking age of 12 and stopped in 2015 about 3 quart a pack a day. Does recreational marijuana. Currently on probation Physical examination: VITAL SIGNS: 98.6, 78, 16, 112/71, 98% room air GENERAL: BMI 21.9, laying in bed, tired EYES: Pupils equal. Conjunctiva normal. HEENT: External appearance of nose and ears normal, oral cavity grossly normal. NECK: JVD not raised; masses not palpable. HEART: First and second heart sounds are normal; no edema. LUNGS: Respiratory rate normal; clear to auscultation. ABDOMEN: Soft, some tenderness, bowel sounds present no guarding rigidity, dressing over incision site, liver spleen not palpable, no masses palpable. PSYCH: Alert and oriented x3; mood and affect slightly tired INVESTIGATIONS, reviewed in the clinical context: General the : White count 9.6 hemoglobin 12.6 October 11: White count 9.4 hemoglobin 12.8 potassium 4.3 creatinine 0.5 White count 18.1 hemoglobin 14.2 platelets 361 potassium 4.9 creatinine 0.51 Assessment: -Surgical procedure for reversal of enterostomy. This was created for a prior bowel resection for a perforated diverticulitis-on ice chips -GERD -Kidney stone -Hiatal hernia -Bipolar disorder -Epidural for pain control Plan: doing well. Tolerating a diet. Having a bowel movement. Continue current medications Thank you Dr. Liriano
[2020-10-15] MEDS: LORazepam 2 MG/ML INJ IV PRN (19:48)
--- NOTE | 2020-10-15 21:05 | P.PN ---
Progress Note - Text Progress Note Date: 10/15/20 - Chief Complaint Abdominal surgery Consultation: This is a pleasant 40-year-old patient of . Chronic stable medical conditions include GERD, kidney stones, hiatal hernia, bipolar disorder. Marijuana use. Patient has a prior history of perforated colitis. And resultant enterostomy. Patient underwent closure of the same yesterday. Having significant pain. No nausea vomiting. Without ice chips. No fever no chills. Some some flatus. Laying in bed. Today-tolerating diet. Has some loose stool. Pain well controlled. Has been out of bed. Review of systems: Was done for constitutional, cardiovascular, GI, pulmonary. relevant finding as above Active Medications Hydrocodone Bitart/Acetaminophen (Hydrocodone/Apap 7.5-325mg 1 Each Tab) 1 each PO Q6H PRN PRN Reason: Pain Last Admin: 10/15/20 17:45 Dose: 1 each Documented by: Calcium Carbonate/Glycine (Calcium Carbonate Liquid 500 Mg/5 Ml Cup) 500 mg PO Q8HR PRN PRN Reason: Heartburn Last Admin: 10/14/20 01:39 Dose: 500 mg Documented by: Famotidine (Famotidine 20 Mg/2 Ml Vial) 20 mg IV DAILY [facility] Last Admin: 10/15/20 07:48 Dose: 20 mg Documented by: Heparin Sodium (Porcine) (Heparin Sodium,Porcine 5,000 Unit/Ml 1 Ml Vial) 5,000 unit SQ Q12HR [facility] Last Admin: 10/15/20 19:48 Dose: 5,000 unit Documented by: Hydromorphone HCl (Hydromorphone 1 Mg/Ml 1 Ml Syringe) 1 mg IVP Q3HR PRN PRN Reason: Pain Last Admin: 10/15/20 21:02 Dose: 1 mg Documented by: Hydromorphone HCl (Hydromorphone 0.5 Mg/0.5 Ml Syringe) 0.5 mg IVP Q6HR PRN PRN Reason: Breakthrough Pain Last Admin: 10/12/20 01:12 Dose: 0.5 mg Documented by: Ropivacaine 250 mg/Hydromorphone HCl 5 mg/ Sodium Chloride 250 mls @ 0 mls/hr EPIDURAL .Q0M PRN; Protocol PRN Reason: Pain Control Last Admin: 10/11/20 11:57 Dose: 10 mls/hr Documented by: Sodium Chloride (Saline 0.9%) 1,000 mls @ 125 mls/hr IV .Q8H [facility] Last Admin: 10/15/20 14:58 Dose: Not Given Documented by: Lidocaine HCl (Lidocaine 1% (10mg/Ml) For Iv Start) 0.1 ml INTRADERMA PER PROTOCOL PRN PRN Reason: IV Start Last Admin: 10/09/20 08:50 Dose: 0.1 ml Documented by: Lorazepam (Lorazepam 2 Mg/Ml Inj) 1 mg IV Q4HR PRN PRN Reason: Anxiety Last Admin: 10/15/20 19:48 Dose: 1 mg Documented by: Naloxone HCl (Naloxone 0.4 Mg/Ml 1 Ml Vial) 0.2 mg IV Q2M PRN PRN Reason: Opioid Reversal Ondansetron HCl (Ondansetron 4 Mg/2 Ml Vial) 4 mg IVP Q6HR PRN PRN Reason: Nausea And Vomiting Last Admin: 10/15/20 21:01 Dose: 4 mg Documented by: Sertraline HCl (Sertraline 25 Mg Tab) 62.5 mg PO DAILY [facility] Last Admin: 10/15/20 07:48 Dose: 62.5 mg Documented by: Simethicone (Simethicone 40 Mg/0.6 Ml Drops 2,000 Mg/30 Ml Bottle) 40 mg PO QID PRN PRN Reason: Bloating Last Admin: 10/15/20 19:49 Dose: 40 mg Documented by: Past medical history to include: GERD, kidney stones, hiatal hernia, migraines, perforated diverticulitis with a resultant colostomy ileostomy. Bipolar disorder. 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 Patient started smoking age of 12 and stopped in 2016 about 3 quart a pack a day. Does recreational marijuana. Currently on probation Physical examination: VITAL SIGNS: 98.1, 66, 18, 112/69, 100% room air GENERAL: BMI 21.9, laying in bed, comfortable EYES: Pupils equal. Conjunctiva normal. HEENT: External appearance of nose and ears normal, oral cavity grossly normal. NECK: JVD not raised; masses not palpable. HEART: First and second heart sounds are normal; no edema. LUNGS: Respiratory rate normal; clear to auscultation. ABDOMEN: Soft, mild tenderness, bowel sounds present no guarding rigidity, dressing over incision site, liver spleen not palpable, no masses palpable. PSYCH: Alert and oriented x3; mood and affect slightly tired INVESTIGATIONS, reviewed in the clinical context: October 14: White count 9.6 hemoglobin 12.6 October 11: White count 9.4 hemoglobin 12.8 potassium 4.3 creatinine 0.5 White count 18.1 hemoglobin 14.2 platelets 361 potassium 4.9 creatinine 0.51 Assessment: -Surgical procedure for reversal of enterostomy. This was created for a prior bowel resection for a perforated diverticulitis-on ice chips -GERD -Kidney stone -Hiatal hernia -Bipolar disorder -Epidural for pain control Plan: doing well. Tolerating a diet. Having a bowel movement. Continue current medications Thank you Dr. Liriano
[2020-10-16] MEDS: HYDROcodone/APAP 7.5-325MG 1 EACH TAB PO PRN ×3 (01:01→13:28)
[2020-10-16] MEDS: FAMOTIDINE 20 MG/2 ML VIAL IV SCH (07:06)
[2020-10-16] MEDS: SERTRALINE 25 MG TAB PO SCH (07:06)
[2020-10-16] MEDS: ONDANSETRON 4 MG/2 ML VIAL IVP PRN (07:06)
[2020-10-16] MEDS: HEPARIN SODIUM,PORCINE 5,000 UNIT/ML 1 ML VIAL SQ SCH (07:06)
[2020-10-16] MEDS: SODIUM CHLORIDE 0.9% 1,000 ML IV SCH ×2 (07:07→15:51)
[2020-10-16 13:30] VITALS: BMI 21.9
--- NOTE | 2020-10-16 13:46 | P.PN ---
Subjective Progress Note Date: 10/16/20 CHIEF COMPLAINT: History of perforated diverticulitis HISTORY OF PRESENT ILLNESS: Patient is status post closure of enterostomy. Her pain is controlled. She denies any nausea or vomiting. She reports having bowel movement. She has been up and ambulating. Currently on a full liquid diet. She is having bowel movements and passing gas. She is asking for an increase in her diet. Afebrile. PHYSICAL EXAM: VITAL SIGNS: Reviewed. GENERAL: Well-developed in no acute distress. HEENT: No sclera icterus. Extraocular movements grossly intact. Moist buccal mucosa. Head is atraumatic, normocephalic. ABDOMEN: Soft dressing clean dry and intact NEUROLOGIC: Alert and oriented. Cranial nerves II through XII grossly intact. ASSESSMENT: 1. History of perforated diverticulitis status post closure of enterostomy PLAN: -Advanced to regular diet -Continue pain medication as needed -Encouraged patient to increase activity and use incentive spirometer -Pepcid for GI prophylaxis -DVT prophylaxis subcu heparin Physician Home Service Technician note has been reviewed by physician. Signing provider agrees with the documented findings, assessment, and plan of care. Objective - Vital Signs Vital signs: Vital Signs Temp 98.3 F 10/16/20 07:50 Pulse 64 10/16/20 07:50 Resp 17 10/16/20 07:50 BP 115/76 10/16/20 07:50 Pulse Ox 100 10/16/20 07:50 Intake & Output 10/15/20 10/16/20 10/16/20 18:59 06:59 18:59 Intake Total 325 Balance 325 Weight 54.4 kg Intake: Oral 325 Other: Voiding Method Toilet # Voids 3 - Labs CBC & Chem 7: 10/14/20 08:29 10/11/20 06:50
[2020-10-16 14:24] VITALS: BP 103/66; PULSE 79; RESP 16; TEMP 98.9
--- NOTE | 2020-10-16 15:28 | P.DS ---
Providers Date of admission: 10/09/20 08:24 Expected date of discharge: 10/16/20 Attending physician: Cristhian Liriano Consults: 10/10/20 07:20 Consult Physician Routine Consulting Provider: Joseph Staples Consult Reason/Comments: medical managment Do you want consulting provider notified?: Yes Primary care physician: Ron Moore Hospital Course: Discharge diagnosis 1. History of perforated diverticulitis status post closure of enterostomy Hospital course This is a 40-year-old female with a known history of perforated diverticulitis. Patient is status post closure of her enterostomy. She is tolerated surgery well. Her pain is controlled. She is tolerating diet. She is having bowel movements and flatus. She is up and ambulating. She is afebrile. She is stab le for discharge. Please refer to chart for any further details. Physician Disability Hearing Officer note has been reviewed by physician. Signing provider agrees with the documented findings, assessment, and plan of care. Patient Condition at Discharge: Stable Plan - Discharge Summary Discharge Rx Participant: No New Discharge Prescriptions: New Docusate [Colace] 100 mg PO BID #30 capsule Ibuprofen [Motrin] 600 mg PO Q8HR PRN #30 tab PRN Reason: Pain HYDROcodone/APAP 7.5-325MG [[place] 7.5-325] 1 tab PO Q6HR PRN 3 Days #12 tab PRN Reason: Pain Continue Calcium Carbonate [Tums] 500 mg PO TID PRN PRN Reason: Indigestion Bismuth Subsalicylate [Pepto-Bismol] 524 mg PO Q3H PRN PRN Reason: Gi Upset HYDROcodone/APAP 7.5-325MG [[place] 7.5-325] 1 each PO Q6H PRN #30 tab PRN Reason: MODERATE Pain Sertraline [Zoloft] 62.5 mg PO DAILY Discontinued Neomycin 1 tab PO DIRECTED Erythromycin [[place]ch-Tab] PO DIRECTED Discharge Medication List Bismuth Subsalicylate [Pepto-Bismol] 524 mg PO Q3H PRN 06/02/20 [History] Calcium Carbonate [Tums] 500 mg PO TID PRN 06/02/20 [History] HYDROcodone/APAP 7.5-325MG [[place] 7.5-325] 1 each PO Q6H PRN #30 tab 06/24/20 [Rx] Sertraline [Zoloft] 62.5 mg PO DAILY 09/12/20 [History] Docusate [Colace] 100 mg PO BID #30 capsule 10/16/20 [Rx] HYDROcodone/APAP 7.5-325MG [[place] 7.5-325] 1 tab PO Q6HR PRN 3 Days #12 tab 10/16/20 [Rx] Ibuprofen [Motrin] 600 mg PO Q8HR PRN #30 tab 10/16/20 [Rx] Follow up Appointment(s)/Referral(s): Ron Moore MD [Primary Care Provider] - 2 Weeks Cristhian Liriano MD [STAFF PHYSICIAN] - 1 Week Activity/Diet/Wound Care/Special Instructions: No driving while taking [place] No lifting over 10 pounds You may shower. No soaking or tub baths for 2 weeks Very light activity until you are reevaluated at your follow up appointment with your surgeon Diet regular Discharge Disposition: HOME SELF-CARE
--- NOTE | 2020-10-18 00:06 | P.PN ---
Progress Note - Text Progress Note Date: 10/16/20 - Chief Complaint Abdominal surgery Consultation: This is a pleasant 40-year-old patient of . Chronic stable medical conditions include GERD, kidney stones, hiatal hernia, bipolar disorder. Marijuana use. Patient has a prior history of perforated colitis. And resultant enterostomy. Patient underwent closure of the same yesterday. Having significant pain. No nausea vomiting. Without ice chips. No fever no chills. Some some flatus. Laying in bed. Today-feeling much better. Tolerating diet. Pain control. Did out of bed. Review of systems: Was done for constitutional, cardiovascular, GI, pulmonary. relevant finding as above Current medications reviewed in today's electronic records Past medical history to include: GERD, kidney stones, hiatal hernia, migraines, perforated diverticulitis with a resultant colostomy ileostomy. Bipolar disorder. 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 Patient started smoking age of 12 and stopped in 2015 about 3 quart a pack a day. Does recreational marijuana. Currently on probation Physical examination: VITAL SIGNS: 98.3, 64, 17, 150 6,100%roomair GENERAL: BMI 21.9, laying in bed, comfortable EYES: Pupils equal. Conjunctiva normal. HEENT: External appearance of nose and ears normal, oral cavity grossly normal. NECK: JVD not raised; masses not palpable. HEART: First and second heart sounds are normal; no edema. LUNGS: Respiratory rate normal; clear to auscultation. ABDOMEN: Soft, mild tenderness, bowel sounds present no guarding rigidity, dressing over incision site, liver spleen not palpable, no masses palpable. PSYCH: Alert and oriented x3; mood and affect slightly tired INVESTIGATIONS, reviewed in the clinical context: October 14: White count 9.6 hemoglobin 12.6 October 11: White count 9.4 hemoglobin 12.8 potassium 4.3 creatinine 0.5 White count 18.1 hemoglobin 14.2 platelets 361 potassium 4.9 creatinine 0.51 Assessment: -Surgical procedure for reversal of enterostomy. This was created for a prior bowel resection for a perforated diverticulitis-on ice chips -GERD -Kidney stone -Hiatal hernia -Bipolar disorder -Epidural for pain control Plan: doing well. Tolerating a diet. Having a bowel movement. Continue current medications Thank you Dr. Liriano
--- NOTE | 2020-10-30 16:48 | P.OP ---
Date of Procedure: 10/30/20 Preoperative Diagnosis: Diverticulitis Postoperative Diagnosis: Diverticulitis Procedure(s) Performed: Reversal of ileostomy Reversal of mucous fistula Colorectal anastomosis Lysis of adhesions Anesthesia: CEE Surgeon: Cristhian Liriano Estimated Blood Loss (ml): 50 Pathology: other (colon) Condition: stable Disposition: PACU Description of Procedure: The patient's placed on the operative table in supine position. She received general endotracheal tube anesthesia. Her abdomen was prepped and draped usual fashion. Patient had a ileostomy the right lower quadrant and a mucous fistula in the left upper quadrant. The skin was divided in the midline. Using cautery the subcutaneous tissues were divided. The fascia was divided midline. Approximately 30 minutes operative time used to lyse adhesions. The ileostomy then transected with a GI stapler at the fascial level. The mucous fistula was then transected at the fascial level using DEBRA stapler. The patient had a previous sigmoid colectomy. The rectal stump and the descending colon were found. A [id number] functional end-to-end staple anastomosis created between the rectal stump in the descending colon. The area of the mucous fistula was then reanastomosed using the DEBRA and TA staplers as side functional end-to-end staple anastomosis. 3-0 GI silk sutures used as a crotch stitch. Next, a ileocolonic anastomosis created using DEBRA and TA stapler a [id number] functional end-to-end staple anastomosis created. 3-0 GI silk sutures used as a crotch stitch. The area was irrigated there is no bleeding seen. The fascia was then closed with looped #1 PDS suture. Skin was closed cecilia. Patient to p she will was sent to recovery room stable condition.
== END 2020-10-16 15:47 | disposition home or self-care (01) | DRG 331 ==
LOC: 2ORMAIN 08:24 → 4SSUR 13:50
PROVIDERS: ADMIT Surgery; ATTEND Surgery
PROC: 0DNW0ZZ Release Peritoneum, Open Approach (ICD-10-PCS; principal; 2020-10-09 10:10)
PROC: 0DBE0ZZ Excision of Large Intestine, Open Approach (ICD-10-PCS; principal; 2020-10-09 10:10)
PROC: 0DBB0ZZ Excision of Ileum, Open Approach (ICD-10-PCS; principal; 2020-10-09 10:10)
DX: Z43.3 Encounter for attention to colostomy (principal); F90.9 Attention-deficit hyperactivity disorder, unspecified type; F31.9 Bipolar disorder, unspecified; K21.9 Gastro-esophageal reflux disease without esophagitis; K44.9 Diaphragmatic hernia without obstruction or gangrene; N20.0 Calculus of kidney; Z65.3 Problems related to other legal circumstances; Z79.899 Other long term (current) drug therapy; Z80.0 Family history of malignant neoplasm of digestive organs; Z87.442 Personal history of urinary calculi; Z90.49 Acquired absence of other specified parts of digestive tract; Z98.51 Tubal ligation status; G43.909 Migraine, unspecified, not intractable, without status migrainosus; Z88.8 Allergy status to other drugs, medicaments and biological substances; K66.0 Peritoneal adhesions (postprocedural) (postinfection)
CPT/HCPCS: 80048; 81025; 85025; 86850; 86900; 86901; 88304

== ENCOUNTER 2021-03-02 03:57 | Observation (INO) | payer OTHER ==
--- NOTE | 2021-03-02 04:09 | ED ---
Recheck HPI - General Chief Complaint: Abdominal Pain Stated Complaint: Abd Pain Time Seen by Provider: 03/02/21 04:02 Source: patient Mode of arrival: ambulatory Limitations: no limitations - Related Data Home Medications Medication Instructions Recorded Confirmed Bismuth Subsalicylate 524 mg PO Q3H PRN 06/02/20 10/08/20 [Pepto-Bismol] Calcium Carbonate [Tums] 500 mg PO TID PRN 06/02/20 10/08/20 Sertraline [Zoloft] 62.5 mg PO DAILY 09/12/20 10/09/20 Previous Rx's Medication Instructions Recorded HYDROcodone/APAP 7.5-325MG [[place] 1 each PO Q6H PRN #30 tab 06/24/20 7.5-325] Docusate [Colace] 100 mg PO BID #30 capsule 10/16/20 HYDROcodone/APAP 7.5-325MG [[place] 1 tab PO Q6HR PRN 3 Days #12 tab 10/16/20 7.5-325] Ibuprofen [Motrin] 600 mg PO Q8HR PRN #30 tab 10/16/20 Allergies Allergy/AdvReac Type Severity Reaction Status Date / Time orange juice Allergy Unknown Verified 03/02/21 04:04 pantoprazole [From Protonix] AdvReac Abdominal Verified 03/02/21 04:04 Pain, BLOATING Review of Systems ROS Statement: Those systems with pertinent positive or pertinent negative responses have been documented in the HPI. ROS Other: All systems not noted in ROS Statement are negative. Past Medical History Past Medical History: GERD/Reflux, Osteoarthritis (OA) Additional Past Medical History / Comment(s): KIDNEY STONES. hiatal hernia , MIGRAINE HEADACHE , BOWEL OBSTRUCTION ,. HAS SKIN TEAR BY COLOSTOMY History of Any Multi-Drug Resistant Organisms: None Reported Past Surgical History: Bowel Resection, Tubal Ligation Additional Past Surgical History / Comment(s): COLOSTOMY , ILLEOSTOMY -06/13/20. sigmoidoscopy-09/13/20. ostomy reversal 10/09/20 Past Anesthesia/Blood Transfusion Reactions: No Reported Reaction Past Psychological History: ADD/ADHD, Bipolar, Depression Smoking Status: Current every day smoker Past Alcohol Use History: None Reported Past Drug Use History: Marijuana - Past Family History Mother Family Medical History: Renal Disease, Rheumatoid Arthritis (RA) Additional Family Medical History / Comment(s): LUPUS , Father Family Medical History: Cancer Additional Family Medical History / Comment(s): COLON CANCER General Exam Limitations: no limitations Course Vital Signs 03/02/21 04:02 Temperature 97.2 F L Pulse Rate 85 Respiratory 16 Rate Blood Pressure 129/83 O2 Sat by Pulse 98 Oximetry Disposition Clinical Impression: Abdominal pain Disposition: ADMITTED IP TO THIS [facility] Condition: Fair Is patient prescribed a controlled substance at d/c from ED?: No Referrals: Ron Moore MD [Primary Care Provider] - 1-2 days
[2021-03-02] MEDS ORDERED: NALOXONE 0.4 MG/ML 1 ML VIAL IV PRN (05:01)
[2021-03-02] MEDS ORDERED: ONDANSETRON 4 MG/2 ML VIAL IVP PRN (05:07)
[2021-03-02] MEDS: DEXTROSE 5%-0.45% NACL 1,000 ML IV SCH ×2 (05:21→17:15)
[2021-03-02] MEDS: PANTOPRAZOLE 40 MG/10 ML VIAL IV SCH (08:50)
[2021-03-02] MEDS: MORPHINE SULFATE 4 MG/ML SYRINGE IV PRN ×3 (08:55→22:38)
--- NOTE | 2021-03-02 12:25 | P.GSHP ---
History of Present Illness H&P Date: 03/02/21 Chief Complaint: Abdominal pain 40-year-old female with a complicated medical history. Patient underwent subtotal colectomy with ileostomy and mucous fistula last June. In October the patient underwent ostomy reversal. She has done relatively well with that. Apparently yesterday she began experiencing increased abdominal bloating and pain. She was seen at an outside hospital and had a CAT scan demonstrating gastric distention. Patient has a known incisional hernia as well. She was transferred here for evaluation. Feeling somewhat better today. She has had bowel movements and flatus. Mild nausea. No fevers. White blood cell count at outside institution was normal. Her lactic acid was 2.8. - Review of Systems Comment: The patient denies any acute changes in vision or hearing, no dysphagia or odynophagia, no chest pain or shortness of breath, no dysuria or hematuria, no headache, no runny nose, no rectal bleeding or melena, no unexplained weight loss Past Medical History Past Medical History: GERD/Reflux, Osteoarthritis (OA) Additional Past Medical History / Comment(s): KIDNEY STONES. hiatal hernia , MIGRAINE HEADACHE , BOWEL OBSTRUCTION ,. HAS SKIN TEAR BY COLOSTOMY History of Any Multi-Drug Resistant Organisms: None Reported Past Surgical History: Bowel Resection, Tubal Ligation Additional Past Surgical History / Comment(s): COLOSTOMY , ILLEOSTOMY -06/13/20. sigmoidoscopy-09/13/20. ostomy reversal 10/09/20 Past Anesthesia/Blood Transfusion Reactions: No Reported Reaction Past Psychological History: ADD/ADHD, Bipolar, Depression Smoking Status: Current every day smoker Past Alcohol Use History: None Reported Additional Past Alcohol Use History / Comment(s): STARTED SMOKING AT AGE 12 QUIT 2016 SMOKED 3/4PPD Past Drug Use History: Marijuana Additional Drug Use History / Comment(s): DAILY -INSTRUCTED TO REFRAIN FROM USE FOR AT LEAST 24 HOURS PRIOR TO PROCEDURE - Past Family History Mother Family Medical History: Renal Disease, Rheumatoid Arthritis (RA) Additional Family Medical History / Comment(s): LUPUS , Father Family Medical History: Cancer Additional Family Medical History / Comment(s): COLON CANCER Medications and Allergies Home Medications Medication Instructions Recorded Confirmed Type No Known Home Medications 03/02/21 03/02/21 History Allergies Allergy/AdvReac Type Severity Reaction Status Date / Time orange juice Allergy Rash/Hives Verified 03/02/21 07:25 pantoprazole [From Protonix] AdvReac Abdominal Verified 03/02/21 07:25 Pain, BLOATING Surgical - Exam Vital Signs Temp Pulse Resp BP Pulse Ox 97.2 F L 85 16 129/83 98 03/02/21 04:02 03/02/21 04:02 03/02/21 04:02 03/02/21 04:02 03/02/21 04:02 Physical exam: General: Well-developed, well-nourished HEENT: Normocephalic, sclerae nonicteric Abdomen: Mild distention, midline incisional hernia easily reducible, mild diffuse tenderness Extremities: No edema Neuro: Alert and oriented Assessment and Plan (1) Abdominal pain Narrative/Plan: 40-year-old female with abdominal pain and CAT scan showing gastric distention. Will obtain repeat abdominal x-rays at this time. Keep nothing by mouth for now. Continue antiacid therapy. May require upper endoscopy or upper GI. We'll consult hospitalist. Current Visit: Yes Status: Acute Code(s): R10.9 - UNSPECIFIED ABDOMINAL PAIN SNOMED Code(s): 09898285
[2021-03-02] MEDS: NICOTINE 21MG/24HR PATCH TRANSDERM SCH (14:31)
[2021-03-02] MEDS: HEPARIN SODIUM,PORCINE/PF 5,000 UNIT/0.5 ML SYRINGE SQ SCH ×2 (15:22→19:56)
[2021-03-02] MEDS: KETOROLAC 15 MG/ML 1 ML VIAL IVP SCH (17:20)
[2021-03-02] MEDS: FAMOTIDINE 20 MG TAB PO SCH (19:55)
[2021-03-02] MEDS: HYDROmorphone 0.5 MG/0.5 ML SYRINGE IVP PRN (19:56)
[2021-03-03] MEDS: KETOROLAC 15 MG/ML 1 ML VIAL IVP SCH ×4 (00:02→17:33)
[2021-03-03 03:09] VITALS: RESP 16
[2021-03-03] MEDS: DEXTROSE 5%-0.45% NACL 1,000 ML IV SCH ×2 (03:33→15:24)
[2021-03-03] MEDS: HYDROmorphone 0.5 MG/0.5 ML SYRINGE IVP PRN ×3 (05:28→14:07)
--- NOTE | 2021-03-03 06:49 | CONS ---
CONSULTATION DATE OF SERVICE: 03/02/2021 REASON FOR CONSULTATION: Advice regarding DJD and other medical issues, requested by Dr. Morejon. HISTORY OF PRESENT ILLNESS: This 40-year-old woman with a past history of GERD, DJD, history of kidney stones, tubal ligation, ADD, ADHD, bipolar depression, being followed by Dr. Moore in the outpatient setting had reversal of colostomy and colorectal anastomosis and lysis of adhesions in October by Dr. Liriano. 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 The biopsy report at that time showed focally ulcerated mucosa with active inflammation of the fat and perienteric abscess formation. An ileal biopsy was negative for any history of the abnormality. Currently the patient is complaining of abdominal distention and the patient had a CT scan from outside hospital which showed some gastric distention. Dr. Morejon has admitted the patient and has been managing conservatively. There is no history of fever, rigors, chills, no headache, loss of consciousness or seizures. PAST MEDICAL HISTORY: History of small bowel obstruction, perforation, possibly inflammatory reaction ulceration as mentioned earlier, history of kidney stones, history of bipolar, ADD, ADHD. MEDICATIONS: Home medications are none. ALLERGIES: ORANGE JUICE AND PROTONIX. FAMILY HISTORY: Renal disease, rheumatoid arthritis, lupus. SOCIAL HISTORY: History of heroin. History of nicotine dependence. REVIEW OF SYSTEMS: ENT: No diminished vision or hearing. CARDIOVASCULAR: No angina. RESPIRATORY: No cough. GI: As mentioned earlier. : No dysuria. NERVOUS SYSTEM: No numbness or weakness. ALLERGY/IMMUNOLOGY: No asthma or hayfever. MUSCULOSKELETAL: As mentioned earlier. HEMATOLOGY: No history of anemia. ENDOCRINE: No history of diabetes or hypothyroidism. CONSTITUTIONAL: As mentioned earlier. DERMATOLOGY: Negative. RHEUMATOLOGY: Negative. PSYCHIATRY: As mentioned earlier. PHYSICAL EXAMINATION: GENERAL: Patient is alert and oriented times three. VITAL SIGNS: Pulse 88, blood pressure 120/77, respirations 17, temperature 98.2, pulse ox 100% on room air. HEENT: Conjunctivae normal. Oral mucosa moist. NECK: No jugular venous distention. No carotid bruits. No lymph node enlargement. RESPIRATORY: Breath sounds diminished at the bases. No rhonchi, no crackles. HEART: S1 and S2, muffled. ABDOMEN: Soft, mild diffuse discomfort on palpation. Some tenderness in the left upper quadrant also. No guarding, no rigidity, no masses palpable. Bowel sounds present. EXTREMITIES: No edema, no swelling. NERVOUS: Higher functions as mentioned earlier. Moves all four limbs. No focal motor or sensory deficits. LYMPHATICS: No lymph nodes palpable in the neck or axillae. SKIN: No rashes. JOINTS: No active deforming arthropathy. LABS: Not available at this time. ASSESSMENT: 1. Abdominal pain with abdominal gastric distention. 2. History of recent colostomy reversal. 3. History of previous perforation with small intestinal ulceration, abscess and small bowel obstruction last year. 4. History of gastroesophageal reflux disease. 5. History of degenerative joint disease. 6. History of kidney stones. 7. History of migraine. 8. History of ADD, ADHD. 9. History of bipolar, depression. 10.History of nicotine dependence. 11.History of THC. 12.History of heroin abuse. 13.History of nicotine dependence. FULL CODE: In this 40-year-old woman who presented with multiple complex medical issues, we will monitor the patient closely. Continue the current management and continue symptomatic treatment. Otherwise, H2 blockers. We will follow the patient closely. DVT prophylaxis. The patient may be asked to follow with Dr. Moore closely after discharge. Thank you Dr. Morejon for letting us participate in the care of this patient. MMODL / IJN: [id number] /
--- NOTE | 2021-03-03 08:11 | XR ---
2 view abdomen HISTORY: Gastric distention 2 views of the abdomen submitted on 3 images and correlated to prior CT scan dated 03/01/2021 There is contrast material throughout the distribution of the colon. No pneumoperitoneum. Bone minera lization is maintained. No pathologic calcification. IMPRESSION: Nonobstructive bowel gas pattern.
[2021-03-03] MEDS: HEPARIN SODIUM,PORCINE/PF 5,000 UNIT/0.5 ML SYRINGE SQ SCH ×2 (09:10→15:25)
[2021-03-03] MEDS: FAMOTIDINE 20 MG TAB PO SCH (09:10)
[2021-03-03] MEDS: NICOTINE 21MG/24HR PATCH TRANSDERM SCH (09:11)
[2021-03-03] MEDS: PANTOPRAZOLE 40 MG/10 ML VIAL IV SCH (09:11)
[2021-03-03 09:22] LABS: Basophils # (A) 0.04 X 10*3/uL (0.00-0.10); Basophils % (A) 0.7 %; Eosinophils # (A) 0.13 X 10*3/uL (0.04-0.35); Eosinophils % (A) 2.1 %; HGB 12.3 g/dL (12.0-15.0); Lymphocytes # (A) 2.18 X 10*3/uL (0.90-5.00); Lymphocytes % (A) 35.7 %; MCH 31.7 pg (27.0-32.0); MCHC 33.2 g/dL (32.0-37.0); MCV 95.4 fL (80.0-97.0); Mean Platelet Volume 9.7 fL (9.5-12.2); Monocytes # (A) 0.47 X 10*3/uL (0.20-1.00); Monocytes % (A) 7.7 %; Neutrophils # (A) 3.25 X 10*3/uL (1.80-7.70); Neutrophils % (A) 53.1 %; Platelet Count 402 X 10*3/uL (140-440); RBC 3.88 X 10*6/uL (4.10-5.20); WBC 6.11 X 10*3/uL (4.50-10.00)
[2021-03-03 10:22] LABS: ALT 13 U/L (8-44); AST 15 U/L (13-35); African American GFR (CKD) 149.9 (60.0-200.0); Alkaline Phosphatase 64 U/L (41-126); Blood Urea Nitrogen <5.0 mg/dL (9.0-27.0); Calcium 8.1 mg/dL (8.7-10.3); Carbon Dioxide 24.2 mmol/L (21.6-31.8); Chloride 108 mmol/L (96-109); Glucose 104 mg/dL (70-110); Magnesium 1.7 mg/dL (1.5-2.4); Non-African American GFR(CKD) 129.4 (60.0-200.0); Phosphorus 2.5 mg/dL (2.4-5.1); Sodium 137 mmol/L (135-145); Total Bilirubin 0.3 mg/dL (0.2-1.2); Total Protein 5.4 g/dL (6.2-8.2)
--- NOTE | 2021-03-03 11:25 | P.PN ---
Subjective Progress Note Date: 03/03/21 Principal diagnosis: Abdominal pain Patient says her pain is improved. She did have bowel movements. No nausea or vomiting. Tolerating clear liquids per she would like more to eat. Today's labs and x-rays are normal. Objective - Vital Signs Vital signs: Vital Signs Temp 98.4 F 03/03/21 07:10 Pulse 73 03/03/21 07:10 Resp 16 03/03/21 07:10 BP 115/74 03/03/21 07:10 Pulse Ox 100 03/03/21 07:10 Intake & Output 03/02/21 03/03/21 03/03/21 18:59 06:59 18:59 Intake Total 300 Balance 300 Intake: Oral 300 Other: # Voids 1 1 # Bowel Movements 1 - Exam Abdomen: Soft, nontender, nondistended - Labs CBC & Chem 7: 03/03/21 05:49 03/03/21 05:49 Labs: Abnormal Lab Results - Last 24 Hours (Table) 03/03/21 03/03/21 Range/Units 05:49 05:49 RBC 3.88 L (4.10-5.20) X 10*6/uL Hct 37.0 L (37.2-46.3) % BUN <5.0 L (9.0-27.0) mg/dL Creatinine 0.4 L (0.6-1.5) mg/dL Calcium 8.1 L (8.7-10.3) mg/dL Total Protein 5.4 L (6.2-8.2) g/dL Albumin 3.40 L (3.80-4.90) g/dL Assessment and Plan (1) Abdominal pain Narrative/Plan: Patient doing better. Will advance diet. Possible discharge tomorrow. Current Visit: Yes Status: Acute Code(s): R10.9 - UNSPECIFIED ABDOMINAL PAIN SNOMED Code(s): 24112681
[2021-03-03 14:02] VITALS: BP 118/72; PULSE 92; TEMP 97.9
[2021-03-03 18:36] LABS: C Reactive Protein 0.8 mg/dL (<1.0)
--- NOTE | 2021-03-03 19:06 | PN ---
PROGRESS NOTE DATE OF SERVICE: 03/03/2021 INTERVAL HISTORY: This is a 40-year-old woman admitted with abdominal pain with possible gastric distention. The patient has recently complicated medical and surgical history including perforation with small intestinal ulceration as well as colostomy reversal. No chest pain. No palpitations. No fever. PHYSICAL EXAMINATION: GENERAL: Patient is alert and oriented times three. VITAL SIGNS: Pulse 92, blood pressure 118/72, respirations 16, temperature 97.3, pulse ox 99% on room air. HEENT: Conjunctivae normal. NECK: No jugular venous distention. RESPIRATORY: Breath sounds diminished at the bases. No rhonchi, no crackles. HEART: S1 and S2, muffled. ABDOMEN: Soft, mild diffuse discomfort. EXTREMITIES: No edema, no swelling. NERVOUS: No focal deficits. SKIN: Skin lesions present. LABS: Noted. ASSESSMENT: 1. Abdominal pain with possible abdominal gastric distention. 2. History of recent colostomy reversal. 3. History of previous perforation with small intestinal ulceration abscess and small bowel obstruction last year. 4. History of gastroesophageal reflux disease. 5. Diffuse skin lesions, papular. 6. Degenerative joint disease. 7. History of kidney stones. 8. History of migraines. 9. History ADD ADHD. 10.History of bipolar, depression. 11.History of nicotine dependence. 12.History of tetrahydrocannabinol. 13.History of heroin abuse. 14.History of nicotine dependence. RECOMMENDATION AND DISCUSSION: Recommend to continue current medications and continue symptomatic treatment. Otherwise I recommend baseline labs and closely monitor. Follow with surgery. Guarded prognosis. Further recommendations to follow. Possible skin biopsy. MMODL / IJN: [id number] /
[2021-03-03 22:44] LABS: Protein, Total 6.5 g/dL (6.2-8.2)
[2021-03-04 13:57] LABS: Albumin 3.54 g/dL (3.80-4.90); Gamma Globulin 1.13 g/dL (0.70-1.50)
[2021-03-05 14:43] LABS: ANA Pattern Speckled
== END 2021-03-03 20:41 | disposition left against medical advice (07) ==
LOC: EC 03:57 → 6NMEDSUR 05:02
PROVIDERS: ADMIT Surgery; ATTEND Surgery
DX: R10.9 Unspecified abdominal pain (principal); R14.0 Abdominal distension (gaseous); K43.2 Incisional hernia without obstruction or gangrene; K44.9 Diaphragmatic hernia without obstruction or gangrene; M19.90 Unspecified osteoarthritis, unspecified site; K21.9 Gastro-esophageal reflux disease without esophagitis; G43.909 Migraine, unspecified, not intractable, without status migrainosus; L98.9 Disorder of the skin and subcutaneous tissue, unspecified; F17.200 Nicotine dependence, unspecified, uncomplicated; F90.9 Attention-deficit hyperactivity disorder, unspecified type; F31.9 Bipolar disorder, unspecified; F11.11 Opioid abuse, in remission; Z79.899 Other long term (current) drug therapy; Z88.8 Allergy status to other drugs, medicaments and biological substances; Z91.018 Allergy to other foods; Z87.442 Personal history of urinary calculi; Z87.19 Personal history of other diseases of the digestive system; Z98.51 Tubal ligation status; Z86.59 Personal history of other mental and behavioral disorders; Z90.49 Acquired absence of other specified parts of digestive tract; Z80.0 Family history of malignant neoplasm of digestive organs; Z84.0 Family history of diseases of the skin and subcutaneous tissue; Z82.61 Family history of arthritis; Z84.1 Family history of disorders of kidney and ureter; Z53.29 Procedure and treatment not carried out because of patient's decision for other reasons
CPT/HCPCS: 96376 ×2; 96372 ×2; 96374; 96375; 99285; 80053; 85652; 83735; 84100; 85025; 86140; 86431; 84165; 86038; 86039; 74019; G0378 ×2; S4990 ×2; J2270; J1885 ×2; J1170 ×2; J1644 ×2

== ENCOUNTER 2021-05-26 07:24 | Observation (INO) | payer OTHER ==
[2021-05-23 08:41] VITALS: BMI 23.3
[~2021-05-26 07:24] MED LIST changes: -HEPARIN SODIUM,PORCINE 5,000 UNIT/ML 1 ML VIAL SQ PRN; +HEPARIN SODIUM,PORCINE/PF 5,000 UNIT/0.5 ML SYRINGE SQ PRN; -HYDROmorphone 0.5 MG/0.5 ML SYRINGE IVP PRN; -MIDAZOLAM 2 MG/2 ML VIAL IV PRN; +SCOPOLAMINE 1.5MG/72HR PATCH TRANSDERM ONE; -metroNIDAZOLE-NS PMX 500 MG in SALINE 1 100ML.BAG IVPB PRN
[2021-05-26] MEDS: LACTATED RINGERS 1,000 ML IV SCH (08:37)
[2021-05-26 09:00] LABS: Basophils # (A) 0.1 k/uL (0-0.2); Basophils % (A) 1 %; Eosinophils # (A) 0.2 k/uL (0-0.7); Eosinophils % (A) 2 %; HCT 40.1 % (34.0-46.0); HGB 13.8 gm/dL (11.4-16.0); Lymphocytes % (A) 29 %; MCH 33.4 pg (25.0-35.0); MCHC 34.4 g/dL (31.0-37.0); Mean Platelet Volume 7.8; Monocytes # (A) 0.4 k/uL (0-1.0); Monocytes % (A) 6 %; Neutrophils # (A) 4.2 k/uL (1.3-7.7); Neutrophils % (A) 60 %; Platelet Count 302 k/uL (150-450); RBC 4.13 m/uL (3.80-5.40); RDW 13.1 % (11.5-15.5); WBC 7.1 k/uL (3.8-10.6)
--- NOTE | 2021-05-26 09:10 | P.GSHP ---
History of Present Illness H&P Date: 05/26/21 Chief Complaint: Incisional hernia Is a 40-year-old female who's of incisional hernia. Patient's previous history of colectomy with colostomy and then reversal of colostomy. Past Medical History Past Medical History: GERD/Reflux, Musculoskeletal Disorder, Osteoarthritis (OA) Additional Past Medical History / Comment(s): KIDNEY STONES. hiatal hernia, DDD, recent hospitalization in February for possible gastric distension, pt. states sx. due to hernia issue History of Any Multi-Drug Resistant Organisms: None Reported Past Surgical History: Bowel Resection, Tubal Ligation Additional Past Surgical History / Comment(s): COLOSTOMY, ILLEOSTOMY -06/13/20. sigmoidoscopy-09/13/20. ostomy reversal 10/09/20 Past Anesthesia/Blood Transfusion Reactions: No Reported Reaction Smoking Status: Current every day smoker Past Drug Use History: Heroin, IV Drug Use - Past Family History Mother Family Medical History: Renal Disease, Rheumatoid Arthritis (RA) Additional Family Medical History / Comment(s): LUPUS , Father Family Medical History: Cancer Additional Family Medical History / Comment(s): COLON CANCER Medications and Allergies Home Medications Medication Instructions Recorded Confirmed Type Sertraline [Zoloft] 50 mg PO DAILY 05/23/21 05/26/21 History Allergies Allergy/AdvReac Type Severity Reaction Status Date / Time orange juice Allergy Rash/Hives Verified 05/26/21 08:24 pantoprazole [From Protonix] AdvReac Abdominal Verified 05/26/21 08:24 Pain, BLOATING Surgical - Exam Vital Signs Temp Pulse Resp BP Pulse Ox 97.7 F 60 16 103/62 99 05/26/21 08:20 05/26/21 08:20 05/26/21 08:20 05/26/21 08:20 05/26/21 08:20 - General well developed, well nourished, no distress - Eyes PERRL - ENT normal pinna - Neck no masses - Respiratory normal expansion - Cardiovascular Rhythm: regular - Abdomen Incisional hernia Abdomen: soft, non tender Results - Labs 05/26/21 08:34 Assessment and Plan Assessment: Incisional hernia. We'll perform open repair
[2021-05-26] MEDS ORDERED: MIDAZOLAM 2 MG/2 ML VIAL IVP ONE (09:20)
[2021-05-26] MEDS ORDERED: ROPIVACAINE 5 MG/ML 30 ML VIAL ONE (09:36)
[2021-05-26] MEDS ORDERED: NEOSTIGMINE 1 MG/ML 10 ML VIAL ONE (09:36)
[2021-05-26] MEDS ORDERED: PROPOFOL 10 MG/ML 20 ML VIAL IV ONE (09:36)
[2021-05-26] MEDS ORDERED: LIDOCAINE 1% INJ 10MG/ML (20 ML MDV) ONE (09:36)
[2021-05-26] MEDS ORDERED: ROCURONIUM 10 MG/ML (5 ML VIAL) IV ONE (09:36)
[2021-05-26] MEDS ORDERED: DEXAMETHASONE SOD PHOSPHATE 4 MG/ML 1 ML VIAL ONE (09:36)
[2021-05-26] MEDS ORDERED: SODIUM CHLORIDE 0.9% (PF) 10 ML VIAL ONE (09:36)
[2021-05-26] MEDS ORDERED: GLYCOPYRROLATE 0.2 MG/ML 2 ML VIAL ONE (09:36)
[2021-05-26] MEDS ORDERED: fentaNYL (PF) 50 MCG/ML 2 ML AMP ONE (09:36)
[2021-05-26] MEDS ORDERED: SUCCINYLCHOLINE CHLORIDE 100 MG/5 ML SYR IV ONE (09:36)
[2021-05-26] MEDS ORDERED: MIDAZOLAM 2 MG/2 ML VIAL ONE (09:36)
[2021-05-26] MEDS ORDERED: HYDROmorphone (PF) 1 MG/ML ONE (09:36)
[2021-05-26] MEDS: HYDROmorphone 0.5 MG/0.5 ML SYRINGE IVP PRN ×5 (11:05→21:02)
[2021-05-26] MEDS ORDERED: NALOXONE 0.4 MG/ML 1 ML VIAL IV PRN (11:06)
[2021-05-26] MEDS ORDERED: ACETAMINOPHEN TAB 325 MG TAB PO PRN (11:06)
--- NOTE | 2021-05-26 11:06 | P.OP ---
Date of Procedure: 05/26/21 Preoperative Diagnosis: Incisional hernia Postoperative Diagnosis: Incisional hernia Procedure(s) Performed: Incisional hernia repair with mesh Anesthesia: CEE Surgeon: Cristhian Liriano Estimated Blood Loss (ml): 25 Pathology: none sent Condition: stable Disposition: PACU Description of Procedure: The patient's placed on the operative table in supine position. She received general endotracheal anesthesia. Her abdomen was prepped and draped usual fashion. The patient had a large midline incisional hernia related. Laparotomy scar. The skin around the scar was excised. The needles and cautery the subcutaneous tissue divided. The hernia sac was opened. The fascial defect measured approximately 10 x 5 cm. The subcutaneous tissues were divided off the fascia external oblique. The fascia. Performed by using 0 Ethibond suture. And then #1 to fix was used over top of this repair. A 8 x 8 cm Prolene mesh was placed over top the repair and secured to secure strap tacker. A EYAL drains placed through separate stabs and brought through the right upper quadrant. The drain secured with 2-0 nylon suture. Cheikh's fascia with 0 Vicryl. Skin was closed cecilia. Patient top she will was sent to recovery room in stable condition.
[2021-05-26] MEDS: ONDANSETRON 4 MG/2 ML VIAL IVP PRN (11:35)
[2021-05-26] MEDS: fentaNYL (PF) 50 MCG/ML 2 ML AMP IVP ONE ×2 (11:45→12:34)
[2021-05-26] MEDS ORDERED: diphenhydrAMINE 50 MG/ML 1 ML VIAL ONE (12:14)
[2021-05-26] MEDS ORDERED: diphenhydrAMINE 50 MG/ML 1 ML VIAL IVP ONE (12:17)
[2021-05-26] MEDS ORDERED: KETOROLAC 15 MG/ML 1 ML VIAL ONE (13:27)
[2021-05-26] MEDS ORDERED: LACTATED RINGERS 1,000 ML IV ONE (13:30)
[2021-05-26] MEDS ORDERED: KETOROLAC 15 MG/ML 1 ML VIAL IVP ONE (13:30)
[2021-05-26] MEDS ORDERED: HYDROmorphone 0.5 MG/0.5 ML SYRINGE IVP ONE (13:38)
[2021-05-26] MEDS ORDERED: fentaNYL (PF) 50 MCG/ML 2 ML AMP IVP ONE (14:23)
--- NOTE | 2021-05-26 16:44 | P.ANPRN ---
Procedure Note - Anesthesia - Nerve Block Performed Bilateral Erector Spinae Date of Procedure: 05/26/21 Procedure Start Time: 10: Procedure Stop Time: :27 Location of Patient: OR Indication: Acute Post-Operative Pain, Requested by Surgeon Specifically requested for management of pain by DrRenuka: Cristhian Liriano Sedation Type: Sedate with meaningful contact maintained Preparation: Sterile Prep Position: Prone Needle Types: Pajunk Needle Gauge: 21 Ultrasound used to visualize needle placement: Yes Ultrasound used to observe medication spread: Yes Narrative: Aseptic, atraumatic injection technique. 20cc of 0.25% PF Ropivicaine injected at each location bilaterally after negative aspiration. Ultrasound utilized to assist with needle placement and confirm adequate spread of local anesthetic injectate. Blood Aspirated: No Pain Paresthesia on Injection Noted: No Resistance on Injection: Normal Image Stored and Saved: Yes Events: Uneventful and Well Tolerated
[2021-05-26] MEDS: D5-0.45% NACL WITH KCL 20MEQ/L 1,000 ML IV SCH (16:56)
[2021-05-26] MEDS: traMADol 50 MG TAB PO PRN (21:02)
[2021-05-27] MEDS: HYDROmorphone 0.5 MG/0.5 ML SYRINGE IVP PRN ×5 (03:08→23:15)
[2021-05-27] MEDS: D5-0.45% NACL WITH KCL 20MEQ/L 1,000 ML IV SCH ×4 (03:12→23:15)
[2021-05-27] MEDS: LACTATED RINGERS 1,000 ML IV SCH (06:45)
[2021-05-27] MEDS: SERTRALINE 50 MG TAB PO SCH (07:22)
[2021-05-27] MEDS: traMADol 50 MG TAB PO PRN ×2 (07:23→20:45)
[2021-05-27] MEDS: ENOXAPARIN 40 MG/0.4 ML SYRINGE SQ SCH (07:25)
--- NOTE | 2021-05-27 10:30 | P.CONS ---
History of Present Illness - Reason for Consult Consult date: 05/27/21 Medical management - Chief Complaint Incisional hernia repair - History of Present Illness Patient is a 40-year-old female with a known history of GERD, osteoarthritis, history of ileostomy/ostomy reversal on 10/09/2020, bowel resection, ADD/ADHD, bipolar disorders, depression, history of IV drug use. And currently everyday smoker was admitted to hospital incisional hernia repair. Patient does have previous history of colectomy with colostomy then reversal of colostomy. Patient tolerated the procedure very well. Currently abdominal pain is controlled. Postoperatively patient was hypotensive with blood pressure 95/55 mm hg. Patient has been afebrile. Denied any complaints of headache or dizziness or lightheadedness. No chest pain or shortness of breath. Denied any recent illnesses. No cough or sputum production. Medicine service was consulted for medical and postoperative management.. Review of Systems Constitutional: Patient denies any fever or chills . No generalized weakness or weight loss. Abdomen: Patient denied any complaints of nausea or vomiting. Abdominal pain at the surgical site. No diarrhea.. Cardiovascular: Patient denies any chest pain or short of breath no palpitations. Respiratory: patient denied any cough is from production. No shortness of breath Neurologic: Patient denied any numbness or tingling headache. Musculoskeletal: Patient denies any complaints of joint swelling or deformity. Skin: Negative Psychiatric: Negative Endocrine: No heat or cold intolerance. No recent weight gain. Genitourinary: No dysuria or hematuria. All other 14 point ROS negative except the above Past Medical History Past Medical History: GERD/Reflux, Musculoskeletal Disorder, Osteoarthritis (OA) Additional Past Medical History / Comment(s): KIDNEY STONES. hiatal hernia, DDD, recent hospitalization in February for possible gastric distension, pt. states sx. due to hernia issue History of Any Multi-Drug Resistant Organisms: None Reported Past Surgical History: Bowel Resection, Tubal Ligation Additional Past Surgical History / Comment(s): COLOSTOMY, ILLEOSTOMY -06/13/20. sigmoidoscopy-09/13/20. ostomy reversal 10/09/20 Past Anesthesia/Blood Transfusion Reactions: No Reported Reaction Past Psychological History: ADD/ADHD, Bipolar, Depression Smoking Status: Current every day smoker Past Alcohol Use History: None Reported Additional Past Alcohol Use History / Comment(s): STARTED SMOKING AT AGE 12 QUIT 2015, started again, SMOKES 2PPD Past Drug Use History: Heroin, IV Drug Use Additional Drug Use History / Comment(s): hx. opiate abuse- states stop week of 05/23/21 - Past Family History Mother Family Medical History: Renal Disease, Rheumatoid Arthritis (RA) Additional Family Medical History / Comment(s): LUPUS , Father Family Medical History: Cancer Additional Family Medical History / Comment(s): COLON CANCER Medications and Allergies Home Medications Medication Instructions Recorded Confirmed Type Sertraline [Zoloft] 50 mg PO DAILY 05/23/21 05/26/21 History Allergies Allergy/AdvReac Type Severity Reaction Status Date / Time orange juice Allergy Rash/Hives Verified 05/26/21 08:24 pantoprazole [From Protonix] AdvReac Abdominal Verified 05/26/21 08:24 Pain, BLOATING Physical Exam Vitals: Vital Signs Temp Pulse Pulse Resp BP BP Pulse Ox 05/27/21 04:45 98 F 60 18 123/73 95 05/26/21 20:00 18 05/26/21 19:30 98.8 F 69 18 119/78 99 05/26/21 15:15 98.2 F 77 16 110/62 98 05/26/21 14:45 84 18 136/78 99 05/26/21 14:15 64 16 142/80 99 05/26/21 14:00 64 18 142/101 99 05/26/21 13:45 80 16 145/90 98 05/26/21 13:30 67 18 135/81 98 05/26/21 13:15 74 16 145/88 74 L 05/26/21 13:00 78 16 135/85 98 05/26/21 12:45 70 18 137/71 97 05/26/21 12:30 83 16 149/86 97 05/26/21 12:15 79 16 134/79 97 05/26/21 12:03 74 16 130/78 97 05/26/21 11:46 71 16 136/91 97 05/26/21 11:31 69 16 141/88 97 05/26/21 11:16 60 16 128/61 99 05/26/21 11:00 58 L 16 128/60 99 05/26/21 10:58 97.3 F L 71 16 143/97 99 Intake and Output 05/26/21 05/27/21 05/27/21 22:59 06:59 14:59 Intake Total 460 1200 Output Total 2200 80 Balance -1740 1120 Intake: Intake, IV Titration 1200 Amount D5-0.45% NaCl with KCl 1200 20Meq/l 1,000 ml @ 100 mls/hr IV .Q10H ESTELLA Rx#: [id number] Oral 460 Output: Drainage 80 Right Abdomen 80 Urine 2200 Other: Voiding Method Toilet PHYSICAL EXAMINATION: Patient is lying in the bed comfortably, no acute distress, awake alert and oriented.. HEENT: Normocephalic. Neck is supple. Pupils reactive. Nostrils clear. Oral cavity is moist. Neck reveals no JVD, carotid bruits, or thyromegaly. CHEST EXAMINATION: Trachea is central. Symmetrical expansion. Lung singer clear to auscultation and percussion. CARDIAC: Normal S1, S2 with no gallops. No murmurs ABDOMEN: Soft. Bowel sounds normal. No organomegaly. No abdominal bruits. Abdominal surgical site is packed. Extremities: reveal no edema. No clubbing or cyanosis Neurologically awake, alert, oriented x3 with well-coordinated movements. No focal deficits noted Skin: No rash or skin lesions. Psychiatric: Coperative. Nonsuicidal Musculoskeletal: No joint swelling or deformity. Normal range of motion. Results CBC & Chem 7: 05/26/21 08:34 Assessment and Plan Assessment: Status post incisional hernia repair postoperative day 1 History of colectomy and colostomy status post reversal on 10/09/2020 ADD/ADHD Depression/bipolar disorder GERD Osteoarthritis Ongoing nicotine addiction History of heroin IVDU DVT prophylaxis. On Lovenox subcu Plan: Patient will be continued on IV hydration and limit narcotic pain medication use. Monitor blood pressure closely. Encourage ambulation and symptomatic treatment for nausea. Blood pressure is improving at this time. We will continue to follow closely and further recommendations based on the clinical course. Follow-up CBC and BMP tomorrow. Thank you for your consult.
--- NOTE | 2021-05-27 12:31 | P.PN ---
Subjective Progress Note Date: 05/27/21 CHIEF COMPLAINT: Incisional hernia HISTORY OF PRESENT ILLNESS: Status post incisional hernia repair with mesh. Postop day #1. Patient is very tired and not moving around much this morning. She is complaining of pain. Pain controlled with pain medications. She did receive a nerve block. She did have bleeding at the incision site. Her parents dressing was saturated. This was removed and incision was cleaned by Dr. armstrong. New dressing will be applied. Patient denies any nausea or vomiting. She did not eat her breakfast. She's afebrile. WBC is 7.1 hemoglobin 13.8 PHYSICAL EXAM: VITAL SIGNS: Reviewed. GENERAL: Well-developed in no acute distress. HEENT: No sclera icterus. Extraocular movements grossly intact. Moist buccal mucosa. Head is atraumatic, normocephalic. ABDOMEN: Soft. Nondistended. Incision with a blood clot noted at the distal aspect of the incision. This is been cleaned away and incision is now clean dry and intact. NEUROLOGIC: Alert and oriented. Cranial nerves II through XII grossly intact. ASSESSMENT: 1. Incisional hernia status post incisional hernia repair with mesh PLAN: -Continue clear liquid diet -Pain medication as needed -Encouraged patient to increase activity -Possible discharge tomorrow Physician Custom Feed Mill Operator Helper note has been reviewed by physician. Signing provider agrees with the documented findings, assessment, and plan of care. Objective - Vital Signs Vital signs: Vital Signs Temp 98 F 05/27/21 04:45 Pulse 60 05/27/21 04:45 Resp 18 05/27/21 04:45 BP 123/73 05/27/21 04:45 Pulse Ox 95 05/27/21 04:45 Intake & Output 05/26/21 05/27/21 05/27/21 18:59 06:59 18:59 Intake Total 1910 1300 Output Total 2825 880 Balance -915 420 Weight 57.9 kg Intake: IV 1550 Intake, IV Titration 1200 Amount D5-0.45% NaCl with KCl 1200 20Meq/l 1,000 ml @ 100 mls/hr IV .Q10H ESTELLA Rx#: [id number] Oral 360 100 Output: Drainage 80 Right Abdomen 80 Urine 2800 800 Estimated Blood Loss 25 Other: Voiding Method Toilet - Labs CBC & Chem 7: 05/26/21 08:34
[2021-05-27] MEDS: ONDANSETRON 4 MG/2 ML VIAL IVP PRN (16:49)
[2021-05-27] MEDS: METOCLOPRAMIDE 5 MG/ML 2 ML VIAL IVP PRN (22:10)
[2021-05-28] MEDS: ONDANSETRON 4 MG/2 ML VIAL IVP PRN ×2 (01:51→11:19)
[2021-05-28] MEDS: HYDROmorphone 0.5 MG/0.5 ML SYRINGE IVP PRN ×3 (02:54→11:20)
[2021-05-28 04:55] VITALS: PULSE 70
[2021-05-28] MEDS: METOCLOPRAMIDE 5 MG/ML 2 ML VIAL IVP PRN (05:08)
[2021-05-28 06:10] LABS: Basophils % (A) 0 %; Eosinophils # (A) 0.4 k/uL (0-0.7); Eosinophils % (A) 4 %; HCT 42.6 % (34.0-46.0); HGB 14.4 gm/dL (11.4-16.0); Lymphocytes # (A) 1.3 k/uL (1.0-4.8); Lymphocytes % (A) 12 %; MCH 33.5 pg (25.0-35.0); MCHC 33.8 g/dL (31.0-37.0); MCV 99.1 fL (80.0-100.0); Mean Platelet Volume 7.5; Monocytes # (A) 0.4 k/uL (0-1.0); Monocytes % (A) 4 %; Neutrophils # (A) 8.3 k/uL (1.3-7.7); Neutrophils % (A) 79 %; Platelet Count 357 k/uL (150-450); RDW 13.2 % (11.5-15.5); WBC 10.5 k/uL (3.8-10.6)
[2021-05-28] MEDS: ENOXAPARIN 40 MG/0.4 ML SYRINGE SQ SCH (08:22)
[2021-05-28] MEDS: SERTRALINE 50 MG TAB PO SCH (08:22)
[2021-05-28] MEDS: LACTATED RINGERS 1,000 ML IV SCH (08:42)
[2021-05-28] MEDS: D5-0.45% NACL WITH KCL 20MEQ/L 1,000 ML IV SCH (12:34)
[2021-05-28 12:47] VITALS: BP 101/66; RESP 17; TEMP 98
--- NOTE | 2021-05-28 13:47 | P.DS ---
Providers Date of admission: 05/27/21 14:24 Expected date of discharge: 05/28/21 Attending physician: Cristhian Liriano Consults: 05/26/21 11:06 Consult Physician Routine Consulting Provider: Divya Medina Consult Reason/Comments: Medical management, IV drug abuse history Do you want consulting provider notified?: Yes Primary care physician: Ron Moore Hospital Course: Discharge diagnosis 1. Incisional hernia status post incisional hernia repair with mesh Hospital course This is a 40-year-old female with abdominal incisional hernia. Patient had previous history of colectomy with colostomy and reversal colostomy. Patient is status post incisional hernia repair with mesh placement. She tolerated surgery well. Her pain is controlled. She is tolerating diet. She is having flatus. She is up and ambulating. She is afebrile. She is stable for discharge. Please refer to chart for any further details. Physician Food Cashier note has been reviewed by physician. Signing provider agrees with the documented findings, assessment, and plan of care. Patient Condition at Discharge: Stable Plan - Discharge Summary Discharge Rx Participant: Yes New Discharge Prescriptions: New Ibuprofen [Motrin] 600 mg PO Q8HR PRN #30 tab PRN Reason: Pain Acetaminophen Tab [Tylenol Tab] 650 mg PO Q4H PRN #30 tablet PRN Reason: Pain Continue Sertraline [Zoloft] 50 mg PO DAILY Discharge Medication List Sertraline [Zoloft] 50 mg PO DAILY 05/23/21 [History] Acetaminophen Tab [Tylenol Tab] 650 mg PO Q4H PRN #30 tablet 05/28/21 [Rx] Ibuprofen [Motrin] 600 mg PO Q8HR PRN #30 tab 05/28/21 [Rx] Follow up Appointment(s)/Referral(s): Cristhian Liriano MD [STAFF PHYSICIAN] - 06/03/21 3:40 pm Activity/Diet/Wound Care/Special Instructions: No lifting over 10 pounds You may shower. No soaking or tub baths for 2 weeks Very light activity until you are reevaluated at your follow up appointment with your surgeon Start full liquid diet at home and advance diet slowly over the next couple a days Discharge Disposition: HOME SELF-CARE
== END 2021-05-28 14:35 | disposition home or self-care (01) ==
LOC: OR 07:24 → 5NMEDONC 14:05 → OR 05-27 14:14 → 5NMEDONC 05-27 14:24
PROVIDERS: ADMIT Surgery; ATTEND Surgery
DX: K43.2 Incisional hernia without obstruction or gangrene (principal); I95.81 Postprocedural hypotension; K21.9 Gastro-esophageal reflux disease without esophagitis; M19.90 Unspecified osteoarthritis, unspecified site; K44.9 Diaphragmatic hernia without obstruction or gangrene; F31.9 Bipolar disorder, unspecified; F90.9 Attention-deficit hyperactivity disorder, unspecified type; F17.210 Nicotine dependence, cigarettes, uncomplicated; Z79.899 Other long term (current) drug therapy; Z88.8 Allergy status to other drugs, medicaments and biological substances; Z91.018 Allergy to other foods; Z87.898 Personal history of other specified conditions; Z87.442 Personal history of urinary calculi; Z90.49 Acquired absence of other specified parts of digestive tract; Z98.51 Tubal ligation status; Z80.0 Family history of malignant neoplasm of digestive organs; Z84.0 Family history of diseases of the skin and subcutaneous tissue; Z82.61 Family history of arthritis; Z84.1 Family history of disorders of kidney and ureter
CPT/HCPCS: 49560; 49568; 81025; 64999; 85025 ×2; G0378 ×2; C1781; J2250; J1200; J1100; J2710; J2765 ×2; J0690; J2405 ×3; J2001; J1650 ×2; J3010; J1170 ×4; J2795; J1885; J0330; J2704; J1790; J1644

== ENCOUNTER 2021-10-01 12:35 | Emergency (ER) | payer OTHER ==
[2021-10-01] MEDS ORDERED: NALOXONE 0.4 MG/ML 1 ML VIAL IVP STA (12:53)
--- NOTE | 2021-10-01 13:21 | ED ---
General Adult HPI - General Chief complaint: Overdose Stated complaint: Overdose Time Seen by Provider: 10/01/21 12:52 Source: EMS Mode of arrival: EMS Limitations: no limitations - History of Present Illness Initial comments: 41-year-old female presents for heroin overdose. Patient states she did too much at home. She thinks maybe it could've been fentanyl and said of heroin. Patient did receive 2 mg of nasal Narcan.Patient has no other complaints at this time including shortness of breath, chest pain, abdominal pain, nausea or vomiting, headache, or visual changes. - Related Data Home Medications Medication Instructions Recorded Confirmed Sertraline [Zoloft] 50 mg PO DAILY 05/23/21 05/26/21 Previous Rx's Medication Instructions Recorded Acetaminophen Tab [Tylenol Tab] 650 mg PO Q4H PRN #30 tablet 05/28/21 Ibuprofen [Motrin] 600 mg PO Q8HR PRN #30 tab 05/28/21 Allergies Allergy/AdvReac Type Severity Reaction Status Date / Time orange juice Allergy Rash/Hives Verified 10/01/21 12:39 pantoprazole [From Protonix] AdvReac Abdominal Verified 10/01/21 12:39 Pain, BLOATING Review of Systems ROS Statement: Those systems with pertinent positive or pertinent negative responses have been documented in the HPI. ROS Other: All systems not noted in ROS Statement are negative. Past Medical History Past Medical History: GERD/Reflux, Musculoskeletal Disorder, Osteoarthritis (OA) Additional Past Medical History / Comment(s): KIDNEY STONES. hiatal hernia, DDD, recent hospitalization in February for possible gastric distension, pt. states sx. due to hernia issue History of Any Multi-Drug Resistant Organisms: None Reported Past Surgical History: Bowel Resection, Tubal Ligation Additional Past Surgical History / Comment(s): COLOSTOMY, ILLEOSTOMY -06/13/20. sigmoidoscopy-09/13/20. ostomy reversal 10/09/20 Past Anesthesia/Blood Transfusion Reactions: No Reported Reaction Past Psychological History: ADD/ADHD, Bipolar, Depression Smoking Status: Current every day smoker Past Alcohol Use History: None Reported Past Drug Use History: Heroin, IV Drug Use, Marijuana - Past Family History Mother Family Medical History: Renal Disease, Rheumatoid Arthritis (RA) Additional Family Medical History / Comment(s): LUPUS , Father Family Medical History: Cancer Additional Family Medical History / Comment(s): COLON CANCER General Exam Limitations: no limitations General appearance: alert, in no apparent distress Head exam: Present: atraumatic Eye exam: Present: normal appearance, PERRL, EOMI. Absent: scleral icterus, conjunctival injection ENT exam: Present: normal exam, mucous membranes moist Neck exam: Present: normal inspection, full ROM. Absent: tenderness Respiratory exam: Present: normal lung sounds bilaterally. Absent: respiratory distress, wheezes Cardiovascular Exam: Present: regular rate, normal rhythm, normal heart sounds GI/Abdominal exam: Present: soft, normal bowel sounds. Absent: distended, tenderness Neurological exam: Present: alert Course Vital Signs 10/01/21 10/01/21 12:39 16:31 Temperature 98.0 F 97.9 F Pulse Rate 80 89 Respiratory 16 18 Rate Blood Pressure 101/74 109/70 O2 Sat by Pulse 95 99 Oximetry Medical Decision Making - Medical Decision Making Vitals are stable. Patient is well-appearing. Patient was given Narcan on the way to the hospital. Patient was monitored for 3 hours in the hospital. She was a little sleepy at first but improved significantly throughout her stay. She did not require any additional Narcan. Can be discharged home, she does have a ride. Will return here for any worsening symptoms. Disposition Clinical Impression: Heroin overdose Disposition: HOME SELF-CARE Condition: Good Instructions (If sedation given, give patient instructions): Adult Overdose (ED) Additional Instructions: Please follow up with your doctor in 1-2 days. Return to the ER for any worsening symptoms. Is patient prescribed a controlled substance at d/c from ED?: No Referrals: Ron Moore MD [Primary Care Provider] - 1-2 days Time of Disposition: 15:48
[2021-10-01 16:32] VITALS: BP 109/70; PULSE 89; RESP 18; TEMP 97.9
== END 2021-10-01 16:31 | disposition home or self-care (01) ==
LOC: EC 12:35
DX: T40.1X1A Poisoning by heroin, accidental (unintentional), initial encounter (principal); M19.90 Unspecified osteoarthritis, unspecified site; F90.9 Attention-deficit hyperactivity disorder, unspecified type; F31.9 Bipolar disorder, unspecified; F12.90 Cannabis use, unspecified, uncomplicated
CPT/HCPCS: 99284

== ENCOUNTER 2021-10-03 01:23 | Emergency (ER) | payer OTHER ==
--- NOTE | 2021-10-03 01:33 | ED ---
Overdose HPI - General Stated Complaint: Overdose Time Seen by Provider: 10/03/21 01:24 Source: RN notes reviewed, old records reviewed Mode of arrival: ambulatory Limitations: no limitations - History of Present Illness Initial Comments: This is a 41-year-old female DF for evaluation of overdose. Patient's presents today for evaluation of acute overdose. Patient was given Narcan per EMS. Patient was here in the emergency room yesterday for overdose. Patient denies intentional overdose denies homicidal or suicidal thoughts. Complaint: accidental overdose -: minutes(s) Intent: unwilling to say How Overdose Was Discovered: family/friend present at time, called 911 Context: Intentional Overdose: drug/ETOH problems Treatments Prior to Arrival: narcan - Related Data Home Medications Medication Instructions Recorded Confirmed Sertraline [Zoloft] 50 mg PO DAILY 05/23/21 05/26/21 Previous Rx's Medication Instructions Recorded Acetaminophen Tab [Tylenol Tab] 650 mg PO Q4H PRN #30 tablet 05/28/21 Ibuprofen [Motrin] 600 mg PO Q8HR PRN #30 tab 05/28/21 Allergies Allergy/AdvReac Type Severity Reaction Status Date / Time orange juice Allergy Rash/Hives Verified 10/01/21 12:39 pantoprazole [From Protonix] AdvReac Abdominal Verified 10/01/21 12:39 Pain, BLOATING Review of Systems ROS Statement: Those systems with pertinent positive or pertinent negative responses have been documented in the HPI. ROS Other: All systems not noted in ROS Statement are negative. Past Medical History Past Medical History: GERD/Reflux, Musculoskeletal Disorder, Osteoarthritis (OA) Additional Past Medical History / Comment(s): KIDNEY STONES. hiatal hernia, DDD, recent hospitalization in February for possible gastric distension, pt. states sx. due to hernia issue History of Any Multi-Drug Resistant Organisms: None Reported Past Surgical History: Bowel Resection, Tubal Ligation Additional Past Surgical History / Comment(s): COLOSTOMY, ILLEOSTOMY -06/13/20. sigmoidoscopy-09/13/20. ostomy reversal 10/09/20 Past Anesthesia/Blood Transfusion Reactions: No Reported Reaction Past Psychological History: ADD/ADHD, Bipolar, Depression Smoking Status: Current every day smoker Past Alcohol Use History: None Reported Past Drug Use History: Heroin, IV Drug Use, Marijuana - Past Family History Mother Family Medical History: Renal Disease, Rheumatoid Arthritis (RA) Additional Family Medical History / Comment(s): LUPUS , Father Family Medical History: Cancer Additional Family Medical History / Comment(s): COLON CANCER General Exam General appearance: alert, in no apparent distress Head exam: Present: atraumatic, normocephalic, normal inspection Eye exam: Present: normal appearance, PERRL, EOMI. Absent: scleral icterus, conjunctival injection, periorbital swelling ENT exam: Present: normal exam, mucous membranes moist Neck exam: Present: normal inspection. Absent: tenderness, meningismus, lymphadenopathy Respiratory exam: Present: normal lung sounds bilaterally. Absent: respiratory distress, wheezes, rales, rhonchi, stridor Cardiovascular Exam: Present: regular rate, normal rhythm, normal heart sounds. Absent: systolic murmur, diastolic murmur, rubs, gallop, clicks GI/Abdominal exam: Present: soft, normal bowel sounds. Absent: distended, tenderness, guarding, rebound, rigid Extremities exam: Present: normal inspection, full ROM, normal capillary refill. Absent: tenderness, pedal edema, joint swelling, calf tenderness Back exam: Present: normal inspection Neurological exam: Present: alert, oriented X3, CN II-XII intact Psychiatric exam: Present: normal affect, normal mood Skin exam: Present: warm, dry, intact, normal color. Absent: rash Course Vital Signs 10/03/21 01:30 Temperature 99.2 F Pulse Rate 88 Respiratory 16 Rate Blood Pressure 111/74 O2 Sat by Pulse 98 Oximetry - Reevaluation(s) Reevaluation #1: 10/03/21 01:57 Record is reviewed Reevaluation #2: 10/03/21 01:57 Patient without complaint Medical Decision Making - Medical Decision Making 41 female to the emergency department with acute overdose, patient awake and alert not homicidal or suicidal and can be discharged home Disposition Clinical Impression: Overdose, Heroin overdose Disposition: HOME SELF-CARE Condition: Fair Instructions (If sedation given, give patient instructions): Opioid Safety (ED), Opioid Use Disorder (ED) Is patient prescribed a controlled substance at d/c from ED?: No Referrals: Ron Moore MD [Primary Care Provider] - 1-2 days
[2021-10-03 01:37] VITALS: RESP 16; TEMP 99.2
[2021-10-03 02:09] VITALS: BP 111/64; PULSE 98
== END 2021-10-03 02:08 | disposition home or self-care (01) ==
LOC: EC 01:23
DX: T40.1X1A Poisoning by heroin, accidental (unintentional), initial encounter (principal); K21.9 Gastro-esophageal reflux disease without esophagitis; F31.9 Bipolar disorder, unspecified; F17.200 Nicotine dependence, unspecified, uncomplicated; F12.90 Cannabis use, unspecified, uncomplicated; Z79.899 Other long term (current) drug therapy
CPT/HCPCS: 99284

== ENCOUNTER 2023-09-18 11:10 | Inpatient (IN) | payer OTHER ==
[2023-09-18] MEDS ORDERED: HYDROmorphone 1 MG/ML 1 ML SYRINGE IVP STA (12:57)
[2023-09-18] MEDS ORDERED: SODIUM CHLORIDE 0.9% 1,000 ML IV STA (12:57)
--- NOTE | 2023-09-18 13:00 | ED ---
General Adult HPI - General Chief complaint: Abdominal Pain Stated complaint: Abdominal pain Time Seen by Provider: 09/18/23 11:37 Source: patient, RN/MD, RN notes reviewed, old records reviewed Mode of arrival: ambulatory Limitations: no limitations - History of Present Illness Initial comments: Patient is a pleasant 43-year-old female presenting to the emergency Department with abdominal pain. Patient was seen at [facility] transferred significant concern for bowel obstruction. Patient does have history of bowel perforation with colectomy in 2019. Patient did have a reversal. Patient also has history of suction with internal hernia and mesh. Symptoms this time started last night, more today. Patient did have associated nausea and vomiting. Patient still has discomfort. - Related Data Allergies Allergy/AdvReac Type Severity Reaction Status Date / Time orange juice Allergy Rash/Hives Verified 09/18/23 13:10 pantoprazole [From Protonix] AdvReac Abdominal Verified 09/18/23 13:10 Pain, BLOATING Review of Systems ROS Statement: Those systems with pertinent positive or pertinent negative responses have been documented in the HPI. ROS Other: All systems not noted in ROS Statement are negative. Constitutional: Denies: fever Eyes: Denies: eye pain ENT: Denies: ear pain Respiratory: Denies: cough Cardiovascular: Denies: chest pain Endocrine: Denies: fatigue Gastrointestinal: Reports: as per HPI, abdominal pain, nausea, vomiting Genitourinary: Denies: dysuria Musculoskeletal: Denies: back pain Skin: Denies: rash Neurological: Denies: weakness Past Medical History Past Medical History: GERD/Reflux, Musculoskeletal Disorder, Osteoarthritis (OA) Additional Past Medical History / Comment(s): KIDNEY STONES. hiatal hernia, DDD, recent hospitalization in February for possible gastric distension, pt. states sx. due to hernia issue History of Any Multi-Drug Resistant Organisms: None Reported Past Surgical History: Appendectomy, Bowel Resection, Tubal Ligation Additional Past Surgical History / Comment(s): COLOSTOMY, ILLEOSTOMY -06/13/20. sigmoidoscopy-09/13/20. ostomy reversal 10/09/20 Past Anesthesia/Blood Transfusion Reactions: No Reported Reaction Past Psychological History: ADD/ADHD, Bipolar, Depression Smoking Status: Current every day smoker Past Alcohol Use History: None Reported Past Drug Use History: Heroin, IV Drug Use, Marijuana - Past Family History Mother Family Medical History: Renal Disease, Rheumatoid Arthritis (RA) Additional Family Medical History / Comment(s): LUPUS , Father Family Medical History: Cancer Additional Family Medical History / Comment(s): COLON CANCER General Exam Limitations: no limitations General appearance: alert, in no apparent distress Head exam: Present: normocephalic Eye exam: Present: normal appearance Neck exam: Present: normal inspection Respiratory exam: Present: normal lung sounds bilaterally Cardiovascular Exam: Present: regular rate, normal rhythm GI/Abdominal exam: Present: soft, distended (Mild), tenderness (Moderate diffuse), diminished bowel sounds. Absent: pulsatile mass Neurological exam: Present: alert Psychiatric exam: Present: normal affect, normal mood Skin exam: Present: normal color Course Vital Signs 09/18/23 11:14 Temperature 98.4 F Pulse Rate 70 Respiratory 20 Rate Blood Pressure 119/64 O2 Sat by Pulse 99 Oximetry Medical Decision Making - Medical Decision Making Was pt. sent in by a medical professional or institution (, PA, BRUSH MAKER, urgent care, hospital, or [facility]...) When possible be specific @ -Patient was transferred from [facility] Did you speak to anyone other than the patient for history (EMS, parent, family, police, friend...)? What history was obtained from this source @ -Transferring physician Dr. Mccann when Did you review nursing and triage notes (agree or disagree)? Why? @ -I reviewed and agree with nursing and triage notes Were old charts reviewed (outside hosp., previous admission, EMS record, old EKG, old radiological studies, urgent care reports/EKG's, [facility] records)? Report findings @ -Chart reviewed from [facility] Differential Diagnosis (chest pain, altered mental status, abdominal pain women, abdominal pain men, vaginal bleeding, weakness, fever, dyspnea, syncope, headache, dizziness, GI bleed, back pain, seizure, CVA, palpatations, mental health, musculoskeletal)? @ -Differential Abdominal Pain Women: Appendicitis, Cholecystitis, diverticulosis, ischemic bowel, pancreatitis, hepatitis, UTI, gastroenteritis, AAA, incarcerated hernia, bowel obstruction, constipation, inflammatory bowel, hepatitis, peptic ulcer disease, splenic infarction, perforated viscus, vulvitis, ovarian torsion, PID, kidney stone, placenta abruption, this is not meant to be an all-inclusive list EKG interpreted by me (3pts min.). @ -As above X-rays interpreted by me (1pt min.). @ -None done CT interpreted by me (1pt min.). @ -None done U/S interpreted by me (1pt. min.). @ -None done What testing was considered but not performed or refused? (CT, X-rays, U/S, labs)? Why? @ -None What meds were considered but not given or refused? Why? @ -None Did you discuss the management of the patient with other professionals (professionals i.e. , PA, BRUSH MAKER, lab, RT, psych nurse, geriatric social worker, marble installation helper, teacher, delinquency prevention officer, hospice case manager)? Give summary @ -I did discuss case with Dr. Enriquez who will admit or consult. Case also discussed with Dr. thompson, who will admit covered Dr. Moore Was smoking cessation discussed for >3mins.? @ -No Was critical care preformed (if so, how long)? @ -No Were there social determinants of health that impacted care today? How? (Homelessness, low income, unemployed, alcoholism, drug addiction, transportation, low edu. Level, literacy, decrease access to med. care, residential, rehab)? @ -No Was there de-escalation of care discussed even if they declined (Discuss DNR or withdrawal of care, Hospice)? DNR status @ -No What co-morbidities impacted this encounter? (DM, HTN, Smoking, COPD, CAD, Cancer, CVA, ARF, Chemo, Hep., AIDS, mental health diagnosis, sleep apnea, morbid obesity)? @ -None Was patient admitted / discharged? Hospital course, mention meds given and route, prescriptions, significant lab abnormalities, going to OR and other pertinent info. @ -Patient is made aware of results and plan. Patient will be admitted. Admission orders written. Consult placed. NG tube ordered. Undiagnosed new problem with uncertain prognosis? @ -No Drug Therapy requiring intensive monitoring for toxicity (Heparin, Nitro, Insulin, Cardizem)? @ -No Were any procedures done? @ -No Diagnosis/symptom? @ -Large bowel obstruction Acute, or Chronic, or Acute on Chronic? @ -Acute Uncomplicated (without systemic symptoms) or Complicated (systemic symptoms)? @ -default Side effects of treatment? @ -No Exacerbation, Progression, or Severe Exacerbation? @ -No Poses a threat to life or bodily function? How? (Chest pain, USA, ND, pneumonia, PE, COPD, DKA, ARF, appy, cholecystitis, CVA, Diverticulitis, Homicidal, Suicidal, threat to staff... and all critical care pts) @ -No Disposition Clinical Impression: Large bowel obstruction Disposition: ADMITTED IP TO THIS HOSP Is patient prescribed a controlled substance at d/c from ED?: No Referrals: Ron Moore MD [Primary Care Provider] - 1-2 days Time of Disposition: 13:19
[2023-09-18] MEDS ORDERED: NALOXONE 0.4 MG/ML 1 ML VIAL IV PRN (13:20)
[2023-09-18] MEDS: SODIUM CHLORIDE 0.9% 1,000 ML IV SCH ×2 (13:24→22:58)
[2023-09-18] MEDS ORDERED: LORazepam 2 MG/ML INJ IV STA (13:51)
[2023-09-18] MEDS: ONDANSETRON 4 MG/2 ML VIAL IVP PRN ×2 (14:04→22:16)
--- NOTE | 2023-09-18 15:30 | P.HPIM ---
History of Present Illness This is a pleasant 43 years old female with past medical history of bowel obstruction and resection. And other medical problems Patient was transferred from [facility] today where she presents with abdominal pain and distention. She wanted to be transferred to Hospital Because She Had Previous Surgeries at [facility] and Her Surgeon Is Dr. Galdamez in [facility] Patient states that came today because she started having abdominal distention and abdominal pain and tenderness and she was concerned because she has history of bowel obstruction and history of bowel resection before. She says that her pain was about 8/10, now coming down to 6/10 and it is for 1 day duration. The pain is in the mid abdomen radiating to the lower abdomen. Lack stabbing and stretching of the same time She vomited doesn't time as she explained this morning But she does not have bowel movement today which is not unusual for her as she has bowel movement every other day and last bowel movement was yesterday. She denies chest pain or dyspnea, no specific urinary complaints about no headache dizziness weakness or numbness She smokes about half pack per day and she was counseled to quit she agrees but she declines nicotine patch. No alcohol or illicit drugs. Labs and images reviewed at [facility] showing: Vital stable except for mildly hypertension with blood pressure 152/86 CBC, lactic acid, BMP and liver enzymes were unremarkable. Urine analysis is abnormal showing turbid, 10-30 bacteria and 2+ leukocyte esterase She has positive urine for methadone and marijuana. Urine culture sent and is pending And CT of the abdomen and pelvis without contrast showing large stone burden throughout the: With possible partial large bowel obstruction of the anastomotic site in the sigmoid and transverse colon. As per Dr. Honeycutt from emergency room they contacted the surgeon on-call and he recommended to admit the patient and her medicine and they will be on consult as a likely patient will require surgery. However surgery team were consulted note: Patient had history of perforated bowel and both small and large bowel with large abscess on 05/2020, she underwent colectomy and small bowel resection with ileostomy and had a reversal procedure done about 13 months later and another surgery about another knife month later for internal hernia with mesh Review of Systems Review of systems CONSTITUTIONAL: No fever, no malaise, no fatigue. HEENT: No recent visual problems or hearing problems. Denied any sore throat. CARDIOVASCULAR: No orthopnea, PND, no palpitations, no syncope. PULMONARY: No shortness of breath, no cough, no hemoptysis. GASTROINTESTINAL: No diarrhea, . Normoactive bowel sounds. NEUROLOGICAL: No headaches, no weakness, no numbness. HEMATOLOGICAL: Denies any bleeding or petechiae. GENITOURINARY: Denies any burning micturition, frequency, or urgency. MUSCULOSKELETAL/RHEUMATOLOGICAL: Denies any joint pain, swelling, or any muscle pain. ENDOCRINE: Denies any polyuria or polydipsia. Past Medical History Past Medical History: GERD/Reflux, Musculoskeletal Disorder, Osteoarthritis (OA) Additional Past Medical History / Comment(s): KIDNEY STONES. hiatal hernia, DDD, recent hospitalization in February for possible gastric distension, pt. states sx. due to hernia issue History of Any Multi-Drug Resistant Organisms: None Reported Past Surgical History: Appendectomy, Bowel Resection, Tubal Ligation Additional Past Surgical History / Comment(s): COLOSTOMY, ILLEOSTOMY -06/13/20. sigmoidoscopy-09/13/20. ostomy reversal 10/09/20 Past Anesthesia/Blood Transfusion Reactions: No Reported Reaction Past Psychological History: ADD/ADHD, Bipolar, Depression Smoking Status: Current every day smoker Past Alcohol Use History: None Reported Past Drug Use History: Heroin, IV Drug Use, Marijuana - Past Family History Mother Family Medical History: Renal Disease, Rheumatoid Arthritis (RA) Additional Family Medical History / Comment(s): LUPUS , Father Family Medical History: Cancer Additional Family Medical History / Comment(s): COLON CANCER Medications and Allergies Home Medications Medication Instructions Recorded Confirmed Type Methadone HCl [Methadone Intensol] 104 mg PO DIRECTED 09/18/23 09/18/23 History Allergies Allergy/AdvReac Type Severity Reaction Status Date / Time orange juice Allergy Rash/Hives Verified 09/18/23 13:10 pantoprazole [From Protonix] AdvReac Abdominal Verified 09/18/23 13:10 Pain, BLOATING Physical Exam Vitals: Vital Signs Temp Pulse Pulse Resp BP BP Pulse Ox 09/18/23 14:37 99.1 F 67 20 112/71 97 09/18/23 14:05 56 L 18 140/82 100 09/18/23 11:14 98.4 F 70 20 119/64 99 Intake and Output 09/18/23 09/18/23 09/18/23 06:59 14:59 22:59 Other: Weight 65.771 kg GENERAL: The patient is alert and oriented x3, not in any acute distress. Well developed, well nourished. HEENT: Pupils are round and equally reacting to light. EOMI. No scleral icterus. No conjunctival pallor. Normocephalic, atraumatic. No pharyngeal erythema. No thyromegaly. CARDIOVASCULAR: S1 and S2 present. No murmurs, rubs, or gallops. PULMONARY: Chest is clear to auscultation, no wheezing , no crackles. -ABDOMEN: Soft, lower abdominal tenderness, no guarding or rebound tenderness nondistended, normoactive bowel sounds. No palpable organomegaly. MUSCULOSKELETAL: No joint swelling or deformity. EXTREMITIES: No cyanosis, clubbing, or pedal edema. NEUROLOGICAL: Gross neurological examination did not reveal any focal deficits. SKIN: No rashes. no petechiae. Assessment and Plan Assessment: Partial large bowel obstruction Acute urinary tract infection is suspected with abnormal UA and suprapubic tenderness Constipation Substance abuse with marijuana. Also she is taking methadone. Plan: continue with bowel rest Continue with IV fluids Pain management Surgery team consult Labs and medication were reviewed.. Continue same treatment. Continue with symptomatic treatment. Resume home medication. Monitor labs and vitals. DVT and GI prophylaxis. Further recommendations as per clinical course of the patient DVT prophylaxis: Subcutaneous heparin GI Prophylaxis: Pepcid PT/OT: Pending Prognosis is guarded
[2023-09-18] MEDS: HYDROmorphone 1 MG/ML 1 ML SYRINGE IVP PRN ×2 (15:55→22:16)
--- NOTE | 2023-09-18 17:07 | P.CON ---
Consult Note - . Consult date: 09/18/23 Abdominal Pain HPI - General Source: patient (This is a pleasant 43 years old female with past medical history of bowel obstruction and resection presents with SBO), RN/MD, RN notes reviewed, old records reviewed Mode of arrival: ambulatory Limitations: no limitations - Related Data Home Medications Medication Instructions Recorded Confirmed Methadone HCl [Methadone Intensol] 104 mg PO DIRECTED 09/18/23 09/18/23 Allergies Allergy/AdvReac Type Severity Reaction Status Date / Time orange juice Allergy Rash/Hives Verified 09/18/23 13:10 pantoprazole [From Protonix] AdvReac Abdominal Verified 09/18/23 13:10 Pain, BLOATING Review of Systems - Review of Systems EENTM: Reports: no symptoms reported Cardiac (ROS): Reports: no symptoms reported ABD/GI: Reports: abdomen distended, abdominal pain, nausea, vomiting : Reports: no symptoms reported Musculoskeletal: Reports: no symptoms reported Skin: Reports: no symptoms reported Neurological: Reports: no symptoms reported Hematologic/Lymphatic: Reports: no symptoms reported Physical Exam - Physical Exam Eyes, Ears, Nose, Throat Exam: PERRL/EOMI Neck: Neck, full range of motion Respiratory: chest non-tender, no respiratory distress, no accessory muscle use Cardiovascular/Chest: normal peripheral pulses, regular rate, rhythm Gastrointestinal/Abdominal: distended, tenderness Extremity: normal range of motion Neurological: alert, altered, oriented X3 Assessment/Plan - Assessment/Plan Plan: 43 year old female with SBO - CT-AP shows SBO near previous anastomosis - NPO - NGT-LIS - Pain and Nausea control - If symptoms dont improve, possible SBFT tomorrow
[2023-09-18] MEDS ORDERED: CALCIUM CARBONATE 500 MG CHEWABLE PO PRN (18:37)
[2023-09-19] MEDS: HYDROmorphone 1 MG/ML 1 ML SYRINGE IVP PRN ×4 (01:05→10:38)
[2023-09-19] MEDS: SODIUM CHLORIDE 0.9% 1,000 ML IV SCH ×3 (01:07→21:48)
[2023-09-19] MEDS ORDERED: PROCHLORPERAZINE INJ 10 MG/2 ML VIAL IVP PRN (04:31)
[2023-09-19] MEDS: KETOROLAC 15 MG/ML 1 ML VIAL IVP PRN ×3 (04:41→21:47)
[2023-09-19 04:52] LABS: Glucose,Whole Blood 114 mg/dL (70-110)
--- NOTE | 2023-09-19 09:30 | P.PN ---
Subjective This is a pleasant 43 years old female with past medical history of bowel obstruction and resection. And other medical problems Patient was transferred from [facility] today where she presents with abdominal pain and distention. She wanted to be transferred to Hospital Because She Had Previous Surgeries at [facility] and Her Surgeon Is Dr. Galdamez in [facility] Patient states that came today because she started having abdominal distention and abdominal pain and tenderness and she was concerned because she has history of bowel obstruction and history of bowel resection before. She says that her pain was about 8/10, now coming down to 6/10 and it is for 1 day duration. The pain is in the mid abdomen radiating to the lower abdomen. Lack stabbing and stretching of the same time She vomited doesn't time as she explained this morning But she does not have bowel movement today which is not unusual for her as she has bowel movement every other day and last bowel movement was yesterday. She denies chest pain or dyspnea, no specific urinary complaints about no headache dizziness weakness or numbness She smokes about half pack per day and she was counseled to quit she agrees but she declines nicotine patch. No alcohol or illicit drugs. Labs and images reviewed at [facility] showing: Vital stable except for mildly hypertension with blood pressure 152/86 CBC, lactic acid, BMP and liver enzymes were unremarkable. Urine analysis is abnormal showing turbid, 10-30 bacteria and 2+ leukocyte esterase She has positive urine for methadone and marijuana. Urine culture sent and is pending And CT of the abdomen and pelvis without contrast showing large stone burden throughout the: With possible partial large bowel obstruction of the anastomotic site in the sigmoid and transverse colon. As per Dr. Honeycutt from emergency room they contacted the surgeon on-call and he recommended to admit the patient and her medicine and they will be on consult as a likely patient will require surgery. However surgery team were consulted note: Patient had history of perforated bowel and both small and large bowel with large abscess on 05/2020, she underwent colectomy and small bowel resection with ileostomy and had a reversal procedure done about 13 months later and another surgery about another knife month later for internal hernia with mesh 172209/19/2023 Patient has less abdominal pain, also she has bowel movement earlier. However she still complains from increase frequency of urination suspicious for UTI she is currently covered with Rocephin. Her vitals are stable Morning labs are ordered and pending She remains on normal saline with 30 mL per hour and Rocephin Patient states she takes methadone through through a program and the staff and bedside nurse trying to contact [place]. gener. surgery are following and planned for enema today further recommendation. Discussed with the bedside nurse more than once Review of systems CONSTITUTIONAL: No fever, no malaise, no fatigue. HEENT: No recent visual problems or hearing problems. Denied any sore throat. CARDIOVASCULAR: No orthopnea, PND, no palpitations, no syncope. PULMONARY: No shortness of breath, no cough, no hemoptysis. GENITOURINARY: Denies any burning micturition, frequency, or urgency. MUSCULOSKELETAL/RHEUMATOLOGICAL: Denies any joint pain, swelling, or any muscle pain. ENDOCRINE: Denies any polyuria or polydipsia. Active Medications Generic Name Dose Route Start Last Admin Trade Name Freq PRN Reason Stop Dose Admin Calcium Carbonate/Glycine 500 mg 09/18/23 18:37 Calcium Carbonate 500 Mg Chewable PO TID PRN Heartburn Famotidine 20 mg 09/19/23 09:00 Famotidine 20 Mg/2 Ml Vial IV Q12HR ESTELLA Heparin Sodium (Porcine) 5,000 unit 09/19/23 09:00 Heparin Sodium,Porcine 5,000 Unit/Ml 1 Ml Vial SQ Q12HR ESTELLA Hydromorphone HCl 1 mg 09/18/23 13:20 09/19/23 07:21 Hydromorphone 1 Mg/Ml 1 Ml Syringe IVP 1 mg Q3HR PRN Administration Severe Pain (Scale 7 to 10) Hydromorphone HCl 0.5 mg 09/18/23 13:20 Hydromorphone 0.5 Mg/0.5 Ml Syringe IVP Q3HR PRN Moderate Pain (Scale 4 to 6) Sodium Chloride 1,000 mls @ 130 mls/hr 09/18/23 13:30 09/19/23 01:07 Saline 0.9% IV 130 mls/hr .[id number] ESTELLA Administration Ceftriaxone Sodium 1 gm/ 50 mls @ 100 mls/hr 09/18/23 15:30 09/18/23 17:52 Sodium Chloride IVPB 100 mls/hr Q24HR ESTELLA Administration Protocol Ketorolac Tromethamine 15 mg 09/19/23 04:33 09/19/23 04:41 Ketorolac 15 Mg/Ml 1 Ml Vial IVP 09/24/23 04:33 15 mg Q6HR PRN Administration Pain Naloxone HCl 0.2 mg 09/18/23 13:20 Naloxone 0.4 Mg/Ml 1 Ml Vial IV Q2M PRN Opioid Reversal Ondansetron HCl 4 mg 09/18/23 13:20 09/18/23 22:16 Ondansetron 4 Mg/2 Ml Vial IVP 4 mg Q8HR PRN Administration Nausea And Vomiting Prochlorperazine Edisylate 5 mg 09/19/23 04:31 09/19/23 04:42 Prochlorperazine Inj 10 Mg/2 Ml Vial IVP 5 mg Q6HR PRN Administration Nausea And Vomiting Objective - Vital Signs Vital signs: Vital Signs Temp 98.1 F 09/19/23 07:16 Pulse 68 09/19/23 07:16 Resp 20 09/19/23 07:16 BP 111/66 09/19/23 07:16 Pulse Ox 97 09/19/23 07:16 FiO2 Intake & Output 09/18/23 09/19/23 09/19/23 18:59 06:59 18:59 Weight 65.771 kg Other: Voiding Method Toilet # Voids 1 2 - Exam GENERAL: The patient is alert and oriented x3, not in any acute distress. Well developed, well nourished. HEENT: Pupils are round and equally reacting to light. EOMI. No scleral icterus. No conjunctival pallor. Normocephalic, atraumatic. No pharyngeal erythema. No thyromegaly. CARDIOVASCULAR: S1 and S2 present. No murmurs, rubs, or gallops. PULMONARY: Chest is clear to auscultation, no wheezing , no crackles. ABDOMEN: Soft, nontender, nondistended, normoactive bowel sounds. No palpable organomegaly. MUSCULOSKELETAL: No joint swelling or deformity. EXTREMITIES: No cyanosis, clubbing, or pedal edema. NEUROLOGICAL: Gross neurological examination did not reveal any focal deficits. SKIN: No rashes. no petechiae. - Labs Labs: Abnormal Lab Results - Last 24 Hours (Table) 09/19/23 Range/Units 04:49 POC Glucose (mg/dL) 114 H (70-110) mg/dL Assessment and Plan Assessment: Partial large bowel obstruction Acute urinary tract infection is suspected with abnormal UA and suprapubic tenderness Constipation Substance abuse with marijuana. Also she is taking methadone. Plan: continue with bowel rest Continue with IV fluids Pain management Surgery team consult Labs and medication were reviewed.. Continue same treatment. Continue with symptomatic treatment. Resume home medication. Monitor labs and vitals. DVT and GI prophylaxis. Further recommendations as per clinical course of the patient DVT prophylaxis: Subcutaneous heparin GI Prophylaxis: Pepcid PT/OT: Pending Prognosis is guarded
[2023-09-19] MEDS ORDERED: LORazepam 2 MG/ML INJ IV PRN (10:17)
[2023-09-19] MEDS: FAMOTIDINE 20 MG/2 ML VIAL IV SCH ×2 (10:20→21:48)
[2023-09-19] MEDS: HEPARIN SODIUM,PORCINE 5,000 UNIT/ML 1 ML VIAL SQ SCH ×2 (10:23→21:48)
--- NOTE | 2023-09-19 11:33 | P.PN ---
Subjective Progress Note Date: 09/19/23 Principal diagnosis: Constipation Patient presents with abdominal pain and bloating. Seems somewhat better today. She has had a few small stools. She is going through some withdrawal symptoms from methadone which she takes it very high doses. Denies nausea. Objective - Vital Signs Vital signs: Vital Signs Temp 98.1 F 09/19/23 07:16 Pulse 68 09/19/23 07:16 Resp 20 09/19/23 07:16 BP 111/66 09/19/23 07:16 Pulse Ox 97 09/19/23 07:16 FiO2 Intake & Output 09/18/23 09/19/23 09/19/23 18:59 06:59 18:59 Weight 65.771 kg Other: Voiding Method Toilet # Voids 1 2 # Bowel Movements 1 - Exam Abdomen: Soft, mild lower abdominal tenderness, no rebound or guarding - Labs Labs: Abnormal Lab Results - Last 24 Hours (Table) 09/19/23 Range/Units 04:49 POC Glucose (mg/dL) 114 H (70-110) mg/dL Assessment and Plan (1) Constipation Narrative/Plan: 43-year-old female with history of previous colonic resection. Patient with significant stool burden in the rectum and above the colorectal anastomosis. Begin gentle cathartics and order soapsuds enemas. Repeat abdominal x-rays tomorrow. We'll follow closely. Current Visit: Yes Status: Acute Code(s): K59.00 - CONSTIPATION, UNSPECIFIED SNOMED Code(s): 64884027
[2023-09-19] MEDS: polyethylene glycoL 3350 17 GM POWD.PACK PO SCH (11:39)
[2023-09-20] MEDS: SODIUM CHLORIDE 0.9% 1,000 ML IV SCH ×3 (05:01→21:15)
--- NOTE | 2023-09-20 07:08 | XR ---
EXAMINATION TYPE: XR abdomen 2V DATE OF EXAM: 09/20/2023 COMPARISON: 03/03/2021 HISTORY: Pain TECHNIQUE: One view abdominal series FINDINGS: The osseous structures are intact. The bowel gas pattern is nonspecific. There are scattered air-flu id levels. Retained fecal debris. IMPRESSION: 1. Nonspecific abdomen. Scattered air-fluid levels with retained fecal debris. Ileus, enteritis or p artial obstruction in the differential diagnosis.
[2023-09-20 08:59] LABS: Basophils # (A) 0.03 X 10*3/uL (0.00-0.10); Basophils % (A) 0.6 %; Eosinophils # (A) 0.03 X 10*3/uL (0.04-0.35); Eosinophils % (A) 0.6 %; HCT 34.1 % (37.2-46.3); Lymphocytes # (A) 1.24 X 10*3/uL (0.90-5.00); Lymphocytes % (A) 23.9 %; MCH 30.9 pg (27.0-32.0); MCHC 32.3 g/dL (32.0-37.0); MCV 95.8 FL (80.0-97.0); Mean Platelet Volume 11.4 FL (9.5-12.2); Monocytes # (A) 0.48 X 10*3/uL (0.20-1.00); Monocytes % (A) 9.2 %; NRBC Per 100 WBC 0 X 10*3/uL (0.00-0.01); Neutrophils # (A) 3.39 X 10*3/uL (1.80-7.70); Neutrophils % (A) 65.3 %; Platelet Count 209 X 10*3/uL (140-440); RBC 3.56 X 10*6/uL (4.10-5.20); RDW 12.8 % (11.5-14.5); WBC 5.19 X 10*3/uL (4.50-10.00)
[2023-09-20] MEDS: HEPARIN SODIUM,PORCINE 5,000 UNIT/ML 1 ML VIAL SQ SCH ×2 (09:11→20:44)
[2023-09-20] MEDS: FAMOTIDINE 20 MG/2 ML VIAL IV SCH ×2 (09:11→20:44)
[2023-09-20] MEDS: polyethylene glycoL 3350 17 GM POWD.PACK PO SCH (09:11)
[2023-09-20 10:18] LABS: Magnesium 1.9 mg/dL (1.5-2.4)
[2023-09-20 10:20] LABS: ALT 19 U/L (8-44); AST 20 U/L (13-35); Albumin 3.6 g/dL (3.8-4.9); Albumin/Globulin Ratio 1.71 Ratio (1.60-3.17); Alkaline Phosphatase 57 U/L (41-126); Bilirubin, Conjugated <0.20 mg/dL (0.20-0.40); Bilirubin,Unconjugated >0.20 mg/dL (0.20-1.00); Blood Urea Nitrogen 17.4 mg/dL (9.0-27.0); Calcium 8.3 mg/dL (8.7-10.3); Chloride 109 mmol/L (96-109); Globulin 2.1 g/dL (1.6-3.3); Glucose 85 mg/dL (70-110); Sodium 138 mmol/L (135-145); Total Bilirubin 0.4 mg/dL (0.3-1.2); Total Protein 5.7 g/dL (6.2-8.2)
--- NOTE | 2023-09-20 11:48 | P.PN ---
Subjective Progress Note Date: 09/20/23 CHIEF COMPLAINT: Constipation HISTORY OF PRESENT ILLNESS: Patient reports that she is feeling better. Abdomen is less distended. Pain has decreased. She had a small bowel movement after enema yesterday and [place] bowel movement at 3 AM this morning. Abdominal x-ray shows nonspecific abdomen. Scattered air-fluid levels with retained fecal debris. Ileus, enteritis or partial obstruction in the differential diagnosis. Afebrile. WBC 5.19 Hgb 11.0 platelets 209 sodium 138 potassium 4.0 creatinine 0.6 PHYSICAL EXAM: VITAL SIGNS: Reviewed. GENERAL: Well-developed in no acute distress. ABDOMEN: Soft. Nondistended. Nontender. NEUROLOGIC: Alert and oriented. Cranial nerves II through XII grossly intact. ASSESSMENT: 1. Constipation 2. Previous colonic resection 3. History of heroin IV drug use. On methadone PLAN: -Patient's symptoms are improving. Advance diet to clear liquids -Added lactulose twice a day for constipation -Continue MiraLAX Physician Conveyor System Dispatcher note has been reviewed by physician. Signing provider agrees with the documented findings, assessment, and plan of care. I have personally seen and examined the patient, reviewed the OFFICE CLEANER /PAs history, exam and MDM and agree with the assessment and plan as written. Based on total visit time, I have performed more than 50% of the visit. As above: Patient feels well today. No significant pain currently. Still having small liquid and solid stools. X-rays improved. Continue stool softeners. Continue liquid diet. We'll reassess tomorrow. Objective - Vital Signs Vital signs: Vital Signs Temp 98.0 F 09/20/23 06:59 Pulse 57 L 09/20/23 06:59 Resp 20 09/20/23 06:59 BP 97/60 09/20/23 06:59 Pulse Ox 99 09/20/23 06:59 FiO2 Intake & Output 09/19/23 09/20/23 09/20/23 18:59 06:59 18:59 Intake Total 1070 Balance 1070 Intake: Intake, IV Titration 950 Amount Sodium Chloride 0.9% 1, 900 000 ml @ 75 mls/hr IV . [id number] STA Rx#:[id number] cefTRIAXone 1 gm In 50 Sodium Chloride 0.9% 50 ml @ 100 mls/hr IVPB Q24HR ESTELLA Rx#:[id number] Oral 120 Other: Voiding Method Toilet # Voids 1 1 # Bowel Movements 1 - Labs CBC & Chem 7: 09/20/23 04:22 09/20/23 04:22 Labs: Abnormal Lab Results - Last 24 Hours (Table) 09/20/23 09/20/23 Range/Units 04:22 04:22 RBC 3.56 L (4.10-5.20) X 10*6/uL Hgb 11.0 L (12.0-15.0) g/dL Hct 34.1 L (37.2-46.3) % Eosinophils # 0.03 L (0.04-0.35) X 10*3/uL Carbon Dioxide 19.0 L (21.6-31.8) mmol/L BUN/Creatinine Ratio 29.00 H (12.00-20.00) Ratio Calcium 8.3 L (8.7-10.3) mg/dL Total Protein 5.7 L (6.2-8.2) g/dL Albumin 3.6 L (3.8-4.9) g/dL
[2023-09-20] MEDS: LACTULOSE 20 GM/30 ML CUP PO SCH ×2 (12:32→20:44)
[2023-09-20] MEDS: METHADONE 10 MG TAB PO SCH (12:32)
[2023-09-20] MEDS: METHADONE 5 MG TAB PO SCH (12:33)
[2023-09-20] MEDS: HYDROmorphone 0.5 MG/0.5 ML SYRINGE IVP PRN (21:12)
[2023-09-20 23:05] VITALS: RESP 16
[2023-09-21] MEDS: HYDROmorphone 0.5 MG/0.5 ML SYRINGE IVP PRN (02:54)
[2023-09-21] MEDS: SODIUM CHLORIDE 0.9% 1,000 ML IV SCH ×3 (02:57→18:33)
--- NOTE | 2023-09-21 05:08 | P.PN ---
Subjective Progress Note Date: 09/20/23 This is a pleasant 43 years old female with past medical history of bowel obstruction and resection. And other medical problems Patient was transferred from [facility] today where she presents with abdominal pain and distention. She wanted to be transferred to Hospital Because She Had Previous Surgeries at [facility] and Her Surgeon Is Dr. Galdamez in [facility] Patient states that came today because she started having abdominal distention and abdominal pain and tenderness and she was concerned because she has history of bowel obstruction and history of bowel resection before. She says that her pain was about 8/10, now coming down to 6/10 and it is for 1 day duration. The pain is in the mid abdomen radiating to the lower abdomen. Lack stabbing and stretching of the same time She vomited doesn't time as she explained this morning But she does not have bowel movement today which is not unusual for her as she has bowel movement every other day and last bowel movement was yesterday. She denies chest pain or dyspnea, no specific urinary complaints about no headache dizziness weakness or numbness She smokes about half pack per day and she was counseled to quit she agrees but she declines nicotine patch. No alcohol or illicit drugs. Labs and images reviewed at [facility] showing: Vital stable except for mildly hypertension with blood pressure 152/86 CBC, lactic acid, BMP and liver enzymes were unremarkable. Urine analysis is abnormal showing turbid, 10-30 bacteria and 2+ leukocyte esterase She has positive urine for methadone and marijuana. Urine culture sent and is pending And CT of the abdomen and pelvis without contrast showing large stone burden throughout the: With possible partial large bowel obstruction of the anastomotic site in the sigmoid and transverse colon. As per Dr. Honeycutt from emergency room they contacted the surgeon on-call and he recommended to admit the patient and her medicine and they will be on consult as a likely patient will require martines rgery. However surgery team were consulted note: Patient had history of perforated bowel and both small and large bowel with large abscess on 05/2020, she underwent colectomy and small bowel resection with ileostomy and had a reversal procedure done about 13 months later and another surgery about another knife month later for internal hernia with mesh 172209/19/2023 Patient has less abdominal pain, also she has bowel movement earlier. However she still complains from increase frequency of urination suspicious for UTI she is currently covered with Rocephin. Her vitals are stable Morning labs are ordered and pending She remains on normal saline with 30 mL per hour and Rocephin Patient states she takes methadone through through a program and the staff and bedside nurse trying to contact [place]. gener. surgery are following and planned for enema today further recommendation. Discussed with the bedside nurse more than once 09/20/2023 Patient seen and evaluated in follow-up this morning was currently nothing by mouth per surgery recommendations and there was concerns of possible bowel obstruction. Follow-up abdominal x-ray shows fecal debris that remains with possible enteritis and ileus versus bowel obstruction not excluded. Patient is having bowel movements and did have an enema yesterday with results. Patient being started on lactulose and will be given a soapsuds enema today. Patient is currently afebrile with no reported chest pain or shortness of breath. Patient reports to feeling improved and abdominal pain. Surgery recommending slowly advancing and being started on clear liquids to monitor for tolerance. Encouraged increase activity as tolerated. Patient also [place] outpatient and receives methadone and dosing was verified and will resume. Review of systems CONSTITUTIONAL: No fever, no malaise, no fatigue. HEENT: No recent visual problems or hearing problems. Denied any sore throat. CARDIOVASCULAR: No orthopnea, PND, no palpitations, no syncope. PULMONARY: No shortness of breath, no cough, no hemoptysis. GENITOURINARY: Denies any burning micturition, frequency, or urgency. MUSCULOSKELETAL/RHEUMATOLOGICAL: Denies any joint pain, swelling, or any muscle pain. ENDOCRINE: Denies any polyuria or polydipsia Physical exam: GENERAL: The patient is lethargic although easily arousable, alert and oriented x3, not in any acute distress. Well developed, well nourished. HEENT: Pupils are round and equally reacting to light. EOMI. No scleral icterus. No conjunctival pallor. Normocephalic, atraumatic. No pharyngeal erythema. No thyromegaly. CARDIOVASCULAR: S1 and S2 present. No murmurs, rubs, or gallops. PULMONARY: Chest is clear to auscultation, no wheezing , no crackles. ABDOMEN: Soft, nontender, nondistended, normoactive bowel sounds. No palpable organomegaly. MUSCULOSKELETAL: No joint swelling or deformity. EXTREMITIES: No cyanosis, clubbing, or pedal edema. NEUROLOGICAL: Gross neurological examination did not reveal any focal deficits. SKIN: No rashes. no petechiae. Assessment: Partial large bowel obstruction Acute urinary tract infection is suspected with abnormal UA and suprapubic tenderness Constipation Substance abuse with marijuana. Also she is taking methadone. GI prophylaxis DVT prophylaxis Full code Plan: Patient continues on gentle IV hydration and underwent abdominal x-ray showing fecal debris with some mild improvement although ileus versus small bowel obstruction not excluded. Patient is having bowel movements after enema and is being started on lactulose per surgery. Patient will be given a soapsuds enema Methadone dosing was obtained from [place] and being reordered Patient being started on clear liquids and will advance per surgery recommendations Encouraged to increase activity as tolerated Surgery to evaluate in the a.m. and will discuss with possible discharge iesha nning The impression and plan of care has been dictated by Francine Rebolledo, Nurse Prac titioner as directed. Dr. Adam MD I have performed a history and examination and MDM of this patient, discussed the same with the dictator, and agree with the dictator's assessment and plan as written ,documented as a scribe. Based on total visit time, I have performed more than 50% of the visit. Objective - Vital Signs Vital signs: Vital Signs Temp 98.0 F 09/20/23 06:59 Pulse 57 L 09/20/23 06:59 Resp 20 09/20/23 06:59 BP 97/60 09/20/23 06:59 Pulse Ox 99 09/20/23 06:59 FiO2 Intake & Output 09/19/23 09/20/23 09/20/23 18:59 06:59 18:59 Intake Total 1070 Balance 1070 Intake: Intake, IV Titration 950 Amount Sodium Chloride 0.9% 1, 900 000 ml @ 75 mls/hr IV . [id number] STA Rx#:[id number] cefTRIAXone 1 gm In 50 Sodium Chloride 0.9% 50 ml @ 100 mls/hr IVPB Q24HR ESTELLA Rx#:[id number] Oral 120 Other: Voiding Method Toilet # Voids 1 1 # Bowel Movements 1 - Labs CBC & Chem 7: 09/20/23 04:22 09/20/23 04:22 Labs: Abnormal Lab Results - Last 24 Hours (Table) 09/20/23 Range/Units 04:22 RBC 3.56 L (4.10-5.20) X 10*6/uL Hgb 11.0 L (12.0-15.0) g/dL Hct 34.1 L (37.2-46.3) % Eosinophils # 0.03 L (0.04-0.35) X 10*3/uL
[2023-09-21] MEDS: LACTULOSE 20 GM/30 ML CUP PO SCH (08:41)
[2023-09-21] MEDS: polyethylene glycoL 3350 17 GM POWD.PACK PO SCH (08:42)
[2023-09-21] MEDS: METHADONE 10 MG TAB PO SCH (08:42)
[2023-09-21] MEDS: METHADONE 5 MG TAB PO SCH (08:42)
[2023-09-21] MEDS: FAMOTIDINE 20 MG/2 ML VIAL IV SCH (08:42)
[2023-09-21] MEDS: HEPARIN SODIUM,PORCINE 5,000 UNIT/ML 1 ML VIAL SQ SCH (08:43)
--- NOTE | 2023-09-21 10:12 | P.PN ---
Subjective Progress Note Date: 09/21/23 CHIEF COMPLAINT: Constipation HISTORY OF PRESENT ILLNESS: Patient complaining of heartburn after drinking the application a few sips of liquid broth. She does feel a little bloated. She is having flatus. She is having bowel movements that have liquid and solid. No vomiting. She did take lactulose and another subsequent enema yesterday. Afebrile. PHYSICAL EXAM: VITAL SIGNS: Reviewed. GENERAL: Well-developed in no acute distress. ABDOMEN: Soft. Mildly distended. Minimal tenderness with palpation upper abdomen NEUROLOGIC: Alert and oriented. Cranial nerves II through XII grossly intact. ASSESSMENT: 1. Constipation 2. Previous colonic resection 3. History of heroin IV drug use. On methadone PLAN: -Educate patient to go slow with clear liquids. To avoid straws and carbonated beverages. -Continue antiemetics and IV Pepcid -Continue lactulose and MiraLAX -Encourage patient to ambulate Physician Care Specialist note has been reviewed by physician. Signing provider agrees with the documented findings, assessment, and plan of care. I have personally seen and examined the patient, reviewed the TEENAGE PROGRAM DIRECTOR /PAs history, exam and MDM and agree with the assessment and plan as written. Based on total visit time, I have performed more than 50% of the visit. As above: Patient doing better today. She says she had 6 bowel moments yesterday in 3-4 today. She says she has had good volume with the stools. She is tolerating liquids. No nausea or vomiting currently. No pain. Will advance diet. May discharge tolerates. Objective - Vital Signs Vital signs: Vital Signs Temp 98.5 F 09/21/23 08:00 Pulse 75 09/21/23 08:00 Resp 16 09/21/23 08:00 BP 151/81 09/21/23 08:00 Pulse Ox 99 09/21/23 08:00 FiO2 Intake & Output 09/20/23 09/21/23 09/21/23 18:59 06:59 18:59 Intake Total 1610 1560 Balance 1610 1560 Intake: Intake, IV Titration 1610 1560 Amount Sodium Chloride 0.9% 1, 1560 1560 000 ml @ 130 mls/hr IV . [id number] ESTELLA Rx#:[id number] cefTRIAXone 1 gm In 50 Sodium Chloride 0.9% 50 ml @ 100 mls/hr IVPB Q24HR ESTELLA Rx#:[id number] Other: # Voids 1 1 # Bowel Movements 1 - Labs CBC & Chem 7: 09/20/23 04:22 09/20/23 04:22 Labs: Abnormal Lab Results - Last 24 Hours (Table) 09/20/23 Range/Units 04:22 Carbon Dioxide 19.0 L (21.6-31.8) mmol/L BUN/Creatinine Ratio 29.00 H (12.00-20.00) Ratio Calcium 8.3 L (8.7-10.3) mg/dL Total Protein 5.7 L (6.2-8.2) g/dL Albumin 3.6 L (3.8-4.9) g/dL
[2023-09-21 14:28] VITALS: BP 108/69; PULSE 69; TEMP 98.1
== END 2023-09-21 19:08 | disposition home or self-care (01) | DRG 247 ==
LOC: EC 11:10 → 4SSUR 13:21 → OBSVTOIN 13:22 → 4SSUR 14:00
PROVIDERS: ADMIT Internal Medicine; ATTEND Internal Medicine
DX: K56.600 Partial intestinal obstruction, unspecified as to cause (principal); F11.23 Opioid dependence with withdrawal; F31.9 Bipolar disorder, unspecified; F90.9 Attention-deficit hyperactivity disorder, unspecified type; I10 Essential (primary) hypertension; N39.0 Urinary tract infection, site not specified; Z90.49 Acquired absence of other specified parts of digestive tract; Z87.442 Personal history of urinary calculi; Z80.0 Family history of malignant neoplasm of digestive organs; K59.00 Constipation, unspecified; K21.9 Gastro-esophageal reflux disease without esophagitis; F17.210 Nicotine dependence, cigarettes, uncomplicated; Z71.6 Tobacco abuse counseling; Z71.51 Drug abuse counseling and surveillance of drug abuser; Z93.3 Colostomy status; Z87.19 Personal history of other diseases of the digestive system; Z98.51 Tubal ligation status
CPT/HCPCS: 74019; 80048; 80076; 83735; 85025; 96361; 96374; 96375; 99285

== ENCOUNTER 2023-10-20 16:58 | Emergency (ER) | payer OTHER ==
--- NOTE | 2023-10-20 17:30 | ED ---
General Adult HPI - General Source: patient Mode of arrival: ambulatory Limitations: no limitations <Monalisa Tillman - Last Filed: 10/20/23 17:32> - History of Present Illness Onset/Timin -: hour(s) Location: abdomen Radiation: non-radiation Quality: other (Cramping) Consistency: intermittent Improves with: none Worsens with: none Treatments Prior to Arrival: none <Antony Wellington - Last Filed: 11/01/23 00:37> - General Chief complaint: Abdominal Pain Stated complaint: abd pain Time Seen by Provider: 10/20/23 17:10 - History of Present Illness Initial comments: 43-year-old female presents to the emergency department for evaluation of right lower abdominal pain 1 day. She admits to nausea and vomiting. She reports a history of a large bowel obstruction one month ago. Reports normal bowel movements prior to today. (Monalisa Tillman) - Related Data Home Medications Medication Instructions Recorded Confirmed Methadone HCl [Methadone Intensol] 104 mg PO DAILY 09/18/23 09/20/23 Previous Rx's Medication Instructions Recorded Lactulose [Cephulac] 30 gm PO BID PRN #240 ml 09/21/23 Ondansetron Odt [Zofran Odt] 4 mg PO Q8HR PRN #10 tab 09/21/23 polyethylene glycoL 3350 [Miralax] 17 gm PO DAILY #30 packet 09/21/23 Allergies Allergy/AdvReac Type Severity Reaction Status Date / Time orange juice Allergy Rash/Hives Verified 10/20/23 17:17 pantoprazole [From Protonix] AdvReac Abdominal Verified 10/20/23 17:17 Pain, BLOATING Review of Systems ROS Other: All systems not noted in ROS Statement are negative. <Monalisa Tillman - Last Filed: 10/20/23 17:32> ROS Other: All systems not noted in ROS Statement are negative. <Antony Wellington - Last Filed: 11/01/23 00:37> ROS Statement: Those systems with pertinent positive or pertinent negative responses have been documented in the HPI. Past Medical History Past Medical History: GERD/Reflux, Musculoskeletal Disorder, Osteoarthritis (OA) Additional Past Medical History / Comment(s): KIDNEY STONES. hiatal hernia, DDD, recent hospitalization in February for possible gastric distension, pt. states sx. due to hernia issue History of Any Multi-Drug Resistant Organisms: None Reported Past Surgical History: Appendectomy, Bowel Resection, Tubal Ligation Additional Past Surgical History / Comment(s): COLOSTOMY, ILLEOSTOMY -06/13/20. sigmoidoscopy-09/13/20. ostomy reversal 10/09/20 Past Anesthesia/Blood Transfusion Reactions: No Reported Reaction Past Psychological History: ADD/ADHD, Bipolar, Depression Smoking Status: Current every day smoker Past Alcohol Use History: None Reported Past Drug Use History: Heroin, IV Drug Use, Marijuana - Past Family History Mother Family Medical History: Renal Disease, Rheumatoid Arthritis (RA) Additional Family Medical History / Comment(s): LUPUS , Father Family Medical History: Cancer Additional Family Medical History / Comment(s): COLON CANCER <Monalisa Tillman - Last Filed: 10/20/23 17:32> General Exam Limitations: no limitations <Monalisa Tillman - Last Filed: 10/20/23 17:32> Limitations: no limitations General appearance: alert, in no apparent distress Head exam: Present: atraumatic, normocephalic Eye exam: Present: normal appearance Neck exam: Present: normal inspection Respiratory exam: Present: normal lung sounds bilaterally. Absent: respiratory distress, wheezes, rales, rhonchi, stridor Cardiovascular Exam: Present: regular rate, normal rhythm, normal heart sounds. Absent: systolic murmur, diastolic murmur, rubs, gallop GI/Abdominal exam: Present: soft, tenderness, guarding, hypoactive bowel sounds. Absent: distended, rebound, rigid, mass, pulsatile mass, hernia Extremities exam: Present: normal inspection, normal capillary refill. Absent: pedal edema, calf tenderness Back exam: Present: normal inspection. Absent: CVA tenderness (R), CVA tenderness (L) Neurological exam: Present: alert Skin exam: Present: warm, dry, intact, normal color. Absent: rash <Antony Wellington - Last Filed: 11/01/23 00:37> - General Exam Comments Initial Comments: Visual Physical Exam Vital signs reviewed General: Well-appearing, nontoxic, d/t pain. Head: Normocephalic, atraumatic Eyes: PERRLA, EOMI ENT: Airway patent Chest: Nonlabored breathing Skin: No visual rash, normal skin tone Neuro: Alert and oriented 3 Musculoskeletal: No gross abnormalities (Monalisa Tillman) Course Vital Signs 10/20/23 10/20/23 10/21/23 17:13 21:58 00:13 Temperature 98.0 F Pulse Rate 54 L 57 L 55 L Respiratory 18 18 14 Rate Blood Pressure 149/97 140/82 120/83 O2 Sat by Pulse 99 99 97 Oximetry 10/21/23 03:02 Temperature Pulse Rate 69 Respiratory 17 Rate Blood Pressure 111/65 O2 Sat by Pulse 99 Oximetry Medical Decision Making <Monalisa Tillman - Last Filed: 10/20/23 17:32> - Lab Data Result diagrams: 10/20/23 17:52 10/20/23 17:52 <Antony Wellington - Last Filed: 11/01/23 00:37> - Medical Decision Making Quick note preformed by Monalisa Tillman PA-C (Monalisa Tillman) The patient had CT of the abdomen which I interpreted as showing probable element of constipation. No evidence of bowel obstruction or free air. Was pt. sent in by a medical professional or institution ([facility], [facility], urgent care, hospital, or fdc...) When possible be specific @ -[No] Did you speak to anyone other than the patient for history (EMS, parent, family, police, friend...)? What history was obtained from this source @ -[No] Did you review nursing and triage notes (agree or disagree)? Why? @ -[I reviewed and agree with nursing and triage notes] Were old charts reviewed (outside hosp., previous admission, EMS record, old EKG, old radiological studies, urgent care reports/EKG's, fdc records)? Report findings @ -[No old charts were reviewed] Differential Diagnosis (chest pain, altered mental status, abdominal pain women, abdominal pain men, vaginal bleeding, weakness, fever, dyspnea, syncope, headache, dizziness, GI bleed, back pain, seizure, CVA, palpatations, mental health, musculoskeletal)? @ -[Differential Abdominal Pain Women: Appendicitis, Cholecystitis, diverticulosis, ischemic bowel, pancreatitis, hepatitis, UTI, gastroenteritis, AAA, incarcerated hernia, bowel obstruction, constipation, inflammatory bowel, hepatitis, peptic ulcer disease, splenic infarction, perforated viscus, vulvitis, ovarian torsion, PID, kidney stone, placenta abruption, this is not meant to be an all-inclusive list EKG interpreted by me (3pts min.). @ -[As above] X-rays interpreted by me (1pt min.). @ -[None done] CT interpreted by me (1pt min.). @ -[I interpreted as above U/S interpreted by me (1pt. min.). @ -[None done] What testing was considered but not performed or refused? (CT, X-rays, U/S, labs)? Why? @ -[None] What meds were considered but not given or refused? Why? @ -[None] Did you discuss the management of the patient with other professionals (professionals i.e. , PA, POCKET CUTTER, lab, RT, psych nurse, older adult social work specialist, shotweld operator, teacher, transportation officer, community case manager)? Give summary @ -[No] Was smoking cessation discussed for >3mins.? @ -[No] Was critical care preformed (if so, how long)? @ -[No] Were there social determinants of health that impacted care today? How? (Homelessness, low income, unemployed, alcoholism, drug addiction, tr ansportation, low edu. Level, literacy, decrease access to med. care, usp, rehab)? @ -[No] Was there de-escalation of care discussed even if they declined (Discuss DNR or withdrawal of care, Hospice)? DNR status @ -[No] What co-morbidities impacted this encounter? (DM, HTN, Smoking, COPD, CAD, Ca ncer, CVA, ARF, Chemo, Hep., AIDS, mental health diagnosis, sleep apnea, morbid obesity)? @ -[None] Was patient admitted / discharged? Hospital course, mention meds given and route, prescriptions, significant lab abnormalities, going to OR and other pertinent info. @ -[hospital course] Undiagnosed new problem with uncertain prognosis? @ -[No] Drug Therapy requiring intensive monitoring for toxicity (Heparin, Nitro, Insulin, Cardizem)? @ -[No] Were any procedures done? @ -[No] Diagnosis/symptom? @ -[Acute abdominal pain Suspected constipation Acute, or Chronic, or Acute on Chronic? @ -[Acute Uncomplicated (without systemic symptoms) or Complicated (systemic symptoms)? @ -[Uncomplicated Side effects of treatment? @ -[No] Exacerbation, Progression, or Severe Exacerbation? @ -[No] Poses a threat to life or bodily function? How? (Chest pain, USA, VT, pneumonia, PE, COPD, DKA, ARF, appy, cholecystitis, CVA, Diverticulitis, Homicidal, Suicidal, threat to staff... and all critical care pts) @ -[No] (Antony Wellington) - Lab Data Lab Results 10/20/23 10/20/23 10/20/23 Range/Units 17:52 17:52 17:52 WBC 15.7 H (3.8-10.6) k/uL RBC 4.32 (3.80-5.40) m/uL Hgb 13.1 (11.4-16.0) gm/dL Hct 40.3 (34.0-46.0) % MCV 93.3 (80.0-100.0) fL MCH 30.2 (25.0-35.0) pg MCHC 32.4 (31.0-37.0) g/dL RDW 12.7 (11.5-15.5) % Plt Count 331 (150-450) k/uL MPV 8.4 Neutrophils % 81 % Lymphocytes % 13 % Monocytes % 4 % Eosinophils % 1 % Basophils % 0 % Neutrophils # 12.7 H (1.3-7.7) k/uL Lymphocytes # 2.1 (1.0-4.8) k/uL Monocytes # 0.6 (0-1.0) k/uL Eosinophils # 0.1 (0-0.7) k/uL Basophils # 0.1 (0-0.2) k/uL Sodium (137-145) mmol/L Potassium (3.5-5.1) mmol/L Chloride (98-107) mmol/L Carbon Dioxide (22-30) mmol/L Anion Gap mmol/L BUN (7-17) mg/dL Creatinine (0.52-1.04) mg/dL Est GFR (CKD-EPI)AfAm (>60 ml/min/1.73 sqM) Est GFR (CKD-EPI)NonAf (>60 ml/min/1.73 sqM) Glucose (74-99) mg/dL Lactic Ac Sepsis Rflx Plasma Lactic Acid Bradley (0.7-2.0) mmol/L Calcium (8.4-10.2) mg/dL Total Bilirubin (0.2-1.3) mg/dL AST (14-36) U/L ALT (4-34) U/L Alkaline Phosphatase (38-126) U/L Total Protein (6.3-8.2) g/dL Albumin (3.5-5.0) g/dL Amylase (30-110) U/L Lipase (23-300) U/L Urine Color Yellow Urine Appearance Clear (Clear) Urine pH 5.5 (5.0-8.0) Ur Specific Heber 1.022 (1.001-1.035) Urine Protein Negative (Negative) Urine Glucose (UA) Negative (Negative) Urine Ketones Negative (Negative) Urine Blood Moderate H (Negative) Urine Nitrite Negative (Negative) Urine Bilirubin Negative (Negative) Urine Urobilinogen <2.0 (<2.0) mg/dL Ur Leukocyte Esterase Negative (Negative) Urine RBC 5 (0-5) /hpf Urine WBC 1 (0-5) /hpf Ur Squamous Epith Cells 2 (0-4) /hpf Urine Mucus Few H (None) /hpf Urine HCG, Qual Not Detected (Not Detectd) 10/20/23 10/20/23 10/20/23 Range/Units 17:52 17:52 18:36 WBC (3.8-10.6) k/uL RBC (3.80-5.40) m/uL Hgb (11.4-16.0) gm/dL Hct (34.0-46.0) % MCV (80.0-100.0) fL MCH (25.0-35.0) pg MCHC (31.0-37.0) g/dL RDW (11.5-15.5) % Plt Count (150-450) k/uL MPV Neutrophils % % Lymphocytes % % Monocytes % % Eosinophils % % Basophils % % Neutrophils # (1.3-7.7) k/uL Lymphocytes # (1.0-4.8) k/uL Monocytes # (0-1.0) k/uL Eosinophils # (0-0.7) k/uL Basophils # (0-0.2) k/uL Sodium 136 L (137-145) mmol/L Potassium 4.0 (3.5-5.1) mmol/L Chloride 104 (98-107) mmol/L Carbon Dioxide 21 L (22-30) mmol/L Anion Gap 11 mmol/L BUN 12 (7-17) mg/dL Creatinine 0.49 L (0.52-1.04) mg/dL Est GFR (CKD-EPI)AfAm >90 (>60 ml/min/1.73 sqM) Est GFR (CKD-EPI)NonAf >90 (>60 ml/min/1.73 sqM) Glucose 106 H (74-99) mg/dL Lactic Ac Sepsis Rflx Y Plasma Lactic Acid Bradley 2.4 H* (0.7-2.0) mmol/L Calcium 9.8 (8.4-10.2) mg/dL Total Bilirubin 0.5 (0.2-1.3) mg/dL AST 23 (14-36) U/L ALT 16 (4-34) U/L Alkaline Phosphatase 96 (38-126) U/L Total Protein 7.9 (6.3-8.2) g/dL Albumin 4.5 (3.5-5.0) g/dL Amylase 72 (30-110) U/L Lipase 70 (23-300) U/L Urine Color Urine Appearance (Clear) Urine pH (5.0-8.0) Ur Specific Heber (1.001-1.035) Urine Protein (Negative) Urine Glucose (UA) (Negative) Urine Ketones (Negative) Urine Blood (Negative) Urine Nitrite (Negative) Urine Bilirubin (Negative) Urine Urobilinogen (<2.0) mg/dL Ur Leukocyte Esterase (Negative) Urine RBC (0-5) /hpf Urine WBC (0-5) /hpf Ur Squamous Epith Cells (0-4) /hpf Urine Mucus (None) /hpf Urine HCG, Qual (Not Detectd) 10/20/23 Range/Units 23:12 WBC (3.8-10.6) k/uL RBC (3.80-5.40) m/uL Hgb (11.4-16.0) gm/dL Hct (34.0-46.0) % MCV (80.0-100.0) fL MCH (25.0-35.0) pg MCHC (31.0-37.0) g/dL RDW (11.5-15.5) % Plt Count (150-450) k/uL MPV Neutrophils % % Lymphocytes % % Monocytes % % Eosinophils % % Basophils % % Neutrophils # (1.3-7.7) k/uL Lymphocytes # (1.0-4.8) k/uL Monocytes # (0-1.0) k/uL Eosinophils # (0-0.7) k/uL Basophils # (0-0.2) k/uL Sodium (137-145) mmol/L Potassium (3.5-5.1) mmol/L Chloride (98-107) mmol/L Carbon Dioxide (22-30) mmol/L Anion Gap mmol/L BUN (7-17) mg/dL Creatinine (0.52-1.04) mg/dL Est GFR (CKD-EPI)AfAm (>60 ml/min/1.73 sqM) Est GFR (CKD-EPI)NonAf (>60 ml/min/1.73 sqM) Glucose (74-99) mg/dL Lactic Ac Sepsis Rflx Plasma Lactic Acid Bradley 1.2 (0.7-2.0) mmol/L Calcium (8.4-10.2) mg/dL Total Bilirubin (0.2-1.3) mg/dL AST (14-36) U/L ALT (4-34) U/L Alkaline Phosphatase (38-126) U/L Total Protein (6.3-8.2) g/dL Albumin (3.5-5.0) g/dL Amylase (30-110) U/L Lipase (23-300) U/L Urine Color Urine Appearance (Clear) Urine pH (5.0-8.0) Ur Specific Heber (1.001-1.035) Urine Protein (Negative) Urine Glucose (UA) (Negative) Urine Ketones (Negative) Urine Blood (Negative) Urine Nitrite (Negative) Urine Bilirubin (Negative) Urine Urobilinogen (<2.0) mg/dL Ur Leukocyte Esterase (Negative) Urine RBC (0-5) /hpf Urine WBC (0-5) /hpf Ur Squamous Epith Cells (0-4) /hpf Urine Mucus (None) /hpf Urine HCG, Qual (Not Detectd) Disposition <Monalisa Tillman - Last Filed: 10/20/23 17:32> Is patient prescribed a controlled substance at d/c from ED?: No <Antony Wellington - Last Filed: 11/01/23 00:37> Clinical Impression: Constipation, Abdominal pain Disposition: HOME SELF-CARE Condition: Good Instructions (If sedation given, give patient instructions): Abdominal Pain (ED) Referrals: Ron Moore MD [Primary Care Provider] - 1-2 days
[2023-10-20 17:37] VITALS: TEMP 98
[2023-10-20 18:15] LABS: Basophils # (A) 0.1 k/uL (0-0.2); Basophils % (A) 0 %; Eosinophils # (A) 0.1 k/uL (0-0.7); Eosinophils % (A) 1 %; HCT 40.3 % (34.0-46.0); HGB 13.1 gm/dL (11.4-16.0); Lymphocytes # (A) 2.1 k/uL (1.0-4.8); Lymphocytes % (A) 13 %; MCH 30.2 pg (25.0-35.0); MCHC 32.4 g/dL (31.0-37.0); MCV 93.3 fL (80.0-100.0); Mean Platelet Volume 8.4; Monocytes # (A) 0.6 k/uL (0-1.0); Monocytes % (A) 4 %; Neutrophils # (A) 12.7 k/uL (1.3-7.7); Neutrophils % (A) 81 %; Platelet Count 331 k/uL (150-450); RBC 4.32 m/uL (3.80-5.40); RDW 12.7 % (11.5-15.5); WBC 15.7 k/uL (3.8-10.6)
[2023-10-20 18:26] LABS: ALT 16 U/L (4-34); AST 23 U/L (14-36); African American GFR (CKD) >90 (>60 ml/min/1.73 sqM); Albumin 4.5 g/dL (3.5-5.0); Alkaline Phosphatase 96 U/L (38-126); Amylase 72 U/L (30-110); Anion Gap 11 mmol/L; Blood Urea Nitrogen 12 mg/dL (7-17); Calcium 9.8 mg/dL (8.4-10.2); Carbon Dioxide 21 mmol/L (22-30); Chloride 104 mmol/L (98-107); Glucose 106 mg/dL (74-99); Lipase 70 U/L (23-300); Non-African American GFR(CKD) >90 (>60 ml/min/1.73 sqM); Sodium 136 mmol/L (137-145); Total Bilirubin 0.5 mg/dL (0.2-1.3); Total Protein 7.9 g/dL (6.3-8.2)
[2023-10-20 21:07] LABS: Appearance,Urine Clear (Clear); Bilirubin,Urine Negative (Negative); Blood,Urine Moderate (Negative); Color,Urine Yellow; Glucose,Urine (UA) Negative (Negative); Ketones,Urine Negative (Negative); Leukocyte Esterase,Urine Negative (Negative); Mucus,Urine Few /hpf; Nitrite,Urine Negative (Negative); PH, Urine 5.5 (5.0-8.0); Protein,Urine Negative (Negative); RBC,Urine 5 /hpf (0-5); Specific Gravity,Urine 1.022 (1.001-1.035); Squamous Epithelial Cell,Urine 2 /hpf (0-4); Urobilinogen,Urine <2.0 mg/dL (<2.0); WBC,Urine 1 /hpf (0-5)
[2023-10-20] MEDS ORDERED: SODIUM CHLORIDE 0.9% 500 ML 500 ML IV STA (21:36)
[2023-10-20] MEDS ORDERED: MORPHINE SULFATE 4 MG/ML SYRINGE IV STA (22:20)
[2023-10-20] MEDS ORDERED: ONDANSETRON 4 MG/2 ML VIAL IVP STA (22:20)
--- NOTE | 2023-10-20 23:05 | CT ---
EXAM: CT Abdomen and Pelvis With Intravenous Contrast CLINICAL HISTORY: ITS.REASON CT Reason: abdominal pain TECHNIQUE: Axial computed tomography images of the abdomen and pelvis with intravenous contrast. CTDI is 14.2 mGy and DLP is 653.1 mGy-cm. This CT exam was performed using one or more of the following dose reduction techniques: automated exposure control, adjustment of the mA and/or kV according to patient size, and/or use of iterative reconstruction technique. COMPARISON: CT abdomen pelvis September 18, 2023. FINDINGS: Lung bases: Unremarkable. No mass. No consolidation. ABDOMEN: Liver: Unremarkable. No focal hepatic lesions. Gallbladder and bile ducts: Unremarkable. No calcified stones. No ductal dilation. Normal gallbladder. Pancreas: Unremarkable. No mass. No ductal dilation. Spleen: Unremarkable. Normal spleen. Adrenals: Unremarkable. No mass. Kidneys and ureters: Unremarkable. No hydronephrosis or delayed nephrogram. Stomach and bowel: Moderate fecal retention, correlate for constipation. Multiple areas of anastomotic sutures in the small bowel, correlate with surgical history. No small bowel obstruction at this time. No mucosal thickening. PELVIS: Appendix: No findings to suggest acute appendicitis. Bladder: Unremarkable. No mass. Reproductive: Unremarkable as visualized. ABDOMEN and PELVIS: Intraperitoneal space: Unremarkable. No free air. No significant fluid collection. Bones/joints: Degenerative changes of the spine. No acute fracture. No dislocation. Soft tissues: Unremarkable. Vasculature: Atherosclerotic changes of the aorta. No abdominal aortic aneurysm. Lymph nodes: Unremarkable. No enlarged lymph nodes. IMPRESSION: Moderate fecal retention, correlate for constipation. Multiple areas of anastomotic sutures in the small bowel, correlate with surgical history. No small bowel obstruction at this time.
[2023-10-21] MEDS ORDERED: PEG 3350 (236 GM/BTL) + LYTES 4,000 ML BOTTLE PO ONE (02:30)
[2023-10-21 03:13] VITALS: BP 111/65; PULSE 69; RESP 17
== END 2023-10-21 03:06 | disposition home or self-care (01) ==
LOC: EC 16:58
DX: K59.00 Constipation, unspecified (principal); F17.200 Nicotine dependence, unspecified, uncomplicated; F12.90 Cannabis use, unspecified, uncomplicated
CPT/HCPCS: 99284 ×2; 96374 ×2; 96375 ×2; 96361 ×5; 36415; 80053; 82150; 83605; 83690; 85025; 81001; 81025; 74177; J2270; J2405; Q9967